=== PATIENT | male | born 1945 | race Caucasian/White ===

== ENCOUNTER 2019-10-15 00:32 | Emergency (ER) | payer MEDICARE, OTHER, SELFPAY ==
--- NOTE | ~2019-10-15 | CT_ITS ---
EXAMINATION: CT abdomen pelvis wo con DATE: 10/15/2019 00:57 INDICATION: Right flank and back pain. TECHNIQUE: Computed tomography (CT) of the abdomen and pelvis was performed without intravenous contr ast. Automated exposure control and iterative reconstruction technique were employed. Exam dose: 114 6.89 mGy-cm total exam DLP. COMPARISON: 10/01/2016 MRI abdomen FINDINGS: There are 2 up to approximately 7 mm gallstones. No gallbladder wall thickening or perichol ecystic fluid or stranding. No bile duct or pancreatic duct dilatation. No hepatic, splenic, pancreat ic or adrenal space-occupying mass lesion. There are bilateral renal cysts, measuring up to 5.3 cm. No urinary tract calculus or hydroureteronep hrosis. There is prominent prostate enlargement. There is diffuse thickening of the urinary bladder wall, whi ch may be due to bladder outlet obstruction secondary to prostate enlargement, underdistention and/or cystitis. The bladder is relatively evacuated. There is extensive aortic, iliac, femoral, celiac, superior mesenteric and bilateral renal calcified atherosclerosis. There is up to 7.5 cm AP dimension infrarenal abdominal aortic aneurysm with interna l curvilinear calcification, possibly due to partial thrombosis; aortic dissection is not excluded. N o apparent periaortic hemorrhage. Surgical consultation is recommended. No bowel obstruction or intraperitoneal free air. Ventral abdominal wall mesh repair. Mild bilateral fat containing inguinal hernias. Diffuse idiopathic skeletal hyperostosis of the lower thoracic spine. There is degenerative disc dise ase of the lumbar and lumbosacral spine, particularly at L4-5 and L5-S1. There is degenerative change at the facet joints the lumbar spine with associated grade 1 anterolisthesis at L4-5. IMPRESSION: Up to 7.5 cm AP dimension infrarenal abdominal aortic aneurysm with internal curvilinear calcification which may be due to thrombosis; aortic dissection cannot be excluded on this noncontra st examination. The abdominal aorta was previously reported at 5.5 cm dimension on 10/01/2016 MRI abdom en examination. Urgent surgical consultation is recommended. Cholelithiasis Bilateral renal cysts The initial interpreting radiologist gave a preliminary report to emergency room physician Dr. Rosas tyson at 0115 hours. Reviewed, dictated and finalized at [facility]. Reviewed, dictated and finalized at location [facility]. ENT BURNER IMPRESSION: Up to 7.5 cm AP dimension infrarenal abdominal aortic aneurysm wit h internal curvilinear calcification which may be due to thrombosis; aortic dis section cannot be excluded on this noncontrast examination. The abdominal aorta was previously reported at 5.5 cm dimension on 10/01/2016 MRI abdomen examinatio n. Urgent surgical consultation is recommended. Cholelithiasis Bilateral renal cysts The initial interpreting radiologist gave a preliminary report to emergency chelly m physician Dr. Maddox at 0115 hours.
[2019-10-15 00:37] VITALS: BP 194/90; PULSE 94; RESP 18; TEMP 36.6; O2SAT 100
--- NOTE | 2019-10-15 00:40 | ED.ABDPAIN ---
HPI - Abdominal Pain General Chief Complaint: Abdominal Pain Stated Complaint: R FLANK PAIN Time Seen by Provider: 10/15/19 00:37 Source: patient and RN notes reviewed Mode of arrival: ambulatory Limitations: no limitations History of Present Illness HPI narrative: Pt is a 73 y/o male who presents to the ED with c/o rt flank pain starting this morning and worsening this evening. He reports nausea and vomiting accompanying his pain, but denies any fever, chills, hematuria, or dysuria. Pt currently rates his pain at 10/10. He denies any recent falls or injuries. Pt states that he has no Hx of kidney stones. MD elicited complaint: flank pain Onset (ago): day(s) (1) Pain Consistency: other (worsening) Location: R flank Pain scale (0-10): 10 Associated symptoms: nausea and vomiting Related Data Home Medications Medication Instructions Recorded Confirmed Men's Multivitamin 1 tablet PO DAILY 10/15/19 10/26/19 aspirin 81 mg PO DAILY 10/15/19 10/26/19 atorvastatin 80 mg PO DAILY 10/15/19 10/26/19 clopidogrel [Plavix] 75 mg PO DAILY 10/15/19 10/26/19 coenzyme Q10 [Co Q-10] 10 mg PO DAILY 10/15/19 10/26/19 hydralazine 50 mg PO TID 10/15/19 10/26/19 isosorbide mononitrate 60 mg PO DAILY 10/15/19 10/26/19 metoprolol tartrate 75 mg PO BID 10/15/19 10/26/19 cholecalciferol (vitamin D3) 125 5,000 unit PO EVERY OTHER DAY cap 11/25/19 mcg (5,000 unit) capsule tamsulosin 0.4 mg capsule 0.4 mg PO DAILY 11/25/19 Allergies Allergy/AdvReac Type Severity Reaction Status Date / Time No Known Allergies Allergy Unknown Unverified 10/15/19 00:46 Review of Systems Review of Systems: All systems reviewed & are unremarkable except as noted in HPI and below Constitutional: Constitutional: Denies chills and Denies fever(s) Gastrointestinal: Gastrointestinal: Reports nausea and Reports vomiting Genitourinary: Genitourinary: Denies hematuria, Denies dysuria and Reports flank pain (rt flank pain) [facility] Past Medical History Medical History (Updated 11/25/19 @ 14:25 by Yevgeniy Castañeda MD) A-fib AAA (abdominal aortic aneurysm) CAD (coronary artery disease) CAP (community acquired pneumonia) CKD (chronic kidney disease) stage 3, GFR 30-59 ml/min CVA (cerebral vascular accident) Gout HTN (hypertension) Surgical History Surgical History Hx of appendectomy Hx of CABG x4 Hx of cardiac catheterization with stent placement Social History Social History Smoking status: Never smoker Alcohol intake: never Substance use: never Gender identity (if verbalized by the patient): Male Spiritual care concerns: No Agree to blood products: Yes Exam Const: General: cooperative, healthy appearing, comfortable, no acute distress, well developed, alert and awake; No confusion Orientation/consciousness: oriented to person, oriented to place, oriented to time, patient oriented x3 and No confusion Limitations: no limitations Chest: Chest palpation & inspection: normal inspection of the chest Resp: Effort & Inspection: normal respiratory effort, able to speak in complete sentences, no respiratory distress and not tachypneic Auscultation: clear to auscultation bilaterally, no crackles, no rales, no rhonchi and no wheezes Cardio: Rate: regular rate Rhythm: regular rhythm GI: Inspection: normal to inspection GI Palp: No abdominal tenderness, Yes Soft to palpation, No Tenderness to palpation present (GI), No Guarding due to palpation present (GI), No Rigid due to palpation and No Rebound tenderness present Auscultation: normal bowel sounds : General: Yes no CVA tenderness Back/Spine/Pelvis: Back: no CVA tenderness Skin: General skin exam: normal color, no rashes or lesions noted, elasticity normal and turgor normal Neuro: General: oriented to person, oriented to place, oriented to time, patient oriented x3, tone normal
[2019-10-15 00:50] LABS: Basophils Percent Auto 0.5 % (0.2-1.2); Eosinophils Absolute Auto 0.2 K/mm3 (0-0.3); Eosinophils Percent Auto 2.1 % (0-4.4); Hematocrit 39.1 % (42.0-52.0); Hemoglobin 12.5 g/dL (14.0-18.0); Immature Granulocyte Absolute 0.02 K/mm3 (0.00-0.031); Immature Granulocyte Percent A 0.2 % (0-0.5); Lymphocytes Absolute Auto 2.48 K/mm3 (0.9-3.2); Mean Corpuscular Hemoglobin 29.5 pg (26-34); Mean Corpuscular Volume 92.2 fl (80-100); Mean Platelet Volume 9.6 fl (7.4-10.4); Monocytes Absolute Auto 0.9 K/mm3 (0.1-0.6); Monocytes Percent Auto 10.9 % (2.6-8.5); Neutrophils Absolute Auto 4.4 K/mm3 (1.3-6.7); Neutrophils Percent Auto 55.3 % (45.5-73.1); Platelet Count Result 215 k/mm3 (150-375); Red Blood Count 4.24 M/mm3 (4.6-6.20); Red Cell Distribution Width 13.6 % (11.5-14.5)
[2019-10-15] MEDS: PROMETHAZINE HCL 25 MG/ML AMPUL 12.5 MG IV PUSH (00:57)
[2019-10-15] MEDS: SODIUM CHLORIDE 0.9% IV 1,000 ML 999 ML IV CONT (00:57)
--- NOTE | 2019-10-15 01:35 | ECG_ITS ---
Measurements Intervals [place] Rate: 76 P: ME: 0 QRS: -61 QRSD: 156 T: 89 QT: 429 QTc: 483 Interpretive Statements SINUS RHYTHM WITH FIRST DEGREE AV BLOCK RIGHT BUNDLE BRANCH BLOCK LEFT ANTERIOR FASCICULAR BLOCK LEFT VENTRICULAR HYPERTROPHY AND ST-T CHANGE BASELINE ARTIFACT- I, II, AVR, AVL, AVF, V1-V6 ABNORMAL ECG Electronically Signed On 10-18-2019 19:05:18 WOOD FLOUR MILLER by Santos Hawkins D.O.
--- NOTE | 2019-10-15 02:20 | PC.NURSE ---
see downtime charting
[2019-10-15 02:26] LABS: Add Urine Microscopic? YES; Appearance Urine Clear (Clear); Bacteria Urine Trace /hpf; Bilirubin Urine Negative (Negative); Blood Urine Negative (Negative); Color Urine Yellow (Yellow); Glucose Urine UA Negative (Negative); Ketones Urine Negative (Negative); Leukocyte Esterase Ur Negative LEU/UL (Negative); Nitrate Urine Negative (Negative); Protein Urine 3+ mg/dL (Negative); RBC Urine 0-2 /hpf (0-2); Specific Grav Ur 1.016 (1.001-1.035); Urobilinogen Urine Negative mg/dL (<2.0); WBC Urine 0-3 /hpf
[2019-10-15 02:35] LABS: Alanine Aminotransferase 26 U/L (4-50); Albumin Level 4.2 g/dL (3.5-5.1); Alkaline Phosphatase 88 U/L (38-126); Aspartate Amino Transferase 25 U/L (17-59); Bilirubin,Total 0.7 mg/dL (0.2-1.3); Blood Urea Nitrogen 31 mg/dL (9-20); Calcium 9.5 mg/dL (8.4-10.2); Carbon Dioxide 20 mmol/L (22-30); Chloride 105 mmol/L (98-107); Estimated CRCL calculation 46 ml/min; Estimated Glomerular Filt Rate 42; Glucose 122 mg/dL (75-110); Lipase 113 U/L (23-300); Potassium 4.1 mmol/L (3.4-5.0); Sodium 141 mmol/L (137-145)
== END 2019-10-15 02:20 | disposition short-term general hospital (02) ==
PROVIDERS: Emergency Provider Emergency Medicine; PCP Family Medicine Adolescent Medicine
DX: R10.9 Unspecified abdominal pain (principal); I48.91 Unspecified atrial fibrillation; I25.10 Atherosclerotic heart disease of native coronary artery without angina pectoris; Z86.73 Personal history of transient ischemic attack (TIA), and cerebral infarction without residual deficits; I10 Essential (primary) hypertension; M10.9 Gout, unspecified; Z95.1 Presence of aortocoronary bypass graft; Z95.5 Presence of coronary angioplasty implant and graft; I44.0 Atrioventricular block, first degree; I45.2 Bifascicular block; R94.31 Abnormal electrocardiogram [ECG] [EKG]; Z79.82 Long term (current) use of aspirin; Z79.02 Long term (current) use of antithrombotics/antiplatelets
CPT/HCPCS: 36415; 74176; 80053; 81001; 83690; 85025; 93005; 96361; 96374; 99285; J1170; J2550; J7030

== ENCOUNTER 2019-10-25 19:42 | Inpatient (IN) | payer MEDICARE, OTHER, SELFPAY ==
[2019-10-25] VITALS (9 sets, daily range): BP systolic 156–180; BP diastolic 72–94; PULSE 98–111; RESP 25–35; TEMP 37.9–39.5; O2SAT 91–96; BMI 31.4
--- NOTE | ~2019-10-25 | XR_ITS ---
XR chest 2V 10/27/2019 10:51 Indication: Shortness of breath with productive cough Procedure: 2 view chest Comparison: 10/25/2019 Findings: Worsening airspace disease left mid and lower lung, compatible with pneumonia. Cardiomegaly . Status post median sternotomy. No pleural effusion or pneumothorax. Impression: 1: Worsening left basilar airspace consolidation, consistent with pneumonia. Reviewed, dictated and finalized at location B. NOGRAPHER GEOLOGICAL Impression: 1: Worsening left basilar airspace consolidation, consistent with pneumonia.
--- NOTE | ~2019-10-25 | US_ITS ---
EXAMINATION: US renal BI DATE: 10/28/2019 09:03 INDICATION: Renal failure TECHNIQUE: Multiple ultrasound grayscale images of the kidneys were obtained. COMPARISON: Renal ultrasound dated 06/24/2016 and abdominal MRI dated 10/11/2016 FINDINGS: The right kidney measures 11.4 x 5.3 x 4.7 cm. The left kidney measures 12.7 x 4.9 x 6.0 cm. The kidn eys demonstrate normal echogenicity. Again seen are multiple bilateral anechoic renal cysts, the larg est measuring up to 4.3 cm and 3.6 cm in maximal diameter at the right kidney and 6.[address] at the left kidney. There is no hydronephrosis in either kidney. No stones identified. The bladde r is normal. IMPRESSION: 1. Bilateral renal cysts. No hydronephrosis. Reviewed, dictated and finalized at location A. TERIA COUNTER ATTENDANT
--- NOTE | ~2019-10-25 | XR_ITS ---
EXAMINATION: XR chest 2V EXAM DATE: 10/25/2019 20:38 INDICATION: Shortness of breath, fever, cough. TECHNIQUE: Frontal and lateral projections of the chest obtained and reviewed. Comparison is made to prior examination from 03/09/2018. FINDINGS: There is ill-defined left multisegmental basilar pneumonia and/or edema. Cardiac silhouett e is enlarged but stable in size compared to prior exam. Sternotomy wires are present without finding s to suggest sternal dehiscence. There is no pneumothorax suspected. Right lung is clear. IMPRESSION: Multi segmental left basilar pneumonia and/or edema. Reviewed, dictated and finalized at location A. TECHNICIAN REGISTERED
--- NOTE | ~2019-10-25 | US_ITS ---
US thyroid INDICATION: Hyperthyroidism TECHNIQUE: Real-time sonographic images of the thyroid gland were obtained. COMPARISON: FINDINGS: The right thyroid lobe measures 4.4 x 1.8 x 1.6 cm. The left thyroid lobe measures 4.3 x 1 .9 x 1.9 cm. There is relatively homogeneous echotexture. There are small hypoechoic nodules of both lobes, largest in the right measuring 5 mm maximum dimension in largest on the left measures 5 mm. IMPRESSION: 1. Multiple small bilateral hypoechoic/cystic nodules measuring 5 mm or less, likely benign. Reviewed, dictated and finalized at location B. CE DEPARTMENT SECRETARY
[2019-10-25 20:21] LABS: Basophils Percent Auto 0.2 % (0.2-1.2); Eosinophils Absolute Auto 0.1 K/mm3 (0-0.3); Eosinophils Percent Auto 1.6 % (0-4.4); Hematocrit 34.2 % (42.0-52.0); Hemoglobin 11.2 g/dL (14.0-18.0); Immature Granulocyte Absolute 0.03 K/mm3 (0.00-0.031); Immature Granulocyte Percent A 0.3 % (0-0.5); Lymphocytes Absolute Auto 0.57 K/mm3 (0.9-3.2); Lymphocytes Percent Auto 6.6 % (18.3-44.2); Mean Corpuscular HGB Conc 32.7 g/dl (32-36); Mean Corpuscular Hemoglobin 29.3 pg (26-34); Mean Corpuscular Volume 89.5 fl (80-100); Mean Platelet Volume 8.6 fl (7.4-10.4); Monocytes Absolute Auto 0.6 K/mm3 (0.1-0.6); Monocytes Percent Auto 7.1 % (2.6-8.5); Neutrophils Absolute Auto 7.3 K/mm3 (1.3-6.7); Neutrophils Percent Auto 84.2 % (45.5-73.1); Platelet Count Result 270 k/mm3 (150-375); Red Blood Count 3.82 M/mm3 (4.6-6.20); Red Cell Distribution Width 13.9 % (11.5-14.5); White Blood Count 8.6 K/mm3 (4.5-10.0)
[2019-10-25 20:33] LABS: Blood Urea Nitrogen 27 mg/dL (9-20); Calcium 8.8 mg/dL (8.4-10.2); Carbon Dioxide 19 mmol/L (22-30); Chloride 102 mmol/L (98-107); Estimated CRCL calculation 52 ml/min; Estimated Glomerular Filt Rate 50; Glucose 129 mg/dL (75-110); Potassium 4.1 mmol/L (3.4-5.0); Sodium 138 mmol/L (137-145)
--- NOTE | 2019-10-25 20:50 | ED.SOB ---
HPI - SOB/Dyspnea General Chief Complaint: Shortness of Breath/Dyspnea Stated Complaint: coughing, fever, sob Time Seen by Provider: 10/25/19 20:30 Source: patient, family ( at bedside) and RN notes reviewed Mode of arrival: ambulatory Limitations: no limitations History of Present Illness HPI Narrative: Pt is a 73 y/o male presenting to the ED c/o SOB. Pt reports he started experiencing SOB last Friday. Pt also reports productive cough with phlegm and subjective fever, but denies N/V, diarrhea, or dysuria. Pt notes he has Hx's of CABG x4 and cardiac stents, but denies Lung problems or a Hx of DM. Pt's at bedside reports the pt was discharged from [facility] after being diagnosed with a AAA last week. Per , the pt has used an inhaler and Mucinex. Pertinent past history: other (CABG x4; Cardiac stents) Onset (ago): day(s) (6) Associated symptoms: fever (Subjective) and cough (Productive with phlegm) Related Data Home Medications Medication Instructions Recorded Confirmed amlodipine 10/15/19 aspirin 81 mg PO DAILY 10/15/19 10/15/19 atorvastatin 10/15/19 cholecalciferol (vitamin D3) 10/15/19 [Dialyvite Vitamin D] clopidogrel [Plavix] 75 mg PO DAILY 10/15/19 10/15/19 coenzyme Q10 [Co Q-10] 10 mg PO ONCE 10/15/19 10/15/19 hydralazine 10/15/19 isosorbide mononitrate mg PO 10/15/19 lisinopril 10/15/19 metoprolol tartrate 75 mg PO Q12H 10/15/19 10/15/19 [id number]-vit K-lycop tablet PO 10/15/19 [Men's Multivitamin] Allergies Allergy/AdvReac Type Severity Reaction Status Date / Time No Known Allergies Allergy Unknown Unverified 10/15/19 00:46 Review of Systems Review of Systems: All systems reviewed & are unremarkable except as noted in HPI and below Constitutional: Constitutional: Reports fever(s) (Subjective) Respiratory: Respiratory: Reports cough (Productive with phlegm) and Reports dyspnea Gastrointestinal: Gastrointestinal: Denies diarrhea, Denies nausea and Denies vomiting Genitourinary: Genitourinary: Denies dysuria PMFSH Past Medical History Medical History (Updated 10/25/19 @ 21:47 by Chris Preston MD) A-fib AAA (abdominal aortic aneurysm) CAD (coronary artery disease) CVA (cerebral vascular accident) Gout HTN (hypertension) Surgical History Surgical History Hx of appendectomy Hx of CABG x4 Hx of cardiac catheterization with stent placement Social History Social History Smoking status: Never smoker Gender identity (if verbalized by the patient): Male Exam Const: General: healthy appearing, no acute distress and well developed Nutritional Appearance: well nourished Orientation/consciousness: patient oriented x3 (alert) and Other orientation findings (Alert) Limitations: no limitations HENMT: Head: normocephalic and atraumatic Ears: external ears normal General nose exam: No nasal discharge present and no epistaxis Face and sinus: face symmetric Mouth: Yes lip normal Eyes: Conjunctivae: conjunctivae normal Sclera: sclerae normal EOM: EOMs intact bilaterally Neck: Neck: full ROM and supple Thyroid: thyroid normal Resp: Effort & Inspection: normal respiratory effort Auscultation: rales bilateral, rhonchi throughout and other (breath sounds equal) Cardio: Rate: tachycardic Rhythm: regular rhythm Heart sounds: no gallops and no murmurs GI: Inspection: non-distended GI Palp: No abdominal tenderness and Yes Soft to palpation Auscultation: other (bowel sounds present) : General: Yes no CVA tenderness Back/Spine/Pelvis: Back: no CVA tenderness Thoracic/Lumbar Spine: thoracic and lumbar spine normal to inspection Skin: General skin exam: normal color and no rashes or lesions noted Neuro: General: patient oriented x3 (alert), moves all extremities and no focal motor deficits Cranial nerves: Yes facial symmetry Speech: normal speech Motor exam (n
[2019-10-25] MEDS: IPRATROPIUM BR 0.02% INH SOLN 0.5 MG/2.5 ML VIAL INHALATION (21:01)
[2019-10-25] MEDS: ALBUTEROL SULFATE NEB 2.5 MG/0.5 ML INH 5 MG INHALATION (21:01)
--- NOTE | 2019-10-25 21:06 | ECG_ITS ---
Measurements Intervals [place] Rate: 98 P: 3 CO: 194 QRS: -56 QRSD: 151 T: 75 QT: 371 QTc: 475 Interpretive Statements SINUS RHYTHM RIGHT BUNDLE BRANCH BLOCK LEFT ANTERIOR FASCICULAR BLOCK BASELINE ARTIFACT- I, III, AVL ABNORMAL ECG Electronically Signed On 10-26-2019 6:41:11 FINANCIAL INVESTMENT ADVISER by Santos Hawkins D.O.
[2019-10-25] MEDS: ACETAMINOPHEN 500 MG TABLET 1000 MG PO (21:21)
[2019-10-25 21:27] LABS: Lactic Acid Reflex 1.3 mmol/L (0.7-2.1)
[2019-10-25 21:36] LABS: NT Pro B Type Natriuretic Pept 5590 PG/ML (5-100)
--- NOTE | 2019-10-25 21:41 | PM.IMHP ---
H&P: HPI History of Present Illness Chief complaint: pneumonia Narrative: This is a pleasant 73 year old male with known CAD+ s/p CABG x 4, #3 stents who just recently underwent repair of an abdominal aortic aneursym this past week at [facility] who began to cough approximately 5 days ago. Today the patient began to experience high fever with a Tmax of 102F, diffuse body aches, increased shortness of breath and work of breathing. The patient was evaluated in the ER tonight and tested negatiave for influenza. CXR demonstarted multi segmental left basilar pneumonia and/or edema. He denies any chest pain, palpitations, abdominal pain, dysuria, hematuria, nausea, vomiting, diarrhea or rectal bleeding. He also denies any worsening groin pain from where he had his surgical incision from his recent procedure. No other complaints tonight. The patient does have increased work of breathing and is now on 5L of oxygen via [place]. ABG has not yet been obtained in the ER. Review of Systems Review of Systems: All systems reviewed & are unremarkable except as noted in HPI and below PMFSH Past Medical History Medical History A-fib AAA (abdominal aortic aneurysm) CAD (coronary artery disease) CVA (cerebral vascular accident) Gout HTN (hypertension) Surgical History Surgical History Hx of appendectomy Hx of CABG x4 Hx of cardiac catheterization with stent placement Family History Family History Mother Diabetes mellitus Sibling Diabetes mellitus Father Acute myocardial infarction Social History Social History Smoking status: Never smoker Alcohol intake: never Substance use: never Gender identity (if verbalized by the patient): Male Spiritual care concerns: No Agree to blood products: Yes Meds Home Medications and Allergies Home Medications Medication Instructions Recorded Confirmed Type aspirin 81 mg PO DAILY 10/15/19 10/26/19 History atorvastatin 80 mg PO DAILY 10/15/19 10/26/19 History cholecalciferol (vitamin D3) 125 mcg PO EVERY OTHER DAY 10/15/19 10/26/19 History [Dialyvite Vitamin D] clopidogrel [Plavix] 75 mg PO DAILY 10/15/19 10/26/19 History coenzyme Q10 [Co Q-10] 10 mg PO DAILY 10/15/19 10/26/19 History hydralazine 50 mg PO TID 10/15/19 10/26/19 History isosorbide mononitrate 60 mg PO DAILY 10/15/19 10/26/19 History lisinopril 30 mg PO BID 10/15/19 10/26/19 History metoprolol tartrate 75 mg PO BID 10/15/19 10/26/19 History [id number]-aqm-[id number]-vit K-lycop 1 tablet PO DAILY 10/15/19 10/26/19 History [Men's Multivitamin] Allergies Allergy/AdvReac Type Severity Reaction Status Date / Time No Known Allergies Allergy Unknown Unverified 10/15/19 00:46 Vital Signs Vital Signs - 24 hr 10/25/19 20:05 10/25/19 20:55 10/25/19 21:01 Temperature 39.1 C H 38.7 C H Pulse Rate 101 H 99 98 Respiratory Rate 25 H 30 H 33 H Blood Pressure 180/94 H 174/88 H Pulse Oximetry 93 91 10/25/19 21:10 10/25/19 21:23 Temperature 38.7 C H Pulse Rate 100 100 Respiratory Rate 28 H 29 H Blood Pressure 156/82 H Pulse Oximetry 93 Exam Const: General: cooperative, alert, awake, anxious and ill appearing Nutritional Appearance: obese Orientation/consciousness: patient oriented x3 HENMT: Head: normal to inspection General nose exam: Normal external nose present Face and sinus: normal facial exam Mouth: Yes Normal oral and palatal mucosa present and Yes oropharynx normal Eyes: Pupils: Equal, round and reactive pupils present EOM: EOMs intact bilaterally Neck: Neck: supple and no JVD Thyroid: thyroid normal Lymphatic: lymphadenopathy not noted Resp: Effort & Inspection: tachypneic Auscultation: rhonchi, wheezes throughout and diminished lung sounds Cardio: Rate: tachyc
[2019-10-25] MEDS: LACTATED RINGERS 1,000 ML 999 ML IV CONT (22:25)
[2019-10-25] MEDS: AZITHROMYCIN 250 MG TABLET 500 MG PO (22:25)
[2019-10-25 23:47] LABS: Alveolar/Arterial O2 Gradient 196.3 mmHg; Base Excess ABG -4.9 mEq/l (+/-2.0); Fractional Inspired Oxygen 40 %; HCO3 ABG 17.6 mEq/l (22.0-26.0); Oxygen Content ABG 15.4 %vol (16.0-22.0); Oxygen Saturation ABG 92.3 % (95.0-100.0); Oxyhemoglobin 89.9 % THb (90.0-100.0); PCO2 ABG 25.9 mmHg (35.0-45.0); PO2 ABG 59.1 mmHg (80.0-100.0); PO2 FiO2 Ratio Arterial Blood 1.48 %; Total Hemoglobin 12.2 g/dL (12.0-18.0)
[2019-10-25 23:48] LABS: Device NASAL CANNULA; Modified Allen's Test Pass; Site Drawn RIGHT RADIAL
[2019-10-26] VITALS (28 sets, daily range): BP systolic 98–134; BP diastolic 47–76; PULSE 62–100; RESP 18–28; TEMP 36.7–39.2; O2SAT 93–99
--- NOTE | 2019-10-26 00:31 | ADMGEN ---
This patient, Jose Carballo, was admitted to [facility] Surg Room 328-01. Patient/family oriented to hospital policies and general routines including ID bracelet, bed and alarms, visiting hours, pain management, procedures, bathroom and other care routines, personal items, smoking policy, room service/diet, and visiting hours. Valuables list has been completed. Information on how to activate the Rapid Response Team has been discussed. Patient/Family are encouraged to report perceived risks to care and to ask questions if they do not understand what they are told or what they should do.
[2019-10-26] MEDS: ACETAMINOPHEN 325 MG TABLET 650 MG PO (00:55)
[2019-10-26] MEDS: ALBUTEROL SULFATE NEB 2.5 MG/0.5 ML INH 5 MG INHALATION (04:24)
[2019-10-26] MEDS: IPRATROPIUM BR 0.02% INH SOLN 0.5 MG/2.5 ML VIAL INHALATION ×4 (04:24→21:42)
--- NOTE | 2019-10-26 05:10 | ECG_ITS ---
Measurements Intervals [place] Rate: 90 P: 7 ME: 197 QRS: -52 QRSD: 159 T: 103 QT: 410 QTc: 504 Interpretive Statements SINUS RHYTHM RIGHT BUNDLE BRANCH BLOCK LEFT ANTERIOR FASCICULAR BLOCK LEFT VENTRICULAR HYPERTROPHY AND ST-T CHANGE BASELINE ARTIFACT- V3 ABNORMAL ECG Electronically Signed On 10-26-2019 9:01:46 DISPLAY COORDINATOR by Santos Hawkins D.O.
--- NOTE | 2019-10-26 05:10 | PC.NURSE ---
notified that pt's HR is elevated(140's-180's). States he will come and assess pt. Orders received and entered.
--- NOTE | 2019-10-26 05:30 | PC.NURSE ---
Transferred to room 206. Report given to Izzy FLOOD.
--- NOTE | 2019-10-26 05:40 | ECHO_ITS ---
Patient Info Name: Jose Carballo Age: 73 years : 1945 Gender: Male Ht: 71 in Wt: 225 lbs BSA: 2.29 m2 HR: 82 bpm BP: 134 / 76 mmHg Heart Rhythm: Indeterminant Technical Quality: Good Exam Date: 10/26/2019 9:36 AM Exam Location: [facility] Pulmonary Patient Status: Inpatient Admit Date: 10/25/2019 Staff Ordering Physician: Tor Bose MD Reed Repairer: Stephan Nagel RDCS Attending Provider: Irene Kang PA-C Referring Physician: Lidya HUSSEIN; Exam Type: CA echo dop color flow w con Study Info Indications I48.0 - Paroxysmal atrial fibrillation Complete two-dimensional, color flow and Doppler transthoracic echocardiogram is performed with contrast to opacify the left ventrical and to improve the deliniation of the left ventrical endocarial boarders. Contrast/Agitated Saline Contrast/Ag. Saline: Definity Amount: 2.00 ml Administered By: Lou Correa RN Existing IV Access: Yes History/Risk Factors Afib w/ RVR; CAD s/p 4vCABG, HTN, CHF w/ BNP 15.6k. Summary 1. Left ventricular chamber dimension is mildly enlarged with mild concentric left ventricular hypertrophy. There is moderate global hypokinesis with akinesis of the basal inferior septum, and severe hypokinesis of the apex, apical septal and apical lateral segments. Diastolic dysfunction grade 2 is present. The calculated ejection fraction is 34% an estimated ejection fraction visually is 35 %. 2. Right ventricular chamber dimension is mildly enlarged with mild hypokinesis. Not well visualized. 3. Left atrial chamber dimension is moderately enlarged. 4. There is mild mitral valve regurgitation. 5. There is moderate tricuspid valve regurgitation. 6. Mild pulmonary hypertension, estimated pulmonary arterial systolic pressure is 37 mmHg. 7. Compared to the echo of April 2016, there is now LV enlargement and apical hypokinesis. Left Ventricle Left ventricular chamber dimension is mildly enlarged with mild concentric left ventricular hypertrophy. There is moderate global hypokinesis with akinesis of the basal inferior septum, and severe hypokinesis of the apex, apical septal and apical lateral segments. Diastolic dysfunction grade 2 is present. The calculated ejection fraction is 34% an estimated ejection fraction visually is 35 %. Left ventricular systolic function is normal, estimated at 35-40%. There is mildly increased left ventricular wall thickness. Left ventricular septal wall motion is normal. The left ventricular diastolic function is grade II diastolic dysfunction. Right Ventricle Right ventricular chamber dimension is mildly enlarged with mild hypokinesis. Not well visualized. Right ventricular systolic function is reduced. Left Atria Left atrial chamber dimension is moderately enlarged. Right Atria Right atrial chamber dimension is normal. Aortic Valve The aortic valve is trileaflet. There is no aortic valve sclerosis. There is no aortic valve stenosis. There is no aortic valve regurgitation. There is mild aortic valve calcification. Pulmonic Valve The pulmonic valve is normal. There is no pulmonic valve stenosis. There is no pulmonic regurgitation. Mitral Valve The mitral valve has normal leaflets. There is no mitral valve stenosis. There is mild mitral valve regurgitation. Tricuspid Valve The tricuspid valve leaflets are normal. There is no significant tricuspid valve stenosis. There is moderate tricuspid
--- NOTE | 2019-10-26 05:41 | PM.EVENT ---
Event Note Event Note Event Note: Called to assess this 73 year old male who is being treated for acute respiratory failure and pneumonia by nursing staff secondary to tachycardia. EKG obtained which demonstrated atrial fibrillation w/ RVR w/ HR 133 bpm. The patient continues to have a hacking cough and shortness of breath but denies any chest pain or new symptoms. The patient was transferred to IMU for further care. A/P 1. Acute on Chronic Atrial fibrillation w/ RVR - CHADSVASc score 5 - Last Echo was 4 years ago and demonstrated an EF of 40%. - We will rate control the patient w/ IV Cardizem bolus and drip - Check TSH w/ refelx T4 and Echocardiogram. - Anticoagulation w/ IV heparin - Continue Telemetry - Change Albuterol to Xopenex nebs - Cardiology consultation in am. The patient sees Dr. Burch - I will reassess as needed.
[2019-10-26 06:08] LABS: Basophils Percent Auto 0.2 % (0.2-1.2); Hematocrit 32.5 % (42.0-52.0); Hemoglobin 10.7 g/dL (14.0-18.0); Immature Granulocyte Absolute 0.03 K/mm3 (0.00-0.031); Immature Granulocyte Percent A 0.3 % (0-0.5); Lymphocytes Percent Auto 9.5 % (18.3-44.2); Mean Corpuscular HGB Conc 32.9 g/dl (32-36); Mean Corpuscular Hemoglobin 29.5 pg (26-34); Mean Corpuscular Volume 89.5 fl (80-100); Mean Platelet Volume 8.5 fl (7.4-10.4); Monocytes Percent Auto 8.3 % (2.6-8.5); Neutrophils Absolute Auto 9.4 K/mm3 (1.3-6.7); Neutrophils Percent Auto 81.7 % (45.5-73.1); Platelet Count Result 220 k/mm3 (150-375); Red Blood Count 3.63 M/mm3 (4.6-6.20); Red Cell Distribution Width 14.1 % (11.5-14.5); White Blood Count 11.6 K/mm3 (4.5-10.0)
[2019-10-26] MEDS: GUAIFENESIN/DEXTROMETHORPHAN 10 ML UDC PO ×2 (06:14→20:06)
[2019-10-26 06:18] LABS: INR 1.1; Prothrombin Time 14.1 Seconds (11.1-14.7)
[2019-10-26 06:19] LABS: Partial Thromboplastin Time 33.8 SECONDS (22.3-36.8)
[2019-10-26 06:31] LABS: Alveolar/Arterial O2 Gradient 260.7 mmHg; Base Excess ABG -4.3 mEq/l (+/-2.0); Fractional Inspired Oxygen 52 %; HCO3 ABG 18.1 mEq/l (22.0-26.0); Oxygen Content ABG 16.2 %vol (16.0-22.0); Oxygen Saturation ABG 96.7 % (95.0-100.0); PO2 ABG 80.9 mmHg (80.0-100.0); PO2 FiO2 Ratio Arterial Blood 1.56 %; Total Hemoglobin 12.1 g/dL (12.0-18.0)
[2019-10-26 06:32] LABS: Device HIGH FLOW NASAL CANN; Modified Allen's Test Pass; Site Drawn RIGHT RADIAL
[2019-10-26 06:34] LABS: Blood Urea Nitrogen 30 mg/dL (9-20); Calcium 8.4 mg/dL (8.4-10.2); Carbon Dioxide 19 mmol/L (22-30); Chloride 99 mmol/L (98-107); Estimated CRCL calculation 40 ml/min; Estimated Glomerular Filt Rate 37; Glucose 91 mg/dL (75-110); Sodium 136 mmol/L (137-145)
[2019-10-26 07:09] LABS: NT Pro B Type Natriuretic Pept 15600 PG/ML (5-100)
[2019-10-26] MEDS: MAGNESIUM SULFATE 3GM/D5W100ML 3 GM/100 ML BAG IVPB (08:12)
[2019-10-26] MEDS: HEPARIN SODIUM 5,000 UNITS/ML VIAL 7000 UNITS IV PUSH (08:26)
[2019-10-26] MEDS: HEPARIN SOD/D5W 100 UNITS/ML 25,000 UNITS/250 ML BAG 15 UNITS IV CONT (08:26)
--- NOTE | 2019-10-26 08:26 | PM.CNCAR ---
Assessment and Plan Assessment and plan (1) Pneumonia: Qualifiers: Laterality: unspecified laterality Lung location: unspecified part of lung Pneumonia type: due to unspecified organism Qualified Code(s): J18.9 - Pneumonia, unspecified organism Code(s): J18.9 - Pneumonia, unspecified organism Status: Acute Assessment and Plan: 73-year-old male with CAD, history of remote CABG x2 with CLEMONS to LAD and SVG to diagonal branch in ?1995; history of PCI/stenting ? Left main, clemons/lad anastomosis; PAF, CKD, recent diagnosis of infrarenal AAA status post EVAR on 10/15/2019 at [facility], postprocedure atrial fibrillation. Patient admitted about 1 week history of cough, expectoration, respiratory distress, fever/chills. Influenza testing Sineff and negative in the ER. -continue appropriate antibiotics as per primary team. -respiratory support, supplemental oxygen as needed (2) Acute respiratory failure with hypoxemia: Code(s): J96.01 - Acute respiratory failure with hypoxia Status: Acute Assessment and Plan: See above (3) CHF exacerbation: Code(s): I50.9 - Heart failure, unspecified Status: Acute Assessment and Plan: Patient has known ischemic cardiomyopathy with last documented EF of 40% with segmental wall motion abnormality. He presents with acute on chronic CHF in the setting of respiratory tract infection. Diuresis with furosemide, monitor electrolytes and renal function. Patient is at an unusual dose of lisinopril at 30 mg p.o. b.i.d.. Due to patient's renal insufficiency, will decrease the dose of lisinopril to 10 mg p.o. daily, dose to be modified later. (4) Troponin level elevated: Code(s): R79.89 - Other specified abnormal findings of blood chemistry Status: Acute Assessment and Plan: Patient has elevated 1st set of troponins. Troponin elevation is in the setting of pneumonia and CHF. Trend troponins Check echocardiogram with Doppler to reassess LV function, wall motion and any progression of aortic stenosis. (5) Atrial fibrillation with RVR: Code(s): I48.91 - Unspecified atrial fibrillation Status: Acute Assessment and Plan: Patient had atrial fibrillation with RVR this morning, heart rate controlled with IV diltiazem. At the time of dictation of this note, patient went back to sinus rhythm. Will wean off IV diltiazem. Continue oral beta-joan. Patient has been on dual antiplatelet therapy with aspirin and clopidogrel; and not on anticoagulation for atrial fibrillation. He has been initiated on IV heparin for now. Would recommend apixaban plus single antiplatelet treatment at discharge, unless anticoagulation in the past was deemed to be contraindicated. Patient does not recall any major adverse events to anticoagulation in the past at this time. (6) S/P AAA repair: Code(s): Z98.890 - Other specified postprocedural states; Z86.79 - Personal history of other diseases of the circulatory system Status: Acute History of Present Illness History of Present Illness Consult date/time: 10/26/19 08:26 DATE OF CONSULT: 10/26/2019 REASON FOR CONSULT: Shortness of breath, troponin elevation, CAD COSTING PHYSICIAN:Dr Bose CHIEF COMPLAINT: Cough, shortness of breath for approximately 1 week HPI: 73-year-old male with CAD, history of remote CABG x2 with CLEMONS to LAD and SVG to diagonal branch in ?1995; history of PCI/stenting ? Left main, clemons/lad anastomosis; PAF, CKD, recent diagnosis of infrarenal AAA status post EVAR on 10/15/2019 at [facility], postprocedure atrial fibrillation. Patient was recently hospitalized at [facility] with infrarenal AAA with a diameter of 7.2 cm with impending rupture. He underwent successful EVAR on 10/15/2019. Based on my review of the notes from [facility], patient had brief postop atrial fibrillation with heart rate in 140s which was reverted
[2019-10-26] MEDS: ASPIRIN 81 MG CHEWABLE TABLET PO (08:51)
[2019-10-26] MEDS: CHOLECALCIFEROL 1,000 UNIT TABLET 5000 UNITS PO (08:52)
[2019-10-26] MEDS: lisinopriL 10 MG TABLET 30 MG PO (08:53)
[2019-10-26] MEDS: CLOPIDOGREL BISULFATE 75 MG TABLET PO (08:53)
[2019-10-26] MEDS: THERAPEUTIC MULTIVITAMINS/MINERALS TAB (*BKC) 1 TABLET PO (08:53)
[2019-10-26] MEDS: hydrALAZINE HCL 50 MG TABLET PO ×2 (08:53→11:04)
[2019-10-26] MEDS: METOPROLOL TARTRATE 25 MG TABLET 75 MG PO ×2 (08:53→20:06)
[2019-10-26] MEDS: ATORVASTATIN 40 MG TABLET 80 MG PO (08:53)
[2019-10-26] MEDS: ISOSORBIDE MONONITRATE 60 MG TAB.ER.24H PO (08:53)
[2019-10-26 09:10] LABS: Thyroid Stimulating Hormone Reflex < 0.015 uIU/mL (0.465-4.68)
[2019-10-26] MEDS: PERFLUTREN LIPID MICROSPHERES 1.5 ML VIAL DILUTED TO 10 ML TOTAL VOLUME IV PUSH (09:55)
[2019-10-26] MEDS: FUROSEMIDE 40 MG TABLET PO ×2 (11:04→17:38)
[2019-10-26 11:19] LABS: Free T4 Free Thyroxine Reflex 4.52 ng/dL (0.78-2.19)
[2019-10-26] MEDS: methiMAzole 5 MG TAB PO (14:19)
[2019-10-26] MEDS: PERFLUTREN LIPID MICROSPHERES 1.5 ML VIAL DILUTED TO 10 ML TOTAL VOLUME (14:22)
[2019-10-26 15:23] LABS: Magnesium 1.8 mg/dL (1.6-2.3)
[2019-10-26 15:24] LABS: Partial Thromboplastin Time 140.2 SECONDS (22.3-36.8)
[2019-10-26] MEDS: AZITHROMYCIN 250 MG TABLET 500 MG PO (17:30)
[2019-10-26] MEDS: MAGNESIUM SULF 2 GM/WATER 50ML 2 GM/50 ML BAG IVPB (17:30)
--- NOTE | 2019-10-26 17:39 | PM.IMPN ---
Progress Note: A&P Assessment and Plan (1) Acute respiratory failure with hypoxemia: Code(s): J96.01 - Acute respiratory failure with hypoxia Status: Acute Assessment and Plan: The patient was admitted into the hospital on 5L of oxygen via NC. Throughout the night the patient became more short of breath and was placed on high flow nasal cannula at 50%FIO2. His ABG improved his oxygenation with the high-flow nasal cannula. He was started on IV antibiotics and oral Lasix and throughout the day the patient's breathing improved. At this time the patient is resting comfortably on room air. We will continue treatment of pneumonia with IV antibiotics and possible fluid overload with oral Lasix as ordered by cardiology. Pulmonology was consulted and her input is greatly appreciated. Will recheck a CXR in the morning to look for any improvement. Continue monitoring patient's respiratory status. Use oxygen as needed. (2) Pneumonia: Qualifiers: Laterality: unspecified laterality Lung location: unspecified part of lung Pneumonia type: due to unspecified organism Qualified Code(s): J18.9 - Pneumonia, unspecified organism Code(s): J18.9 - Pneumonia, unspecified organism Status: Acute Assessment and Plan: Likely viral pneumonia verses hospital-acquired due to recent surgery and hospitalization at [place]. The patient was initially started on IV Ceftriaxone and PO Azithromycin to monitor his fluid status. I also started IV Vancomycin for broader spectrum of coverage for Hospital acquired PNA. Sputum culture was sent. Checking Legionella and pneumococcal antigen, pending. Continue monitoring respiratory status. Treat with IV antibiotics. Continue bronchodilators. RT assess and treat. (3) Febrile illness: Code(s): R50.9 - Fever, unspecified Status: Acute Assessment and Plan: Could be secondary to underlying pneumonia. Continue antipyretics and supportive therapy. (4) Sepsis: Qualifiers: Sepsis acute organ dysfunction status: without acute organ dysfunction Sepsis type: sepsis due to unspecified organism Qualified Code(s): A41.9 - Sepsis, unspecified organism Code(s): A41.9 - Sepsis, unspecified organism Status: Acute Assessment and Plan: Source of sepsis appears to be respiratory with increased respiratory rate, fever, leukocytosis in the clinical setting of pneumonia Lactic acid was 1.3 which is normal. Vital signs are much improved since this afternoon. He has been afebrile since 1:00 a.m., non tachycardic in normal sinus rhythm, normal respiratory rate, oxygenation 95% on room air, normal BP and leukocytosis slightly elevated this morning which could have been secondary to acute respiratory failure. Continue monitoring patient's vitals and symptoms. Continue IV antibiotics. Blood and sputum cultures pending. (5) A-fib: Qualifiers: Atrial fibrillation type: unspecified Qualified Code(s): I48.91 - Unspecified atrial fibrillation Code(s): I48.91 - Unspecified atrial fibrillation Status: Chronic Assessment and Plan: The patient went into AFib RVR this morning. The patient was started on an IV diltiazem drip. Cardiology evaluated the patient today and continue beta joan and ASA therapy. The patient converted back into NSR early this morning. (6) HTN (hypertension): Qualifiers: Hypertension type: unspecified Qualified Code(s): I10 - Essential (primary) hypertension Code(s): I10 - Essential (primary) hypertension Status: Chronic Assessment and Plan: Stable. Monitor blood pressure. Continue metoprolol and cardiology discontinued amlodipine
[2019-10-26 17:50] LABS: Erythrocyte Sedimentation Rate 79 mm/hr (0-20)
[2019-10-26 18:00] LABS: CRP 24.3 mg/dL (<1.0)
[2019-10-26 22:29] LABS: Partial Thromboplastin Time 73.3 SECONDS (22.3-36.8)
[2019-10-27] VITALS (22 sets, daily range): BP systolic 116–136; BP diastolic 45–74; PULSE 64–94; RESP 18–20; TEMP 36.6–36.8; O2SAT 93–97
[2019-10-27] MEDS: IPRATROPIUM BR 0.02% INH SOLN 0.5 MG/2.5 ML VIAL INHALATION ×4 (03:46→21:42)
[2019-10-27 04:42] LABS: Basophils Percent Auto 0.3 % (0.2-1.2); Eosinophils Absolute Auto 0.1 K/mm3 (0-0.3); Eosinophils Percent Auto 0.7 % (0-4.4); Hematocrit 28.3 % (42.0-52.0); Hemoglobin 9.2 g/dL (14.0-18.0); Immature Granulocyte Absolute 0.15 K/mm3 (0.00-0.031); Immature Granulocyte Percent A 1.1 % (0-0.5); Lymphocytes Absolute Auto 1.58 K/mm3 (0.9-3.2); Lymphocytes Percent Auto 11.1 % (18.3-44.2); Mean Corpuscular HGB Conc 32.5 g/dl (32-36); Mean Corpuscular Hemoglobin 29.1 pg (26-34); Mean Corpuscular Volume 89.6 fl (80-100); Monocytes Percent Auto 6.8 % (2.6-8.5); Neutrophils Absolute Auto 11.4 K/mm3 (1.3-6.7); Platelet Count Result 206 k/mm3 (150-375); Red Blood Count 3.16 M/mm3 (4.6-6.20); Red Cell Distribution Width 14.3 % (11.5-14.5); White Blood Count 14.2 K/mm3 (4.5-10.0)
[2019-10-27 04:58] LABS: Partial Thromboplastin Time 68.5 SECONDS (22.3-36.8)
[2019-10-27 05:06] LABS: Alanine Aminotransferase 31 U/L (4-50); Albumin Level 3.4 g/dL (3.5-5.1); Alkaline Phosphatase 59 U/L (38-126); Aspartate Amino Transferase 27 U/L (17-59); Bilirubin,Total 0.7 mg/dL (0.2-1.3); Blood Urea Nitrogen 38 mg/dL (9-20); Calcium 8.1 mg/dL (8.4-10.2); Carbon Dioxide 18 mmol/L (22-30); Chloride 99 mmol/L (98-107); Estimated CRCL calculation 30 ml/min; Estimated Glomerular Filt Rate 27; Glucose 108 mg/dL (75-110); Magnesium 2.4 mg/dL (1.6-2.3); Potassium 3.9 mmol/L (3.4-5.0); Sodium 130 mmol/L (137-145)
[2019-10-27] MEDS: HEPARIN SOD/D5W 100 UNITS/ML 25,000 UNITS/250 ML BAG 14 UNITS IV CONT (05:17)
[2019-10-27] MEDS: HEPARIN SODIUM 5,000 UNITS/ML VIAL 3500 UNITS IV PUSH ×2 (05:19→18:00)
--- NOTE | 2019-10-27 07:47 | P.CDI_ITS ---
CDI Query Clarification Request -CHF exacerbation has been documented -Echo with calculated EF 34% and visual EF 35%, diastolic dysfunction grade 2 Please further specify type of CHF: * Systolic * Diastolic * Combined systolic and diastolic * Unable to determine
--- NOTE | 2019-10-27 07:47 | WPDCDIQUERY2 ---
CDI Query Clarification Request -CHF exacerbation has been documented -Echo with calculated EF 34% and visual EF 35%, diastolic dysfunction grade 2 Please further specify type of CHF: Systolic Diastolic Combined systolic and diastolic Unable to determine
[2019-10-27] MEDS: ISOSORBIDE MONONITRATE 60 MG TAB.ER.24H PO (08:35)
[2019-10-27] MEDS: ATORVASTATIN 40 MG TABLET 80 MG PO (08:35)
[2019-10-27] MEDS: METOPROLOL TARTRATE 25 MG TABLET 75 MG PO ×2 (08:35→20:34)
[2019-10-27] MEDS: hydrALAZINE HCL 50 MG TABLET PO ×3 (08:35→17:31)
[2019-10-27] MEDS: CLOPIDOGREL BISULFATE 75 MG TABLET PO (08:35)
[2019-10-27] MEDS: methiMAzole 5 MG TAB PO (08:35)
[2019-10-27] MEDS: THERAPEUTIC MULTIVITAMINS/MINERALS TAB (*BKC) 1 TABLET PO (08:36)
[2019-10-27] MEDS: lisinopriL 10 MG TABLET PO (08:36)
[2019-10-27] MEDS: TAMSULOSIN HCL 0.4 MG CAPSULE PO (08:41)
[2019-10-27] MEDS: ASPIRIN 81 MG CHEWABLE TABLET PO (08:41)
--- NOTE | 2019-10-27 11:21 | PM.IMPN ---
Progress Note: A&P Assessment and Plan (1) Acute respiratory failure with hypoxemia: Code(s): J96.01 - Acute respiratory failure with hypoxia Status: Acute Assessment and Plan: The patient was admitted into the hospital on 5L of oxygen via NC. Throughout the night the patient became more short of breath and was placed on high flow nasal cannula at 50%FIO2. His ABG improved his oxygenation with the high-flow nasal cannula. He was started on IV antibiotics and oral Lasix and throughout the day the patient's breathing improved. At this time, the patient is resting comfortably on room air without any SOB or CHAMBERS. We will continue treatment of pneumonia with IV antibiotics. We discontinued PO Lasix due to rise in creatinine with history of CKD. Pulmonology was consulted and their input is greatly appreciated. Continue monitoring patient's respiratory status. Use oxygen as needed. (2) Pneumonia: Qualifiers: Laterality: unspecified laterality Lung location: unspecified part of lung Pneumonia type: due to unspecified organism Qualified Code(s): J18.9 - Pneumonia, unspecified organism Code(s): J18.9 - Pneumonia, unspecified organism Status: Acute Assessment and Plan: Likely viral pneumonia verses hospital-acquired due to recent surgery and hospitalization at [place]. The patient was initially started on IV Ceftriaxone and PO Azithromycin to monitor his fluid status. I also started IV Vancomycin 10/26/2019 for broader spectrum of coverage for Hospital acquired PNA. Sputum culture was sent and currently shows growth of normal respiratory max. Checking Legionella and pneumococcal antigen, pending. Patients leukocytosis increased today from 11.6K to 14.2K. No recorded fevers, respiratory status overall improved from arrival. CXR showed left basilar airspace consolidation, consistent with pneumonia. This could be secondary to a delay in CXR and patients clinical status. At this time, he is on broad spectrum antibiotics. Pulmonologyw as consulted and their input is greatly appreciated for any further adjustments. Started on Cornet and Incentive spirometer. Continue monitoring respiratory status. Treat with IV antibiotics. Continue bronchodilators. RT assess and treat. (3) ARTEMIO (acute kidney injury): Code(s): N17.9 - Acute kidney failure, unspecified Status: Acute Assessment and Plan: History of CKD stage 3 Cardiology started the patient on oral Lasix 40 mg p.o. b.i.d. and adjusted his lisinopril to 10 mg daily instead of 30 mg b.i.d. yesterday. Today, the patient had an increase to his Cr/BUN today and family is concerned since Dr. Sanchez Neph[facility] has been following him and would like him consulted to see what medications should be adjusted with his ARTEMIO. Will discontinue lasix, monitor renal function. Consult Nephrology. (4) Febrile illness: Code(s): R50.9 - Fever, unspecified Status: Acute Assessment and Plan: Could be secondary to underlying pneumonia. Continue antipyretics and supportive therapy. (5) Sepsis: Qualifiers: Sepsis acute organ dysfunction status: without acute organ dysfunction Sepsis type: sepsis due to unspecified organism Qualified Code(s): A41.9 - Sepsis, unspecified organism Code(s): A41.9 - Sepsis, unspecified organism Status: Acute Assessment and Plan: Source of sepsis appears to be respiratory with increased respiratory rate, fever, leukocytosis in the clinical setting of pneumonia Lactic acid was 1.3 which is normal. Vital signs are much improved since this afternoon. He has been afebrile for over 24 hours, non tachycardic in normal sinus rhythm, normal respiratory rate, oxygenation 97% on room air, normal B
[2019-10-27 11:50] LABS: Partial Thromboplastin Time 78.6 SECONDS (22.3-36.8)
--- NOTE | 2019-10-27 12:05 | PM.PNCARD ---
Progress Note: A&P Additional Plan 73-year-old gentleman with: Ischemic heart disease complex history of surgical and percutaneous revascularization and ischemic cardiomyopathy with ejection fraction 30-35% Paroxysmal atrial fib previously was postoperative and anticoagulation/anti arrhythmic agent was stopped. Currently in sinus rhythm on metoprolol. I would not alter any of his medications today. If he has recurrences of atrial fib during this hospitalization and I would elect to resume amiodarone treatment which was effective in the past we had stopped it about a year ago in hopes of him not needing ongoing antiarrhythmic treatment. If he does have recurrences of atrial fib that we have to treat then I would also start oral anticoagulation and stop aspirin. Time Spent With Patient Time with patient: 15 - 25 minutes Subjective Date/time seen: Date of service: 10/27/19 12:05 Interval history: Follow-up visit with the patient with complex history of coronary artery disease, previous CABG, previous complex PCI and paroxysmal AFib. Patient has ischemic cardiomyopathy with current echo showing ejection fraction 30-35%. Recent emergent endovascular aortic repair of impending rupture of AAA Patient is comfortable at the bedside chair eating his lunch in visiting with family. Exam Const: General: comfortable and no acute distress HENMT: Mouth: Yes moist mucous membranes Eyes: Sclera: sclerae normal Pupils: Equal, round and reactive pupils present Neck: Neck: supple Thyroid: thyroid normal Resp: Effort & Inspection: normal respiratory effort Other: Coarse rhonchorous breath sounds in both lung garay Cardio: Rate: regular rate Rhythm: regular rhythm GI: Auscultation: normal bowel sounds Skin: General skin exam: normal color Neuro: Cognition (Neuro): normal cognition Extrem: General: normal to inspection Objective Data Vital Signs Vital Signs: Vital Signs - 24 hr 10/26/19 13:30 10/26/19 14:00 10/26/19 14:33 Temperature 36.8 C Pulse Rate 74 71 78 Respiratory Rate 20 20 Blood Pressure 98/47 L Pulse Oximetry 97 10/26/19 14:44 10/26/19 16:00 10/26/19 17:39 Temperature 36.8 C Pulse Rate 76 88 Respiratory Rate 20 28 H Blood Pressure 103/71 127/61 Pulse Oximetry 95 10/26/19 18:00 10/26/19 19:56 10/26/19 20:00 Temperature 36.7 C Pulse Rate 81 75 71 Respiratory Rate 20 Blood Pressure 116/51 L Pulse Oximetry 97 10/26/19 20:06 10/26/19 21:42 10/26/19 21:48 Temperature Pulse Rate 62 75 75 Respiratory Rate 18 18 Blood Pressure Pulse Oximetry 97 10/26/19 21:54 10/26/19 22:00 10/26/19 23:15 Temperature 37.2 C Pulse Rate 76 73 73 Respiratory Rate 18 18 Blood Pressure 118/56 L Pulse Oximetry 96 10/27/19 00:00 10/27/19 02:00 10/27/19 03:47 Temperature Pulse Rate 66 75 75 Respiratory Rate 18 Blood Pressure Pulse Oximetry 10/27/19 03:50 10/27/19 04:00 10/27/19 06:00 Temperature 36.7 C Pulse Rate 76 76 81 Respiratory Rate 18 18 Blood Pressure 116/45 L Pulse Oximetry 97 10/27/19 08:00 10/27/19 08:35 10/27/19 09:07 Temperature 36.6 C Pulse Rate 82 77 83 Respiratory Rate 20 18 Blood Pressure 136/74 Pulse Oximetry 97 95 10/27/19 09:18 10/27/19 10:00 Temperature Pulse Rate 84 78 Respiratory Rate 18 Blood Pressure Pulse Oximetry Intake/Output Intake/Output: Intake & Output 10/24/19 10/25/19 10/26/19 10/27/19 23:59 23:59 23:59 23:59 Intake Total 150 3618.1 590 Output Total 251 600 Balance 150 3367.1 -10 Meds/Results Medications: Active Medications Generic Name Dose Route Start Last Admin Trade Name Freq PRN Reason Stop Dose Admin Acetaminophen 650 mg 10/25/19 21:58 Tylenol Tablet PO Q4H PRN Mild Pain (1-3) or Fever Aspirin 81 mg 10/26/19 08:00 10/27/19 08:41 Aspirin Chewable PO 81 mg DAILY@0800 DELROY Administration Atorvastatin Calcium 80 mg
[2019-10-27] MEDS: GUAIFENESIN/DEXTROMETHORPHAN 10 ML UDC PO ×2 (12:47→23:59)
--- NOTE | 2019-10-27 16:48 | PM.CNNEP ---
Assessment and Plan Assessment and plan (1) CKD (chronic kidney disease) stage 3, GFR 30-59 ml/min: Code(s): N18.3 - Chronic kidney disease, stage 3 (moderate) Status: Acute Assessment and Plan: Jose has chronic kidney disease stage 3. He has been followed in the office for this. This is likely due to hypertension and vascular disease. His baseline creatinine seems to run between 1.4 and 1.6 which is where he was on admission. (2) ARTEMIO (acute kidney injury): Code(s): N17.9 - Acute kidney failure, unspecified Status: Acute Assessment and Plan: The patient has acute kidney injury. He has multiple issues which might lead to this: He has pneumonia. This is only viral but still he did have signs of sepsis syndrome and so could have systemic manifestations which might include a rise in creatinine. He is on antibiotics. It is a bit early in the course of things for him to have such showed dramatic rise in his creatinine if it was due to antibiotics. He is on vancomycin. If he received vancomycin at [place] when he had his stent placed, then his kidneys might have been sensitized to that and have an earlier rise in the creatinine than expected. He has atrial fibrillation with rapid ventricular rate. His rate is controlled today but he was having trouble earlier. This can lead to pre renal factors which might make his creatinine higher. He had recent dye with the aneurysm stent placement. However usually this would have happen sooner. Cholesterol emboli could always happen however he does not have any stigmata of this in his feet. Rhabdomyolysis is always a possibility. We will check a CK (3) A-fib: Qualifiers: Atrial fibrillation type: unspecified Qualified Code(s): I48.91 - Unspecified atrial fibrillation Code(s): I48.91 - Unspecified atrial fibrillation Status: Chronic Assessment and Plan: The patient has good rate control with this now. (4) HTN (hypertension): Qualifiers: Hypertension type: unspecified Qualified Code(s): I10 - Essential (primary) hypertension Code(s): I10 - Essential (primary) hypertension Status: Chronic Assessment and Plan: His blood pressure is under good control. History of Present Illness Reason for Consult Consult date: 10/27/19 Chief Complaint Chief complaint: pneumonia History of Present Illness Narrative: Jose is a very pleasant 73-year-old gentleman who has multiple medical problems including coronary disease status post stents and also had a bypass in the past, peripheral vascular disease status post very recent aortic aneurysm stent placement, history of stroke in the past, history of appendectomy hyperlipidemia, hypertension. The patient was recently at [facility] toward the end of September. He when with back pain and was found to have an aneurysm which was about to rupture according to what they told him. They placed a stent emergently and the patient did well. After discharge the patient went home and developed cough and shortness of breath. He went to [place] emergency room. He was diagnosed with acute respiratory failure. They gave him oxygen and supportive care with antibiotics. He had clinical scenario consistent with sepsis as well. Fibrillation. He has been treated with aspirin therapy. He is currently on a heparin drip. He sees me in the office for chronic kidney disease. His creatinine ranges from 1.4 to 1.6. On the , which was before he went to [place], his creatinine was 1.6. On admission this time his creatinine is 1.4 but today it froy to 2.4 so renal consultation was requested. The patient denies any rash. He has not been taking any [id number] medications. He does not take nonsteroidal anti-inflammatory agents. He denies any bloody urine, foamy urine, kidney stones, bladder infections. He has no pain with urination. Review of Systems Constitutional:
[2019-10-27] MEDS: AZITHROMYCIN 250 MG TABLET 500 MG PO (17:31)
[2019-10-27 17:50] LABS: Creatine Kinase 93 U/L (55-170)
[2019-10-27 17:53] LABS: Partial Thromboplastin Time 66.9 SECONDS (22.3-36.8)
[2019-10-27 17:58] LABS: Complement C3 122 mg/dL (88-165)
[2019-10-27 18:05] LABS: Erythrocyte Sedimentation Rate > 140 mm/hr (0-20)
[2019-10-27 18:18] LABS: Add Urine Microscopic? YES; Appearance Urine Clear (Clear); Bilirubin Urine Negative (Negative); Blood Urine 2+ (Negative); Color Urine Yellow (Yellow); Glucose Urine UA Negative (Negative); Ketones Urine Negative (Negative); Leukocyte Esterase Ur Negative LEU/UL (NEGATIVE); Nitrate Urine Negative (Negative); Protein Urine 1+ mg/dL (Negative); RBC Urine 0-2 /hpf (0-2); Specific Grav Ur 1.008 (1.001-1.035); Urobilinogen Urine Negative mg/dL (<2.0); WBC Urine 0-3 /hpf (0-3)
[2019-10-27 18:20] LABS: Creatinine Urine 48.3 mg/dL; Total Protein Urine Random 45 mg/dL
[2019-10-27 18:22] LABS: Sodium Urine Random 18 meq/L
[2019-10-27 18:33] LABS: Vancomycin Random 8.3 ug/mL (10-20)
[2019-10-27] MEDS: HEPARIN SOD/D5W 100 UNITS/ML 25,000 UNITS/250 ML BAG 16 UNITS IV CONT (20:35)
--- NOTE | 2019-10-27 20:53 | PM.CNPUL ---
History of Present Illness History of Present Illness Consult date: 10/27/19 Requesting physician: Irene Kang PA-C Reason for consult: pneumonia Chief complaint: pneumonia Narrative: NEW : I was consulted to see this 73 yo male admitted with cough, fever and body aches after having a AAA repair at [place] last week. He has increased shortness of breath. CXR showed Left basilar pneumonia, worse today, 2 days after admission. He feels better, still has a cough with thick sputum, white color. He improved with diuresis in addition to high flow O2, antibiotics, and bronchodilators. He feels improved compared to his arrival. Review of Systems Review of Systems: All systems reviewed & are unremarkable except as noted in HPI and below PMFSH Past Medical History Medical History (Updated 10/29/19 @ 11:28 by Lucas Miller PA-C) A-fib AAA (abdominal aortic aneurysm) CAD (coronary artery disease) CKD (chronic kidney disease) stage 3, GFR 30-59 ml/min CVA (cerebral vascular accident) Gout HTN (hypertension) Surgical History Surgical History Hx of appendectomy Hx of CABG x4 Hx of cardiac catheterization with stent placement Family History Family History Mother Diabetes mellitus Sibling Diabetes mellitus Father Acute myocardial infarction Social History Social History Smoking status: Never smoker Alcohol intake: never Substance use: never Gender identity (if verbalized by the patient): Male Spiritual care concerns: No Agree to blood products: Yes Meds Home Medications and Allergies Home Medications Medication Instructions Recorded Confirmed Type Men's Multivitamin 1 tablet PO DAILY 10/15/19 10/26/19 History aspirin 81 mg PO DAILY 10/15/19 10/26/19 History atorvastatin 80 mg PO DAILY 10/15/19 10/26/19 History cholecalciferol (vitamin D3) 125 mcg PO EVERY OTHER DAY 10/15/19 10/26/19 History [Dialyvite Vitamin D] clopidogrel [Plavix] 75 mg PO DAILY 10/15/19 10/26/19 History coenzyme Q10 [Co Q-10] 10 mg PO DAILY 10/15/19 10/26/19 History hydralazine 50 mg PO TID 10/15/19 10/26/19 History isosorbide mononitrate 60 mg PO DAILY 10/15/19 10/26/19 History metoprolol tartrate 75 mg PO BID 10/15/19 10/26/19 History azithromycin [Zithromax] 500 mg PO QPM #2 tablet 10/29/19 Rx cefdinir 300 mg PO Q12H #6 cap 10/29/19 Rx lisinopril 10 mg PO DAILY #30 tablet 10/29/19 Rx methimazole [Tapazole] 5 mg PO QAM #30 tablet 10/29/19 Rx Allergies Allergy/AdvReac Type Severity Reaction Status Date / Time No Known Allergies Allergy Unknown Unverified 10/15/19 00:46 Vital Signs Vital Signs - 24 hr 10/26/19 21:42 10/26/19 21:48 10/26/19 21:54 Temperature Pulse Rate 75 75 76 Respiratory Rate 18 18 18 Blood Pressure Pulse Oximetry 97 10/26/19 22:00 10/26/19 23:15 10/27/19 00:00 Temperature 37.2 C Pulse Rate 73 73 66 Respiratory Rate 18 Blood Pressure 118/56 L Pulse Oximetry 96 10/27/19 02:00 10/27/19 03:47 10/27/19 03:50 Temperature Pulse Rate 75 75 76 Respiratory Rate 18 18 Blood Pressure Pulse Oximetry 10/27/19 04:00 10/27/19 06:00 10/27/19 08:00 Temperature 36.7 C 36.6 C Pulse Rate 76 81 82 Respiratory Rate 18 20 Blood Pressure 116/45 L 136/74 Pulse Oximetry 97 97 10/27/19 08:35 10/27/19 09:07 10/27/19 09:18 Temperature Pulse Rate 77 83 84 Respiratory Rate 18 18 Blood Pressure Pulse Oximetry 95 10/27/19 10:00 10/27/19 12:00 10/27/19 14:00 Temperature 36.6 C Pulse Rate 78 78 71 Respiratory Rate 18 Blood Pressure 127/71 Pulse Oximetry 96 10/27/19 14:26 10/27/19 14:36 10/27/19 16:00 Temperature 36.6 C Pulse Rate 77 73 94 Respiratory Rate 18 18 18 Blood Pressure 126/56 L Pulse Oximetry 96 10/27/19 18:00 10/27/19 19:35 10/27/19 2
[2019-10-28] VITALS (20 sets, daily range): BP systolic 103–137; BP diastolic 55–67; PULSE 69–97; RESP 16–22; TEMP 36.3–36.9; O2SAT 95–100
[2019-10-28 00:52] LABS: Partial Thromboplastin Time 136.8 SECONDS (22.3-36.8)
[2019-10-28] MEDS: IPRATROPIUM BR 0.02% INH SOLN 0.5 MG/2.5 ML VIAL INHALATION ×4 (03:00→20:00)
[2019-10-28 05:20] LABS: Basophils Percent Auto 0.2 % (0.2-1.2); Eosinophils Absolute Auto 0.2 K/mm3 (0-0.3); Eosinophils Percent Auto 1.9 % (0-4.4); Hematocrit 26.8 % (42.0-52.0); Hemoglobin 8.8 g/dL (14.0-18.0); Immature Granulocyte Absolute 0.07 K/mm3 (0.00-0.031); Immature Granulocyte Percent A 0.7 % (0-0.5); Lymphocytes Absolute Auto 1.13 K/mm3 (0.9-3.2); Lymphocytes Percent Auto 11.1 % (18.3-44.2); Mean Corpuscular HGB Conc 32.8 g/dl (32-36); Mean Corpuscular Hemoglobin 29.3 pg (26-34); Mean Corpuscular Volume 89.3 fl (80-100); Mean Platelet Volume 9.6 fl (7.4-10.4); Monocytes Absolute Auto 0.6 K/mm3 (0.1-0.6); Monocytes Percent Auto 6.2 % (2.6-8.5); Neutrophils Absolute Auto 8.2 K/mm3 (1.3-6.7); Neutrophils Percent Auto 79.9 % (45.5-73.1); Platelet Count Result 208 k/mm3 (150-375); Red Cell Distribution Width 14.1 % (11.5-14.5); White Blood Count 10.2 K/mm3 (4.5-10.0)
[2019-10-28 05:56] LABS: Albumin Level 3.4 g/dL (3.5-5.1); Blood Urea Nitrogen 41 mg/dL (9-20); Calcium 8.4 mg/dL (8.4-10.2); Carbon Dioxide 22 mmol/L (22-30); Chloride 98 mmol/L (98-107); Estimated CRCL calculation 34 ml/min; Estimated Glomerular Filt Rate 31; Glucose 110 mg/dL (75-110); Magnesium 2.2 mg/dL (1.6-2.3); Phosphorus 4.9 mg/dL (2.5-4.5); Potassium 4.1 mmol/L (3.4-5.0); Sodium 130 mmol/L (137-145)
[2019-10-28] MEDS: CHOLECALCIFEROL 1,000 UNIT TABLET 5000 UNITS PO (09:04)
[2019-10-28] MEDS: hydrALAZINE HCL 50 MG TABLET PO ×3 (09:05→17:28)
[2019-10-28] MEDS: methiMAzole 5 MG TAB PO (09:05)
[2019-10-28] MEDS: TAMSULOSIN HCL 0.4 MG CAPSULE PO (09:05)
[2019-10-28] MEDS: ATORVASTATIN 40 MG TABLET 80 MG PO (09:05)
[2019-10-28] MEDS: METOPROLOL TARTRATE 25 MG TABLET 75 MG PO ×2 (09:05→21:16)
[2019-10-28] MEDS: CLOPIDOGREL BISULFATE 75 MG TABLET PO (09:05)
[2019-10-28] MEDS: ASPIRIN 81 MG CHEWABLE TABLET PO (09:05)
[2019-10-28] MEDS: ISOSORBIDE MONONITRATE 60 MG TAB.ER.24H PO (09:06)
[2019-10-28] MEDS: THERAPEUTIC MULTIVITAMINS/MINERALS TAB (*BKC) 1 TABLET PO (09:06)
[2019-10-28] MEDS: GUAIFENESIN/DEXTROMETHORPHAN 10 ML UDC PO ×2 (09:06→17:29)
--- NOTE | 2019-10-28 09:54 | PM.PNCARD ---
Progress Note: A&P Assessment and Plan (1) Pneumonia: Qualifiers: Laterality: unspecified laterality Lung location: unspecified part of lung Pneumonia type: due to unspecified organism Qualified Code(s): J18.9 - Pneumonia, unspecified organism Code(s): J18.9 - Pneumonia, unspecified organism Status: Acute Assessment and Plan: Admitted with about 1 week history of cough, expectoration, respiratory distress, fever/chills. Influenza testing negative in the ER. Management per primary team (2) Acute respiratory failure with hypoxemia: Code(s): J96.01 - Acute respiratory failure with hypoxia Status: Acute Assessment and Plan: See above (3) CHF exacerbation: Code(s): I50.9 - Heart failure, unspecified Status: Acute Assessment and Plan: Known ischemic cardiomyopathy with last documented EF of 40% with segmental wall motion abnormality. He presented with acute on chronic CHF in the setting of respiratory tract infection. Improved with furosemide Due to his renal insufficiency, continue lisinopril to 10 mg p.o. daily, dose to be modified later. (4) Troponin level elevated: Code(s): R79.89 - Other specified abnormal findings of blood chemistry Status: Acute Assessment and Plan: Troponin elevation is in the setting of pneumonia and CHF. Troponin 2.060, 1.740, 1 0.890. Echo: 1. Left ventricular chamber dimension is mildly enlarged with mild concentric left ventricular hypertrophy. There is moderate global hypokinesis with akinesis of the basal inferior septum, and severe hypokinesis of the apex, apical septal and apical lateral segments. Diastolic dysfunction grade 2 is present. The calculated ejection fraction is 34% an estimated ejection fraction visually is 35 %. 2. Right ventricular chamber dimension is mildly enlarged with mild hypokinesis. Not well visualized. 3. Left atrial chamber dimension is moderately enlarged. 4. There is mild mitral valve regurgitation. 5. There is moderate tricuspid valve regurgitation. 6. Mild pulmonary hypertension, estimated pulmonary arterial systolic pressure is 37 mmHg. 7. Compared to the echo of April 2016, there is now LV enlargement and apical hypokinesis. (5) Atrial fibrillation with RVR: Code(s): I48.91 - Unspecified atrial fibrillation Status: Acute Assessment and Plan: Converted to normal sinus rhythm on Cardizem drip. Drip discontinued and beta-joan was then continued. If he has a recurrence of atrial fibrillation during this hospitalization would initiate amiodarone therapy. Was on it a number of years ago and was discontinued in the hope that he did not need an antiarrhythmic. Heparin has been discontinued due to hemoglobin dropping to 8.8. Work up per primary service He is on dual antiplatelet therapy. (6) S/P AAA repair: Code(s): Z98.890 - Other specified postprocedural states; Z86.79 - Personal history of other diseases of the circulatory system Status: Acute Assessment and Plan: Status post endovascular repair. Blood pressure at goal. Additional Plan Plan discussed Dr. Vela 1025 10/28/2019 Subjective Date/time seen: 10/28/19 09:54 Interval history: Follow-up for: complex history of coronary artery disease, previous CABG, previous complex PCI, paroxysmal AFib, ischemic cardiomyopathy with current echo showing ejection fraction 30-35% and recent emergent endovascular aortic repair of impending rupture of AAA Date of service: 10/28/2019 Subjective: Feeling fairly well. Still has nasal congestion and some facial discomfort. Denied chest discomfort, shortness of breath, lightheadedness or palpitations. Review of Systems Constitutional:
--- NOTE | 2019-10-28 11:44 | PM.PNNEP ---
Progress Note: A&P Assessment and Plan (1) ARTEMIO (acute kidney injury): Code(s): N17.9 - Acute kidney failure, unspecified Status: Acute Assessment and Plan: several possible causes: - acute infection (pneumonia) - antibiotics (and hence acute interstitial nephritis) - afib with RVR (can sometimes lead to pre-renal factors) - embolic or contrast exposure (from stenting of AAA at [facility]) but this seems less likely creatinine slowly improving reasonable urine output continue supportive therapy (2) CKD (chronic kidney disease) stage 3, GFR 30-59 ml/min: Code(s): N18.3 - Chronic kidney disease, stage 3 (moderate) Status: Acute Assessment and Plan: baseline creatinine ~ 1.4 - 1.6mg/dl due to hypertension and vascular disease (3) A-fib: Qualifiers: Atrial fibrillation type: unspecified Qualified Code(s): I48.91 - Unspecified atrial fibrillation Code(s): I48.91 - Unspecified atrial fibrillation Status: Chronic Assessment and Plan: rate control strategy stable at this time (4) HTN (hypertension): Qualifiers: Hypertension type: unspecified Qualified Code(s): I10 - Essential (primary) hypertension Code(s): I10 - Essential (primary) hypertension Status: Chronic Assessment and Plan: well controlled at this time continue current medications Will continue to follow. Subjective Date/time seen: 10/28/19 11:44 Appears to be doing quite well at the time of my visit; no apparent distress voiced; no distress noted; no events overnight or this AM to report. Exam Narrative: Exam Narrative: General: WD/WN male in NAD Heart: normal S1 and S2; no rub Lungs: clear to auscultation Abdomen: soft, nontender, nondistended, positive bowel sounds Extremities: no cyanosis or clubbing; no edema Skin: warm and dry Objective Data Vital Signs Vital Signs: Vital Signs Temp Pulse Resp BP Pulse Ox 10/28/19 09:38 77 18 10/28/19 09:22 77 18 10/28/19 09:16 36.7 C 81 20 137/67 96 10/28/19 09:05 85 10/28/19 08:00 79 10/28/19 04:48 36.8 C 73 18 136/67 95 10/28/19 04:00 85 10/28/19 03:00 77 18 03/05/20 01:23 36.8 C 78 22 H 122/66 95 10/28/19 00:00 83 10/27/19 21:55 79 18 10/27/19 21:45 82 18 94 10/27/19 20:34 84 10/27/19 20:00 85 10/27/19 19:35 36.8 C 92 18 126/61 93 10/27/19 18:00 86 10/27/19 16:00 36.6 C 94 18 126/56 L 96 10/27/19 14:36 73 18 10/27/19 14:26 77 18 10/27/19 14:00 71 10/27/19 12:00 36.6 C 78 18 127/71 96 Intake/Output Intake/Output: Intake & Output 10/25/19 10/26/19 10/27/19 10/28/19 23:59 23:59 23:59 23:59 Intake Total 150 3618.1 1970.0 945.1 Output Total 251 1000 900 Balance 150 3367.1 970.0 45.1 Meds/Results Medications: Active Medications Generic Name Dose Route Start Last Admin Trade Name Freq PRN Reason Stop Dose Admin Acetaminophen 650 mg 10/25/19 21:58 Tylenol Tablet PO Q4H PRN Mild Pain (1-3) or Fever Aspirin 81 mg 10/26/19 08:00 10/28/19 09:05 Aspirin Chewable PO 81 mg DAILY@0800 DELROY Administration Atorvastatin Calcium 80 mg 10/26/19 09:00 10/28/19 09:05 Lipitor PO 80 mg DAILY DELROY Administration Azithromycin 500 mg 10/26/19 18:00 10/27/19 17:31 Zithromax Tablet PO 500 mg QPM DELROY Administration Clopidogrel Bisulfate 75 mg 10/26/19 09:00 10/28/19 09:05 Plavix PO 75 mg DAILY DELROY Administration Guaifenesin/Dextromethorphan 10 ml 10/27/19 11:17 10/28/19 09:06 Robitussin-Dm Syrup PO 10 ml Q4H PRN Administration Cough Hydralazine HCl 50 mg 10/26/19 08:00 10/28/19 09:05 Apresoline Tablet PO 50 mg TIDWM DELROY Administration Ceftriaxone Sodium/Dextrose 1 gm in 50 mls @ 100 mls/hr 10/26/19 18:00 10/27/19 19:28 Rocephin 1 Gm/D5w 50 Ml IVPB In
--- NOTE | 2019-10-28 13:30 | PM.IMPN ---
Progress Note: A&P Assessment and Plan (1) Acute respiratory failure with hypoxemia: Code(s): J96.01 - Acute respiratory failure with hypoxia Status: Acute Assessment and Plan: The patient was admitted into the hospital on 5L of oxygen via NC. Throughout the night the patient became more short of breath and was placed on high flow nasal cannula at 50%FIO2. His ABG improved his oxygenation with the high-flow nasal cannula. He was started on IV antibiotics and oral Lasix and throughout the day the patient's breathing improved. At this time, the patient is resting comfortably on room air without any SOB or CHAMBERS. We will continue treatment of pneumonia with IV antibiotics. We discontinued PO Lasix due to rise in creatinine with history of CKD. Pulmonology was consulted and their input is greatly appreciated. Continue monitoring patient's respiratory status. Use oxygen as needed. (2) Pneumonia: Qualifiers: Laterality: unspecified laterality Lung location: unspecified part of lung Pneumonia type: due to unspecified organism Qualified Code(s): J18.9 - Pneumonia, unspecified organism Code(s): J18.9 - Pneumonia, unspecified organism Status: Acute Assessment and Plan: Likely viral pneumonia verses hospital-acquired due to recent surgery and hospitalization at [place]. The patient was initially started on IV Ceftriaxone and PO Azithromycin to monitor his fluid status. I also started IV Vancomycin 10/26/2019 for broader spectrum of coverage for Hospital acquired PNA. Sputum culture was sent and currently shows growth of normal respiratory max. Checking Legionella and pneumococcal antigen, pending. Patients leukocytosis improved from 14.2K to 10.2K today. No recorded fevers, respiratory status overall improved from arrival. CXR showed left basilar airspace consolidation, consistent with pneumonia. This could be secondary to a delay in CXR and patients clinical status. I talked to the microfilming document preparer last night who recommended discontinuing vancomycin due to increased renal function. The patient was continued on azithromycin and ceftriaxone for pneumonia treatment. Pulmonologyw as consulted and their input is greatly appreciated for any further adjustments. Started on Cornet and Incentive spirometer. Continue monitoring respiratory status. Treat with IV antibiotics. Continue bronchodilators. RT assess and treat. (3) ARTEMIO (acute kidney injury): Code(s): N17.9 - Acute kidney failure, unspecified Status: Acute Assessment and Plan: History of CKD stage 3 Cardiology started the patient on oral Lasix 40 mg p.o. b.i.d. and adjusted his lisinopril to 10 mg daily instead of 30 mg b.i.d. yesterday. Yesterday the patient's cr/BUN increased and nephrology was consulted. They recommend discontinuing IV vancomycin, Lasix therapy and continue monitoring his renal function. Today's creatinine improved from 2.4 to 2.1. His baseline creatinine is 1.4-1.6. Continue monitoring renal function. Consult Nephrology. (4) Febrile illness: Code(s): R50.9 - Fever, unspecified Status: Acute Assessment and Plan: Could be secondary to underlying pneumonia. Continue antipyretics and supportive therapy. (5) Sepsis: Qualifiers: Sepsis acute organ dysfunction status: without acute organ dysfunction Sepsis type: sepsis due to unspecified organism Qualified Code(s): A41.9 - Sepsis, unspecified organism Code(s): A41.9 - Sepsis, unspecified organism Status: Acute Assessment and Plan: Source of sepsis appears to be respiratory with increased respiratory rate, fever, leukocytosis in the clinical setting of pneumonia Lactic acid was 1.3 which is normal. Vital signs are much
[2019-10-28 15:51] LABS: Hemoglobin 8.8 g/dL (14.0-18.0)
[2019-10-28 16:11] LABS: Transferrin 149 mg/dL (206-381)
[2019-10-28 16:16] LABS: Iron 46 ug/dL (49-181)
[2019-10-28 16:25] LABS: Percent Iron Saturation 21 % (20-50)
[2019-10-28] MEDS: AZITHROMYCIN 250 MG TABLET 500 MG PO (17:28)
[2019-10-28 19:07] LABS: Pneumococcal Antigen Urine Not Detected (Not Detected)
[2019-10-28 19:49] LABS: Legionella pneumophila Ag Ur Not Detected (Not Detected)
[2019-10-29] VITALS (8 sets, daily range): BP systolic 123–137; BP diastolic 59–68; PULSE 61–85; RESP 16–24; TEMP 36.4–36.9; O2SAT 97–98
[2019-10-29] MEDS: IPRATROPIUM BR 0.02% INH SOLN 0.5 MG/2.5 ML VIAL INHALATION ×2 (02:30→08:51)
[2019-10-29 08:07] LABS: Basophils Percent Auto 0.3 % (0.2-1.2); Eosinophils Absolute Auto 0.3 K/mm3 (0-0.3); Eosinophils Percent Auto 3.8 % (0-4.4); Hematocrit 27.4 % (42.0-52.0); Hemoglobin 9.2 g/dL (14.0-18.0); Immature Granulocyte Absolute 0.04 K/mm3 (0.00-0.031); Immature Granulocyte Percent A 0.5 % (0-0.5); Lymphocytes Absolute Auto 0.99 K/mm3 (0.9-3.2); Lymphocytes Percent Auto 13.4 % (18.3-44.2); Mean Corpuscular HGB Conc 33.6 g/dl (32-36); Mean Corpuscular Hemoglobin 29.8 pg (26-34); Mean Corpuscular Volume 88.7 fl (80-100); Mean Platelet Volume 9.1 fl (7.4-10.4); Monocytes Absolute Auto 0.6 K/mm3 (0.1-0.6); Monocytes Percent Auto 7.7 % (2.6-8.5); Neutrophils Absolute Auto 5.5 K/mm3 (1.3-6.7); Neutrophils Percent Auto 74.3 % (45.5-73.1); Platelet Count Result 259 k/mm3 (150-375); Red Blood Count 3.09 M/mm3 (4.6-6.20); Red Cell Distribution Width 13.8 % (11.5-14.5); White Blood Count 7.4 K/mm3 (4.5-10.0)
[2019-10-29 08:25] LABS: Albumin Level 3.5 g/dL (3.5-5.1); Blood Urea Nitrogen 41 mg/dL (9-20); Calcium 8.8 mg/dL (8.4-10.2); Carbon Dioxide 22 mmol/L (22-30); Chloride 101 mmol/L (98-107); Estimated CRCL calculation 38 ml/min; Estimated Glomerular Filt Rate 35; Glucose 111 mg/dL (75-110); Sodium 134 mmol/L (137-145)
[2019-10-29] MEDS: TAMSULOSIN HCL 0.4 MG CAPSULE PO (09:05)
[2019-10-29] MEDS: ATORVASTATIN 40 MG TABLET 80 MG PO (09:06)
[2019-10-29] MEDS: ASPIRIN 81 MG CHEWABLE TABLET PO (09:06)
[2019-10-29] MEDS: ISOSORBIDE MONONITRATE 60 MG TAB.ER.24H PO (09:06)
[2019-10-29] MEDS: hydrALAZINE HCL 50 MG TABLET PO (09:06)
[2019-10-29] MEDS: THERAPEUTIC MULTIVITAMINS/MINERALS TAB (*BKC) 1 TABLET PO (09:06)
[2019-10-29] MEDS: methiMAzole 5 MG TAB PO (09:06)
[2019-10-29] MEDS: METOPROLOL TARTRATE 25 MG TABLET 75 MG PO (09:07)
[2019-10-29] MEDS: CLOPIDOGREL BISULFATE 75 MG TABLET PO (09:07)
--- NOTE | 2019-10-29 09:41 | PM.PNCARD ---
Progress Note: A&P Assessment and Plan (1) Pneumonia: Qualifiers: Laterality: unspecified laterality Lung location: unspecified part of lung Pneumonia type: due to unspecified organism Qualified Code(s): J18.9 - Pneumonia, unspecified organism Code(s): J18.9 - Pneumonia, unspecified organism Status: Acute Assessment and Plan: Admitted with about 1 week history of cough, expectoration, respiratory distress, fever/chills. Influenza testing negative in the ER. Management per primary team (2) Acute respiratory failure with hypoxemia: Code(s): J96.01 - Acute respiratory failure with hypoxia Status: Acute Assessment and Plan: See above (3) CHF exacerbation: Code(s): I50.9 - Heart failure, unspecified Status: Acute Assessment and Plan: Known ischemic cardiomyopathy. See echo below. He presented with acute on chronic CHF in the setting of respiratory tract infection. Improved with furosemide Due to his renal insufficiency lisinopril was decreased to 10 mg daily. Blood pressure is at goal. Continue lisinopril at 10 mg daily. (4) Troponin level elevated: Code(s): R79.89 - Other specified abnormal findings of blood chemistry Status: Acute Assessment and Plan: Troponin elevation is in the setting of pneumonia and CHF. Troponin 2.060, 1.740, 1 0.890. Echo: 1. Left ventricular chamber dimension is mildly enlarged with mild concentric left ventricular hypertrophy. There is moderate global hypokinesis with akinesis of the basal inferior septum, and severe hypokinesis of the apex, apical septal and apical lateral segments. Diastolic dysfunction grade 2 is present. The calculated ejection fraction is 34% an estimated ejection fraction visually is 35 %. 2. Right ventricular chamber dimension is mildly enlarged with mild hypokinesis. Not well visualized. 3. Left atrial chamber dimension is moderately enlarged. 4. There is mild mitral valve regurgitation. 5. There is moderate tricuspid valve regurgitation. 6. Mild pulmonary hypertension, estimated pulmonary arterial systolic pressure is 37 mmHg. 7. Compared to the echo of April 2016, there is now LV enlargement and apical hypokinesis. (5) Atrial fibrillation with RVR: Code(s): I48.91 - Unspecified atrial fibrillation Status: Acute Assessment and Plan: Converted to normal sinus rhythm on Cardizem drip. Drip discontinued and beta-joan was then continued. No further atrial fibrillation noted. Heparin was discontinued yesterday due to drop in his hemoglobin. Hemoglobin is stable. Hemoglobin at the time of his discharge from [facility] on 10/18/2019 was 9.4. He hematocrit 28.2. Monitor H&H as an outpatient. Continue beta-joan at this time. (6) S/P AAA repair: Code(s): Z98.890 - Other specified postprocedural states; Z86.79 - Personal history of other diseases of the circulatory system Status: Acute Assessment and Plan: Status post endovascular repair. Blood pressure at goal. He is to call for follow-up appointment with the vascular physicians that placed the endovascular repair Additional Plan OK to discharge from cardiac standpoint Plan discussed with Dr. Burch 0950 10/29/2019 Subjective Date/time seen: 10/29/19 09:41 Interval history: Follow-up for: complex history of coronary artery disease, previous CABG, previous complex PCI, paroxysmal AFib, ischemic cardiomyopathy with current echo showing ejection fraction 30-35% and recent emergent endovascular aortic repair of impending rupture of AAA Date of service: 10/29/2019 Subjective: Denied chest discomfort. No shortness of breath or lightheadedness. Cough is better. Did not sleep very well as awakened several times for
--- NOTE | 2019-10-29 11:18 | PM.DS ---
DS: Diagnosis Admitting Diagnosis Admitting Diagnosis: Acute respiratory failure with hypoxia Discharge Diagnosis (1) Acute respiratory failure with hypoxemia: Code(s): J96.01 - Acute respiratory failure with hypoxia Status: Acute Assessment and Plan: The patient was originally admitted into the hospital on 5L of oxygen via NC; he was placed on high flow nasal cannula at 50%FIO2 earlier in stay; he has since been weaned to RA. At this time, the patient is resting comfortably on room air without any SOB or CHAMBERS. He does still have productive cough; yellow, non-bloody sputum He has had 4 days of PO azithro and IV Rocephin thus far. Will continue 1 day of azithromycin and 3 days of cefdinir to complete treatment course Pulmonology was consulted and their input is greatly appreciated. OTC Mucinex and IS/cornet encouraged (2) Pneumonia: Qualifiers: Laterality: unspecified laterality Lung location: unspecified part of lung Pneumonia type: due to unspecified organism Qualified Code(s): J18.9 - Pneumonia, unspecified organism Code(s): J18.9 - Pneumonia, unspecified organism Status: Acute Assessment and Plan: Likely viral pneumonia verses hospital-acquired due to recent surgery and hospitalization at [place]. The patient was initially started on IV Ceftriaxone and PO Azithromycin to monitor his fluid status. Vanc added, but then was d/c after worsening renal function. Clinically, patient has been showing signs of improvement. Sputum culture was sent and currently shows growth of normal respiratory max. Legionella and pneumococcal antigen negative. BC negative x2 after 5 days. Patients leukocytosis improved to 7.4K today. No recorded fevers, respiratory status overall improved from arrival. CXR showed left basilar airspace consolidation, consistent with pneumonia; this could be secondary to a delay in CXR and patients clinical status. Pulmonology was consulted and their input is greatly appreciated for any further adjustments. Continue cornet and IS at discharge Continue with azithro for today; continue with PO cefdinir for 3 more days for 7 days total of abx treatment (3) ARTEMIO (acute kidney injury): Code(s): N17.9 - Acute kidney failure, unspecified Status: Acute Assessment and Plan: History of CKD stage 3; baseline 1.40-1.60; Cr 1.90 today; improving. Follow up BMP on 11/07 Lisinopril and Lasix management per Cardiology. Follow up with Designated Broker (4) Febrile illness: Code(s): R50.9 - Fever, unspecified Status: Acute Assessment and Plan: Likely secondary to underlying pneumonia. Continue antipyretics and supportive therapy. (5) Sepsis: Qualifiers: Sepsis acute organ dysfunction status: without acute organ dysfunction Sepsis type: sepsis due to unspecified organism Qualified Code(s): A41.9 - Sepsis, unspecified organism Code(s): A41.9 - Sepsis, unspecified organism Status: Resolved Assessment and Plan: Source of sepsis appears to be respiratory with increased respiratory rate, fever, leukocytosis in the clinical setting of pneumonia. Lactic acid was 1.3 which is normal. VSS, afebrile today. BC negative to date. Continue above antibiotics upon discharge Follow up with PCP (6) A-fib: Qualifiers: Atrial fibrillation type: unspecified Qualified Code(s): I48.91 - Unspecified atrial fibrillation Code(s): I48.91 - Unspecified atrial fibrillation Status: Chronic Assessment and Plan: The patient went into AFib RVR during admission and was started on an IV diltiazem drip. Cardiology consulted and appreciate recommendations. The patient has remained
[2019-10-30 12:11] LABS: Complement Total CH50 >60 U/mL (31-60)
[2019-11-01 14:53] LABS: Thyroid Stimulating Immunoglob <89 % baseline (<140)
== END 2019-10-29 12:43 | disposition home or self-care (01) | DRG 871 ==
LOC: ANHED 21:47 → ANH3MEDSUR 22:10 → ANHIMU 10-26 05:50
PROVIDERS: Internal Medicine Cardiovascular Disease; Internal Medicine Nephrology; Physician Assistant; Admitting Provider Family Medicine; Emergency Provider Emergency Medicine; PCP Family Medicine Adolescent Medicine; Visit Provider Physician Assistant
DX: A41.9 Sepsis, unspecified organism (principal); J96.01 Acute respiratory failure with hypoxia; J12.9 Viral pneumonia, unspecified; I50.23 Acute on chronic systolic (congestive) heart failure; I13.0 Hypertensive heart and chronic kidney disease with heart failure and stage 1 through stage 4 chronic kidney disease, or unspecified chronic kidney disease; N17.9 Acute kidney failure, unspecified; I48.91 Unspecified atrial fibrillation; Z95.1 Presence of aortocoronary bypass graft; Z95.5 Presence of coronary angioplasty implant and graft; E05.90 Thyrotoxicosis, unspecified without thyrotoxic crisis or storm; I25.5 Ischemic cardiomyopathy; N18.3 Chronic kidney disease, stage 3 (moderate); N18.9 Chronic kidney disease, unspecified; I73.9 Peripheral vascular disease, unspecified
CPT/HCPCS: 36415; 36600; 71046; 76536; 76775; 80048; 80053; 80069; 80202; 81001; 82550; 82570; 82607; 82728; 82746; 82805; 83540; 83550; 83605; 83735; 83880; 84156; 84300; 84439; 84443; 84445; 84466; 84484; 85014; 85018; 85025; 85610; 85652; 85730; 85999; 86140; 86160; 86162; 87040; 87070; 87205; 87449; 87804; 87899; 93005; 94640; 94667; 94668; 96365; 97161; 97165; 99285; A9270; C8929; J0696; J1644; J3370; J3475; J7120; Q9957

== ENCOUNTER 2022-08-02 10:56 | Emergency (ER) | payer MEDICARE, OTHER, SELFPAY ==
[2022-08-02 11:23] VITALS: BP 142/70; PULSE 77; RESP 18; TEMP 36.3; O2SAT 99
--- NOTE | 2022-08-02 11:44 | ED.DENTAL ---
HPI - Dental/Oral General Chief complaint: Dental/Oral Stated complaint: lesions on tongue Time Seen by Provider: 08/02/22 11:44 Source: patient, RN notes reviewed and old records reviewed Mode of arrival: ambulatory Limitations: no limitations History of Present Illness HPI Narrative: 76-year-old male presents to the [facility] with 2 lesions posterior sides of tongue for 3 days. Notice 1 that started to develop on the front of his tongue a day or 2 ago. No treatment prior to arrival. Patient is not a smoker nor have every use chewing tobacco. They are very painful to touch. Related Data Home Medications Medication Instructions Recorded Confirmed aspirin 81 mg chewable tablet 81 mg PO DAILY 10/15/19 08/02/22 coenzyme Q10 10 mg capsule (Co 10 mg PO DAILY 10/15/19 08/02/22 Q-10) isosorbide mononitrate 60 mg 60 mg PO DAILY 10/15/19 08/02/22 tablet,extended release 24 hr cuxihkci-aildkdke-ojudy acid 400 1 tablet PO DAILY 10/15/19 08/02/22 mcg-vit K 20 mcg-lycop 300 mcg tablet (Men's Multivitamin) cholecalciferol (vitamin D3) 125 5,000 unit PO EVERY OTHER DAY 11/25/19 08/02/22 mcg (5,000 unit) capsule (Dialyvite Vitamin D) tamsulosin 0.4 mg capsule (Flomax) 0.4 mg PO DAILY 11/25/19 08/02/22 empagliflozin 10 mg tablet 10 mg PO DAILY 04/25/22 08/02/22 (Jardiance) furosemide 80 mg tablet (Lasix) 20 mg PO USEASDIRECTD 04/25/22 08/02/22 hydralazine 50 mg tablet 75 mg PO TID 04/25/22 08/02/22 rivaroxaban 15 mg tablet (Xarelto) 15 mg PO DAILY 04/25/22 08/02/22 hydroxyzine HCl 10 mg tablet 75 mg PO TID PRN itching 08/02/22 08/02/22 metoprolol succinate 50 mg 50 mg PO DAILY 08/02/22 08/02/22 tablet,extended release 24 hr sodium bicarbonate 650 mg tablet 650 mg TID 08/02/22 08/02/22 Allergies Allergy/AdvReac Type Severity Reaction Status Date / Time No Known Allergies Allergy Unknown Verified 08/02/22 11:26 Review of Systems Review of Systems: All systems reviewed & are unremarkable except as noted in HPI and below Constitutional: Constitutional: Reports no additional constitutional complaints Eyes: Eyes: Reports no additional eye complaints ENT: Reports as per HPI Cardiovascular: Cardiovascular: Reports no additional cardiovascular complaints, Denies chest pain and Denies dyspnea Respiratory: Respiratory: Reports no additional respiratory complaints, Denies chest congestion, Denies cough and Denies dyspnea Gastrointestinal: Gastrointestinal: Reports no additional gastrointestinal complaints, Denies abdominal pain, Denies nausea and Denies vomiting Musculoskeletal: Musculoskeletal: Reports no additional musculoskeletal complaints Integumentary/Breasts: Skin/Breast: Reports system reviewed and no additional complaints, except as docu Neurologic: Reports system reviewed and no additional complaints, except as documented Psychiatric: Psychiatric: Reports no additional psychiatric complaints Allergic/Immunologic: Allergic/Immunologic: Reports no additional allergic/immunologic complaints PMFSH Past Medical History Medical History AAA (abdominal aortic aneurysm) CAD (coronary artery disease) CAP (community acquired pneumonia) CKD (chronic kidney disease) stage 3, GFR 30-59 ml/min CVA (cerebral vascular accident) Gout HTN (hypertension) Surgical History Surgical History Hx of appendectomy Hx of CABG x4 Hx of cardiac catheterization with stent placement Family History Family History Mother Diabetes mellitus Sibling Diabetes mellitus Father Acute myocardial infarction Social History Social History Smoking status: Never smoker Alcohol intake: never Substance use: never Gender identity (if verbalized by the patient): Male Spiritual care concerns: No Agree t
== END 2022-08-02 11:56 | disposition home or self-care (01) ==
PROVIDERS: Emergency Provider Nurse Practitioner; PCP Family Medicine Adolescent Medicine
DX: K14.9 Disease of tongue, unspecified (principal); I25.10 Atherosclerotic heart disease of native coronary artery without angina pectoris; I12.9 Hypertensive chronic kidney disease with stage 1 through stage 4 chronic kidney disease, or unspecified chronic kidney disease; N18.30 Chronic kidney disease, stage 3 unspecified; Z79.82 Long term (current) use of aspirin
CPT/HCPCS: 99213; G0463

== ENCOUNTER 2022-09-14 17:19 | Emergency (ER) | payer MEDICARE, OTHER, SELFPAY ==
--- NOTE | 2022-09-14 17:35 | ED.EPISTAXIS ---
HPI - Epistaxis General Chief complaint: Epistaxis Stated complaint: epistaxis History of Present Illness HPI Narrative: Patient is a 76-year-old male on Eliquis presenting with epistaxis. Patient states that he was recently admitted to another hospital due to hemoptysis and shortness of breath. 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 He was ultimately discharged several days ago and was transitioned from Xarelto to Eliquis. States he was doing well until this afternoon when he developed epistaxis. States that he applied pressure and it initially resolved for about an hour. States that it returned and he has been unable to control it since. He called his [id number] who came to check on him and called EMS. For EMS patient was hypertensive 200s over 100 systolic. He denies lightheadedness, chest pain, shortness of breath, abdominal pain. No nausea or vomiting. States that he has had 2 nosebleeds in the past that did require cauterization by ENT. Related Data Home Medications Medication Instructions Recorded Confirmed aspirin 81 mg chewable tablet 81 mg PO DAILY 10/15/19 08/29/22 coenzyme Q10 10 mg capsule (Co 10 mg PO DAILY 10/15/19 08/29/22 Q-10) isosorbide mononitrate 60 mg 60 mg PO DAILY 10/15/19 08/29/22 tablet,extended release 24 hr vwexbrzq-xpeeosqn-obiov acid 400 1 tablet PO DAILY 10/15/19 08/29/22 mcg-vit K 20 mcg-lycop 300 mcg tablet (Men's Multivitamin) cholecalciferol (vitamin D3) 125 5,000 unit PO EVERY OTHER DAY 11/25/19 08/29/22 mcg (5,000 unit) capsule (Dialyvite Vitamin D) tamsulosin 0.4 mg capsule (Flomax) 0.4 mg PO DAILY 11/25/19 08/29/22 empagliflozin 10 mg tablet 10 mg PO DAILY 04/25/22 08/29/22 (Jardiance) furosemide 80 mg tablet (Lasix) 20 mg PO USEASDIRECTD 04/25/22 08/29/22 hydralazine 50 mg tablet 75 mg PO TID 04/25/22 08/29/22 rivaroxaban 15 mg tablet (Xarelto) 15 mg PO DAILY 04/25/22 08/29/22 metoprolol succinate 50 mg 50 mg PO DAILY 12/09/22 01/05/23 tablet,extended release 24 hr sodium bicarbonate 650 mg tablet 650 mg TID 08/02/22 08/29/22 Allergies Allergy/AdvReac Type Severity Reaction Status Date / Time carvedilol [From Coreg] Allergy Rash Verified 09/14/22 17:44 hydralazine AdvReac Vasculitis Verified 09/14/22 17:44 Review of Systems Review of Systems: All systems reviewed & are unremarkable except as noted in HPI and below PMFSH Past Medical History Medical History AAA (abdominal aortic aneurysm) CAD (coronary artery disease) CAP (community acquired pneumonia) CKD (chronic kidney disease) stage 3, GFR 30-59 ml/min CVA (cerebral vascular accident) Gout HTN (hypertension) Surgical History Surgical History Hx of appendectomy Hx of CABG x4 Hx of cardiac catheterization with stent placement Family History Family History Mother Diabetes mellitus Sibling Diabetes mellitus Father Acute myocardial infarction Social History Social History Smoking status: Never smoker Alcohol intake: never Substance use: never Gender identity (if verbalized by the patient): Male Spiritual care concerns: No Agree to blood products: Yes Exam Narrative: GENERAL: Well-appearing, well-nourished, and in no acute distress. HEAD: Normocephalic, atraumatic. EYES: PERRLA and EOMI. ENT: +epistaxis, pt applying pressure on my evaluation, he does have numerous blood soaked towels with him, clots are seen in the towels NECK: Supple. CHEST: Clear to auscultation. No respiratory distress. HEART: Regular rate and rhythm. No murmur heard. Normal peripheral pulses. ABDOMEN: Soft, nontender, nondistended, normal active bowel sounds. EXTREMITIES: Normal range of motion. No edema. SKIN: Warm, dry, no rash. NEURO: No focal defi
[2022-09-14 17:36] VITALS: BP 155/76; PULSE 77; RESP 14; TEMP 36.8; O2SAT 99
[2022-09-14 18:24] LABS: Basophils Percent Auto 0.1 % (0.2-1.2); Hematocrit 25.8 % (42.0-52.0); Hemoglobin 8.3 g/dL (14.0-18.0); Immature Granulocyte Absolute 0.22 K/mm3 (0.00-0.031); Lymphocytes Absolute Auto 0.23 K/mm3 (0.9-3.2); Lymphocytes Percent Auto 2.1 % (18.3-44.2); Mean Corpuscular HGB Conc 32.2 g/dl (32-36); Mean Corpuscular Hemoglobin 30.7 pg (26-34); Mean Corpuscular Volume 95.6 fl (80-100); Mean Platelet Volume 9.8 fl (7.4-10.4); Monocytes Absolute Auto 0.2 K/mm3 (0.1-0.6); Neutrophils Absolute Auto 10.5 K/mm3 (1.3-6.7); Neutrophils Percent Auto 93.8 % (45.5-73.1); Platelet Count Result 163 k/mm3 (150-375); Red Cell Distribution Width 15.9 % (11.5-14.5); White Blood Count 11.2 K/mm3 (4.5-10.0)
[2022-09-14 18:34] LABS: Anion Gap 10 mmol/L (8-16); Blood Urea Nitrogen 92 mg/dL (9-20); Calcium 7.2 mg/dL (8.4-10.2); Carbon Dioxide 18 mmol/L (22-30); Chloride 110 mmol/L (98-107); Estimated CRCL calculation 18 ml/min; Estimated Glomerular Filt Rate 18; Glucose 183 mg/dL (65-110); INR 1.2; Potassium 4.3 mmol/L (3.4-5.0); Prothrombin Time 15.1 Seconds (11.1-14.7); Sodium 138 mmol/L (137-145)
[2022-09-14 18:35] LABS: Partial Thromboplastin Time 36.1 SECONDS (22.3-36.8)
[2022-09-14 18:55] VITALS: BP 122/100; PULSE 77; RESP 20; O2SAT 94
[2022-09-14 19:29] VITALS: BP 143/77; PULSE 81; RESP 14; O2SAT 97
--- NOTE | 2022-09-14 19:29 | PC.NURSE ---
assumed care of pt. at this time. Report from REMIGIO Lainez
[2022-09-14] MEDS: OXYMETAZOLINE HCL 0.05% NAS 15 ML BTL (*BKC) 2 SPRAY NASAL (21:29)
[2022-09-14 21:31] VITALS: BP 133/88; PULSE 75; RESP 14; O2SAT 100
[2022-09-14 21:55] VITALS: BP 146/76; PULSE 89; RESP 19; O2SAT 97
== END 2022-09-14 21:55 | disposition home or self-care (01) ==
PROVIDERS: Emergency Provider Emergency Medicine; PCP Family Medicine Adolescent Medicine
DX: R04.0 Epistaxis (principal); Z79.01 Long term (current) use of anticoagulants; Z79.82 Long term (current) use of aspirin; I25.10 Atherosclerotic heart disease of native coronary artery without angina pectoris; N18.30 Chronic kidney disease, stage 3 unspecified; I12.9 Hypertensive chronic kidney disease with stage 1 through stage 4 chronic kidney disease, or unspecified chronic kidney disease
CPT/HCPCS: 30905; 36415; 80048; 85025; 85610; 85730; 99283; A9270

== ENCOUNTER 2023-07-01 12:21 | Inpatient (IN) | payer MEDICARE, OTHER, SELFPAY ==
[2023-07-01] VITALS (42 sets, daily range): BP systolic 136–174; BP diastolic 78–101; PULSE 74–100; RESP 17–24; TEMP 36.3–36.8; O2SAT 93–100; BMI 37.2
--- NOTE | ~2023-07-01 | XR_ITS ---
EXAMINATION: XR chest 2V DATE: 07/01/2023 13:07 INDICATION: Productive cough TECHNIQUE: PA and lateral views of the chest are obtained. COMPARISON: 10/27/2019 FINDINGS: There are airspace opacities of the mid and lower lung zones, left greater than right. No p leural effusion or pneumothorax. The cardiomediastinal silhouette is normal. There is moderate thorac ic spondylosis. Median sternotomy wires are consistent with prior cardiac surgery. IMPRESSION: 1. Airspace opacities of the mid and lower lung zones, left greater than right, consistent with pneum onia and/or pulmonary edema and/or atelectasis. Reviewed, dictated and finalized at location L. [employer] IMPRESSION: 1. Airspace opacities of the mid and lower lung zones, left greater than right, consistent with pneumonia and/or pulmonary edema and/or atelectasis.
[2023-07-01 13:21] LABS: Influenza A QL RT-PCR Negative (Negative); Influenza B QL RT-PCR Negative (Negative); SARS-CoV-2 RNA PCR Positive (Negative)
--- NOTE | 2023-07-01 13:58 | ECG_ITS ---
Measurements Intervals [place] Rate: 76 P: 38 AR: 212 QRS: -57 QRSD: 131 T: 71 QT: 425 QTc: 479 Interpretive Statements SINUS RHYTHM WITH FIRST DEGREE AV BLOCK RIGHT BUNDLE BRANCH BLOCK LEFT ANTERIOR FASCICULAR BLOCK VOLTAGE CRITERIA FOR LVH BASELINE WANDER- V3 ABNORMAL ECG COMPARED TO ECG 10/26/2019 08:57:03 FIRST DEGREE AV BLOCK NOW PRESENT Electronically Signed On 07-01-2023 14:28:34 [employer] by Santos Hawkins D.O.
--- NOTE | 2023-07-01 13:59 | ED.URI ---
HPI - URI/Sore Throat General Chief Complaint: Upper Respiratory Infection Stated Complaint: cough Time Seen by Provider: 07/01/23 13:50 History of Present Illness HPI Narrative: Pt presents with nasal congestion and a wet cough for 3 days. Pt denies fever or CP. Pt says he is always SOB and it is no different. Pt wears oxygen at night. Pt denies covid exposures. Pt has renal disease and is due for dialysis shunt placement. Related Data Home Medications Medication Instructions Recorded Confirmed coenzyme Q10 10 mg capsule (Co 10 mg PO DAILY 10/15/19 06/18/23 Q-10) isosorbide mononitrate 60 mg 60 mg PO DAILY 10/15/19 06/18/23 tablet,extended release 24 hr wbjlmcss-qeqxycar-shoby acid 400 1 tablet PO DAILY 10/15/19 06/18/23 mcg-vit K 20 mcg-lycop 300 mcg tablet (Men's Multivitamin) cholecalciferol (vitamin D3) 125 5,000 unit PO EVERY OTHER DAY 11/25/19 06/18/23 mcg (5,000 unit) capsule (Dialyvite Vitamin D) tamsulosin 0.4 mg capsule (Flomax) 0.4 mg PO DAILY 11/25/19 06/18/23 metoprolol succinate 50 mg 50 mg PO DAILY 08/02/22 06/18/23 tablet,extended release 24 hr calcium carbonate 1,000 mg tablet 1,250 mg PO DAILY 09/25/22 06/18/23 clopidogrel 75 mg tablet 75 mg PO DAILY 09/25/22 06/18/23 prednisone 1 mg tablet 5 mg PO DAILY 06/17/23 06/18/23 sodium bicarbonate 650 mg tablet 650 mg PO BID 06/17/23 06/18/23 Allergies Allergy/AdvReac Type Severity Reaction Status Date / Time carvedilol [From Coreg] Allergy Rash Verified 07/01/23 12:48 hydralazine AdvReac Vasculitis Verified 07/01/23 12:48 Review of Systems Review of Systems: All systems reviewed & are unremarkable except as noted in HPI and below PMFSH Past Medical History Medical History AAA (abdominal aortic aneurysm) CAD (coronary artery disease) CAP (community acquired pneumonia) CVA (cerebral vascular accident) Gout HTN (hypertension) Surgical History Surgical History Hx of appendectomy Hx of CABG x4 Hx of cardiac catheterization with stent placement Family History Family History Mother Diabetes mellitus Sibling Diabetes mellitus Father Acute myocardial infarction Social History Social History Smoking status: Never smoker Alcohol intake: never Substance use: never Lack of Transportation: No Lack of Food: Never True Current Housing: I Have Housing Concerned About Future Housing: No Difficulty Paying Gas/Electric Bills: No Difficulty Paying for Meds: No Currently Unemployed: No Education: High School Diploma/GED Difficulty w/ Childcare or Family Care: No Living arrangements: with family Occupation/Education: retired Gender identity (if verbalized by the patient): Male Spiritual care concerns: No Agree to blood products: Yes Exam Const: General: healthy appearing and no acute distress Nutritional Appearance: well nourished Orientation/consciousness: patient oriented x3 Limitations: no limitations HENMT: Face/Nose/Sinus: Nasal discharge present Resp: Effort & Inspection: normal respiratory effort Auscultation: crackles and wheezes Cardio: Rate: regular rate Rhythm: regular rhythm GI: GI Palp: Yes Soft to palpation Skin: General skin exam: normal color Rashes: no rashes Wounds: no wounds Neuro: General: patient oriented x3, moves all extremities, no meningeal signs, no focal motor deficits and CN's II-XI intact bilaterally Speech: normal speech Extrem: General: normal to inspection and no clubbing, cyanosis or edema Psych: Mental Status: mental status grossly normal Affect: normal affect Attitude: cooperative Course Vital Signs Vital signs: Vital Signs Temperature 98.2 F 07/01/23 12:31 Pulse Rate 92 07/01/23 12:31 Respiratory Rate
[2023-07-01] MEDS: ALBUTEROL SULFATE NEB 2.5 MG/3 ML INH INHALATION (14:36)
[2023-07-01] MEDS: IPRATROPIUM BR 0.02% INH SOLN 0.5 MG/2.5 ML VIAL INHALATION (14:36)
[2023-07-01 16:29] LABS: Basophils Percent Auto 0.4 % (0.2-1.2); Eosinophils Absolute Auto 0.4 K/mm3 (0-0.3); Eosinophils Percent Auto 3.8 % (0-4.4); Hematocrit 33.1 % (42.0-52.0); Hemoglobin 10.6 g/dL (14.0-18.0); Immature Granulocyte Absolute 0.03 K/mm3 (0.00-0.031); Immature Granulocyte Percent A 0.3 % (0-0.5); Lymphocytes Absolute Auto 0.98 K/mm3 (0.9-3.2); Lymphocytes Percent Auto 10.5 % (18.3-44.2); Mean Corpuscular Hemoglobin 31.2 pg (26-34); Mean Corpuscular Volume 97.4 fl (80-100); Mean Platelet Volume 9.7 fl (7.4-10.4); Monocytes Absolute Auto 0.7 K/mm3 (0.1-0.6); Monocytes Percent Auto 7.5 % (2.6-8.5); Neutrophils Absolute Auto 7.2 K/mm3 (1.3-6.7); Neutrophils Percent Auto 77.5 % (45.5-73.1); Platelet Count Result 225 k/mm3 (150-375); Red Cell Distribution Width 14.9 % (11.5-14.5); White Blood Count 9.3 K/mm3 (4.5-10.0)
[2023-07-01 16:49] LABS: NT Pro B Type Natriuretic Pept 9800 pg/mL (19.9-100)
[2023-07-01 17:06] LABS: Alanine Aminotransferase 20 U/L (6-50); Albumin Level 4.5 g/dL (3.5-5.1); Alkaline Phosphatase 57 U/L (38-126); Anion Gap 16 mmol/L (8-16); Aspartate Amino Transferase 27 U/L (17-59); Bilirubin,Total 0.7 mg/dL (0.2-1.3); Blood Urea Nitrogen 90 mg/dL (9-20); Calcium 8.6 mg/dL (8.4-10.2); Carbon Dioxide 23 mmol/L (22-30); Chloride 99 mmol/L (98-107); Estimated CRCL calculation 15 ml/min; Estimated Glomerular Filt Rate 13; Glucose 98 mg/dL (65-110); Sodium 138 mmol/L (137-145)
[2023-07-01] MEDS: FUROSEMIDE INJ 40 MG/4 ML VIAL IV PUSH (17:43)
[2023-07-01 19:11] LABS: Prothrombin Time 13.8 Seconds (11.1-14.7)
[2023-07-01] MEDS: REMDESIVIR 200 MG/NS 250 ML 200 MG/250 ML BAG 250 MG IVPB (19:57)
--- NOTE | 2023-07-01 20:04 | PM.IMHP ---
H&P: HPI History of Present Illness Date/Time: 07/01/23 20:04 Chief Complaint: SOB Narrative: This is a 77-year-old male with past medical history significant for coronary artery disease status post coronary artery bypass graft, end-stage renal disease patient is in preparation for hemodialysis has upcoming appointment for fistula placement. Presents to the emergency room today due to cough for the last few days or so body aches and pains, fevers chills patient's concern is for his upcoming appointment and wants to be well. Denies any chest pain, no nausea, no vomiting, no diarrhea no abdominal pain no chest pain. No swelling. Preliminary workup was significant for patient is positive for COVID-19 a chest x-ray showed opacities. Patient has been admitted for further evaluation management and treatment. EXAMINATION: XR chest 2V DATE: 07/01/2023 13:07 INDICATION: Productive cough TECHNIQUE: PA and lateral views of the chest are obtained. COMPARISON: 10/27/2019 FINDINGS: There are airspace opacities of the mid and lower lung zones, left greater than right. No pleural effusion or pneumothorax. The cardiomediastinal silhouette is normal. There is moderate thoracic spondylosis. Median sternotomy wires are consistent with prior cardiac surgery. IMPRESSION: 1. Airspace opacities of the mid and lower lung zones, left greater than right, consistent with pneumonia and/or pulmonary edema and/or atelectasis. Review of Systems Review of Systems: Cough, productive of clear sputum, body aches and pains chills Constitutional: Constitutional: Reports chills Eyes: Eyes: Denies change in vision ENT: Denies dysphagia, Denies vertigo, Denies dizziness, Denies nasal congestion and Denies nasal discharge Cardiovascular: Cardiovascular: Denies chest pain at rest, Denies radiating jaw, neck or arm pain and Denies palpitations Respiratory: Respiratory: Denies change in phlegm color, Reports chest congestion, Reports cough and Reports dyspnea on exertion Gastrointestinal: Gastrointestinal: Denies dyspepsia, Denies heartburn, Denies diarrhea, Denies nausea and Denies vomiting Genitourinary: Genitourinary: Denies dysuria Musculoskeletal: Musculoskeletal: Reports myalgias Integumentary/Breasts: Skin/Breast: Denies rash Neurologic: Denies focal weakness and Denies Sensory deficit (Neuro) Psychiatric: Psychiatric: Reports no additional psychiatric complaints and Reports as per HPI Endocrine: Endocrine: Denies cold intolerance, Denies heat intolerance, Denies polyphagia, Denies polydipsia, Denies polyuria and Denies palpitations Hematologic/Lymphatic: Hematologic/Lymphatic: Reports no additional hematologic/lymphatic complaints and Reports as per HPI Allergic/Immunologic: Allergic/Immunologic: Reports no additional allergic/immunologic complaints and Reports as per HPI [facility] Past Medical History Medical History AAA (abdominal aortic aneurysm) CAD (coronary artery disease) CAP (community acquired pneumonia) CVA (cerebral vascular accident) Gout HTN (hypertension) Surgical History Surgical History Hx of appendectomy Hx of CABG x4 Hx of cardiac catheterization with stent placement Family History Family History Mother Diabetes mellitus Sibling Diabetes mellitus Father Acute myocardial infarction Social History Social History Smoking status: Never smoker Alcohol intake: never Substance use: never Lack of Transportation: No Lack of Food: Never True Current Housing: I Have Housing Concerned About Future Housing: No Difficulty Paying Gas/Electric Bills: No Difficulty Paying for Meds: No Currently Unemployed: No Education: High School Diploma/GED Difficulty w/ Childcare or Family C
--- NOTE | 2023-07-01 21:48 | ADMGEN ---
This patient, Jose Carballo, was admitted to Medical Room 254-01. Patient/family oriented to hospital policies and general routines including ID bracelet, bed and alarms, visiting hours, pain management, procedures, bathroom and other care routines, personal items, smoking policy, room service/diet, and visiting hours. Information on how to activate the Rapid Response Team has been discussed. Patient/Family are encouraged to report perceived risks to care and to ask questions if they do not understand what they are told or what they should do.
--- NOTE | 2023-07-01 23:15 | PC.NURSE ---
PLACED TWO CALLS OUT TO PT DAUGHTER TO COMPLETE ADMISSION WITH NO CALL BACK. PT STATED HE DID NOT WANT TO ANSWER ADMISSION QUESTIONS BECAUSE HIS DAUGHTER IS HIS NURSE AND KNOWS EVERYTHING AND HE DIDN'T WANT TO GET ANYTHING WRONG.
[2023-07-02] VITALS (15 sets, daily range): BP systolic 120–155; BP diastolic 70–94; PULSE 71–97; RESP 16–22; TEMP 36.3–37.2; O2SAT 96–98
--- NOTE | 2023-07-02 | ECHO_ITS ---
Patient Info Name: Jose Carballo Age: 77 years : 1945 Gender: Male Ht: 64 in Wt: 241 lbs BSA: 2.28 m2 HR: 97 bpm BP: 155 / 94 mmHg Heart Rhythm: Sinus Rhythm, Right Bundle Branch Block Technical Quality: Good Exam Date: 07/02/2023 3:27 PM Exam Location: Echo Lab Patient Status: Inpatient Admit Date: 07/02/2023 Staff Ordering Physician: Arielle Rose MD Apartment Leasing Specialist: Fausto Solitario RDCS Attending Provider: Ebony Forte DO Referring Physician: Milton SALGUERO; Exam Type: CA echo doppler color flow Study Info Indications - SOB Complete two-dimensional, color flow and Doppler transthoracic echocardiogram is performed. Summary 1. Complete two-dimensional, color flow and Doppler transthoracic echocardiogram is performed. 2. Left ventricular chamber dimension is normal. 3. Left ventricular systolic function is moderately reduced, estimated at 30-35%. 4. There is mildly increased left ventricular wall thickness. 5. The left ventricular diastolic function is grade I diastolic dysfunction. 6. Right ventricular systolic function is reduced. 7. Left atrial chamber dimension is mildly enlarged. 8. There is mild aortic valve regurgitation. 9. There is moderate mitral valve regurgitation. 10. There is moderate tricuspid valve regurgitation. 11. There is mild pulmonic regurgitation. Left Ventricle Left ventricular chamber dimension is normal. Left ventricular systolic function is moderately reduced, estimated at 30-35%. There is mildly increased left ventricular wall thickness. The left ventricular diastolic function is grade I diastolic dysfunction. Right Ventricle Right ventricular chamber dimension is normal. Right ventricular systolic function is reduced. Left Atria Left atrial chamber dimension is mildly enlarged. Right Atria Right atrial chamber dimension is normal. Atrial Septum Intact interatrial septum visualized by color flow imaging. Aortic Valve The aortic valve is not well visualized. There is no aortic valve stenosis. There is mild aortic valve regurgitation. There is moderate aortic valve calcification. Pulmonic Valve There is mild pulmonic regurgitation. Mitral Valve There is moderate mitral valve regurgitation. Tricuspid Valve There is moderate tricuspid valve regurgitation. Pericardium/Pleural The pericardium appears epicardial fat pad. There is no pericardial effusion. Inferior Vena Cava Dilated inferior vena cava with >50% collapse upon inspiration consistent with elevated right atrial pressure, 8 mmHg. Aorta The aortic root size at the sinus of Valsalva is normal. Left Ventricular Outflow Tract Name Value Normal LVOT 2D LVOT Diameter 2.0 cm LVOT Doppler LVOT Peak Gradient 3 mmHg LVOT Mean Gradient 2 mmHg LVOT VTI 16 cm LVOT VTI/AV VTI Ratio 0.7 LVOT Stroke Volume 53 ml LVOT CO 5.0 l/min LVOT CI 2.2 l/min/m2 Pulmonic Valve Name
[2023-07-02] MEDS: AZITHROMYCIN 500 MG/NS 250 ML 500 MG/250 ML BAG 250 MG IVPB (02:47)
[2023-07-02] MEDS: cefTRIAXone 2 GM/NS 100 ML 2 GM/100 ML BAG IVPB (02:47)
[2023-07-02] MEDS: IPRATROPIUM BR 0.02% INH SOLN 0.5 MG/2.5 ML VIAL INHALATION (03:00)
[2023-07-02] MEDS: ALBUTEROL SULFATE NEB 2.5 MG/3 ML INH INHALATION (03:00)
--- NOTE | 2023-07-02 03:08 | PCRCNOTE ---
RN called Respiratory to request PRN treatment due to patient being short of breath. When Respiratory was speaking with the patient, he stated he wears 2L nasal cannula @ noc. Nasal cannula applied @ 0310.
[2023-07-02 10:19] LABS: Hemoglobin 10.3 g/dL (14.0-18.0); Mean Corpuscular HGB Conc 31.2 g/dl (32-36); Mean Corpuscular Hemoglobin 30.8 pg (26-34); Mean Corpuscular Volume 98.8 fl (80-100); Mean Platelet Volume 9.5 fl (7.4-10.4); Platelet Count Result 197 k/mm3 (150-375); Red Blood Count 3.34 M/mm3 (4.6-6.20); White Blood Count 8.5 K/mm3 (4.5-10.0)
[2023-07-02 10:28] LABS: Anion Gap 15 mmol/L (8-16); Blood Urea Nitrogen 92 mg/dL (9-20); Calcium 8.2 mg/dL (8.4-10.2); Carbon Dioxide 23 mmol/L (22-30); Chloride 100 mmol/L (98-107); Estimated CRCL calculation 13 ml/min; Estimated Glomerular Filt Rate 13; Glucose 124 mg/dL (65-110); Potassium 4.4 mmol/L (3.4-5.0); Sodium 138 mmol/L (137-145)
[2023-07-02 10:37] LABS: NT Pro B Type Natriuretic Pept 9720 pg/mL (19.9-100)
--- NOTE | 2023-07-02 10:46 | PM.IMPN ---
Progress Note: A&P Assessment and Plan (1) Pneumonia due to COVID-19 virus: Code(s): U07.1 - COVID-19; J12.82 - Pneumonia due to coronavirus disease 2019 Status: Acute Assessment and Plan: Con't Rocephin and Zithromax Will hold off on remdesivir due to renal failure Patient is not requiring supplemental oxygen (2) ESRD needing dialysis: Code(s): N18.6 - End stage renal disease; Z99.2 - Dependence on renal dialysis Status: Acute Assessment and Plan: Patient has upcoming appointment for fistula placement Continue to monitor Supportive care (3) Febrile illness: Code(s): R50.9 - Fever, unspecified Status: Acute Assessment and Plan: resolved today. Supportive care as needed (4) Paroxysmal atrial fibrillation: Code(s): I48.0 - Paroxysmal atrial fibrillation Status: Acute Assessment and Plan: Rate controlled Not anticoagulated (5) Chronic systolic CHF (congestive heart failure): Code(s): I50.22 - Chronic systolic (congestive) heart failure Status: Acute Assessment and Plan: Patient appears euvolemic on physical exam Continue to monitor ECHO pending Subjective Date/time seen: 07/02/23 10:46 Interval history: Patient is a 77 YO male with PMH of coronary artery disease status post coronary artery bypass graft, end-stage renal disease patient is in preparation for hemodialysis has upcoming appointment for fistula placement. Admitted from ER due to cough for the last few days or so body aches and pains, fevers chills and tested positive for Covid 19. Denies any chest pain, N/V or worsening of his symptoms this morning. He is sitting up in the chair and eating. He feels better this morning, but still reporting a productive cough. He is is no distress, able to speak in full sentences. Review of Systems Review of Systems: Cough, productive of clear sputum Exam Narrative: General: Awake, alert and oriented. No acute distress. Well developed, hydrated and nourished. Appears stated age. Skin: Skin in warm, dry and intact without rashes or lesions. Eyes: Conjunctivae are clear without exudates or hemorrhage.EOM are intact, PERRLA. Nose: Nasal mucosa is pink and moist. The nasal septum is midline. Nares are patent bilaterally. Throat: Oral mucosa is pink and moist. Neck: The neck is supple without adenopathy. Trachea is midline. Thyroid gland is normal without masses. Cardiac: RRR. No murmurs, gallops, or rubs are auscultated. Respiratory: Chest wall is non-tender. No signs of respiratory distress. Lung sounds are present in all lobes bilaterally with crackles and rales heard at the bases. Abdominal: Abdomen is soft, symmetric, and non-tender without distention. Bowel sounds are present and normoactive in all four quadrants. No masses, hepatomegaly, or splenomegaly are noted. Extremities: No swelling or erythema.Pulses palpable. Neurological: A&O x3 with normal speech. Cranial nerves are intact. Memory is normal and thought process is intact. Psychiatric: Appropriate mood and affect. Good judgement and insight. No visual or auditory hallucinations. No suicidal or homicidal ideation. Objective Data Vital Signs Vital Signs: Vital Signs - 24 hr 07/01/23 12:31 07/01/23 12:47 07/01/23 14:38 Temperature 98.2 F Pulse Rate 92 78 Respiratory Rate 20 24 H Blood Pressure 136/101 H Pulse Oximetry 95 Oxygen Delivery Room Air Room Air Oxygen Flow Rate Fraction of Inspired Oxygen 07/01/23 14:50 07/01/23 12:50 07/01/23 12:52 Temperature Pulse Rate 76 Respiratory Rate 22 H Blood Pressure 154/91 H Pulse Oximetry 93 98 Oxygen Delivery Oxygen Flow Rate Fraction of Inspired Oxygen 07/01/23 13:08 07/01/23 13:15 07/01/23 14:41 Temperature Pulse Rate Respiratory Rate Blood Pressure Pulse Oximetry 97 97 98 Oxygen Delivery Oxygen Flow Rate Fraction of I
[2023-07-02] MEDS: CHOLECALCIFEROL 1,000 UNITS TABLET 5000 UNITS PO (15:43)
[2023-07-02] MEDS: CALCIUM CARBONATE (OSCAL) 500 MG TABLET 1000 MG PO (15:43)
[2023-07-02] MEDS: ISOSORBIDE MONONITRATE 60 MG TAB.ER.24H PO (15:43)
[2023-07-02] MEDS: predniSONE 5 MG TABLET PO (15:44)
[2023-07-02] MEDS: CLOPIDOGREL BISULFATE 75 MG TABLET PO (15:44)
[2023-07-02] MEDS: THERAPEUTIC MULTIVITAMINS/MINERALS TAB (*BKC) 1 TABLET PO (15:44)
[2023-07-02] MEDS: METOPROLOL SUCCINATE EXT REL 50 MG TABCR PO (16:53)
[2023-07-02] MEDS: SODIUM BICARBONATE TAB 325 MG TABLET PO (16:53)
[2023-07-02] MEDS: guaiFENesin/DEXTROMETHORPHAN 10 ML UDC PO ×2 (16:53→21:00)
[2023-07-02] MEDS: ACETAMINOPHEN 500 MG TABLET 1000 MG PO (21:00)
[2023-07-02] MEDS: TAMSULOSIN HCL 0.4 MG CAPSULE PO (21:00)
[2023-07-02] MEDS: ATORVASTATIN 40 MG TABLET 80 MG PO (21:00)
[2023-07-03] VITALS (7 sets, daily range): BP systolic 118; BP diastolic 75; PULSE 69–82; RESP 16; TEMP 36.8; O2SAT 98
[2023-07-03] MEDS: cefTRIAXone 2 GM/NS 100 ML 2 GM/100 ML BAG IVPB (02:55)
[2023-07-03] MEDS: AZITHROMYCIN 500 MG/NS 250 ML 500 MG/250 ML BAG 250 MG IVPB (02:55)
[2023-07-03 05:14] LABS: Alanine Aminotransferase 15 U/L (6-50); Albumin Level 3.7 g/dL (3.5-5.1); Alkaline Phosphatase 49 U/L (38-126); Aspartate Amino Transferase 22 U/L (17-59); Bilirubin,Total 0.5 mg/dL (0.2-1.3)
[2023-07-03 05:20] LABS: INR 1.1; Prothrombin Time 14.7 Seconds (11.1-14.7)
[2023-07-03 07:30] LABS: Anion Gap 10 mmol/L (8-16); Blood Urea Nitrogen 95 mg/dL (9-20); Calcium 8.2 mg/dL (8.4-10.2); Carbon Dioxide 24 mmol/L (22-30); Chloride 99 mmol/L (98-107); Estimated CRCL calculation 13 ml/min; Estimated Glomerular Filt Rate 12; Glucose 99 mg/dL (65-110); Potassium 4.6 mmol/L (3.4-5.0); Sodium 133 mmol/L (137-145)
[2023-07-03 07:35] LABS: Hematocrit 30.2 % (42.0-52.0); Hemoglobin 9.3 g/dL (14.0-18.0); Mean Corpuscular HGB Conc 30.8 g/dl (32-36); Mean Corpuscular Hemoglobin 30.8 pg (26-34); Mean Platelet Volume 9.7 fl (7.4-10.4); Platelet Count Result 208 k/mm3 (150-375); Red Blood Count 3.02 M/mm3 (4.6-6.20); Red Cell Distribution Width 15.1 % (11.5-14.5); White Blood Count 7.6 K/mm3 (4.5-10.0)
[2023-07-03 07:39] LABS: NT Pro B Type Natriuretic Pept 10600 pg/mL (19.9-100)
[2023-07-03] MEDS: CLOPIDOGREL BISULFATE 75 MG TABLET PO (09:11)
[2023-07-03] MEDS: CHOLECALCIFEROL 1,000 UNITS TABLET 5000 UNITS PO (09:11)
[2023-07-03] MEDS: predniSONE 5 MG TABLET PO (09:11)
[2023-07-03] MEDS: METOPROLOL SUCCINATE EXT REL 50 MG TABCR PO (09:11)
[2023-07-03] MEDS: SODIUM BICARBONATE TAB 325 MG TABLET PO (09:11)
[2023-07-03] MEDS: THERAPEUTIC MULTIVITAMINS/MINERALS TAB (*BKC) 1 TABLET PO (09:11)
[2023-07-03] MEDS: CALCIUM CARBONATE (OSCAL) 500 MG TABLET 1000 MG PO (09:11)
[2023-07-03] MEDS: ISOSORBIDE MONONITRATE 60 MG TAB.ER.24H PO (09:11)
[2023-07-03] MEDS: ENOXAPARIN 30 MG/0.3 ML SYRINGE SUB-Q (09:12)
--- NOTE | 2023-07-03 14:57 | PM.IMPN ---
Progress Note: A&P Assessment and Plan (1) Pneumonia due to COVID-19 virus: Code(s): U07.1 - COVID-19; J12.82 - Pneumonia due to coronavirus disease 2019 Status: Acute Assessment and Plan: Con't Rocephin and Zithromax Will hold off on remdesivir due to renal failure Patient is not requiring supplemental oxygen (2) ESRD needing dialysis: Code(s): N18.6 - End stage renal disease; Z99.2 - Dependence on renal dialysis Status: Acute Assessment and Plan: Patient has upcoming appointment for fistula placement Continue to monitor Supportive care (3) Febrile illness: Code(s): R50.9 - Fever, unspecified Status: Acute Assessment and Plan: resolved today. Supportive care as needed (4) Paroxysmal atrial fibrillation: Code(s): I48.0 - Paroxysmal atrial fibrillation Status: Acute Assessment and Plan: Rate controlled Not anticoagulated (5) Chronic systolic CHF (congestive heart failure): Code(s): I50.22 - Chronic systolic (congestive) heart failure Status: Acute Assessment and Plan: Patient appears euvolemic on physical exam Continue to monitor ECHO pending Subjective Date/time seen: 07/03/23 14:57 Interval history: Review of Systems Review of Systems: Cough, productive of clear sputum Exam Narrative: General: Awake, alert and oriented. No acute distress. Well developed, hydrated and nourished. Appears stated age. Skin: Skin in warm, dry and intact without rashes or lesions. Eyes: Conjunctivae are clear without exudates or hemorrhage.EOM are intact, PERRLA. Nose: Nasal mucosa is pink and moist. The nasal septum is midline. Nares are patent bilaterally. Throat: Oral mucosa is pink and moist. Neck: The neck is supple without adenopathy. Trachea is midline. Thyroid gland is normal without masses. Cardiac: RRR. No murmurs, gallops, or rubs are auscultated. Respiratory: Chest wall is non-tender. No signs of respiratory distress. Lung sounds are present in all lobes bilaterally with crackles and rales heard at the bases. Abdominal: Abdomen is soft, symmetric, and non-tender without distention. Bowel sounds are present and normoactive in all four quadrants. No masses, hepatomegaly, or splenomegaly are noted. Extremities: No swelling or erythema.Pulses palpable. Neurological: A&O x3 with normal speech. Cranial nerves are intact. Memory is normal and thought process is intact. Psychiatric: Appropriate mood and affect. Good judgement and insight. No visual or auditory hallucinations. No suicidal or homicidal ideation. Objective Data Vital Signs Vital Signs: Vital Signs - 24 hr 07/02/23 16:53 07/02/23 16:03 07/02/23 20:00 Temperature Pulse Rate 90 86 88 Respiratory Rate 16 Blood Pressure Pulse Oximetry 97 Oxygen Delivery Nasal Cannula Oxygen Flow Rate 2 Fraction of Inspired Oxygen 21 07/02/23 20:00 07/02/23 23:30 07/03/23 00:00 Temperature 98.9 F Pulse Rate 82 71 82 Respiratory Rate 16 Blood Pressure 120/70 Pulse Oximetry 97 Oxygen Delivery Oxygen Flow Rate Fraction of Inspired Oxygen 07/03/23 04:00 07/02/23 23:02 07/03/23 06:00 Temperature 98.2 F Pulse Rate 69 76 Respiratory Rate 16 Blood Pressure 118/75 Pulse Oximetry 97 98 Oxygen Delivery Oxygen Flow Rate Fraction of Inspired Oxygen 07/03/23 09:11 07/03/23 08:00 07/03/23 10:45 Temperature Pulse Rate 80 Respiratory Rate Blood Pressure Pulse Oximetry 98 98 Oxygen Delivery Nasal Cannula Nasal Cannula Oxygen Flow Rate 2 1 Fraction of Inspired Oxygen 07/03/23 10:46 07/03/23 08:00 07/03/23 12:00 Temperature Pulse Rate 73 74 Respiratory Rate Blood Pressure Pulse Oximetry Oxygen Delivery Room Air Oxygen Flow Rate Fraction of Inspired Oxygen Intake/Output Intake/Output: Intake & Output 06/30/23 07/01/23 07/02/2307/03
--- NOTE | 2023-07-03 15:02 | PM.DS ---
DS: Admitting Diagnosis Discharge Date 07/03/23 Admitting Diagnosis covid 19 DS: Discharge Diagnosis Discharge Diagnosis (1) Pneumonia due to COVID-19 virus: Code(s): U07.1 - COVID-19; J12.82 - Pneumonia due to coronavirus disease 2018 Status: Acute Assessment and Plan: Transition to PO azithromycin 250 mg 5 days and augmentin renal dose to 500 mg BID 7 day course total Stable on room air, satting >92%. Will resume supplemental O2 at home as needed. (2) ESRD needing dialysis: Code(s): N18.6 - End stage renal disease; Z99.2 - Dependence on renal dialysis Status: Acute Assessment and Plan: Patient has upcoming appointment for fistula placement for dialysis (3) Paroxysmal atrial fibrillation: Code(s): I48.0 - Paroxysmal atrial fibrillation Status: Acute Assessment and Plan: Rate controlled (4) Chronic systolic CHF (congestive heart failure): Code(s): I50.22 - Chronic systolic (congestive) heart failure Status: Acute Assessment and Plan: Patient appears euvolemic on physical exam ECHO pending - will follow up with results DS: Summary Hospital Course Hospital Course: Patient is a 77 YO male with PMH of coronary artery disease status post coronary artery bypass graft, end-stage renal disease patient is in preparation for hemodialysis has upcoming appointment for fistula placement. Admitted from ER due to cough for the last few days or so body aches and pains, fevers chills and tested positive for Covid 19. Denies any chest pain, N/V or worsening of his symptoms this morning. He is sitting up in the chair and eating. He feels ready to go home, titrated off oxygen today and satting at 93% on room air. He will continue to use O2 as needed at home. He is is no distress, cough is somewhat productive but nothing has come up. He is stable for d/c to home today on oral antibiotics. Will call with results of ECHO if results are of concern as the report is still not available. Status at Discharge Functional status at discharge: independent ambulation Overall status at discharge: patient is progressing back to baseline Time Spent with Patient Time attestation: Total time spent providing and/or coordinating discharge services: Exam Narrative: General: Awake, alert and oriented. No acute distress. Well developed, hydrated and nourished. Appears stated age. Skin: Skin in warm, dry and intact without rashes or lesions. Eyes: Conjunctivae are clear without exudates or hemorrhage.EOM are intact, PERRLA. Nose: Nasal mucosa is pink and moist. The nasal septum is midline. Nares are patent bilaterally. Throat: Oral mucosa is pink and moist. Neck: The neck is supple without adenopathy. Trachea is midline. Thyroid gland is normal without masses. Cardiac: RRR. No murmurs, gallops, or rubs are auscultated. Respiratory: Chest wall is non-tender. No signs of respiratory distress. Lung sounds are present in all lobes bilaterally with crackles and rales heard at the bases. Abdominal: Abdomen is soft, symmetric, and non-tender without distention. Bowel sounds are present and normoactive in all four quadrants. No masses, hepatomegaly, or splenomegaly are noted. Extremities: No swelling or erythema.Pulses palpable. Neurological: A&O x3 with normal speech. Cranial nerves are intact. Memory is normal and thought process is intact. Psychiatric: Appropriate mood and affect. Good judgement and insight. No visual or auditory hallucinations. No suicidal or homicidal ideation. DS: Data Data Completed and Pending Labs on day of discharge: Labs from last 24 hours 07/03/23 07/03/23 04:50 04:48 WBC 7.6 RBC 3.02 L Hgb 9.3 L Hct 30.2 L MCV 100.0 MCH 30.8 MCHC 30.8 L RDW 15.1 H Plt Count 208 MPV 9.7 PT 14.7 INR 1.1 Sodium 133 L Potassium 4.6 Chloride 99 Carbon Dioxide 24 Anion Gap 10 BUN 95 H Creatinine 4.60 H Es
== END 2023-07-03 14:00 | disposition home or self-care (01) | DRG 177 ==
LOC: ANHED 17:32 → ANH2MED 19:54
PROVIDERS: Student in an Organized Health Care Education/Training Program; Admitting Provider Student in an Organized Health Care Education/Training Program; Emergency Provider Emergency Medicine; PCP Family Medicine Adolescent Medicine; Visit Provider Nurse Practitioner
DX: U07.1 COVID-19 (principal); J12.82 Pneumonia due to coronavirus disease 2019; N18.6 End stage renal disease; I13.2 Hypertensive heart and chronic kidney disease with heart failure and with stage 5 chronic kidney disease, or end stage renal disease; I50.22 Chronic systolic (congestive) heart failure; I48.0 Paroxysmal atrial fibrillation; I71.40 Abdominal aortic aneurysm, without rupture, unspecified; I25.10 Atherosclerotic heart disease of native coronary artery without angina pectoris; Z23 Encounter for immunization; Z99.2 Dependence on renal dialysis; Z95.1 Presence of aortocoronary bypass graft; Z86.73 Personal history of transient ischemic attack (TIA), and cerebral infarction without residual deficits; Z90.49 Acquired absence of other specified parts of digestive tract; Z95.5 Presence of coronary angioplasty implant and graft
CPT/HCPCS: 36415; 71046; 80048; 80053; 80076; 83880; 85025; 85027; 85610; 87636; 90471; 90694; 93005; 93306; 94640; 96365; 96375; 99285; A9270; G0008; G0378; J0248; J0456; J0696; J1650; J1940; J7512

== ENCOUNTER 2023-12-02 15:14 | Inpatient (IN) | payer MEDICARE, OTHER, SELFPAY ==
[2023-12-02] VITALS (12 sets, daily range): BP systolic 141–184; BP diastolic 80–99; PULSE 90–115; RESP 18–20; TEMP 36.4–36.9; O2SAT 94–100; BMI 32.5
--- NOTE | ~2023-12-02 | XR_ITS ---
XR chest 1V portable 12/02/2023 15:55 Indication: Dyspnea. Chest palpitations Procedure: AP portable chest Comparison: No prior studies for comparison. Findings: Status post median sternotomy for CABG. Cardiomegaly. Mild interstitial edema. No pleural e ffusion or pneumothorax. No acute osseous abnormality. Superior sternal wire is fractured. Impression: 1: Cardiomegaly with mild interstitial edema. Reviewed, dictated and finalized at location A. Impression: 1: Cardiomegaly with mild interstitial edema.
--- NOTE | 2023-12-02 15:36 | ECG_ITS ---
Measurements Intervals [place] Rate: 99 P: -7 MO: 212 QRS: 116 QRSD: 153 T: -25 QT: 383 Avg RR: 604 QTc: 439 QTcB: 492 QTcF: 453 Interpretive Statements SINUS RHYTHM WITH FIRST DEGREE AV BLOCK RIGHT BUNDLE BRANCH BLOCK [120+ ms QRS DURATION, UPRIGHT V1, 40+ ms S IN I/aVL/V4/V5/V6] LEFT POSTERIOR FASCICULAR BLOCK [QRS AXIS > 109, INFERIOR Q] ABNORMAL ECG SEE SCANNED COPY FOR SIGNATURE MTDD
[2023-12-02 15:46] LABS: Basophils Percent Auto 0.5 % (0.2-1.2); Eosinophils Absolute Auto 0.4 K/mm3 (0-0.3); Eosinophils Percent Auto 6.4 % (0-4.4); Hematocrit 32.1 % (42.0-52.0); Hemoglobin 10.4 g/dL (14.0-18.0); Immature Granulocyte Absolute 0.03 K/mm3 (0.00-0.031); Immature Granulocyte Percent A 0.5 % (0-0.5); Lymphocytes Absolute Auto 0.91 K/mm3 (0.9-3.2); Lymphocytes Percent Auto 15.3 % (18.3-44.2); Mean Corpuscular HGB Conc 32.4 g/dl (32-36); Mean Corpuscular Hemoglobin 32.7 pg (26-34); Mean Corpuscular Volume 100.9 fl (80-100); Mean Platelet Volume 9.8 fl (7.4-10.4); Monocytes Absolute Auto 0.5 K/mm3 (0.1-0.6); Monocytes Percent Auto 8.9 % (2.6-8.5); Neutrophils Absolute Auto 4.1 K/mm3 (1.3-6.7); Neutrophils Percent Auto 68.4 % (45.5-73.1); Platelet Count Result 129 k/mm3 (150-375); Red Blood Count 3.18 M/mm3 (4.6-6.20); Red Cell Distribution Width 14.2 % (11.5-14.5)
[2023-12-02 15:56] LABS: Alanine Aminotransferase 19 U/L (6-50); Albumin Level 4.5 g/dL (3.5-5.1); Alkaline Phosphatase 52 U/L (38-126); Anion Gap 13 mmol/L (4-12); Aspartate Amino Transferase 21 U/L (17-59); Bilirubin,Total 0.7 mg/dL (0.2-1.3); Blood Urea Nitrogen 81 mg/dL (9-20); Calcium 9.1 mg/dL (8.4-10.2); Carbon Dioxide 22 mmol/L (22-30); Chloride 104 mmol/L (98-107); Estimated CRCL calculation 18 ml/min; Estimated Glomerular Filt Rate 15; Glucose 133 mg/dL (65-110); Potassium 4.6 mmol/L (3.4-5.0); Sodium 139 mmol/L (137-145)
[2023-12-02] MEDS: FUROSEMIDE INJ 40 MG/4 ML VIAL IV PUSH (16:12)
[2023-12-02 16:17] LABS: NT Pro B Type Natriuretic Pept 8910 pg/mL (19.9-100); Troponin I 0.113 ng/mL (0.000-0.034)
--- NOTE | 2023-12-02 16:45 | ED.SOB ---
HPI - SOB/Dyspnea General Chief Complaint: Shortness of Breath/Dyspnea Stated Complaint: DIFF BREATHING,ELEVATED HEART RATE,SWELLING Time Seen by Provider: 12/02/23 15:22 History of Present Illness HPI Narrative: Patient states that he has been having increasing difficulty breathing since this morning, he does have history of CHF, he has noted his legs did seem more swollen the last few days. Related Data Home Medications Medication Instructions Recorded Confirmed coenzyme Q10 10 mg capsule (Co 450 mg PO DAILY 10/15/19 09/17/23 Q-10) isosorbide mononitrate 60 mg 60 mg PO DAILY 10/15/19 09/17/23 tablet,extended release 24 hr sictflkk-miwryvdd-jlppt acid 400 1 tablet PO DAILY 10/15/19 09/17/23 mcg-vit K 20 mcg-lycop 300 mcg tablet (Men's Multivitamin) tamsulosin 0.4 mg capsule (Flomax) 0.4 mg PO HS 11/25/19 09/17/23 metoprolol succinate 50 mg 50 mg PO BID 08/02/22 09/17/23 tablet,extended release 24 hr calcium carbonate 1,000 mg tablet 1,250 mg PO DAILY 09/25/22 09/17/23 clopidogrel 75 mg tablet 75 mg PO DAILY 09/25/22 09/17/23 sodium bicarbonate 650 mg tablet 325 mg PO BID 06/17/23 09/17/23 prednisone 5 mg tablet 5 mg PO DAILY 07/02/23 09/17/23 cholecalciferol (vitamin D3) 125 5,000 unit PO .every other day 09/16/23 09/17/23 mcg (5,000 unit) capsule (Dialyvite Vitamin D) Allergies Allergy/AdvReac Type Severity Reaction Status Date / Time carvedilol [From Coreg] Allergy Rash Verified 12/02/23 15:21 hydralazine AdvReac Vasculitis Verified 12/02/23 15:21 Review of Systems Review of Systems: CONST: No fever. HEENT: No sore throat C/V: No chest pain RESP: shortness of breath GI: slight abdominal distension : No dysuria. M/S: lower extremity edema SKIN: No rash. NEURO: [No headache or focal numbness or weakness] PSYCH: [No depression] [facility] Past Medical History Medical History AAA (abdominal aortic aneurysm) CAD (coronary artery disease) CAP (community acquired pneumonia) CVA (cerebral vascular accident) Gout HTN (hypertension) Surgical History Surgical History Hx of appendectomy Hx of CABG x4 Hx of cardiac catheterization with stent placement Family History Family History Mother Diabetes mellitus Sibling Diabetes mellitus Father Acute myocardial infarction Social History Social History (Updated 09/16/23 @ 09:53 by Radha Beck MA) Smoking status: Never smoker Alcohol intake: never Substance use: never Do You Feel Safe in your Home?: Yes Lack of Transportation: No Lack of Food: Never True Current Housing: I Have Housing Concerned About Future Housing: No Difficulty Paying Gas/Electric Bills: No Difficulty Paying for Meds: No Currently Unemployed: No Education: Grade School Difficulty w/ Childcare or Family Care: No Living arrangements: with family Occupation/Education: retired Gender identity (if verbalized by the patient): Male Spiritual care concerns: No Agree to blood products: Yes Exam Narrative: EXAMINATION OF ORGAN SYSTEMS/BODY AREAS: Constitutional: Vital signs per nursing GENERAL:[No acute distress, non-toxic appearing.] HEAD: Normal with no signs of head trauma. EYES: EOMI, conjunctiva normal ENT: Hearing grossly intact LUNGS: Nonlabored breathing. End expiratory wheeze HEART: slightly tachycardic ABD: [Soft], [nontender to palpation] EXT: Normal range of motion SKIN: [No rashes or lesions.] NEURO: [Alert and oriented x 3. No gross focal sensory or strength deficits.] PSYCH: Normal affect Course Vital Signs Vital signs: Vital Signs Temperature 98.4 F 12/02/23 15:18 Pulse Rate 113 H 12/02/23 15:18 Respiratory Rate 18 12/02/23 15:18 Blood Pressure 178/99 H 12/02/23 15:18 Pulse Oximetry 98 12/02/23 15:18
--- NOTE | 2023-12-02 18:16 | ECG_ITS ---
SEE SCANNED COPY FOR CONFIRMED REPORT MTDD
--- NOTE | 2023-12-02 19:05 | ADMGEN ---
This patient, Jose Carballo, was admitted to IMU Room 200-01. Patient/family oriented to hospital policies and general routines including ID bracelet, bed and alarms, visiting hours, pain management, procedures, bathroom and other care routines, personal items, smoking policy, room service/diet, and visiting hours. Information on how to activate the Rapid Response Team has been discussed. Patient/Family are encouraged to report perceived risks to care and to ask questions if they do not understand what they are told or what they should do.
[2023-12-02 19:57] LABS: Troponin I 0.175 ng/mL (0.000-0.034)
--- NOTE | 2023-12-02 20:30 | PM.IMHP ---
H&P: HPI History of Present Illness Date/Time: 12/02/23 20:30 Chief Complaint: LEG SWELLING Narrative: THIS IS A 78-YEAR-OLD MALE WITH PAST MEDICAL HISTORY SIGNIFICANT FOR CONGESTIVE HEART FAILURE, HYPERTENSION, BENIGN PROSTATIC HYPERPLASIA, ABDOMINAL AORTIC ANEURYSM, GOUT, CORONARY ARTERY DISEASE, OBSTRUCTIVE SLEEP APNEA. PATIENT PRESENTS TO THE EMERGENCY ROOM DUE TO WORSENING BILATERAL LOWER EXTREMITY EDEMA WORSENING SHORTNESS OF BREATH, ORTHOPNEA, PND. XR chest 1V portable 12/02/2023 15:55 Indication: Dyspnea. Chest palpitations Procedure: AP portable chest Comparison: No prior studies for comparison. Findings: Status post median sternotomy for CABG. Cardiomegaly. Mild interstitial edema. No pleural effusion or pneumothorax. No acute osseous abnormality. Superior sternal wire is fractured. Impression: 1: Cardiomegaly with mild interstitial edema. Review of Systems Review of Systems: SHORTNESS OF BREATH, WORSENING BILATERAL LOWER EXTREMITY EDEMA PMFSH Past Medical History Medical History AAA (abdominal aortic aneurysm) CAD (coronary artery disease) CAP (community acquired pneumonia) CVA (cerebral vascular accident) Gout HTN (hypertension) Surgical History Surgical History Hx of appendectomy Hx of CABG x4 Hx of cardiac catheterization with stent placement Family History Family History Mother Diabetes mellitus Sibling Diabetes mellitus Father Acute myocardial infarction Social History Social History Smoking status: Never smoker Second hand tobacco smoke exposure: No Alcohol intake: never Substance use: never Do You Feel Safe in your Home?: Yes Lack of Transportation: No Lack of Food: Never True Current Housing: I Have Housing Concerned About Future Housing: No Difficulty Paying Gas/Electric Bills: No Difficulty Paying for Meds: No Currently Unemployed: No Education: High School Diploma/GED Difficulty w/ Childcare or Family Care: No Living arrangements: with family Occupation/Education: retired Gender identity (if verbalized by the patient): Male Spiritual care concerns: No (Congregational) Agree to blood products: Yes Meds Home Medications and Allergies Home Medications Medication Instructions Recorded Confirmed Type coenzyme Q10 10 mg capsule (Co 450 mg PO DAILY 10/15/19 12/02/23 History Q-10) isosorbide mononitrate 60 mg 60 mg PO DAILY 10/15/19 12/02/23 History tablet,extended release 24 hr rwihohdw-gcgevcgi-jozzv acid 400 1 tablet PO DAILY 10/15/19 12/02/23 History mcg-vit K 20 mcg-lycop 300 mcg tablet (Men's Multivitamin) tamsulosin 0.4 mg capsule (Flomax) 0.4 mg PO HS 11/25/19 12/02/23 History metoprolol succinate 50 mg 50 mg PO BID 08/02/22 12/02/23 History tablet,extended release 24 hr calcium carbonate 1,000 mg tablet 1,250 mg PO DAILY 09/25/22 12/02/23 History clopidogrel 75 mg tablet 75 mg PO DAILY 09/25/22 12/02/23 History prednisone 5 mg tablet 2 mg PO DAILY 07/02/23 12/02/23 History calcitriol 0.25 mcg capsule 0.25 mcg PO 3XW #60 caps 09/16/23 12/02/23 Rx cholecalciferol (vitamin D3) 125 5,000 unit PO .every other day 09/16/23 12/02/23 History mcg (5,000 unit) capsule (Dialyvite Vitamin D) atorvastatin 80 mg tablet 80 mg PO HS 12/02/23 12/02/23 History sodium bicarbonate 325 mg PO BID 12/02/23 12/02/23 History furosemide 40 mg tablet 40 mg PO BIDWM 30 days #60 tabs 12/05/23 12/02/23 Rx metolazone 5 mg tablet 5 mg PO 2XW 30 days #8 tabs 12/05/23 12/02/23 Rx Allergies Allergy/AdvReac Type Severity Reaction Status Date / Time carvedilol [From Coreg] Allergy Rash Verified 12/02/23 20:08 hydralazine AdvReac Vasculitis Verified 12/02/23 20:08 Vital Signs Vital Signs - 24 hr
[2023-12-03] VITALS (21 sets, daily range): BP systolic 130–164; BP diastolic 71–92; PULSE 66–108; RESP 20; TEMP 35.7–36.6; O2SAT 97–100
--- NOTE | 2023-12-03 | ECHO_ITS ---
Patient Info Name: Jose Carballo Age: 78 years : 1945 Gender: Male Ht: 71 in Wt: 233 lbs BSA: 2.33 m2 HR: 77 bpm BP: 141 / 92 mmHg Heart Rhythm: Sinus Rhythm Technical Quality: Fair Exam Date: 12/03/2023 8:41 AM Exam Location: Echo Lab Patient Status: Inpatient Admit Date: 12/02/2023 Staff Ordering Physician: Arielle Rose MD Program Director [employer]: Eliana Lockett RDCS Attending Provider: Salvador La DO Referring Physician: Milton SALGUERO; Exam Type: CA echo dop color flow w con Study Info Indications - Leg swelling Complete two-dimensional, color flow and Doppler transthoracic echocardiogram is performed with contrast to opacify the left ventricle and to improve the deliniation of the left ventricle endocardial borders. Contrast/Agitated Saline Contrast/Ag. Saline: Definity Amount: 2.00 ml Administered By: Eliana Lockett RDCS Existing IV Access: Yes IV Access Condition: patent with no signs of infiltration Summary 1. Left ventricular chamber dimension is normal. 2. Left ventricular systolic function is moderately reduced, estimated at 30-35%. 3. There is mildly increased left ventricular wall thickness. 4. Right ventricular chamber dimension is mildly enlarged. 5. Right ventricular systolic function is reduced. 6. Left atrial chamber dimension is mildly enlarged. 7. Right atrial chamber dimension is mildly enlarged. 8. There is mild mitral valve regurgitation. 9. There is moderate tricuspid valve regurgitation. Left Ventricle Left ventricular chamber dimension is normal. Left ventricular systolic function is moderately reduced, estimated at 30-35%. There is mildly increased left ventricular wall thickness. Right Ventricle Right ventricular chamber dimension is mildly enlarged. Right ventricular systolic function is reduced. Left Atria Left atrial chamber dimension is mildly enlarged. Right Atria Right atrial chamber dimension is mildly enlarged. Atrial Septum Intact interatrial septum visualized by color flow imaging. Aortic Valve The aortic valve is probable trileaflet. There is mild aortic valve stenosis. There is trace aortic valve regurgitation. There is moderate aortic valve calcification. Pulmonic Valve The pulmonic valve is not well visualized. Mitral Valve There is mild mitral valve regurgitation. Tricuspid Valve There is moderate tricuspid valve regurgitation. Pericardium/Pleural There is no pericardial effusion. Inferior Vena Cava Inferior vena cava is not well visualized. Aorta The aortic root size at the sinus of Valsalva is normal. Left Ventricular Outflow Tract Name Value Normal LVOT 2D LVOT Diameter 2.05 cm LVOT Doppler LVOT Peak Gradient 4 mmHg LVOT Mean Gradient 2 mmHg LVOT VTI 16.74 cm LVOT VTI/AV VTI Ratio 0.45 LVOT Stroke Volume 55.03 ml LVOT CO 4.24 l/min LVOT CI 1.82 L/min/m2 Pulmonic Valve
--- NOTE | 2023-12-03 00:30 | PC.NURSE ---
Call placed to Mary Grace Carballo(daughter in law) regarding patient's prednisone taper dose. Mary Grace stated 2mg prednisone order was started on 11/26/23 and should be continued until 12/24/23 r/t vasculitis episode.
[2023-12-03] MEDS: METOPROLOL SUCCINATE EXT REL 50 MG TABCR PO ×3 (01:48→20:45)
[2023-12-03] MEDS: ATORVASTATIN 40 MG TABLET 80 MG PO ×2 (01:48→20:45)
[2023-12-03] MEDS: TAMSULOSIN HCL 0.4 MG CAPSULE PO ×2 (01:48→20:45)
[2023-12-03] MEDS: CHOLECALCIFEROL 1,000 UNITS TABLET 5000 UNITS PO (08:28)
[2023-12-03] MEDS: metOLazone 5 MG TABLET PO (08:28)
[2023-12-03] MEDS: ISOSORBIDE MONONITRATE 60 MG TAB.ER.24H PO (08:28)
[2023-12-03] MEDS: CALCIUM CARBONATE (OSCAL) 500 MG TABLET 1000 MG PO (08:29)
[2023-12-03] MEDS: CALCIUM CARBONATE (OSCAL) 250 MG TABLET PO (08:29)
[2023-12-03] MEDS: calcitrioL 0.25 MCG CAPSULE PO (08:30)
[2023-12-03] MEDS: predniSONE 1 MG TABLET 2 MG PO (08:30)
[2023-12-03] MEDS: CLOPIDOGREL BISULFATE 75 MG TABLET PO (08:30)
[2023-12-03] MEDS: SODIUM BICARBONATE TAB 325 MG TABLET PO ×2 (08:30→17:17)
[2023-12-03] MEDS: FUROSEMIDE INJ 40 MG/4 ML VIAL IV PUSH ×2 (08:30→17:17)
[2023-12-03] MEDS: PERFLUTREN LIPID MICROSPHERES 1.5 ML VIAL DILUTED TO 10 ML TOTAL VOLUME IV PUSH (09:00)
--- NOTE | 2023-12-03 10:01 | IVDEFINITY ---
Prior to administration of IV Definity the patient was educated on the risks and benefits of the imaging enhancing agent including potential adverse side effects. The patient verbalized understanding. Allergies were verified. No exclusion criteria were identified and at least one of the following inclusion criteria were met: 1) physician request, 2) patient technically difficult to image (per the [place] [employer]ocardi[employer] guidelines of two or more segments not discernable within the apical view), or 3) questionable left ventricular function. ?
--- NOTE | 2023-12-03 12:50 | PM.IMPN ---
Progress Note: A&P Assessment and Plan (1) Acute on chronic diastolic CHF (congestive heart failure): Code(s): I50.33 - Acute on chronic diastolic (congestive) heart failure Status: Acute (2) Pneumonia due to COVID-19 virus: Code(s): U07.1 - COVID-19; J12.82 - Pneumonia due to coronavirus disease 2019 Status: Acute (3) HTN (hypertension): Qualifiers: Hypertension type: unspecified Qualified Code(s): I10 - Essential (primary) hypertension Code(s): I10 - Essential (primary) hypertension Status: Chronic (4) Acute respiratory failure with hypoxemia: Code(s): J96.01 - Acute respiratory failure with hypoxia Status: Acute (5) Troponin level elevated: Code(s): R79.89 - Other specified abnormal findings of blood chemistry Status: Acute (6) ARTEMIO (acute kidney injury): Code(s): N17.9 - Acute kidney failure, unspecified Status: Acute Plan # heart failure exacerbation , reduced ejection fraction -Patient fluid overloaded , 3+ pitting edema lower extremity ( perhaps home furosemide 40 mg daily and metolazone 5mg weekly are not sufficient) - patient response to diuresis continue Lasix 40 mg IV b.i.d. -strict I&O - echocardiogram ordered - last echocardiogram was 07/02/2023 showing EF of 30-35% with grade 1 diastolic dysfunction #Elevated troponin -likely from heart failure exacerbation, supply demand mismatch -no chest pain, ACS ruled out -trop 0.113, 0.175 #Chronic conditions - ESRD: not yet on dialysis, follows Dr. Sanchez. On calcitriol, calcium carbonate, vit D, sodium bicarb. Cr 3.9 baseline around 4-4.5 - CAD: continue atorvastatin, coq10, imdur, BB -CVA history: on plavix -Gout: no current treatment -essential hypertension: metoprolol - AAA -BPH: flomax Diet: heart healthy DVT prophylaxis: SQ heparin Code status: full code Disposition: Continue diuresis likely home in greater than 2 days Subjective Date/time seen: 12/03/23 12:50 Interval history: patient seen and examined. He has made overnight with fluid overload. We are starting diuresis Lasix 40 mg IV b.i.d.. He has ESRD but not started dialysis yet. He has no active chest pain. Patient has fever chills, nausea vomiting, diarrhea. Endorses lower extremity edema and dyspnea. Review of Systems Review of Systems: 10 point ROS complete, negative other than what is specified in HPI. Exam Narrative: - GENERAL: Pleasant in no acute distress. Well-nourished. - EYES: EOMI. Anicteric. - HENT: Moist mucous membranes. - LUNGS: Clear to auscultation bilaterally, no wheezing, rhonchi, or rales. - CARDIOVASCULAR: Regular rate and rhythm. No murmur. - ABDOMEN: Soft, non-tender and non-distended. No palpable masses. - EXTREMITIES: 3+ edema. Peripheral pulses 2+. Non-tender. - NEUROLOGIC: No focal neurological deficits. CN II-XII grossly intact. - PSYCHIATRIC: Awake, Alert and oriented x 3. Appropriate mood and affect. - SKIN: No rashes or lesions. Warm. - LYMPH: No cervical lymphadenopathy. Objective Data Vital Signs Vital Signs: Vital Signs - 24 hr 12/02/23 15:18 12/02/23 15:41 12/02/23 16:01 Temperature 36.9 C 36.7 C Pulse Rate 113 H 96 92 Respiratory Rate 18 20 20 Blood Pressure 178/99 H 148/85 H 145/80 H Pulse Oximetry 98 94 96 Oxygen Delivery Room Air 12/02/23 17:02 12/02/23 18:12 12/02/23 17:31 Temperature 36.7 C 36.6 C Pulse Rate 90 91 Respiratory Rate 20 19 Blood Pressure 152/89 H 141/92 H Pulse Oximetry 96 97 Oxygen Delivery Room Air 12/02/23 18:02 12/02/23 19:08 12/02/23 20:24 Temperature 36.4 C 36.4 C Pulse Rate 97 102 H 95 Respiratory Rate 18 18 20 Blood Pressure 148/98 H 184/96 H 177/96 H Pulse Oximetry 100 98 95 Oxygen Delivery 12/02/23 23:46 12/02/23 20:00 12/02/23 20:00 Temperature 36.5 C Pulse Rate 91 99 Respiratory Rate 20 Blood Pressure 169/92 H Pulse Oximetry 97 Oxygen Delivery Room
[2023-12-03] MEDS: HEPARIN SODIUM 5,000 UNITS/ML VIAL 5000 UNITS SUB-Q ×2 (13:09→22:02)
[2023-12-03] MEDS: THERAPEUTIC MULTIVITAMINS/MINERALS TAB (*BKC) 1 TABLET PO (13:09)
[2023-12-04] VITALS (12 sets, daily range): BP systolic 127–147; BP diastolic 71–86; PULSE 65–80; RESP 14–20; TEMP 35.8–36.8; O2SAT 97–100
[2023-12-04 05:21] LABS: Anion Gap 10 mmol/L (4-12); Blood Urea Nitrogen 86 mg/dL (9-20); Carbon Dioxide 24 mmol/L (22-30); Chloride 100 mmol/L (98-107); Estimated CRCL calculation 17 ml/min; Estimated Glomerular Filt Rate 14; Glucose 90 mg/dL (65-110); Sodium 134 mmol/L (137-145)
[2023-12-04] MEDS: HEPARIN SODIUM 5,000 UNITS/ML VIAL 5000 UNITS SUB-Q ×3 (06:24→21:25)
[2023-12-04] MEDS: CALCIUM CARBONATE (OSCAL) 500 MG TABLET 1000 MG PO (09:49)
[2023-12-04] MEDS: FUROSEMIDE INJ 40 MG/4 ML VIAL IV PUSH ×2 (09:49→16:28)
[2023-12-04] MEDS: CALCIUM CARBONATE (OSCAL) 250 MG TABLET PO (09:50)
[2023-12-04] MEDS: METOPROLOL SUCCINATE EXT REL 50 MG TABCR PO ×2 (09:50→21:25)
[2023-12-04] MEDS: SODIUM BICARBONATE TAB 325 MG TABLET PO ×2 (09:50→16:28)
[2023-12-04] MEDS: ISOSORBIDE MONONITRATE 60 MG TAB.ER.24H PO (09:50)
[2023-12-04] MEDS: CLOPIDOGREL BISULFATE 75 MG TABLET PO (09:50)
[2023-12-04] MEDS: predniSONE 1 MG TABLET 2 MG PO (09:50)
[2023-12-04] MEDS: THERAPEUTIC MULTIVITAMINS/MINERALS TAB (*BKC) 1 TABLET PO (11:14)
--- NOTE | 2023-12-04 12:41 | PM.IMPN ---
Progress Note: A&P Assessment and Plan (1) Acute on chronic diastolic CHF (congestive heart failure): Code(s): I50.33 - Acute on chronic diastolic (congestive) heart failure Status: Acute (2) Pneumonia due to COVID-19 virus: Code(s): U07.1 - COVID-19; J12.82 - Pneumonia due to coronavirus disease 2019 Status: Acute (3) HTN (hypertension): Qualifiers: Hypertension type: unspecified Qualified Code(s): I10 - Essential (primary) hypertension Code(s): I10 - Essential (primary) hypertension Status: Chronic (4) Acute respiratory failure with hypoxemia: Code(s): J96.01 - Acute respiratory failure with hypoxia Status: Acute (5) Troponin level elevated: Code(s): R79.89 - Other specified abnormal findings of blood chemistry Status: Acute (6) ARTEMIO (acute kidney injury): Code(s): N17.9 - Acute kidney failure, unspecified Status: Acute Plan # heart failure exacerbation, reduced ejection fraction - Patient fluid overloaded , 2+ pitting edema lower extremity - patient response to diuresis continue Lasix 40 mg IV b.i.d. - strict I&O: -1.4L - echocardiogram Shows EF 30-35%, similar to previous echo. no significant changes - last echocardiogram was 07/02/2023 showing EF of 30-35% with grade 1 diastolic dysfunction - will likely need to adjust to home Lasix and metolazone doses #Elevated troponin -likely from heart failure exacerbation, supply demand mismatch -no chest pain, ACS ruled out -trop 0.113, 0.175 #Chronic conditions - ESRD: not yet on dialysis, follows Dr. Sanchez. On calcitriol, calcium carbonate, vit D, sodium bicarb. Cr 3.9 baseline around 4-4.5. [address] neph[address] Sanchez - CAD: continue atorvastatin, coq10, imdur, BB -CVA history: on plavix -Gout: no current treatment -essential hypertension: metoprolol - AAA -BPH: flomax Diet: heart healthy DVT prophylaxis: SQ heparin Code status: full code Disposition: likely home in 1-2 days, downgrade to med/surg Subjective Date/time seen: 12/04/23 12:41 Interval history: Patient seen examined. He is diuresing well -1.4L. Family requested to inform Dr. Sanchez, will consult Nephrology. patient has been comfortable room air. Echocardiogram is similar to previous with EF 30-35%. Will continue IV diuresis and anticipate discharge in the next day or 2. Review of Systems Review of Systems: 10 point ROS complete, negative other than what is specified in HPI. Exam Narrative: - GENERAL: Pleasant in no acute distress. Well-nourished. - EYES: EOMI. Anicteric. - HENT: Moist mucous membranes. - LUNGS: Clear to auscultation bilaterally, no wheezing, rhonchi, or rales. - CARDIOVASCULAR: Regular rate and rhythm. No murmur. - ABDOMEN: Soft, non-tender and non-distended. No palpable masses. - EXTREMITIES: 2+ edema. Peripheral pulses 2+. Non-tender. - NEUROLOGIC: No focal neurological deficits. CN II-XII grossly intact. - PSYCHIATRIC: Awake, Alert and oriented x 3. Appropriate mood and affect. - SKIN: No rashes or lesions. Warm. - LYMPH: No cervical lymphadenopathy. Objective Data Vital Signs Vital Signs: Vital Signs - 24 hr 12/03/23 14:00 12/03/23 15:37 12/03/23 16:00 Temperature 36.2 C L Pulse Rate 66 80 76 Respiratory Rate 20 Blood Pressure 130/71 Pulse Oximetry 100 Oxygen Delivery 12/03/23 16:00 12/03/23 18:00 12/03/23 20:08 Temperature 36.6 C Pulse Rate 71 81 Respiratory Rate 20 Blood Pressure 153/85 H Pulse Oximetry 100 Oxygen Delivery Room Air 12/03/23 20:45 12/03/23 20:00 12/03/23 23:14 Temperature 36.4 C L Pulse Rate 73 97 Respiratory Rate 20 Blood Pressure 164/87 H Pulse Oximetry 97 Oxygen Delivery Room Air 12/03/23 20:00 12/03/23 22:00 12/04/23 00:00 Temperature Pulse Rate 74 76 Respiratory Rate Blood Pressure Pulse Oximetry Oxygen Delivery Room Air 12/04/23 00:00
--- NOTE | 2023-12-04 13:05 | PM.CNNEP ---
Assessment and Plan Assessment and plan (1) Chronic kidney disease, stage 4 (severe): Code(s): N18.4 - Chronic kidney disease, stage 4 (severe) Status: Chronic Assessment and Plan: baseline creatinine runs ~ 3.8 - 4.2mg/dl over the last year however, his creatinine has been higher in association with CHF exacerbations and necessity of IV diuretics due to hypertension, vascular disease, and an element of cardiorenal syndrome with the need of ongoing diuretic therapy follows with Dr. Sanchez for CKD management AVF in place for the eventual need for renal replacement therapy/dialysis in the future appears responsive to diuretic therapy at this time with no critical electrolytes, metabolic acidosis, or signs of uremia so need for urgent dialysis follow trend of repeat labs and UOP (2) Acute on chronic diastolic CHF (congestive heart failure): Code(s): I50.33 - Acute on chronic diastolic (congestive) heart failure Status: Acute Assessment and Plan: as noted by history/exam/clinical symptoms clinically improvement with current therapy follow I/Os, daily weights, and respiratory status (3) HTN (hypertension): Qualifiers: Hypertension type: unspecified Qualified Code(s): I10 - Essential (primary) hypertension Code(s): I10 - Essential (primary) hypertension Status: Chronic Assessment and Plan: reasonable control at this time follow trend of hemodynamics (4) Anemia: Code(s): D64.9 - Anemia, unspecified Status: Chronic Assessment and Plan: related to CKD and acute illness follow H/H no need for CATRACHO at this time I will continue follow patient with you while he remains hospitalized make further recommendations as deemed necessary Thank you for allowing me to participate in care of this patient. History of Present Illness Reason for Consult Consult date: 12/04/23 Reason for consult: chronic renal failure Chief Complaint Chief complaint: CHF exac History of Present Illness Narrative: The patient is a 78-year-old male with extensive past medical history as outlined below who presented to [facility] Emergency Room with complaints of worsening shortness of breath. The patient reports that over the last few days he has noticed increasing shortness of breath with any type of activity in association with worsening bilateral lower extremity swelling, orthopnea, and paroxysmal nocturnal dyspnea. He is known to have chronic systolic heart failure as well as advanced chronic kidney disease and the last time he had symptoms similar to this, he was found to be in volume overload and required admission to the hospital for more aggressive diuresis. Given these same symptoms as mentioned, he presented to the ER for further assessment Workup and evaluation emergency room demonstrated the patient be hemodynamically stable and in no acute distress. Routine blood test demonstrated labs consistent with his known history of chronic kidney disease with his troponins being mildly elevated but no more so than at baseline. His EKG did not show any significant ischemic changes but his chest x-ray showed evidence of congestive heart failure. Given his symptoms in conjunction with his laboratory and imaging findings, he was initiated on IV diuretic therapy and subsequently admitted to the hospital for further evaluation and therapy. Since his admission, he has responded to IV diuretics with clinical improvement in both his swelling and overall respiratory status. Furthermore, his renal function has remained relatively stable in the context of IV diuretic therapy to optimize his fluid status. Renal consultation was requested due to his known history of chronic kidney disease. The patient normally follows with Dr. Jeremy Sanchez in the office for management of his chronic kidney disease. His baseline creatinine has fluctuated over the years b
--- NOTE | 2023-12-04 14:44 | PC.NURSE ---
On 12/04/23, the student, [Margarita Moyer ], provided care and completed [facility] documentation on this patient. I have reviewed the student's documentation and agree with the findings.
--- NOTE | 2023-12-04 18:43 | PC.NURSE ---
This patient, Jose Carballo, was received from IMU on 12/04/23 at 1843. Patient/family oriented to unit policies and routines
[2023-12-04] MEDS: BUMETANIDE INJ 1 MG/4 ML VIAL IV PUSH (21:23)
[2023-12-04] MEDS: TAMSULOSIN HCL 0.4 MG CAPSULE PO (21:24)
[2023-12-04] MEDS: ATORVASTATIN 40 MG TABLET 80 MG PO (21:24)
[2023-12-05 05:19] LABS: Albumin Level 4.2 g/dL (3.5-5.1); Anion Gap 9 mmol/L (4-12); Blood Urea Nitrogen 95 mg/dL (9-20); Carbon Dioxide 27 mmol/L (22-30); Chloride 97 mmol/L (98-107); Estimated CRCL calculation 15 ml/min; Estimated Glomerular Filt Rate 13; Glucose 92 mg/dL (65-110); Magnesium 1.2 mg/dL (1.6-2.3); Phosphorus 4.8 mg/dL (2.5-4.5); Potassium 4.9 mmol/L (3.4-5.0); Sodium 133 mmol/L (137-145)
[2023-12-05] MEDS: HEPARIN SODIUM 5,000 UNITS/ML VIAL 5000 UNITS SUB-Q (06:02)
[2023-12-05 06:11] VITALS: BP 135/65; PULSE 72; RESP 16; TEMP 36.7; O2SAT 96
[2023-12-05] MEDS: CALCIUM CARBONATE (OSCAL) 250 MG TABLET PO (08:19)
[2023-12-05] MEDS: CALCIUM CARBONATE (OSCAL) 500 MG TABLET 1000 MG PO (08:19)
[2023-12-05] MEDS: calcitrioL 0.25 MCG CAPSULE PO (08:19)
[2023-12-05] MEDS: CHOLECALCIFEROL 1,000 UNITS TABLET 5000 UNITS PO (08:20)
[2023-12-05] MEDS: CLOPIDOGREL BISULFATE 75 MG TABLET PO (08:20)
[2023-12-05 08:21] VITALS: PULSE 77
[2023-12-05] MEDS: ISOSORBIDE MONONITRATE 60 MG TAB.ER.24H PO (08:21)
[2023-12-05] MEDS: predniSONE 1 MG TABLET 2 MG PO (08:21)
[2023-12-05] MEDS: SODIUM BICARBONATE TAB 325 MG TABLET PO (08:21)
[2023-12-05] MEDS: METOPROLOL SUCCINATE EXT REL 50 MG TABCR PO (08:21)
[2023-12-05] MEDS: FUROSEMIDE INJ 40 MG/4 ML VIAL IV PUSH (08:22)
[2023-12-05 09:03] VITALS: O2SAT 95
--- NOTE | 2023-12-05 10:17 | PM.PNNEP ---
Progress Note: A&P Assessment and Plan (1) Chronic kidney disease, stage 4 (severe): Code(s): N18.4 - Chronic kidney disease, stage 4 (severe) Status: Chronic Assessment and Plan: baseline creatinine runs ~ 3.8 - 4.2mg/dl over the last year however, his creatinine has been higher in association with CHF exacerbations and necessity of IV diuretics due to hypertension, vascular disease, and an element of cardiorenal syndrome with the need of ongoing diuretic therapy follows with Dr. Sanchez for CKD management AVF in place for the eventual need for renal replacement therapy/dialysis in the future appears responsive to diuretic therapy at this time with no critical electrolytes, metabolic acidosis, or signs of uremia so need for urgent dialysis follow trend of repeat labs and UOP (2) Acute on chronic diastolic CHF (congestive heart failure): Code(s): I50.33 - Acute on chronic diastolic (congestive) heart failure Status: Acute Assessment and Plan: as noted by history/exam/clinical symptoms clinically improvement with current therapy follow I/Os, daily weights, and respiratory status on discharge, recommend changing oral lasix to bid and changing metolazone to twice a week (3) HTN (hypertension): Qualifiers: Hypertension type: unspecified Qualified Code(s): I10 - Essential (primary) hypertension Code(s): I10 - Essential (primary) hypertension Status: Chronic Assessment and Plan: reasonable control at this time follow trend of hemodynamics (4) Anemia: Code(s): D64.9 - Anemia, unspecified Status: Chronic Assessment and Plan: related to CKD and acute illness follow H/H no need for CATRACHO at this time Not opposed to discharge from renal perspective if he is otherwise medically stable Will continue to follow. Subjective Date/time seen: 12/05/23 10:17 Interval history: Follow-up for chronic kidney disease. Breathing and respiratory status appear to be doing quite well at the time of my visit; no apparent distress voiced; no other acute issues/events overnight or earlier this morning; creatinine up a bit but no more than usual with IV diuretics in the past and previous hospitalizations. Exam Narrative: General: elderly but WD/WN male in NAD Heart: normal S1 and S2; no rub Lungs: clear to auscultation Abdomen: soft, nontender, nondistended, positive bowel sounds Extremities: no cyanosis or clubbing; no edema Skin: warm and dry Objective Data Vital Signs Vital Signs: Vital Signs Temp Pulse Resp BP Pulse Ox O2 Del Method 12/05/23 08:16 Room Air 12/05/23 09:03 95 Room Air 12/05/23 08:21 77 12/05/23 06:11 98.0 F 72 16 135/65 96 12/04/23 21:25 72 12/04/23 20:30 98.1 F 72 14 127/76 99 12/04/23 18:47 98.2 F 80 18 147/86 H 99 12/04/23 16:00 97.5 F L 67 20 132/71 100 Intake/Output Intake/Output: Intake & Output 12/02/23 12/03/23 12/04/23 12/05/23 23:59 23:59 23:59 23:59 Intake Total 2480 600 1260 Output Total 1300 2050 800 Balance 1180 -1450 460 Meds/Results Medications: Active Medications Generic Name Dose Route Start Last Admin Trade Name Luis Carlosq PRN Reason Stop Dose Admin Atorvastatin Calcium 80 mg 12/03/23 01:34 12/04/23 21:24 Atorvastatin 40 Mg Tablet PO 80 mg HS DELROY Administration Calcitriol 0.25 mcg 12/03/23 09:00 12/05/23 08:19 Calcitriol 0.25 Mcg Capsule PO 0.25 mcg MoWeFr DELROY Administration Calcium Carbonate 1,000 mg 12/03/23 09:00 12/05/23 08:19 Calcium Carbonate (Oscal) 500 Mg Tablet PO 01/02/24 08:59 1,000 mg DAILY DELROY Administration Calcium Carbonate 250 mg 12/03/23 09:00 12/05/23 08:19 Calcium Carbonate (Oscal) 250 Mg Tablet PO 01/02/24 08:59 250 mg DAILY DELROY Administration Clopidogrel Bisulfate 75 mg 12/03/23 09:00 12/05/23 08:20 Clopidogrel Bisulfate 75
[2023-12-05] MEDS: THERAPEUTIC MULTIVITAMINS/MINERALS TAB (*BKC) 1 TABLET PO (11:36)
--- NOTE | 2023-12-05 13:06 | PM.DS ---
DS: Admitting Diagnosis Discharge Date 12/05/23 Admitting Diagnosis Heart failure exacerbation DS: Discharge Diagnosis Discharge Diagnosis (1) Acute on chronic diastolic CHF (congestive heart failure): Code(s): I50.33 - Acute on chronic diastolic (congestive) heart failure Status: Acute (2) Pneumonia due to COVID-19 virus: Code(s): U07.1 - COVID-19; J12.82 - Pneumonia due to coronavirus disease 2018 Status: Acute (3) CKD stage 5 secondary to hypertension: Code(s): I12.0 - Hypertensive chronic kidney disease with stage 5 chronic kidney disease or end stage renal disease; N18.5 - Chronic kidney disease, stage 5 Status: Acute Plan # heart failure exacerbation, reduced ejection fraction - Patient fluid overloaded , 2+ pitting edema lower extremity - patient response to diuresis continue Lasix 40 mg IV b.i.d., will transition to Lasix p.o. 40 mg b.i.d. and metolazone twice weekly as per Nephrology recommendation - echocardiogram? Shows EF 30-35%, similar to previous echo.? no significant changes - last echocardiogram was 07/02/2023 showing EF of 30-35% with grade 1 diastolic dysfunction - will likely need to adjust to home Lasix and metolazone doses #Elevated troponin -likely from heart failure exacerbation, supply demand mismatch -no chest pain, ACS ruled out -trop 0.113, 0.175 # osteoarthritis -patient has some right knee pain, no erythema, no swelling, full range of motion intact -likely secondary to his arthritis pain, may continue as needed Tylenol #Chronic conditions - ESRD:? not yet on dialysis, follows Dr. Sanchez.? On calcitriol, calcium carbonate, vit D, sodium bicarb. Cr 4.5 baseline around 4-4.5.? Discussed case with maid cleaning cooking Dr. Tucker - CAD: continue atorvastatin, coq10, imdur, BB -CVA history: on plavix -Gout: no current treatment -essential hypertension: metoprolol - AAA -BPH: flomax Diet:?heart healthy DVT prophylaxis:?SQ heparin Code status:?full code Disposition:??home DS: Summary Hospital Course Reason for hospitalization: fluid overload Hospital Course: Patient is a 78-year-old male with past medical history of ESRD not yet on dialysis, CAD, CVA history, gout, hypertension, AAA, BPH, OA who presents to ED with complaints of dyspnea. Patient found to be in CHF exacerbation. He was diuresed with IV Lasix 40 mg b.i.d. with adequate output. Nephrology was consulted who recommended changing his home regimen Lasix from 40 mg daily to 40 mg b.i.d. and metolazone from 5 mg weekly to 5 mg twice weekly. Echocardiogram does not show any significant change from previous, EF is persistently 30-35%. With diuresis patient's respirations improved back to his baseline functional status. Creatinine at time of discharge was 4.5 which is normal for him as he fluctuates from 4-4.5. Patient to follow-up with his PCP and maid cleaning cooking Dr. Sanchez in 1 week. He has been advised to monitor daily weight. Patient also complains of arthritis knees, advised to continue using Tylenol as needed. At time of discharge patient's labs stable, vitals stable, patient is stable for discharge home. Patient understands and agrees with plan. Status at Discharge Cognitive/behavioral status at discharge: stable Time Spent with Patient Time attestation: Total time spent providing and/or coordinating discharge services: 40 minutes Exam Narrative: - GENERAL: Pleasant in no acute distress. - EYES: EOMI. Anicteric. - HENT: Moist mucous membranes. - LUNGS: Clear to auscultation bilaterally, no wheezing, rhonchi, or rales. - CARDIOVASCULAR: Regular rate and rhythm. No murmur. - ABDOMEN: Soft, non-tender and non-distended. No palpable masses. - EXTREMITIES: 2+ edema. Peripheral pulses 2+. Non-tender. Some erythema bilateral lower extremities - NEUROLOGIC: No focal neurological deficits. CN II-XII grossly intact. - PSYCHIATRIC: Awake, Alert and oriented x 3. Appropriate mood and affect. - SKIN: No rashe
--- NOTE | 2023-12-05 13:47 | PC.NURSE ---
On 12/05/23, the student, [Macy Burdick], provided care and completed [facility] documentation on this patient. I have reviewed the student's documentation and agree with the findings.
== END 2023-12-05 14:35 | disposition home or self-care (01) | DRG 291 ==
LOC: ANHED 17:16 → ANHIMU 18:10 → ANH2MED 12-04 18:34
PROVIDERS: Internal Medicine Nephrology; Admitting Provider Student in an Organized Health Care Education/Training Program; Emergency Provider Emergency Medicine; PCP Family Medicine Adolescent Medicine; Visit Provider Student in an Organized Health Care Education/Training Program
DX: I13.2 Hypertensive heart and chronic kidney disease with heart failure and with stage 5 chronic kidney disease, or end stage renal disease (principal); I50.33 Acute on chronic diastolic (congestive) heart failure; N18.5 Chronic kidney disease, stage 5; I48.0 Paroxysmal atrial fibrillation; I71.40 Abdominal aortic aneurysm, without rupture, unspecified; I25.10 Atherosclerotic heart disease of native coronary artery without angina pectoris; D63.1 Anemia in chronic kidney disease; N40.0 Benign prostatic hyperplasia without lower urinary tract symptoms; M10.9 Gout, unspecified; G47.33 Obstructive sleep apnea (adult) (pediatric); Z86.73 Personal history of transient ischemic attack (TIA), and cerebral infarction without residual deficits; Z79.02 Long term (current) use of antithrombotics/antiplatelets; Z95.1 Presence of aortocoronary bypass graft; Z95.5 Presence of coronary angioplasty implant and graft
CPT/HCPCS: 36415; 71045; 80048; 80053; 80069; 83735; 83880; 84484; 85025; 93005; 96374; 99285; A9270; C8929; J1644; J1939; J1940; Q9957

== ENCOUNTER 2025-06-06 10:20 | Outpatient (CLI) | payer MEDICARE, OTHER, SELFPAY ==
--- OUTSIDE RECORDS SUMMARY | 2025-06-06 11:20 | XMS_ITS | Clinical Summary ---
Author Organization [facility] Address [address] [place] [address] Phone Care Team Providers Care Clay Dry Press Helper Name Role Phone Herman Parks MD Primary Care Provider Allergies No known active allergies Medications aspirin (ASPIR-LOW) 81 MG EC tablet 0 09/28/2016 Active isosorbide mononitrate (IMDUR) 60 MG 24 hr tablet 1 daily 0 09/28/2016 Active cholecalciferol (VITAMIN D-3) 2000 units capsule 2 daily 0 06/09/2017 Active Coenzyme Q10 (COQ10) 30 MG capsule 10mg daily 0 09/28/2016 Active atorvastatin (LIPITOR) 80 MG tablet 1 tablet (80 mg) orally daily 0 02/03/2017 Active Multiple Vitamin (MULTIVITAMIN) capsule 1 daily 0 09/28/2016 Active calcium carbonate-vitami n D (OSCAL-500) 500-200 MG-UNIT per tablet Take 1 tablet by mouth 2 (two) times a day with meals Active sodium bicarbonate 650 MG tablet TAKE 1 TABLET BY MOUTH THREE TIMES A DAY 270 tablet 3 05/06/2022 Active metoprolol succinate XL (TOPROL-XL) 50 MG 24 hr tablet Take 50 mg by mouth 1 (one) time each day 04/25/2022 Active Jardiance 10 MG tablet 04/19/2022 Active Xarelto 15 MG tablet 04/19/2022 Active furosemide (LASIX) 20 MG tablet Take 20 mg by mouth 3 (three) times a week Active hydrALAZINE (APRESOLINE) 50 MG tablet Take 1 tablet (50 mg total) by mouth 3 (three) times a day 270 tablet 3 06/03/2022 Active tamsulosin (FLOMAX) 0.4 MG 24 hr capsule TAKE 1 CAPSULE BY MOUTH EVERY DAY 90 capsule 3 07/24/2022 Active Active Problems Problem Noted Date Diagnosed Date Myocardial infarction 04/04/2021 Stage 3b chronic kidney disease 10/06/2020 Abdominal aortic aneurysm without rupture 2019 Overview (06/17/2021): Last Assessment & Plan: - s/p EVAR in 09/2019 for symptomatic 7 cm infrarenal AAA. His follow-up imaging with non-contrast CT shows that the aneurysm has grown to 8 cm from 7.4 cm last year. Ultrasound duplex shows evidence of persistent type 2 endoleak with growth of the aneurysm. Admitted for hydration prior to a CT scan - IV hydration initiated but developed chest pain prompting Cardiology evaluation - CT will be completed at later date Presence of aortocoronary bypass graft 9 Secondary hyperparathyroidism 10/15/2017 Left ventricular failure 10/15/2017 Acquired cyst of kidney 09/28/2016 Gout 09/28/2016 Hyperkalemia 05/21/2016 Hyperlipidemia 05/14/2016 Hypertension 05/14/2016 Paroxysmal atrial fibrillation 05/14/2016 Overview (04/08/2019): Annotation: Converted to SR with Cardizem IVP Coronary arteriosclerosis 05/14/2016 Overview (11/19/2019): Annotation: s/p CABG 1995, 05/10/2016 [facility] severe 3-V disease Last Assessment & Plan: - History of revascularization of LAD in 1990 c/b restenosis and then underwent surgical revascularization with a CLEMONS to his LAD and a vein graft to his diag in 1995 - Left main PCI [address] Fernández - Continue aspirin and Plavix indefinitely per PCP/Milk Pasteurizer Immunizations Immunization Administration Dates Next Due Influenza TIV (IM) 06/25/2021,05/25/2020, 019 Pneumococcal Conjugate 04/25/2017 Pneumococcal Conjugate 13-Valent 04/25/2018 Family History Medical History Relation Comments Kidney disease Neg Hx Social History Tobacco Use Types Packs/Day Years Used Date Smoking Tobacco: Never Smokeless Tobacco: Never Alcohol Use Standard Drinks/Week Comments Not Currently 0 (1 standard drink = 0.6 oz pur e alcohol) Sex and Gender Information Value Date Recorded Sex Assigned at Male 06/21/2021 9:31 AM MDT Legal Sex Male 8:34 AM MST Gender Identity Male 06/21/2021 9:31 AM MDT Sexual Orientation Not on file Last Filed Vital Signs Vital Sign Reading Time Taken Comments Blood Pressure 126/70 05/06/2022 12:00 PM CDT Pulse 72 05/06/2022 12:00 PM CDT Temperature 36.1 C (97 F) 05/06/2022 12:00 PM CDT Respiratory Rate - - Oxygen Saturation - - Inhaled Oxygen Concentration - - Weight 103 kg (228 lb) 05/06/2022 12:00 PM CDT Height 180.3 cm (5' 11) 05/06/2022 12:00 PM CDT Body Mass Index 31.8 05/06/2022 12:00 PM CDT Plan of Treatment Health Maintenance Due Date Last Done Comments Pneumococcal PPSV23/PCV13 65 + Years / Low and Medium Risk (2 of 3 - PCV20 or PCV21) 04/25/2019 04/25/2018 Influenza Vaccine (#1) 2025 , 05/25/2020, 05/03/2019 Insurance MEDICARE [facility] [place], [place] [id number] Care Teams Clay Dry Press Helper Relationship Specialty Start Date End Date Herman Parks MD [address] [address] PCP - General Family Medicine 04/12/19
--- OUTSIDE RECORDS SUMMARY | 2025-06-06 11:20 | XMS_ITS | Encounter Summary ---
Author Organization [facility] Address [address] [address] Care Team Providers Care Automobile Tester Name Role Phone Herman Ortiz MD Primary Care Prov ider Herman Ortiz MD Primary Care Prov ider Rafal Arellano MD Unavailable [phone] Herman Ortiz MD Primary Care Prov ider Yon Burch MD Unavailable [phone] Sharlene Lobo [facility] Unavailable [phone] Mary Kay Hoffman RN Unavailable Unavaila [facility] Herman Ortiz MD Primary Care Prov ider Brenden Valladares Unavailable Unavailable Encounter Details Date Type Department Care Team (Late st Contact Info) Description 09/19/2016 Orders Only [facility] Provider, MD Grace [address] [place] [id number] Social History Tobacco Use Types Packs/Day Years Used Date Smoking Tobacco: Never Alcohol Use Standard Drinks/Week Comments No 0 (1 standard drink = 0.6 oz pur e alcohol) Sex and Gender Information Value Date Recorded Sex Assigned at Not on file Legal Sex Male 8:42 AM WOODEN FRAME BUILDER Gender Identity Male 05/07/2021 11:48 AM CDT Sexual Orientation Not on file documented as of this encounter Plan of Treatment Not on file documented as of this encounter Procedures Procedure Name Priority Date/Time Associated Diagnosis Comments CARDIOLOGY REPORT 09/19/2016 documented in this encounter Results * CARDIOLOGY REPORT (09/19/2016) Anatomical Region Laterality Modality Other Narrative 09/19/2016 Ordered by an unspecified provider. us Historical Provider [facility] [address] Final Result documented in this encounter Visit Diagnoses Not on filedocumented in this encounter Additional Health Concerns Infection Onset Date Last Indicated Resolved Time COVID: Suspected 04/11/2022 04/11/2022 04/11/2022 11:25 PM CDT COVID: Suspected 08/31/2022 08/31/2022 08/31/2022 8:31 PM WOODEN FRAME BUILDER COVID: Suspected 09/16/2022 09/16/2022 09/16/2022 6:52 AM WOODEN FRAME BUILDER COVID: Suspected 09/16/2022 09/16/2022 09/16/2022 11:22 AM WOODEN FRAME BUILDER documented as of this encounter Care Teams Automobile Tester Relationship Specialty Start Date End Date Herman Ortiz MD PCP - General 11/22/16 04/03/21 Herman Ortiz MD PCP - General 05/28/16 11/21/16 Herman Ortiz MD PCP - General 04/04/21 04/03/25 Herman Ortiz MD PCP - General Family Medicine 04/04/25 Rafal Arellano MD Consulting Physician Vascular Surgery 10/18/19 Yon Burch MD [address] [facility] [address] [place] [address] Consulting Physician Cardiology 02/19/22 Sharlene Lobo, [place] [address] [facility] ([facility] – [place] Mailstop [phone] [place] [address] [employer] Outpatient Strategic Planning Manager 09/13/22 09/13/22 Mary Kay Hoffman, office manager receptionist Failure Coordinator 10/09/22 Brenden Valladares Primary Barbed Wire Machine Operator 05/12/25 documented as of this encounter
--- OUTSIDE RECORDS SUMMARY | 2025-06-06 11:20 | XMS_ITS | Clinical Summary ---
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 Other Rash Medium 07/18/2023 Was on 2 ABX one being Amoxicillin other name unknown, not sure which caused the rash Medications atorvastatin (LIPITOR) 80 mg tablet take 1 tablet by oral route every day 0 0 5 Active coenzyme Q10 150 mg capsule Take 1 capsule (150 mg total) by mouth daily Active cholecalciferol , vitamin D3, (VITAMIN D3 ORAL) Take 5,000 Units by mouth every other day Active multivitamin capsule Take 1 capsule by mouth daily Active tamsulosin (FLOMAX) 0.4 mg extended release capsule Take 1 capsule (0.4 mg total) by mouth nightly Active calcium carbonate (OS-JANICE) 1,250 mg (500 mg elemental) tablet Take 1 tablet (1,250 mg total) by mouth daily Active nitroglycerin (NITROSTAT) 0.[address] 1 tablet (0.4 mg total) under the tongue every 5 (five) minutes as needed for chest pain May repeat dose q 5 min, up to 3 doses total 90 tablet 3 3 Active furosemide (LASIX) 40 mg tablet Take 1 tablet (40 mg total) by mouth 2 (two) times a day 3 Active sodium bicarbonate 650 mg tablet Take 1 tablet (650 mg total) by mouth 2 (two) times a day 3 Active metOLazone (ZAROXOLYN) 5 mg tablet Take 1 tablet (5 mg total) by mouth once a week Take on Friday in AM. 3 Active acetaminophen (TYLENOL) 325 mg tabletIndicatio ns:Pain Take 2 tablets (650 mg total) by mouth every 6 (six) hours as needed for pain (1st line) 3 Active calcitRIOL (ROCALTROL) 0.25 mcg capsule Take 1 capsule (0.25 mcg total) by mouth 3 (three) times a week M-W-F (pt is not currently on dialysis) 4 Active metoprolol XL (TOPROL-XL) 50 mg extended release tabletIndicatio ns:Chronic systolic congestive heart failure (HCC) TAKE 1 TABLET BY MOUTH TWICE A DAY 180 tablet 3 4 Active isosorbide mononitrate ER (IMDUR) 60 mg 24 hr tablet TAKE 1 TABLET BY MOUTH EVERY DAY IN THE MORNING 90 tablet 3 4 Active clopidogreL (PLAVIX) 75 mg tablet TAKE 1 TABLET BY MOUTH EVERY DAY 90 tablet 3 5 Active sacubitriL-vals reggie (ENTRESTO) 24-26 mg tabletIndicatio ns:chronic heart failure Take 1 tablet by mouth 2 (two) times a day 60 tablet 2 04/19/20 22 Discontinu ed(Stop Taking at Discharge) dapagliflozin (FARXIGA) 10 mg tablet Take 1 tablet (10 mg total) by mouth daily 30 tablet 2 04/19/20 22 Discontinu ed(Stop Taking at Discharge) Active Problems Problem Noted Date Diagnosed Date 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 He is not requiring oxygen. 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 Nephrology following; currently receiving MP 500 mg every day. S/p renal biopsy; path pending. Recommendations: - steroid dosing / immunosuppression per renal - follow-up renal biopsy path - OK to resume Xarelto from pulmonary standpoint; defer to initiation per renal/primary team following biopsy - supplemental O2 for SPO2 > 90% - will need walking O2 assessment prior to d/c Congestive heart failure 04/11/2022 CAD (coronary artery disease) 03/14/2022 Assessment & Plan (03/18/2022 8:11 AM CDT): s/p CABG CLEMONS->LAD and SVG to RCA 1990, BRISA to CLEMONS graft and LM/ramus 2015 w/ residual disease. S/p PCI 04/09 via femoral approach: - Continue ASA, Plavix and Statin -Telemetry monitoring AAA (abdominal aortic aneurysm) without rupture 03/14/2022 Chronic HFrEF (heart failure with reduced ejection fraction) 04/04/2021 Assessment & Plan (09/03/2023 12:05 PM RN RECRUITMENT): ICM-HFrEF, sp CABG in 1990 and multiple PCIs in the past. Denies Angina. 08/2022 with an EF of 29% and Grade I diastolic dysfunction. Chronic Systolic Heart failure his weight is up 7lbs since July, has stable NYHA class III findings. He continues to make good urine with lasix 40 mg daily and metolazone once a week. He is preparing for HD, AVF created in July 2023, GFR is 16. CKD IV is limiting his GDMT, no ARNI/SGLT2/MRA, no hydralazine given drug induced vasculitis/lupus, Imdur 60 mg daily. Lasix 40 mg daily and metolazone 5 mg once a week, Plavix and statin. If he continues to gain weight I recommend he take an additional metolazone this week. Getting labs for nephrology next week. Dr. Araya in 6 months-will repeat ECHO same day for consideration of ICD. No changes today. Assessment & Plan (04/06/2021 9:34 AM CDT): - HFrEF EF 35%, LVEF 41% this admission - Monitor volume status - Strict intake and output, daily weights NSTEMI (non-ST elevated myocardial infarction) 0 04/04/2021 Acute left-sided low back pain 10/15/2019 Overview (10/15/2019): Added automatically from request for surgery [id number] Abdominal aortic aneurysm (AAA) without rupture ([facility]) 10/15/2019 Assessment & Plan (03/19/2022 6:07 AM CDT): s/p EVAR in 09/2019 for symptomatic 7 cm infrarenal AAA. His follow-up imaging with non-contrast CT shows that the aneurysm has grown to 8 cm from 7.4 cm last year. Ultrasound duplex shows evidence of persistent type 2 endoleak with growth of the aneurysm. He's being directly admitted for pre-hydration prior to a triple-phase CT to evaluate his AAA and endoleak -Nephrology consult to assist with hydration recommendations - Q4 hrs neurovascular checks - Patient went to IR on 03/18 for R NEONATAL SOCIAL WORKER access w/ 6F sheath, Successful diagnostic angiography demonstrating type II Endoleak from R L4 lumbar artery, Unable to perform embolotherapy given marked vessel tortuosity and small size precluding appropriate catheter positioning. Successful Angioseal closure. - Patient to return to IR 03/20 - NPO at midnight - Patient will not need IVF prior to IR procedure Assessment & Plan (04/06/2021 9:41 AM CDT): - s/p EVAR in 09/2019 for symptomatic [...] CT will be completed at later date Assessment & Plan (10/15/2019 3:10 PM RN RECRUITMENT): - s/p urgent EVAR - aspirin daily - 6 hours flat bedrest, OK for elevation to 45 degrees after but should remain in bed - OOB POD #1 - Continue aspirin and plavix Alteration of sensation as l ate effect of cerebrovascular accident (CVA) 09/20/2016 Cerebrovascular accident (CVA) 09/13/2016 Gout, unspecified 05/29/2016 Hyperkalemia 05/21/2016 Arthritis 05/14/2016 Hyperlipidemia 05/14/2016 Assessment & Plan (04/04/2021 9:53 AM CDT): -Continue home statin Assessment & Plan (10/15/2019 3:08 PM RN RECRUITMENT): - Continue atorvastatin - Managed by PCP Chronic coronary artery disease 05/14/2016 Overview (12/05/2017): Annotation: s/p CABG 1995, 05/10/2016 [facility] severe 3-V disease Assessment & Plan (04/06/2021 9:26 AM CDT): - CAD s/p CABG CLEMONS->LAD and SVG to RCA 1990, BRISA to CLEMONS graft and LM/ramus 2015 w/ residual dz - Chest pain the AM of 04/04 with abnormal EKG and elevated troponin. Nitro x 1 and morphine x 1 given with resolution of symptoms. - Cardiology consulted, heparin gtt started - [facility] 04/05 showed progressive disease in SVG to RPDA - Planning PCI next week via femoral approach - Continue ASA, Plavix and statin - Continue home hydral, imdur and metoprolol as tolerated hemodynamically Assessment & Plan (10/15/2019 3:08 PM RN RECRUITMENT): - History of revascularization of LAD in 1990 c/b restenosis and then underwent surgical revascularization with a CLEMONS to his LAD and a vein graft to his diag in 1995 - Left main PCI [address] Fernández - Continue aspirin and Plavix indefinitely per PCP/Cardiology Physician Assistant Hypertension 05/14/2016 Assessment & Plan (03/16/2022 9:19 PM CDT): Home regimen: Amlodipine, Hydralazine, Isosorbide, lisinopril and Metoprolol -Continue home regimen -VS q4 hrs and PRN -Monitoring BP for impulse control Assessment & Plan (04/06/2021 9:35 AM CDT): - Home regimen: Lisinopril, Amlodipine, Hydralazine, Isosorbide and Metoprolol - Continue hydralazine, isosorbide, amlodipine and metoprolol. Holding lisinopril 2/2 ARTEMIO - Telemetry Assessment & Plan (10/15/2019 3:09 PM RN RECRUITMENT): - metoprolol, hydralazine, isosorbide and BID lisinopril for BP Chronic kidney disease 05/14/2016 Assessment & Plan (03/19/2022 6:04 AM CDT): Baseline Cr: 1.8-2.2, Cr 2.25 on admission - Nephrology consult; NS 3ml/kg 1 hour before scan, 1ml/kg x6 hours post scan - Avoid nephrotoxins - Strict intake and output - BMP 03/15PM after scan Cr 2.06 - 03/16: Nephrology holding lisinopril - Due to CKD, requires intensive monitoring of kidney function while inpatient to avoid contrast kidney toxicity, for which he is at high risk for. - 300 ml/hr NS for 1 hr prior to CTA, followed by 100 ml/hr for 6 hours after scan. - Patient will not require pre hydration prior to IR procedure 03/20 Assessment & Plan (04/06/2021 9:41 AM CDT): - Baseline Cr: 1.8-2.2 - Cr on admission 2.4, slightly improving to 2.0 - Renal service consulted to assist with management - Renal ultrasound without any evidence of hydronephrosis, normal blood flow to the kidney in no structural abnormalities. Bilateral small cyst in kidneys. - Suspect component of prerenal ARTEMIO in the setting of recent diarrhea plus use of home ACEI/ARB +/- hemodynamic mediated with fluctuations in the blood pressure and MAP. - Received sodium bicarbonate (150meq Bicarbonate) per Renal recommendations - Hold lisinopril and spironolactone - Continue to avoid Nephrotoxic medications, including NSAIDS, contrast dyes (for now until Cr stabilizes) Assessment & Plan (10/15/2019 3:11 PM RN RECRUITMENT): - Monitor BMP - Followed outpatient - Continue IVF Atrial fibrillation 05/14/2016 Overview (12/05/2017): Annotation: Converted to SR with Cardizem IVP Assessment & Plan (09/03/2023 9:59 AM RN RECRUITMENT): Denies reoccurrence. Not on a NOAC secondary to bleeding in the past, metoprolol. Assessment & Plan (10/15/2019 3:10 PM RN RECRUITMENT): - Continue metoprolol for rate control Coronary atherosclerosis of unspecified type of vessel, shoshone-bannock or graft Paroxysmal atrial fibrillation ([facility]) Assessment & Plan (03/14/2022 9:11 AM CDT): Continue home Metoprolol -Telemetry monitoring Assessment & Plan (04/04/2021 9:45 AM CDT): -Not on anticoagulation. Continue home metoprolol -Continue telemetry monitoring -Appreciate cardiology rec Stented coronary artery Presence of aortocoronary bypass graft Encounters Date Type Department Care Team Description 04/13/2025 9:45 AM CDT Office Visit [facility] Medicine Cardiology [address] [place] [address] [place] [address] Jsas Araya MD PhD Chronic HFrEF (heart failure with reduced ejection fraction) (HCC) (Primary Dx); Chronic coronary artery disease; Paroxysmal atrial fibrillation (HCC) from Last 3 Months Immunizations Immunization Administration Dates Next Due Pfizer Sars-Cov-2 Bivalent Vaccination (12+ YRS) 09/11/2022 Surgical History Surgery Date Site/Laterality Comments ARTERIAL ANEURYSM REPAIR EMBOLIZATION ARTERIAL OTHER THAN HEMORRHAGE 03/20/2022 N/A US GUIDED BIOPSY RENAL 09/06/2022 N/A APPENDECTOMY CORONARY ARTERY BYPASS GRAFT AV FISTULA PLACEMENT Left Medical History Medical History Date Comments Coronary atherosclerosis of unspecified type of vessel, shoshone-bannock or graft Paroxysmal atrial fibrillation (HCC) Stented coronary artery Presence of aortocoronary bypass graft Aneurysm Kidney disease Hypertension CHF (congestive heart failure) (HCC) TIA (transient ischemic attack) Gout On home oxygen therapy 2Liters O 2 at night and during wake hours as needed Scar tissue Lung Family History Medical History Relation Name Comments Diabetes Brother Hypertension Daughter Stroke Daughter Coronary artery disease Father Heart attack Father Hypertension Father Sudden Cardiac Father Diabetes Mother Hypertension Son Lung disease Son Relation Name Status Comments Brother Daughter Alive Father Mother Son Alive Social History Tobacco Use Types Packs/Day Years Used Date Smoking Tobacco: Never Smokeless Tobacco: Never Tobacco Cessation:Counseling Given: Not Answered Alcohol Use Standard Drinks/Week Comments No 0 (1 standard drink = 0.6 oz pur e alcohol) Social Connection and Isolation Panel Answer Date Recorded In a typical week, how many times do you talk on the phone with family, friends, or neighbors? More than three times a week 09/18/2022 How often do you get togethe r with friends or relatives? More than three times a week 09/18/2022 How often do you attend chur or congregational services? Never 09/18/2022 Do you belong to any clubs o r organizations such as rastafari groups, unions, fraternal or athletic groups, or school groups? No 09/18/2022 How often do you attend meet ings of the clubs or organizations you belong to? Never 09/18/2022 Are you , , di vorced, , never , or living with a partner? 09/18/2022 AUDIT-C Answer Date Recorded Frequency of Alcohol Consumption Not on file 08/29/2023 Q2: How many drinks containi ng alcohol do you have on a typical day when you are drinking? Patient does not drink 01/05/202 4 Frequency of Binge Drinking Not on file 12/2023 Overall Financial Resource Strain (CARDIA) Answe r Date Recorded How hard is it for you to pa y for the very basics like food, housing, medical care, and heating? Not hard at all 09/18/2022 PHQ-2 Answer Date Recorded PHQ-2 Total Score 0 09/18/2022 Hunger Vital Sign Answer Date Recorded Within the past 12 months, y ou worried that your food would run out before you got the money to buy more. Never true 03/25/20 23 Within the past 12 months, t he food you bought just didn't last and you didn't have money to get more. Never true 03/25/2023 PRAPARE - Transportation Answer Date Re corded In the past 12 months, has l ack of transportation kept you from medical appointments or from getting medications? No 08/26 In the past 12 months, has l ack of transportation kept you from meetings, work, or from getting things needed for daily living? No 09/18/2022 Housing Stability Vital Sign Answer Chaitanya e Recorded In the last 12 months, was t here a time when you were not able to pay the mortgage or rent on time? No 09/18/2022 In the last 12 months, how many places have you lived? 1 09/18/2022 In the last 12 months, was t here a time when you did not have a steady place to sleep or slept in a half-way (including now)? No 09/18/2022 Personal Safety Answer Date Recorded Have you ever been in or are you currently in a harmful physical or emotional relationship or is someone making you feel afraid or unsafe? Denies 10/17/2023 Sex and Gender Information Value Date Recorded Sex Assigned at Not on file Legal Sex Male 8:42 AM RN RECRUITMENT Gender Identity Male 05/07/2021 11:48 AM CDT Sexual Orientation Not on file Obstetrics History Last Filed Vital Signs Vital Sign Reading Time Taken Comments Blood Pressure 145/65 04/13/2025 10:09 AM CDT Pulse 55 04/13/2025 10:09 AM CDT Temperature 36.4 C (97.6 F) 01/24/2025 9:20 AM CDT Respiratory Rate 18 01/24/2025 9:20 AM CDT Oxygen Saturation 99% 04/13/2025 10:09 AM CDT Inhaled Oxygen Concentration - - Weight 94.8 kg (209 lb) 04/13/2025 10:09 AM CDT Height 180.3 cm (5' 11) 04/13/2025 10:09 AM CDT Body Mass Index 29.15 04/13/2025 10:09 AM CDT Plan of Treatment Health Maintenance Due Date Last Done Comments Zoster Vaccine (1 of 2) 1994 DTaP/Tdap/Td Vaccine (1 - Tdap) 04/25/2004 4 Well Visit 65+ 2009 Depression Screening 09/16/2023 09/16/2022, 08/31/19 Fall Risk Assessment 10/17/2024 10/17/2023 Covid-19 Vaccine (2024-2 6 season) 2025 09/11/2022, 07/23/2021, 11/28/2020, Additional history exists Influenza Vaccine (#1) 2025 , 06/25/2021, 05/25/2020, Additional history exists Pneumococcal vaccine 65+ Completed 018, 04/25/2018, 07/07/2017, Additional history exists Hepatitis B Screening Completed 04/30/2022, 022 Medical Devices Implanted Type Area Turning Sander Operator Device Identifier Shelf Expiration Date Model / Serial / Lot Daig Todd[employer] [id number] Angio-Seal Evolution 6fr .035in Guidewire Bypass Tube Suture - [id number] - [id number] Implanted:Qty: 1 on 04/09/2021 by Rene Fernández MD PhD at [facility] Collagen [employer] Todd 11/22/2021 [id number] / [id number] / [id number] [employer] Todd Angio-Seal Vip 6fr Closere Device [id number] - [id number] - [id number] Implanted:Qty: 1 on 09/17/2022 by Joey Jimenez MD at [facility] Collagen Left: Common Femoral Artery [employer] Todd 06/24/2023 [id number] / [id number] / [id number] [employer] [employer] [id number] [place] Excluder C3 35mm 14.5mm 30-32mm 12-13.5mm 18cm Delivery - [id number] - [id number] Implanted:Qty: 1 on 10/15/2019 by Rafal Arellano MD at [facility] Graft N/A: Aorta [employer] [employer] [id number] 11/28/2021 [id number] / [id number] / Wl [employer] [employer] [id number] Excluder 18mm 14.5-16.5mm 11.5cm Stent Abrasion Resistant - [id number] - [id number] Implanted:Qty: 1 on 10/15/2019 by Rafal Arellano MD at [facility] Graft [employer] [employer] [id number] 02/09/2022 [id number] / [id number] / [place] [employer] Otdd [id number] Stent Drug Eluting S Megatron Mr 4.88b17km - [id number] - [id number] Implanted:Qty: 1 on 04/09/2021 by Rene Fernández MD PhD at [facility] Stent [employer] Todd 07/26/2021 [id number] / [id number] / [id number] Stents Heart [employer] Todd Angio-Seal Vip 6fr Closere Device [id number] - [id number] Implanted:Qty: 1 on 03/18/2022 at [facility] Terumo NXE Todd 12/22/2022 [id number] / / [id number] [employer] Trufill Glue 1gm Nbca [id number] - [id number] Implanted:Qty: 1 on 03/20/2022 at [facility] [employer] 08/24/2023 [id number] / / [id number] [employer] Trufill Glue 1gm Nbca [id number] - [id number] Implanted:Qty: 1 on 03/20/2022 at [facility] [employer] 04/24/2023 [id number] / / [id number] [employer] Jaci Microcoil 6mm 7cm Coil Embolization [place] .035in [id number] - [id number] Implanted:Qty: 1 on 10/17/2023 by Rafal Arellano MD at [facility] 06/12/2028 [id number] / / [id number] [employer] Jaci Microcoil 6mm 7cm Coil Embolization [place] .035in [id number] - [id number] Implanted:Qty: 1 on 10/17/2023 by Rafal Arellano MD at [facility] 06/18/2028 [id number] / / [id number] [facility] Coil [place] Embolization [place] .035 5mm 3mm [id number] - [id number] Implanted:Qty: 1 on 10/17/2023 by Rafal Arellano MD at [facility] [id number] 06/04/2028 [id number] / / [id number] [employer] [facility] Jaci Microcoil 6mm 7cm Coil Embolization [place] .035in [id number] - [id number] Implanted:Qty: 1 on 10/17/2023 by Rafal Arellano MD at [facility] 06/18/2028 [id number] / / [id number] Insurance [facility] MEDIC[facility] MEDICARE [employer] [place]IC[place] [employer] [place] [address] [facility] Advance Directives For more information, please contact: [phone] Documents on File Type Date Recorded Patient Director Of Diagnostic Imaging Expl anation ADVANCE DIRECTIVE 03/18/2022 8:02 AM POWER OF GARBAGE COLLECTION SUPERVISOR-MEDICAL ADVANCE DIRECTIVE 04/11/2021 9:02 AM POWER OF GARBAGE COLLECTION SUPERVISOR-MEDICAL ADVANCE DIRECTIVE 10/15/2019 3:18 PM POWER OF GARBAGE COLLECTION SUPERVISOR-MEDICAL * Full Code (Latest Code Status on File) Date Activated Date Inactivated Comments 09/16/2022 1:54 PM 09/24/2022 2:44 PM * Full Code Date Activated Date Inactivated Comments 09/01/2022 3:04 AM 09/12/2022 12:48 PM * Full Code Date Activated Date Inactivated Comments 04/12/2022 3:31 AM 04/19/2022 9:07 PM * Full Code Date Activated Date Inactivated Comments 03/14/2022 12:37 PM 03/20/2022 11:24 PM * Full Code Date Activated Date Inactivated Comments 04/03/2021 11:02 PM 04/10/2021 5:44 PM Care Teams Hotel Assistant General Manager Relationship Specialty Start Date End Date Herman Ortiz MD PCP - General Family Medicine 04/04/25 Rafal Arellano MD Consulting Physician Vascular Surgery 10/18/19 Yon Burch MD [address] [place] [address] Consulting Physician Cardiology 02/19/22 Mary Kay Hoffman, traffic checker Failure Coordinator 10/09/22 Brenden Valladares Primary Edge Gluer 05/12/25
--- OUTSIDE RECORDS SUMMARY | 2025-06-06 11:20 | XMS_ITS | Clinical Summary ---
Author Organization [facility] Address [facility] [place] [address] Care Team Providers Care Advertising Project Manager Name Role Phone Unavailable Primary Care Provider Unavailabl e Social History Tobacco Use Types Packs/Day Years Used Date Smoking Tobacco: Never Assessed Sex and Gender Information Value Date Recorded Sex Assigned at Not on file Legal Sex Male 6:16 PM CDT Gender Identity Not on file Sexual Orientation Not on file Plan of Treatment Health Maintenance Due Date Last Done Comments DTaP, Tdap and Td Vaccines ( 1 - Tdap) 11/10/1964 Pneumococcal Vaccine: 50+ Ye ars (1 of 1 - PCV) 1994 Zoster Vaccines (1 of 2) 1994 RSV Immunization or 60+ Years (1 - 1-dose 75+ series) 11/10/2019 COVID-19 Vaccine ( - 2023-2 5 season) 2025 Influenza Adult (#1) 2025 Meningococcal B Vaccine Aged Out No l onger eligible based on patient's age to complete this topic Meningococcal Vaccine Aged Out No lizabeth maría eligible based on patient's age to complete this topic RSV Immunizations Under 20 Months Aged Out No longer eligible based on patient's age to complete this topic
--- OUTSIDE RECORDS SUMMARY | 2025-06-06 11:20 | XMS_ITS | Encounter Summary ---
Author Organization [facility] Address [address] [place] [address] Phone Care Team Providers Care Ceo And Founder Name Role Phone Rafal Arellano MD Unavailable [phone] Herman Ortiz MD Primary Care Prov ider Yon Burch MD Unavailable [phone] Sharlene Lobo [facility] Unavailable [phone] Mary Kay Hoffman RN Unavailable Unavaila Herman Burnham MD Primary Care Prov ider Brenden Valladares Unavailable Unavailable Encounter Details Date Type Department Care Team (Late st Contact Info) Description 08/13/2021 Telephone [facility] Medicine Vascular Lab IP [address] [facility] [address] [place] [address] Sangita Fregoso, [facility] Social History Tobacco Use Types Packs/Day Years Used Date Smoking Tobacco: Never Smokeless Tobacco: Never Alcohol Use Standard Drinks/Week Comments No 0 (1 standard drink = 0.6 oz pur e alcohol) AUDIT-C Answer Date Recorded Q1: How often do you have a drink containing alc ohol? Never 08/13/2021 Average Number of Drinks Not on file 021 Q3: How often do you have si x or more drinks on one occasion? Never 08/13/2021 Sex and Gender Information Value Date Recorded Sex Assigned at Not on file Legal Sex Male 8:42 AM ICT TEACHER Gender Identity Male 05/07/2021 11:48 AM CDT Sexual Orientation Not on file documented as of this encounter Functional Status documented as of this encounter Plan of Treatment Not on file documented as of this encounter Visit Diagnoses Not on filedocumented in this encounter Additional Health Concerns Infection Onset Date Last Indicated Resolved Time COVID: Suspected 04/11/2022 04/11/2022 04/11/2022 11:25 PM CDT COVID: Suspected 08/31/2022 08/31/2022 08/31/2022 8:31 PM ICT TEACHER COVID: Suspected 09/16/2022 09/16/2022 09/16/2022 6:52 AM ICT TEACHER COVID: Suspected 09/16/2022 09/16/2022 09/16/2022 11:22 AM ICT TEACHER documented as of this encounter Care Teams Ceo And Founder Relationship Specialty Start Date End Date Herman Ortiz MD PCP - General 04/04/21 04/03/25 Herman Ortiz MD PCP - General Family Medicine 04/04/25 Rafal Arellano MD Consulting Physician Vascular Surgery 10/18/19 Yon Burch MD [address] [address] Consulting Physician Cardiology 02/19/22 Sharlene Lobo LCSW [address] [facility] ([facility] Mailstop [phone] [place] [address] [facility] Outpatient Macadam Raker 09/13/22 09/13/22 Mary Kay Hoffman, division traffic superintendent Failure Coordinator 10/09/22 Brenden Valladares Primary Bull Bucker 05/12/25 documented as of this encounter
--- OUTSIDE RECORDS SUMMARY | 2025-06-06 11:20 | XMS_ITS | Encounter Summary ---
Author Organization [facility] Address [address] [place] [address] Phone Care Team Providers Care Coining Press Operator Name Role Phone Herman Parks MD Primary Care Provider [phone] Reason for Visit * Reason Comments Med Refill Encounter Details Date Type Department Care Team (Late st Contact Info) Description 04/12/2019 Refill [facility] Nephrology and Hypertension [facility], [address] [facility] [place] [address] Jeremy Sanchez MD [address] [facility], [address] [place] [id number] Social History Tobacco Use Types Packs/Day Years Used Date Smoking Tobacco: Never Smokeless Tobacco: Never Alcohol Use Standard Drinks/Week Comments Not Currently 0 (1 standard drink = 0.6 oz pur e alcohol) Sex and Gender Information Value Date Recorded Sex Assigned at Male 06/21/2021 9:31 AM MDT Legal Sex Male 8:34 AM [facility] Gender Identity Male 06/21/2021 9:31 AM MDParas Sexual Orientation Not on file documented as of this encounter Plan of Treatment Not on file documented as of this encounter Visit Diagnoses Not on filedocumented in this encounter Care Teams Coining Press Operator Relationship Specialty Start Date End Date Herman Parks MD [address] [address] PCP - General Family Medicine 04/12/19 documented as of this encounter
[2025-06-06 11:38] LABS: Iron 58 ug/dL (49-181)
[2025-06-06 11:47] LABS: Percent Iron Saturation 21 % (20-50)
[2025-06-06 12:08] LABS: Hepatitis B Surface Antigen Negative (Negative)
[2025-06-06 12:19] LABS: Ferritin 147.00 ng/mL (11.1-264)
[2025-06-06 12:26] LABS: Hepatitis B Surface Anti Res Negative
[2025-06-07 07:09] LABS: Hep B Core Ab, Total Negative (Negative)
== END 2025-06-06 10:21 | disposition home or self-care (01) ==
LOC: ANHLAB 10:21
PROVIDERS: PCP Family Medicine Adolescent Medicine; Visit Provider Internal Medicine Nephrology
DX: D64.9 Anemia, unspecified (principal); I12.0 Hypertensive chronic kidney disease with stage 5 chronic kidney disease or end stage renal disease; N18.5 Chronic kidney disease, stage 5; R53.83 Other fatigue; R80.9 Proteinuria, unspecified; R11.0 Nausea
CPT/HCPCS: 36415; 82728; 83540; 83550; 86480; 86704; 86706; 86803; 87340

== ENCOUNTER 2025-07-28 15:22 | Outpatient (CLI) | payer MEDICARE, OTHER, SELFPAY ==
--- NOTE | ~2025-07-28 | XR_ITS ---
EXAMINATION: XR wrist RT min 3V, 07/28/2025 15:35 IMAGE ASSEMBLER HISTORY: M25.531 - Pain in right wrist NKI COMPARISON: No comparisons available. Findings: No acute fracture or malalignment. There are severe degenerative changes of the carpal joints with narrowing of the joint spaces, osteophytosis and subchondral cystic change. Soft tissue swelling. Impression: No acute fracture or malalignment. Reviewed, dictated and finalized at location P. E ASSEMBLER Impression: No acute fracture or malalignment.
== END 2025-07-28 15:23 | disposition home or self-care (01) ==
PROVIDERS: PCP Family Medicine Adolescent Medicine; Visit Provider Internal Medicine Nephrology
DX: M19.041 Primary osteoarthritis, right hand (principal); M25.831 Other specified joint disorders, right wrist; M25.531 Pain in right wrist
CPT/HCPCS: 73110

== ENCOUNTER 2025-07-28 17:26 | Inpatient (IN) | payer MEDICARE, OTHER, SELFPAY ==
[2025-07-28] VITALS (8 sets, daily range): BP systolic 106–115; BP diastolic 57–71; PULSE 66–71; RESP 20–24; TEMP 36.6; O2SAT 94–99
--- NOTE | ~2025-07-28 | XR_ITS ---
XR chest 2V HOSTORY: weakness COMPARISON:[ None] FINDINGS: Frontal and lateral views of the chest were obtained. Heart is enlarged. Central venous catheter terminates at the atrial caval junction. There are scattered opacities within the lower lobes bilaterally, left greater than right.. Small right pleural effusion.No pneumothorax. Osseous structures are intact. IMPRESSION: Cardiomegaly with mild pulmonary edema suggestive of congestive heart failure. Reviewed, dictated and finalized at location S. LE ASSEMBLER
--- NOTE | 2025-07-28 17:29 | ECG_ITS ---
Test Date: 2025-07-28 17:38:50 Measurements Intervals [place] Rate: 68 P: 0 KS: 0 QRS: -89 QRSD: 181 T: 53 QT: 510 QTc: 543 Interpretive Statements SINUS RHYTHM WITH FIRST DEGREE AV BLOCK WITH FREQUENT VENTRICULAR PREMATURE COMPLEXES IVCD, WITH FEATURES OF BOTH RBBB, LBBB BASELINE ARTIFACT- I, II, III, AVR, AVL, AVF, V1-V6 ABNORMAL ECG No previous ECG available for comparison Electronically Signed On 07-28-2025 19:39:52 TECHNICAL SUPPORT PROFESSIONAL by Santos Hawkins D.O.
[2025-07-28 18:02] LABS: Hematocrit 27.9 % (42.0-52.0); Hemoglobin 9.0 g/dL (14.0-18.0); Immature Granulocyte Percent A 0.8 % (0-0.5); Immature Platelet Fraction Pct 6.8 % (0.9-11.2); Lymphocytes Absolute Auto 0.44 K/mm3 (0.9-3.2); Mean Corpuscular HGB Conc 32.3 g/dl (32-36); Mean Corpuscular Hemoglobin 33.0 pg (26-34); Mean Corpuscular Volume 102.2 fl (80-100); Nucleated Red Blood Cells Absolute Auto 0.000 K/mm3 (0.0-0.012); Nucleated Red Blood Cells Perc 0.0 % (0.0-0.2); Platelet Count Result 106 k/mm3 (150-375); Red Blood Count 2.73 M/mm3 (4.6-6.20); White Blood Count 4.9 K/mm3 (4.5-10.0)
[2025-07-28 18:07] LABS: Alanine Aminotransferase 58 U/L (6-50); Albumin Level 3.8 g/dL (3.5-5.1); Alkaline Phosphatase 105 U/L (38-126); Anion Gap 9 mmol/L (4-12); Aspartate Amino Transferase 130 U/L (17-59); Bilirubin,Total 1.2 mg/dL (0.2-1.3); Blood Urea Nitrogen 22 mg/dL (9-20); Calcium 9.1 mg/dL (8.4-10.2); Carbon Dioxide 29 mmol/L (22-30); Chloride 98 mmol/L (98-107); Estimated CRCL calculation 18 ml/min; Estimated Glomerular Filt Rate 19; Glucose 122 mg/dL (65-110); Potassium 3.4 mmol/L (3.4-5.0); Sodium 136 mmol/L (137-145); Total Protein 6.9 g/dL (6.3-8.2)
[2025-07-28 18:17] LABS: Magnesium 1.6 mg/dL (1.6-2.3)
[2025-07-28 18:30] LABS: NT Pro B Type Natriuretic Pept > 30000 pg/mL (19.9-100); Troponin I 0.148 ng/mL (0.000-0.034)
--- NOTE | 2025-07-28 19:26 | ECG_ITS ---
Test Date: 2025-07-28 19:51:07 Measurements Intervals [place] Rate: 68 P: 51 MS: 258 QRS: -89 QRSD: 193 T: 62 QT: 506 QTc: 541 Interpretive Statements SINUS RHYTHM WITH FIRST DEGREE AV BLOCK WITH OCCASIONAL VENTRICULAR PREMATURE COMPLEXES IVCD, WITH FEATURES OF BOTH RBBB, LBBB ABNORMAL ECG Compared to ECG 07/28/2025 17:38:50 NO SIGNIFICANT CHANGE Electronically Signed On 07-29-2025 07:02:22 CUSTOMER EXPERIENCE STRATEGIST by Santos Hawkins D.O.
[2025-07-28 19:27] LABS: Influenza A QL RT-PCR Negative (Negative); Influenza B QL RT-PCR Negative (Negative); RSV RNA, RT-PCR Negative (Negative); SARS-CoV-2 RNA PCR Negative (Negative)
--- NOTE | 2025-07-28 20:43 | ED.WEAKNESS ---
HPI - Weakness General Chief complaint: Weakness Stated complaint: weakness Time Seen by Provider: 07/28/25 17:39 History of Present Illness HPI Narrative: Patient is an 79-year-old male who presents ER with weakness. Worsening over last few days. He has been getting regular dialysis without improvement. No fevers or chills or sweats. He ambulates with a walker but now his leg feel like rubber and he is having more trouble walking. He lives at home with his who is having increasing difficulty caring for him. He was at his PCPs office yesterday and they are trying to get home health out to house. Daughter reports he can no longer get inside the home. No recent injury or fall. Related Data Home Medications ?Medication ?Instructions ?Recorded ?Confirmed ?Last Taken ?Type coenzyme Q10 10 mg capsule (Co 450 mg PO DAILY 10/15/19 07/28/25 07/28/25 History Q-10) isosorbide mononitrate 60 mg 60 mg PO DAILY 10/15/19 07/28/25 07/28/25 History tablet,extended release 24 hr obwdyuhu-xuxwrlwp-zjopx acid 400 1 tablet PO DAILY 10/15/19 07/28/25 07/28/25 History mcg-vit K 20 mcg-lycop 300 mcg tablet (Men's Multivitamin) clopidogrel 75 mg tablet 75 mg PO DAILY 09/25/22 07/28/25 07/28/25 History cholecalciferol (vitamin D3) 125 5,000 unit PO .every other day 09/16/23 07/28/25 07/26/25 History mcg (5,000 unit) capsule (Dialyvite Vitamin D) calcium carbonate 1,000 mg tablet 1,250 mg PO TIDWMEAL 01/18/25 07/28/25 07/28/25 History sodium bicarbonate 650 mg tablet 650 mg PO BID 07/28/25 07/28/25 07/28/25 History Allergies Allergy/AdvReac Type Severity Reaction Status Date / Time carvedilol (From Coreg) Allergy Rash Verified 07/29/25 00:34 hydralazine AdvReac Vasculitis Verified 07/29/25 00:34 Review of Systems Review of Systems: All systems reviewed & are unremarkable except as noted in HPI and below Constitutional: Constitutional: Reports no additional constitutional complaints [facility] Past Medical History Medical History (Updated 07/29/25 @ 14:45 by Leobardo Flores MD) CAP (community acquired pneumonia) AAA (abdominal aortic aneurysm) Gout CAD (coronary artery disease) HTN (hypertension) CVA (cerebral vascular accident) Surgical History Surgical History (Updated 07/29/25 @ 13:23 by Dwight Ibanez MD) Hx of appendectomy Hx of cardiac catheterization with stent placement Hx of CABG x4 Family History Family History Mother Diabetes mellitus Sibling Diabetes mellitus Father Acute myocardial infarction Social History Social History Smoking status: Never smoker Second hand tobacco smoke exposure: No Alcohol intake: never Substance use: never Lack of Transportation: No Lack of Food: Never True Current Housing: I Have Housing Concerned About Future Housing: No Difficulty Paying Gas/Electric Bills: No Difficulty Paying for Meds: No Currently Unemployed: No Education: High School Diploma/GED Difficulty w/ Childcare or Family Care: No Living arrangements: with family Occupation/Education: retired Gender identity (if verbalized by the patient): Male Spiritual care concerns: No Agree to blood products: Yes Exam Narrative: GENERAL: Well-appearing, well-nourished, and in no acute distress. HEAD: Normocephalic, atraumatic. EYES: PERRL and EOMI. ENT: Mucous membranes moist. CHEST: Clear to auscultation. No respiratory distress. HEART: Regular rate and rhythm. Normal peripheral pulses. ABDOMEN: Soft, nontender, nondistended. EXTREMITIES: Normal range of motion, 4/5 strength in the upper and lower extremities due to weakness. No edema. SKIN: Warm, dry, no rash. NEURO: Alert and oriented x2-3. Course Course Emergency Course: Patient with general weakness and confusion. Family at bedside. Decreased functionality home. May benefit from rehab for better evaluation before Home Health comes out. Admit to hospitalist service. Will trend troponins but they are typically high. No electrolyte disturbance. EKG was sinus rhythm with right bundle branch block Vital Signs Vital signs: Vital Signs Temperature 97.8 F 07/28/25 17:30 Pulse Rate 70 07/28/25 17:30 Respiratory Rate 20 07/28/25 17:30 Blood Pressure 106/70 07/28/25 17:30 Pulse Oximetry 98 07/28/25 17:30 Oxygen Delivery Room Air 07/28/25 17:30 Temperature 98.1 F 07/29/25 11:53 Pulse Rate 69 07/29/25 12:00 Respiratory Rate 16 07/29/25 11:53 Blood Pressure 126/69 07/29/25 11:53 Pulse Oximetry 97 07/29/25 11:53 Oxygen Delivery Room Air 07/29/25 09:53 MDM Differential Diagnosis Differential Diagnosis: Electrolyte disturbance, dehydration, metabolic encephalopathy, non ST-elevation [place], heart failure, sepsis, pneumonia Lab Data MDM Lab Attestation statement: I personally reviewed the patient's lab results. 07/28/25 17:44 07/29/25 10:43 Labs: Lab Results 07/28/25 07/28/25 07/28/25 Range/Units 17:44 18:45 20:46 WBC 4.9 (4.5-10.0) K/mm3 RBC 2.73 L (4.6-6.20) M/mm3 Hgb 9.0 L (14.0-18.0) g/dL Hct 27.9 L (42.0-52.0) % MCV 102.2 H (80-100) fl MCH 33.0 (26-34) pg MCHC 32.3 (32-36) g/dl RDW 17.2 H (11.5-14.5) % Plt Count 106 L (150-375) k/mm3 MPV 11.7 H (7.4-10.4) fl Immature Gran % (Auto) 0.8 H (0-0.5) % Neut % (Auto) 75.1 H (45.5-73.1) % Lymph % (Auto) 8.9 L (18.3-44.2) % [place] % (Auto) 11.8 H (2.6-8.5) % Eos % (Auto) 2.8 (0-4.4) % Baso % (Auto) 0.6 (0.2-1.2) % Lymph # (Auto) 0.44 L (0.9-3.2) K/mm3 [place] # (Auto) 0.6 (0.1-0.6) K/mm3 Eos # (Auto) 0.1 (0-0.3) K/mm3 Baso # (Auto) 0.0 (0.0-0.1) K/mm3 Abs Immat Gran (auto) 0.04 H (0.00-0.031) K/mm3 Absolute Neuts (auto) 3.7 (1.3-6.7) K/mm3 Absolute Nucleated RBC 0.000 (0.0-0.012) K/mm3 Nucleated RBC % 0.0 (0.0-0.2) % % Immature Plt Fraction 6.8 (0.9-11.2) % Sodium 136 L (137-145) mmol/L Potassium 3.4 (3.4-5.0) mmol/L Chloride 98 (98-107) mmol/L Carbon Dioxide 29 (22-30) mmol/L Anion Gap 9 (4-12) mmol/L BUN 22 H D (9-20) mg/dL Creatinine 3.17 H (0.7-1.3) mg/dL Estim Creat Clear Calc 18 ml/min Estimated GFR 19 L (59 - ) Glucose 122 H (65-110) mg/dL Calcium 9.1 (8.4-10.2) mg/dL Magnesium 1.6 (1.6-2.3) mg/dL Total Bilirubin 1.2 (0.2-1.3) mg/dL AST 130 H (17-59) U/L ALT 58 H (6-50) U/L Alkaline Phosphatase 105 (38-126) U/L Troponin I 0.148 H* 0.147 H* (0.000-0.034) ng/mL NT-Pro-B Natriuret Pep > 20969 H (19.9-100) pg/mL Total Protein 6.9 (6.3-8.2) g/dL Albumin 3.8 (3.5-5.1) g/dL Nasal MRSA (PCR) (NOT DETECTE) Influenza A (RT-PCR) Negative (Negative) Influenza B (RT-PCR) Negative (Negative) RSV (RT-PCR) Negative (Negative) SARS-CoV-2 RNA (RT-PCR) Negative (Negative) 07/29/25 Range/Units 00:45 WBC (4.5-10.0) K/mm3 RBC (4.6-6.20) M/mm3 Hgb (14.0-18.0) g/dL Hct (42.0-52.0) % MCV (80-100) fl MCH (26-34) pg MCHC (32-36) g/dl RDW (11.5-14.5) % Plt Count (150-375) k/mm3 MPV (7.4-10.4) fl Immature Gran % (Auto) (0-0.5) % Neut % (Auto) (45.5-73.1) % Lymph % (Auto) (18.3-44.2) % [place] % (Auto) (2.6-8.5) % Eos % (Auto) (0-4.4) % Baso % (Auto) (0.2-1.2) % Lymph # (Auto) (0.9-3.2) K/mm3 [place] # (Auto) (0.1-0.6) K/mm3 Eos # (Auto) (0-0.3) K/mm3 Baso # (Auto) (0.0-0.1) K/mm3 Abs Immat Gran (auto) (0.00-0.031) K/mm3 Absolute Neuts (auto) (1.3-6.7) K/mm3 Absolute Nucleated RBC (0.0-0.012) K/mm3 Nucleated RBC % (0.0-0.2) % % Immature Plt Fraction (0.9-11.2) % Sodium (137-145) mmol/L Potassium (3.4-5.0) mmol/L Chloride (98-107) mmol/L Carbon Dioxide (22-30) mmol/L Anion Gap (4-12) mmol/L BUN (9-20) mg/dL Creatinine (0.7-1.3) mg/dL Estim Creat Clear Calc ml/min Estimated GFR (59 - ) Glucose (65-110) mg/dL Calcium (8.4-10.2) mg/dL Magnesium (1.6-2.3) mg/dL Total Bilirubin (0.2-1.3) mg/dL AST (17-59) U/L ALT (6-50) U/L Alkaline Phosphatase (38-126) U/L Troponin I (0.000-0.034) ng/mL NT-Pro-B Natriuret Pep (19.9-100) pg/mL Total Protein (6.3-8.2) g/dL Albumin (3.5-5.1) g/dL Nasal MRSA (PCR) Not detected (NOT DETECTE) Influenza A (RT-PCR) (Negative) Influenza B (RT-PCR) (Negative) RSV (RT-PCR) (Negative) SARS-CoV-2 RNA (RT-PCR) (Negative) Imaging Data Radiologist's impression: ITS Impressions Chest X-Ray 07/28/25 18:08 IMPRESSION: Cardiomegaly with mild pulmonary edema suggestive of congestive heart failure. Discharge Plan Discharge Clinical Impression: Generalized weakness, Troponin level elevated Patient Disposition: Still a Patient Condition: Stable
[2025-07-28 21:39] LABS: Troponin I 0.147 ng/mL (0.000-0.034)
--- NOTE | 2025-07-28 23:06 | P.HP_ITS ---
H&P: HPI History of Present Illness Date/Time: 07/28/25 23:06 Chief Complaint: Weakness Narrative: 79-year-old male presents to [facility] ER on 07/28/2025 accompanied by his rphvmjoh-xt-dnr, the patient is more weak than usual, unable to transfer or walk on his own. History of AAA status post repair, hypertension, CVA, CAD status post CABG, heart failure with reduced ejection fraction, osteoarthritis, gout, BPH ESRD with recent initiation of dialysis with Dr. Sanchez in the past 3 weeks. Failed left upper extremity fistula, placement of right chest tunneled catheter. Has felt weak since then. Patient now anuric, recently taken off Lasix. He has mild shortness of breath, a dry cough since starting dialysis. Denies fever, sick contacts, lives with his . Denies abdominal pain, syncope, diarrhea. ER evaluation reveals temperature 97.8?, respiratory rate 20, blood pressure 114/70, heart rate 69, saturating 98% on room air. WBC 4.9, hemoglobin 9.0, near his baseline. Platelets 106, chronic thrombocytopenia, BUN 22, serum creatinine 3.17, calcium 9.1, magnesium 1.6, AST 130, ALT 58, normal alkaline phosphatase, troponin 0.148, repeat 0.147. Patient denies chest pain. BNP 26488. Quad viral screen negative. Chest x-ray demonstrating mild pulmonary edema. Patient complains of right wrist soreness, x-ray demonstrates soft tissue swelling, no acute fracture or malalignment. Review of Systems Review of Systems: All systems reviewed & are unremarkable except as noted in HPI and below (Subjective) [facility] Past Medical History Medical History CAP (community acquired pneumonia) AAA (abdominal aortic aneurysm) Gout CAD (coronary artery disease) HTN (hypertension) CVA (cerebral vascular accident) Surgical History Surgical History Hx of appendectomy Hx of cardiac catheterization with stent placement Hx of CABG x4 Family History Family History Mother Diabetes mellitus Sibling Diabetes mellitus Father Acute myocardial infarction Social History Social History Smoking status: Never smoker Second hand tobacco smoke exposure: No Alcohol intake: never Substance use: never Lack of Transportation: No Lack of Food: Never True Current Housing: I Have Housing Concerned About Future Housing: No Difficulty Paying Gas/Electric Bills: No Difficulty Paying for Meds: No Currently Unemployed: No Education: High School Diploma/GED Difficulty w/ Childcare or Family Care: No Living arrangements: with family Occupation/Education: retired Gender identity (if verbalized by the patient): Male Spiritual care concerns: No (Evangelical) Agree to blood products: Yes Meds Home Medications and Allergies Home Medications ?Medication ?Instructions ?Recorded ?Confirmed ?Type coenzyme Q10 10 mg capsule (Co 450 mg PO DAILY 0 07/27/25 History Q-10) isosorbide mononitrate 60 mg 60 mg PO DAILY 10/15/19 1 09/27/24 History tablet,extended release 24 hr yugyyewy-fgvjczmi-ycifb acid 400 1 tablet PO DAILY 07/27/25 History mcg-vit K 20 mcg-lycop 300 mcg tablet (Men's Multivitamin) clopidogrel 75 mg tablet 75 mg PO DAILY 09/25/2211/16 History cholecalciferol (vitamin D3) 125 5,000 unit PO .every other day 09/16/23 07/27/25 History mcg (5,000 unit) capsule (Dialyvite Vitamin D) sodium bicarbonate 650 mg tablet 650 mg PO TID #270 ta bs 05/14/24 07/27/25 Rx tamsulosin 0.4 mg capsule See Rx Instructions .Route 1 10/03/23 07/27/25 Rx .COMPLEX #90 caps metoprolol succinate 50 mg See Rx Instructions .Route 12/15/24 07/27/25 Rx tablet,extended release 24 hr .COMPLEX #180 tabs calcium carbonate 1,000 mg tablet 1,250 mg PO TIDWMEAL 01/18/25 07/27/25 History calcitriol 0.25 mcg capsule 0.25 mcg PO DAILY #90 caps 02/11/25 07/27/25 Rx pantoprazole 40 mg tablet,delayed 40 mg PO QAM #60 tab s 07/08/25 07/27/25 Rx release atorvastatin 80 mg tablet 80 mg PO DAILY #90 tabs 06/2607/27/25 Rx colchicine 0.6 mg capsule 0.6 mg PO .COMPLEX #6 caps 1 09/27/24 Rx Allergies Allergy/AdvReac Type Severity Reaction Status Date / Time carvedilol (From Coreg) Allergy Rash Verified 07/28/25 17:35 hydralazine AdvReac Vasculitis Verified 07/28/25 17:35 Vital Signs Vital Signs - 24 hr 07/28/25 17:30 07/28/25 17:33 07/28/25 19:05 Temperature 97.8 F Pulse Rate 70 69 69 Respiratory Rate 20 21 H Blood Pressure 106/70 115/71 Pulse Oximetry 98 Oxygen Delivery Room Air Exam Const: General: comfortable and no acute distress HENMT: Mouth: Yes moist mucous membranes Eyes: Pupils: Equal, round and reactive pupils present Neck: Neck: supple Resp: Effort & Inspection: normal respiratory effort Auscultation: clear to auscultation bilaterally Cardio: Rate: regular rate Rhythm: regular rhythm GI: Inspection: non-distended GI Palp: Yes Soft to palpation Neuro: Other: Strength 5/5 in all 4 extremities, however he is shaky Extrem: Other: 2+ pitting edema bilateral lower extremi ties Results Labs Labs: Short CBC 07/28/25 Range/Units 17:44 WBC 4.9 (4.5-10.0) K/mm3 Hgb 9.0 L (14.0-18.0) g/dL Hct 27.9 L (42.0-52.0) % Plt Count 106 L (150-375) k/mm3 BMP 07/28/25 17:44 Sodium 136 L Potassium 3.4 Chloride 98 Carbon Dioxide 29 BUN 22 H D Creatinine 3.17 H Glucose 122 H Calcium 9.1 Cardiac Enzymes 07/28/25 07/28/25 Range/Units 17:44 20:46 Troponin I 0.148 H* 0.147 H* (0.000-0.034) ng/mL Liver Function 07/28/25 Range/Units 17:44 Total Bilirubin 1.2 (0.2-1.3) mg/dL AST 130 H (17-59) U/L ALT 58 H (6-50) U/L Alkaline Phosphatase 105 (38-126) U/L Albumin 3.8 (3.5-5.1) g/dL Assessment and Plan Assessment and plan (1) Anemia: Code(s): D64.9 - Anemia, unspecified Status: Chronic (2) Generalized weakness: Code(s): R53.1 - Weakness Status: Acute Plan Weakness and deconditioning. Feels like his legs are rubbery. Had seen his PCP 1 day prior, home health was in preparation to start tomorrow. No evidence of underlying infectious etiology. Afebrile. WBC normal. Patient does not make urine. Has lower extremity edema and distal edema evident on chest x-ray, however his respiratory status is good, saturating well on room air. Continue dialysis, consult Nephrology. PT/OT, ambulate with assistance, fall precaution, care coordination consultation for possible placement. Patient wishes to be full code. SCDs. Medication reconciliation pending, anticipate to restart Plavix. Patient does take antihypertensives and at this time his blood pressure is low normal range, with his weakness and recent initiation of dialysis may have to decrease his antihypertensive regimen. Prior Studies I have reviewed the following patient records and this information was taken into consideration when formulating the assessment and plan.: previous labs, previous ER visits, previous hospitalizations and previous clinic visits Time Spent with Patient Time with patient: less than 45 minutes Hospitalist MIPS Advance Care Plan I have confirmed that the patient's Advanced Care Plan is present, code status is documented, or surrogate decision maker is listed in patient medical record.: Yes Medication Reconciliation I have utilized all available resources to obtain, update and review the patients current medications (includes all prescriptions, OTC, herbals, cannabis, and nutritional supplements).: Yes
[2025-07-29] VITALS (22 sets, daily range): BP systolic 110–143; BP diastolic 52–72; PULSE 61–83; RESP 16–24; TEMP 36.4–36.9; O2SAT 94–98; BMI 28.3
--- NOTE | 2025-07-29 00:02 | WPCEDHO ---
ED Hand Off Checklist All vitals saved: Y IV Site documented: Y All med administrations documented: Y Triage Note Triage Note Pt to ED via EMS from home for 07/28/25 17:30 generalized weakness. Pt states he is a dialysis pt and received full tx today. Pt states both legs weak like they cant hold me . 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 Pt is A&Ox4. Pt states he was in earlier today for an XRAY of his RIGHT wrist which has been hurting him. Pt does not know the results of the imaging. Pt denies CP. Pt states he is feeling SOB. Denies cough or cold sx's. Allergies carvedilol (From Coreg) Allergy (Verified 07/28/25 17:35) Rash hydralazine Adverse Reaction (Verified 07/28/25 17:35) Vasculitis Current Diagnoses Anemia, unspecified (07/28/25) Weakness (07/28/25) Family History (Last Reviewed 07/27/25 @ 12:13 by Madeline Serrano, SUSIE) Mother Diabetes mellitus Sibling Diabetes mellitus Father Acute myocardial infarction Interventions/Assessments Cardiac Monitoring Start: 07/28/25 17:29 Freq: Status: Active Protocol: Document 07/28/25 17:33 [facility] (Rec: 07/28/25 17:34 [facility] [id number]) Sfdc Developer Assessment Sfdc Developer Yes Applied Pulse Rate (60-100) 69 IV / Saline Lock, Insert Start: 07/28/25 17:29 Freq: Status: Active Protocol: Document 07/28/25 17:43 [facility] (Rec: 07/28/25 17:43 [facility] [id number]) IV Assessment Peripheral Access Right Antecubital IV Catheter Access Initiated IV Insertion Date 07/28/25 IV Insertion Time 17:43 Catheter Gauge 20 IV Site Assessment WNL IV Care and WNL Maintenance PA: Cardiovascular Assessment Start: 07/28/25 17:29 Freq: Status: Active Protocol: Document 07/28/25 17:34 [facility] (Rec: 07/28/25 17:34 [facility] [id number]) Cardiovascular Assessment Cardiovascular Dyspnea Symptoms Skin Description Pallor Additional reports bilat leg weakness Cardiovascular Assessment Comments PA: Neurological Assessment Start: 07/28/25 17:29 Freq: Status: Active Protocol: Document 07/28/25 17:43 [facility] (Rec: 07/28/25 17:43 [facility] [id number]) Neurological Assessment Level of Alert,Awake,Drowsy Consciousness Arousable to Verbal Orientation Oriented to Person,Oriented to Place,Oriented to Time Neurological Weakness, General Symptoms Behavior Appropriate,Cooperative Patient Able to Comprehend Comprehension Memory Description Intact Last Vital Signs Temperature 97.8 F 07/28/25 17:30 Pulse Rate 69 07/28/25 19:05 Respiratory Rate 21 H 07/28/25 19:05 Pulse Oximetry 98 07/28/25 17:30 Blood Pressure 115/71 07/28/25 19:05 Blood Pressure Mean 85 07/28/25 19:05 Blood Pressure Position Sitting 07/28/25 19:05 Oxygen Delivery Room Air 07/28/25 17:30 Weight 95 kg 07/28/25 17:30 Last Result - Abnormals Only RBC 2.73 M/mm3 (4.6-6.20) L 07/28/25 17:44 Hgb 9.0 g/dL (14.0-18.0) L 07/28/25 17:44 Hct 27.9 % (42.0-52.0) L 07/28/25 17:44 MCV 102.2 fl (80-100) H 07/28/25 17:44 RDW 17.2 % (11.5-14.5) H 07/28/25 17:44 Plt Count 106 k/mm3 (150-375) L 07/28/25 17:44 MPV 11.7 fl (7.4-10.4) H 07/28/25 17:44 Immature Gran % (Auto) 0.8 % (0-0.5) H 07/28/25 17:44 Neut % (Auto) 75.1 % (45.5-73.1) H 07/28/25 17:44 Lymph % (Auto) 8.9 % (18.3-44.2) L 07/28/25 17:44 Mckean % (Auto) 11.8 % (2.6-8.5) H 07/28/25 17:44 Lymph # (Auto) 0.44 K/mm3 (0.9-3.2) L 07/28/25 17:44 Abs Immat Gran (auto) 0.04 K/mm3 (0.00-0.031) H 07/28/25 17:44 Sodium 136 mmol/L (137-145) L 07/28/25 17:44 BUN 22 mg/dL (9-20) H D 07/28/25 17:44 Creatinine 3.17 mg/dL (0.7-1.3) H 07/28/25 17:44 Estimated GFR 19 (59-) L 07/28/25 17:44 Glucose 122 mg/dL (65-110) H 07/28/25 17:44 AST 130 U/L (17-59) H 07/28/25 17:44 ALT 58 U/L (6-50) H 07/28/25 17:44 Troponin I 0.147 ng/mL (0.000-0.034) H* 07/28/25 20:46 NT-Pro-B Natriuret Pep > 31416 pg/mL (19.9-100) H 07/28/25 17:44 Most Recent Suicide Severity Rating Suicide Severity Rating NO RISK INDICATED 07/28/25 17:30
--- NOTE | 2025-07-29 00:19 | ADMGEN ---
This patient, Jose Carballo, was admitted to Virtual Bed IMU-1. Patient/family oriented to hospital policies and general routines including ID bracelet, bed and alarms, visiting hours, pain management, procedures, bathroom and other care routines, personal items, smoking policy, room service/diet, and visiting hours. Information on how to activate the Rapid Response Team has been discussed. Patient/Family are encouraged to report perceived risks to care and to ask questions if they do not understand what they are told or what they should do.
--- NOTE | 2025-07-29 00:27 | ADMGEN ---
This patient, Jose Carballo, was admitted to IMU Room 201-01 at 0025. Patient/family oriented to hospital policies and general routines including ID bracelet, bed and alarms, visiting hours, pain management, procedures, bathroom and other care routines, personal items, smoking policy, room service/diet, and visiting hours. Information on how to activate the Rapid Response Team has been discussed. Patient/Family are encouraged to report perceived risks to care and to ask questions if they do not understand what they are told or what they should do.
--- NOTE | 2025-07-29 01:43 | ECG_ITS ---
Test Date: 2025-07-29 02:01:30 Measurements Intervals Paron Rate: 77 P: 0 OK: 0 QRS: 264 QRSD: 178 T: 64 QT: 461 QTc: 523 Interpretive Statements SINUS RHYTHM WITH FIRST DEGREE AV BLOCK WITH ATRIAL PREMATURE COMPLEX RIGHT AXIS DEVIATION IVCD, WITH FEATURES OF BOTH RBBB, LBBB ABNORMAL ECG Compared to ECG 07/28/2025 19:51:07 NO SIGNIFICANT CHANGE Electronically Signed On 07-29-2025 07:04:38 FACER OPERATOR by Santos Hawkins D.O.
[2025-07-29 02:04] LABS: MRSA (PCR) NOT DETECTED (NOT DETECTE)
[2025-07-29] MEDS: ACETAMINOPHEN 325 MG TABLET 650 MG PO ×3 (02:27→16:32)
[2025-07-29] MEDS: MAGNESIUM SULF 2 GM/WATER 50ML 2 GM/50 ML BAG IVPB (05:28)
[2025-07-29] MEDS: POTASSIUM CHLORIDE 10 MEQ ER TABLET PO (05:28)
--- NOTE | 2025-07-29 11:20 | P.CONNP_ITS ---
Assessment and Plan Assessment and plan (1) End stage renal disease: Code(s): N18.6 - End stage renal disease Status: Chronic Assessment and Plan: * HD tomorrow * continue outpatient schedule of //Friday * due to hypertension, vascular disease, and an element of cardiorenal syndrome * follow electrolytes, volume status, and electrolytes (2) Generalized weakness: Code(s): R53.1 - Weakness Status: Acute Assessment and Plan: * in association with deconditioning * reports that his legs are rubbery * PT/OT * fall precautions (3) Chronic systolic heart failure: Code(s): I50.22 - Chronic systolic (congestive) heart failure Status: Chronic Assessment and Plan: * follows with [facility] Cardiology * fluid removal with dialysis to maintain euvolemia * folow volume status (4) HTN (hypertension): Qualifiers: Hypertension type: unspecified Qualified Code(s): I10 - Essential (primary) hypertension Code(s): I10 - Essential (primary) hypertension Status: Chronic Assessment and Plan: * reasonable control at this time * follow trend of hemodynamics (5) Anemia: Code(s): D64.9 - Anemia, unspecified Status: Chronic Assessment and Plan: * related to ESRD * Epogen with HD * follow trend of H/H I will continue follow patient with you while he remains hospitalized make further recommendations as deemed necessary Thank you for allowing me to participate in care of this patient. L History of Present Illness Reason for Consult Consult date: 07/29/25 Reason for consult: end stage renal disease Chief Complaint Chief complaint: weakness, elevated troponin History of Present Illness Narrative: The patient is an 79-year-old male with a past medical history as outlined below who presented to [facility] Emergency Room with complaints of generalized weakness and difficulty ambulating. The patient recently initiated on renal replacement therapy / dialysis about a month ago due to progression of his underlying chronic kidney disease. Both prior to as well as following the start of dialysis, he has noted increasing weakness and fatigue complicated by difficulty ambulating. He states that his lower extremities/legs have become rubbery and this makes it difficult to support himself when walking. as he has become aneuric, his oral diuretic therapy has been discontinued. He does report some mild shortness of breath but this is somewhat of a chronic issue at baseline but it also has persistent despite fluid removal with dialysis. He gives no other complaints with regard to fevers, chills, nausea, vomiting, chest pain, palpitations, lightheadedness, dizziness, syncope, abdominal pain, or diarrhea. Given these ongoing symptoms as mentioned, he presented to the emergency room for further assessment. Workup and evaluation emergency room demonstrated the patient to be hemodynamically stable and afebrile. Routine blood work was significant for a white blood cell count of 4.9, hemoglobin 9.0, platelet count 106, and a chemistry panel consistent with his known history of end-stage renal disease with a AST of 130, ALT of 58, and normal alkaline phosphatase. Troponins were mildly elevated but flat and his BNP was greater than 30,000. Viral testing for influenza, RSV, and COVID were negative and his chest x-ray showed mild pulmonary edema. He had an x-ray of his right wrist due to soreness which only demonstrated soft tissue swelling without any evidence of fracture. Given his ongoing symptoms of weakness and fatigue with concern that he may require inpatient rehabilitation therapy, he was admitted to the hospital for further evaluation and therapy. Since his admission, No new issues or problems have arisen and is without acute complaints. Renal consultation was requested due to his end-stage renal disease. The patient normally dialyzes at [facility] on a Friday, , Friday schedule under the care of Dr. Jeremy Sanchez. As already mentioned above, he was recently initiated on renal replacement therapy about a month ago due to ongoing progression of his underlying chronic kidney disease in association with declining urine output/relative and urea. His underlying kidney disease is secondary to his hypertension, significant vascular disease and age-related change in association with his severe cardiomyopathy and likely associated cardiorenal syndrome. He did have an AV access placed in his arm for his need for hemodialysis but apparently this was not able to be successfully used on initiation of renal replacement therapy / dialysis and hence he had a tunneled dialysis catheter placed for ongoing dialysis needs at this time. He received his last dialysis treatment yesterday () at his outpatient dialysis clinic and as far as I am aware, this was uneventful. At the time of my visit, the patient seems to be doing reasonably well but reports ongoing weakness. Review of Systems 2 Review of Systems: As per HPI. [facility] Past Medical History Medical History (Updated 07/29/25 @ 17:58 by Harrison Tucker MD) CAP (community acquired pneumonia) AAA (abdominal aortic aneurysm) Gout CAD (coronary artery disease) HTN (hypertension) CVA (cerebral vascular accident) Surgical History Surgical History (Updated 07/29/25 @ 13:23 by Dwight Ibanez MD) Hx of appendectomy Hx of cardiac catheterization with stent placement Hx of CABG x4 Family History Family History Mother Diabetes mellitus Sibling Diabetes mellitus Father Acute myocardial infarction Social History Social History Smoking status: Never smoker Second hand tobacco smoke exposure: No Alcohol intake: never Substance use: never Lack of Transportation: No Lack of Food: Never True Current Housing: I Have Housing Concerned About Future Housing: No Difficulty Paying Gas/Electric Bills: No Difficulty Paying for Meds: No Currently Unemployed: No Education: High School Diploma/GED Difficulty w/ Childcare or Family Care: No Living arrangements: with family Occupation/Education: retired Gender identity (if verbalized by the patient): Male Spiritual care concerns: No Agree to blood products: Yes Meds Home Medications and Allergies Home Medications ?Medication ?Instructions ?Recorded ?Confirmed ?Type coenzyme Q10 10 mg capsule (Co 450 mg PO DAILY 0 07/28/25 History Q-10) isosorbide mononitrate 60 mg 60 mg PO DAILY 10/15/19 1 09/28/24 History tablet,extended release 24 hr vmbpxevw-qjgqmxex-ibods acid 400 1 tablet PO DAILY 07/28/25 History mcg-vit K 20 mcg-lycop 300 mcg tablet (Men's Multivitamin) clopidogrel 75 mg tablet 75 mg PO DAILY 09/25/2212/17 History cholecalciferol (vitamin D3) 125 5,000 unit PO .every other day 09/16/23 07/28/25 History mcg (5,000 unit) capsule (Dialyvite Vitamin D) tamsulosin 0.4 mg capsule See Rx Instructions .Route 1 10/03/23 07/28/25 Rx .COMPLEX #90 caps metoprolol succinate 50 mg See Rx Instructions .Route 12/15/24 07/28/25 Rx tablet,extended release 24 hr .COMPLEX #180 tabs calcium carbonate 1,000 mg tablet 1,250 mg PO TIDWMEAL 01/18/25 07/28/25 History calcitriol 0.25 mcg capsule 0.25 mcg PO DAILY #90 caps 02/11/25 07/28/25 Rx pantoprazole 40 mg tablet,delayed 40 mg PO QAM #60 tab s 07/08/25 07/28/25 Rx release atorvastatin 80 mg tablet 80 mg PO DAILY #90 tabs 06/2607/28/25 Rx sodium bicarbonate 650 mg tablet 650 mg PO BID 5 07/28/25 History colchicine 0.6 mg capsule 0.6 mg PO DAILY #6 caps 01/16 Rx Allergies Allergy/AdvReac Type Severity Reaction Status Date / Time carvedilol (From Coreg) Allergy Rash Verified 07/29/25 00:34 hydralazine AdvReac Vasculitis Verified 07/29/25 00:34 Vital Signs Vital Signs Temp Pulse Resp BP Pulse Ox O2 Del Method 07/29/25 11:13 98.1 F 66 16 126/69 97 07/29/25 10:30 74 143/72 H 07/29/25 10:00 70 07/29/25 09:53 Room Air 07/29/25 08:00 66 07/29/25 08:00 98.0 F 70 18 126/69 96 07/29/25 05:45 74 07/29/25 04:00 98.5 F 74 20 116/57 L 97 07/29/25 04:00 75 07/29/25 02:53 Room Air 07/29/25 02:00 73 07/29/25 00:45 Room Air 07/29/25 00:18 98.5 F 83 18 118/65 97 07/29/25 00:06 80 24 H 110/61 98 07/28/25 23:00 71 24 H 111/65 95 07/28/25 22:00 68 22 H 109/57 L 94 07/28/25 21:00 70 22 H 115/62 94 07/28/25 20:00 66 22 H 106/63 94 07/28/25 19:05 69 21 H 115/71 07/28/25 19:00 69 24 H 115/71 99 Exam 2 Narrative: GENERAL APPEARANCE: elderly but well developed well nourished male in no acute distress HEENT: normocephalic, atraumatic, normal conjunctiva and sclera, nares patient NECK: no lymphadenopathy, thyromegaly, or JVD MOUTH: normal lips, teeth, and gums CARDIOVASCULAR: RRR, normal S1 and S2, no rub RESPIRATORY: clear anteriorly, decreased at bases ABDOMEN: soft, nontender, nondistended, positive bowel sounds present EXTREMITIES: no evidence of cyanosis, clubbing, 1+ edema NEUROLOGICAL: alert and oriented x 3; CN II - XII intact bilaterally; generalized weakness. Results Lab Results 07/30/25 04:21 07/30/25 04:21 Lab results: Most recent lab results Calcium 9.1 mg/dL (8.4-10.2) 07/29/25 10:43 Magnesium 1.9 mg/dL (1.6-2.3) 07/29/25 10:43
[2025-07-29 11:25] LABS: Anion Gap 7 mmol/L (4-12); Blood Urea Nitrogen 29 mg/dL (9-20); Calcium 9.1 mg/dL (8.4-10.2); Carbon Dioxide 29 mmol/L (22-30); Chloride 100 mmol/L (98-107); Estimated CRCL calculation 14 ml/min; Estimated Glomerular Filt Rate 14; Glucose 107 mg/dL (65-110); Magnesium 1.9 mg/dL (1.6-2.3); Potassium 3.4 mmol/L (3.4-5.0); Sodium 136 mmol/L (137-145)
[2025-07-29] MEDS: METOPROLOL SUCCINATE EXT REL 50 MG TABCR BY MOUTH ×2 (11:44→20:55)
--- NOTE | 2025-07-29 13:16 | PM.CNCAR ---
Assessment and Plan Assessment and plan (1) Chronic systolic CHF (congestive heart failure): Code(s): I50.22 - Chronic systolic (congestive) heart failure Status: Acute (2) Nonsustained ventricular tachycardia: Code(s): I47.29 - Other ventricular tachycardia Status: Acute Plan 79-year-old man with CAD status post CABG, chronic systolic heart failure (30-35%), ESRD with recent HD initiation, and hyperlipidemia was brought in due to weakness after initiating HD recently Nonsustained ventricular tachycardia -continue metoprolol succinate 50 mg p.o. b.i.d. -ensure K > 4 and Mg > 2 -would advise to follow up with his heart failure team at [facility] -we discussed possibility of 7-14 day event monitor to help guide further management in outpatient setting Chronic systolic heart failure -recommend to follow-up with his outpatient Heart failure team at [facility] -depending on results of 7-14 day outpatient event monitor, may warrant ICD CAD status post CABG -continue Plavix 75 mg p.o. daily and atorvastatin 80 mg evening Continue with physical therapy and rehab. History of Present Illness History of Present Illness Consult date/time: 07/29/25 13:16 Requesting physician: Lucy Solitario MD Consult reason: Other Reason For Visit: weakness, elevated troponin Narrative: 79-year-old man with CAD status post CABG, chronic systolic heart failure (30-35%), ESRD with recent HD initiation, and hyperlipidemia was brought in due to weakness after initiating HD recently. He denies any chest discomfort. He has been having more exertional shortness of breath with lesser amounts of physical activity recently. Denies any syncopal events or palpitations. He lives at home with his family who takes care of most of his needs. He and his family would like to pursue rehabilitation to strengthen him. However there will be times when he is doing physical activity, that he would have runs of SVT that are self-limiting. He would also have runs of nonsustained ventricular tachycardia. Review of Systems Cardiovascular: Cardiovascular: Reports as per HPI Respiratory: Respiratory: Reports as per HPI [facility] Past Medical History Medical History (Updated 07/29/25 @ 13:23 by Dwight Ibanez MD) CAP (community acquired pneumonia) AAA (abdominal aortic aneurysm) Gout CAD (coronary artery disease) HTN (hypertension) CVA (cerebral vascular accident) Surgical History Surgical History (Updated 07/29/25 @ 13:23 by Dwight Ibanez MD) Hx of appendectomy Hx of cardiac catheterization with stent placement Hx of CABG x4 Family History Family History Mother Diabetes mellitus Sibling Diabetes mellitus Father Acute myocardial infarction Social History Social History Smoking status: Never smoker Second hand tobacco smoke exposure: No Alcohol intake: never Substance use: never Lack of Transportation: No Lack of Food: Never True Current Housing: I Have Housing Concerned About Future Housing: No Difficulty Paying Gas/Electric Bills: No Difficulty Paying for Meds: No Currently Unemployed: No Education: High School Diploma/GED Difficulty w/ Childcare or Family Care: No Living arrangements: with family Occupation/Education: retired Gender identity (if verbalized by the patient): Male Spiritual care concerns: No Agree to blood products: Yes Meds Home Medications and Allergies Home Medications ?Medication ?Instructions ?Recorded ?Confirmed ?Type coenzyme Q10 10 mg capsule (Co 450 mg PO DAILY 10/15/19 07/28/25 History Q-10) isosorbide mononitrate 60 mg 60 mg PO DAILY 10/15/19 07/28/25 History tablet,extended release 24 hr iajgeica-bokzwcwf-ixcwn acid 400 1 tablet PO DAILY 10/15/19 07/28/25 History mcg-vit K 20 mcg-lycop 300 mcg tablet (Men's Multivitamin) clopidogrel 75 mg tablet 75 mg PO DAILY 09/25/22 07/28/25 History cholecalciferol (vitamin D3) 125 5,000 unit PO .every other day 09/16/23 07/28/25 History mcg (5,000 unit) capsule (Dialyvite Vitamin D) tamsulosin 0.4 mg capsule See Rx Instructions .Route 08/02/24 07/28/25 Rx .COMPLEX #90 caps metoprolol succinate 50 mg See Rx Instructions .Route 12/15/24 07/28/25 Rx tablet,extended release 24 hr .COMPLEX #180 tabs calcium carbonate 1,000 mg tablet 1,250 mg PO TIDWMEAL 01/18/25 07/28/25 History calcitriol 0.25 mcg capsule 0.25 mcg PO DAILY #90 caps 02/11/25 07/28/25 Rx pantoprazole 40 mg tablet,delayed 40 mg PO QAM #60 tabs 07/08/25 07/28/25 Rx release atorvastatin 80 mg tablet 80 mg PO DAILY #90 tabs 07/22/25 07/28/25 Rx sodium bicarbonate 650 mg tablet 650 mg PO BID 07/28/25 07/28/25 History colchicine 0.6 mg capsule 0.6 mg PO DAILY #6 caps 07/29/25 Rx Allergies Allergy/AdvReac Type Severity Reaction Status Date / Time carvedilol (From Coreg) Allergy Rash Verified 07/29/25 00:34 hydralazine AdvReac Vasculitis Verified 07/29/25 00:34 Vital Signs Vital Signs - 24 hr 07/28/25 17:30 07/28/25 17:33 07/28/25 19:00 Temperature 36.6 C Pulse Rate 70 69 69 Respiratory Rate 20 24 H Blood Pressure 106/70 115/71 Pulse Oximetry 98 99 Oxygen Delivery Room Air 07/28/25 19:05 07/28/25 20:00 07/28/25 21:00 Temperature Pulse Rate 69 66 70 Respiratory Rate 21 H 22 H 22 H Blood Pressure 115/71 106/63 115/62 Pulse Oximetry 94 94 Oxygen Delivery 07/28/25 22:00 07/28/25 23:00 07/29/25 00:06 Temperature Pulse Rate 68 71 80 Respiratory Rate 22 H 24 H 24 H Blood Pressure 109/57 L 111/65 110/61 Pulse Oximetry 94 95 98 Oxygen Delivery 07/29/25 00:18 07/29/25 00:45 07/29/25 02:00 Temperature 36.9 C Pulse Rate 83 73 Respiratory Rate 18 Blood Pressure 118/65 Pulse Oximetry 97 Oxygen Delivery Room Air 07/29/25 02:53 07/29/25 04:00 07/29/25 04:00 Temperature 36.9 C Pulse Rate 75 74 Respiratory Rate 20 Blood Pressure 116/57 L Pulse Oximetry 97 Oxygen Delivery Room Air 07/29/25 05:45 07/29/25 08:00 07/29/25 08:00 Temperature 36.7 C Pulse Rate 74 70 66 Respiratory Rate 18 Blood Pressure 126/69 Pulse Oximetry 96 Oxygen Delivery 07/29/25 09:53 07/29/25 10:00 07/29/25 10:30 Temperature Pulse Rate 70 74 Respiratory Rate Blood Pressure 143/72 H Pulse Oximetry Oxygen Delivery Room Air 07/29/25 11:44 07/29/25 11:53 07/29/25 12:00 Temperature 36.7 C Pulse Rate 67 66 69 Respiratory Rate 16 Blood Pressure 126/69 Pulse Oximetry 97 Oxygen Delivery Exam Const: General: comfortable HENMT: Mouth: Yes moist mucous membranes Eyes: EOM: EOMs intact bilaterally Neck: Neck: no JVD Resp: Effort & Inspection: normal respiratory effort Auscultation: clear to auscultation bilaterally Cardio: Rate: regular rate Rhythm: regular rhythm Extrem: General: no pedal edema Results Labs and Meds 07/28/25 17:44 07/29/25 10:43 Lab results: Cardiac Enzymes 07/28/25 07/28/25 Range/Units 17:44 20:46 AST 130 H (17-59) U/L Troponin I 0.148 H* 0.147 H* (0.000-0.034) ng/mL CBC 07/28/25 Range/Units 17:44 WBC 4.9 (4.5-10.0) K/mm3 RBC 2.73 L (4.6-6.20) M/mm3 Hgb 9.0 L (14.0-18.0) g/dL Hct 27.9 L (42.0-52.0) % Plt Count 106 L (150-375) k/mm3 Lymph # (Auto) 0.44 L (0.9-3.2) K/mm3 [place] # (Auto) 0.6 (0.1-0.6) K/mm3 Eos # (Auto) 0.1 (0-0.3) K/mm3 Baso # (Auto) 0.0 (0.0-0.1) K/mm3 Comprehensive Metabolic Panel 07/28/25 07/29/25 Range/Units 17:44 10:43 Sodium 136 L 136 L (137-145) mmol/L Potassium 3.4 3.4 (3.4-5.0) mmol/L Chloride 98 100 (98-107) mmol/L Carbon Dioxide 29 29 (22-30) mmol/L BUN 22 H D 29 H (9-20) mg/dL Creatinine 3.17 H 4.16 H (0.7-1.3) mg/dL Glucose 122 H 107 (65-110) mg/dL Calcium 9.1 9.1 (8.4-10.2) mg/dL AST 130 H (17-59) U/L ALT 58 H (6-50) U/L Alkaline Phosphatase 105 (38-126) U/L Total Protein 6.9 (6.3-8.2) g/dL Albumin 3.8 (3.5-5.1) g/dL Intake and Output 07/28/25 07/29/25 07/29/25 23:59 07:59 15:59 Intake Total 300 480 Balance 300 480 Intake: IV 50 Magnesium Sulf 2 gm/Water 50Ml 50 2 gm In 50 ml @ 25 mls/hr IVPB ONCE ONE Rx#:[id number] Oral 250 480 Patient Weight 07/29/25 23:59 Weight 92.2 kg
[2025-07-29] MEDS: CALCIUM CARBONATE (OSCAL) 500 MG TABLET 1000 MG PO ×2 (13:22→16:33)
[2025-07-29] MEDS: SODIUM BICARBONATE TAB 650 MG TABLET PO (16:33)
--- NOTE | 2025-07-29 17:54 | P.PNIM_ITS ---
Assessment and Plan Assessment and Plan (1) Anemia: Code(s): D64.9 - Anemia, unspecified Status: Chronic (2) Generalized weakness: Code(s): R53.1 - Weakness Status: Acute Plan Pt was recently started on new onset ESRD-HD and presented to the ER with generalized weakness, suspect most likely to dialysis as patient physically not acclimated to the dialysis, patient is seen his computer engineering technologist and further recommendation to follow. will have PT/OT evaluate the patient and further recommendation to follow, patient family is presented and gave updates Weakness and deconditioning. Feels like his legs are rubbery. Had seen his PCP 1 day prior, home health was in preparation to start tomorrow. No evidence of underlying infectious etiology. Afebrile. WBC normal. Patient does not make urine. Has lower extremity edema and distal edema evident on chest x-ray, however his respiratory status is good, saturating well on room air. Continue dialysis, consult Nephrology. PT/OT, ambulate with assistance, fall precaution, care coordination consultation for possible placement. Patient wishes to be full code. SCDs. Medication reconciliation pending, anticipate to restart Plavix. Patient does take antihypertensives and at this time his blood pressure is low normal range, with his weakness and recent initiation of dialysis may have to decrease his antihypertensive regimen. Subjective Date/time seen: 07/29/25 17:54 Interval history: Weakness H&P-Narrative: 79-year-old male presents to [facility] ER on 07/28/2025 accompanied by his [id number], the patient is more weak than usual, unable to transfer or walk on his own. History of AAA status post repair, hypertension, CVA, CAD status post CABG, heart failure with reduced ejection fraction, osteoarthritis, gout, BPH ESRD with recent initiation of dialysis with Dr. Sanchez in the past 3 weeks. Failed left upper extremity fistula, placement of right chest tunneled catheter. Has felt weak since then. Patient now anuric, recently taken off Lasix. He has mild shortness of breath, a dry cough since starting dialysis. Denies fever, sick contacts, lives with his . Denies abdominal pain, syncope, diarrhea. ER evaluation reveals temperature 97.8?, respiratory rate 20, blood pressure 114/70, heart rate 69, saturating 98% on room air. WBC 4.9, hemoglobin 9.0, near his baseline. Platelets 106, chronic thrombocytopenia, BUN 22, serum creatinine 3.17, calcium 9.1, magnesium 1.6, AST 130, ALT 58, normal alkaline phosphatase, troponin 0.148, repeat 0.147. Patient denies chest pain. BNP 05348. Quad viral screen negative. Chest x-ray demonstrating mild pulmonary edema. Patient complains of right wrist soreness, x-ray demonstrates soft tissue swelling, no acute fracture or malalignment. Pt was recently started on new onset ESRD-HD and presented to the ER with generalized weakness, suspect most likely to dialysis as patient physically not acclimated to the dialysis, patient is seen his computer engineering technologist and further recommendation to follow. will have PT/OT evaluate the patient and further recommendation to follow, patient family is presented and gave updates Review of Systems Review of Systems: As per HPI. All systems reviewed & are unremarkable except as noted in HPI and below (Subjective) Exam Narrative: Patient is comfortable, NAD HEENT: eyes are clear and none icteric LUNGS:CTA HEART: RR S1S2 ABD: BS+, Soft and nontender Lower extremities: no edema SKIN: nonjaundiced Neuro: grossly intact. Objective Data Vital Signs Vital Signs: Vital Signs - 24 hr 07/28/25 19:00 07/28/25 19:05 07/28/25 20:00 Temperature Pulse Rate 69 69 66 Respiratory Rate 24 H 21 H 22 H Blood Pressure 115/71 115/71 106/63 Pulse Oximetry 99 94 Oxygen Delivery 07/28/25 21:00 07/28/25 22:00 07/28/25 23:00 Temperature Pulse Rate 70 68 71 Respiratory Rate 22 H 22 H 24 H Blood Pressure 115/62 109/57 L 111/65 Pulse Oximetry 94 94 95 Oxygen Delivery 07/29/25 00:06 07/29/25 00:18 07/29/25 00:45 Temperature 36.9 C Pulse Rate 80 83 Respiratory Rate 24 H 18 Blood Pressure 110/61 118/65 Pulse Oximetry 98 97 Oxygen Delivery Room Air 07/29/25 02:00 07/29/25 02:53 07/29/25 04:00 Temperature Pulse Rate 73 75 Respiratory Rate Blood Pressure Pulse Oximetry Oxygen Delivery Room Air 07/29/25 04:00 07/29/25 05:45 07/29/25 08:00 Temperature 36.9 C 36.7 C Pulse Rate 74 74 70 Respiratory Rate 20 18 Blood Pressure 116/57 L 126/69 Pulse Oximetry 97 96 Oxygen Delivery 07/29/25 08:00 07/29/25 09:53 07/29/25 10:00 Temperature Pulse Rate 66 70 Respiratory Rate Blood Pressure Pulse Oximetry Oxygen Delivery Room Air 07/29/25 10:30 07/29/25 11:44 07/29/25 11:53 Temperature 36.7 C Pulse Rate 74 67 66 Respiratory Rate 16 Blood Pressure 143/72 H 126/69 Pulse Oximetry 97 Oxygen Delivery 07/29/25 12:00 07/29/25 14:00 07/29/25 14:18 Temperature Pulse Rate 69 68 Respiratory Rate Blood Pressure Pulse Oximetry Oxygen Delivery Room Air 07/29/25 16:00 07/29/25 16:00 Temperature 36.4 C Pulse Rate 72 64 Respiratory Rate 20 Blood Pressure 116/61 Pulse Oximetry 97 Oxygen Delivery Intake/Output Intake/Output: Intake & Output 07/26/25 07/27/25 07/28/25 07/29/25 23:59 23:59 23:59 23:59 Intake Total 1020 Balance 1020 Meds/Results Medications: Active Medications Generic Name Dose Route Start Last Admin Trade Name Freq PRN Reason Stop Dose Admin Acetaminophen 650 mg 07/28/25 21:29 07/29/25 16:32 Acetaminophen 325 Mg Tablet PO 650 mg Q4H PRN Administration Mild Pain (1-3) or Fever Atorvastatin Calcium 80 mg 07/30/25 09:00 Atorvastatin 40 Mg Tablet PO DAILY [facility] Calcitriol 0.25 mcg 07/30/25 09:00 Calcitriol 0.25 Mcg Capsule PO DAILY [facility] Calcium Carbonate 1,000 mg 07/29/25 12:00 07/29/25 16:33 Calcium Carbonate (Oscal) 500 Mg Tablet PO 1,000 mg TIDWM [facility] Administration Clopidogrel Bisulfate 75 mg 07/30/25 09:00 Clopidogrel Bisulfate 75 Mg Tablet PO DAILY [facility] Isosorbide Mononitrate 60 mg 07/30/25 09:00 Isosorbide Mononitrate 60 Mg Tab.Er.24h PO DAILY [facility] Metoprolol Succinate 50 mg 07/29/25 10:35 07/29/25 11:44 Metoprolol Succinate Ext Rel 50 Mg Tabcr BY MOUTH 50 mg Q12HR [facility] Administration Multivitamins/Calcium 1 tablet 07/30/25 09:00 Therapeutic Multivitamins/Minerals Tab (*Bkc) PO DAILY [facility] Non-Formulary Medication 1 each 07/29/25 10:41 Nonformulary Nutritional Supplement XX 07/30/25 10:40 PRN PRN PROTOCOL Pantoprazole Sodium 40 mg 07/30/25 09:00 Pantoprazole 40 Mg Tablet PO QAM [facility] Sodium Bicarbonate 650 mg 07/29/25 17:00 07/29/25 16:33 Sodium Bicarbonate Tab 650 Mg Tablet PO 650 mg BID [facility] Administration Tamsulosin HCl 0.4 mg 07/29/25 21:00 Tamsulosin Hcl 0.4 Mg Capsule BY MOUTH [facility] Vitamin D 125 mcg 07/30/25 09:00 Cholecalciferol (Vitamin D3) 125 Mcg (5,000 Units) Tablet PO Q48H [facility] Radiology Results: ITS Impressions Chest X-Ray 07/28/25 18:08 IMPRESSION: Cardiomegaly with mild pulmonary edema suggestive of congestive heart failure. Labs Labs: Laboratory Results - last 24 hr 07/28/25 07/28/25 07/28/25 17:44 18:45 20:46 WBC 4.9 RBC 2.73 L Hgb 9.0 L Hct 27.9 L MCV 102.2 H MCH 33.0 MCHC 32.3 RDW 17.2 H Plt Count 106 L MPV 11.7 H Immature Gran % (Auto) 0.8 H Neut % (Auto) 75.1 H Lymph % (Auto) 8.9 L [place] % (Auto) 11.8 H Eos % (Auto) 2.8 Baso % (Auto) 0.6 Lymph # (Auto) 0.44 L [place] # (Auto) 0.6 Eos # (Auto) 0.1 Baso # (Auto) 0.0 Abs Immat Gran (auto) 0.04 H Absolute Neuts (auto) 3.7 Absolute Nucleated RBC 0.000 Nucleated RBC % 0.0 % Immature Plt Fraction 6.8 Sodium 136 L Potassium 3.4 Chloride 98 Carbon Dioxide 29 Anion Gap 9 BUN 22 H D Creatinine 3.17 H Estim Creat Clear Calc 18 Estimated GFR 19 L Glucose 122 H Calcium 9.1 Magnesium 1.6 Total Bilirubin 1.2 AST 130 H ALT 58 H Alkaline Phosphatase 105 Troponin I 0.148 H* 0.147 H* NT-Pro-B Natriuret Pep > 74700 H Total Protein 6.9 Albumin 3.8 Nasal MRSA (PCR) Influenza A (RT-PCR) Negative Influenza B (RT-PCR) Negative RSV (RT-PCR) Negative SARS-CoV-2 RNA (RT-PCR) Negative 07/29/25 07/29/25 00:45 10:43 WBC RBC Hgb Hct MCV MCH MCHC RDW Plt Count MPV Immature Gran % (Auto) Neut % (Auto) Lymph % (Auto) [place] % (Auto) Eos % (Auto) Baso % (Auto) Lymph # (Auto) [place] # (Auto) Eos # (Auto) Baso # (Auto) Abs Immat Gran (auto) Absolute Neuts (auto) Absolute Nucleated RBC Nucleated RBC % % Immature Plt Fraction Sodium 136 L Potassium 3.4 Chloride 100 Carbon Dioxide 29 Anion Gap 7 BUN 29 H Creatinine 4.16 H Estim Creat Clear Calc 14 Estimated GFR 14 L Glucose 107 Calcium 9.1 Magnesium 1.9 Total Bilirubin AST ALT Alkaline Phosphatase Troponin I NT-Pro-B Natriuret Pep Total Protein Albumin Nasal MRSA (PCR) Not detected Influenza A (RT-PCR) Influenza B (RT-PCR) RSV (RT-PCR) SARS-CoV-2 RNA (RT-PCR)
--- NOTE | 2025-07-29 18:55 | PC.NURSE ---
On 07/29/25, the MEDICAL OFFICE PROFESSIONAL INSTRUCTOR, Rajendra Henderson, provided care and completed [facility] documentation on this patient. I have reviewed the MEDICAL OFFICE PROFESSIONAL INSTRUCTOR's documentation and agree with the findings.
[2025-07-29] MEDS: TAMSULOSIN HCL 0.4 MG CAPSULE BY MOUTH (20:55)
[2025-07-30] VITALS (39 sets, daily range): BP systolic 94–138; BP diastolic 49–70; PULSE 54–81; RESP 16–222; TEMP 36–37; O2SAT 94–100
[2025-07-30 04:40] LABS: Hematocrit 27.0 % (42.0-52.0); Hemoglobin 8.6 g/dL (14.0-18.0); Immature Platelet Fraction Pct 7.7 % (0.9-11.2); Mean Corpuscular HGB Conc 31.9 g/dl (32-36); Mean Corpuscular Hemoglobin 33.1 pg (26-34); Mean Corpuscular Volume 103.8 fl (80-100); Red Blood Count 2.60 M/mm3 (4.6-6.20); White Blood Count 5.0 K/mm3 (4.5-10.0)
[2025-07-30 04:41] LABS: Platelet Count Result 86 k/mm3 (150-375)
[2025-07-30 05:22] LABS: Hepatitis B Surface Antigen Negative (Negative); Magnesium 1.9 mg/dL (1.6-2.3)
[2025-07-30 05:39] LABS: Hepatitis B Surface Anti Res Negative
[2025-07-30 08:56] LABS: Anion Gap 11 mmol/L (4-12); Blood Urea Nitrogen 36 mg/dL (9-20); Calcium 9.3 mg/dL (8.4-10.2); Carbon Dioxide 25 mmol/L (22-30); Chloride 98 mmol/L (98-107); Estimated CRCL calculation 11 ml/min; Estimated Glomerular Filt Rate 11; Glucose 91 mg/dL (65-110); Potassium 3.7 mmol/L (3.4-5.0); Sodium 134 mmol/L (137-145)
--- NOTE | 2025-07-30 09:07 | PC.NURSE ---
0750- to dialysis room via bed for treatment
--- NOTE | 2025-07-30 09:25 | P.PNNP_ITS ---
Progress Note: A&P Assessment and Plan (1) End stage renal disease: Code(s): N18.6 - End stage renal disease Status: Chronic Assessment and Plan: * HD today * continue outpatient schedule of //Friday * due to hypertension, vascular disease, and an element of cardiorenal syndrome * follow electrolytes, volume status, and electrolytes (2) Generalized weakness: Code(s): R53.1 - Weakness Status: Acute Assessment and Plan: * in association with deconditioning * reports that his legs are rubbery on admission * related to ESRD versus chronic heart failure(?) * PT/OT * fall precautions (3) Chronic systolic heart failure: Code(s): I50.22 - Chronic systolic (congestive) heart failure Status: Chronic Assessment and Plan: * follows with [facility] Cardiology * fluid removal with dialysis as tolerated to maintain euvolemia * folow volume status (4) HTN (hypertension): Qualifiers: Hypertension type: unspecified Qualified Code(s): I10 - Essential (primary) hypertension Code(s): I10 - Essential (primary) hypertension Status: Chronic Assessment and Plan: * reasonable control at this time * follow trend of hemodynamics (5) Anemia: Code(s): D64.9 - Anemia, unspecified Status: Chronic Assessment and Plan: * related to ESRD * Epogen with HD * follow trend of H/H Will continue to follow. L Subjective Date/time seen: 07/30/25 09:25 Interval history: Follow-up for end stage renal disease on hemodialysis. Tolerating dialysis treatment at the time of my visit (seem on HD at 9:15am); mild shortness of breath noted so attempting more aggressive ultrafiltration with HD but his relative hypotension limits this intervention; no other acute complaints voiced when seen; no events overnight or earlier his morning. Exam 2 Narrative: General: elderly but WD/WN male in NAD Heart: normal S1 and S2; no rub Lungs: decreased at bases Abdomen: soft, nontender, nondistended, positive bowel sounds Extremities: no cyanosis or clubbing; 1+ edema Skin: warm and dry Objective Data Vital Signs Vital Signs: Vital Signs Temp Pulse Resp BP Pulse Ox O2 Del Method O2 Flow Rate 07/30/25 09:15 56 L 103/55 L 07/30/25 09:00 57 L 96/52 L 07/30/25 08:45 56 L 94/49 L 07/30/25 08:30 57 L 107/54 L 07/30/25 08:16 60 119/65 07/30/25 07:59 96.8 F L 63 18 125/69 98 07/30/25 07:46 97.5 F L 63 20 127/62 96 07/30/25 07:45 60 07/30/25 06:00 58 L 07/30/25 05:07 97.8 F 61 16 119/61 100 07/30/25 04:18 81 222 H 100 Nasal Cannula 2.5 07/30/25 04:00 58 L 07/30/25 02:12 61 07/30/25 00:00 61 07/29/25 23:25 97 Nasal Cannula 2.5 07/29/25 23:25 61 22 H 97 Nasal Cannula 2.5 07/29/25 23:20 98.5 F 72 22 H 111/52 L 96 07/29/25 23:17 72 22 H 94 Room Air 07/29/25 22:00 64 07/29/25 20:55 65 07/29/25 20:26 68 16 95 Room Air 07/29/25 20:09 98.2 F 68 16 117/62 95 07/29/25 20:00 67 07/29/25 18:00 66 Intake/Output Intake/Output: Intake & Output 07/27/25 07/28/25 07/29/25 07/30/25 23:59 23:59 23:59 23:59 Intake Total 1020 650 Output Total 1700 Balance 1020 -1050 Meds/Results Medications: Active Medications Generic Name Dose Route Start Last Admin Trade Name Freq PRN Reason Stop Dose Admin Acetaminophen 650 mg 07/28/25 21:29 07/30/25 15:30 Acetaminophen 325 Mg Tablet PO 650 mg Q4H PRN Administration Mild Pain (1-3) or Fever Atorvastatin Calcium 80 mg 07/30/25 09:00 07/30/25 12:11 Atorvastatin 40 Mg Tablet PO 80 mg DAILY [facility] Administration Calcitriol 0.25 mcg 07/30/25 09:00 07/30/25 12:11 Calcitriol 0.25 Mcg Capsule PO 0.25 mcg DAILY [facility] Administration Calcium Carbonate 1,000 mg 07/29/25 12:00 07/30/25 12:10 Calcium Carbonate (Oscal) 500 Mg Tablet PO 1,000 mg TIDWM [facility] Administration Clopidogrel Bisulfate 75 mg 07/30/25 09:00 07/30/25 12:11 Clopidogrel Bisulfate 75 Mg Tablet PO 75 mg DAILY [facility] Administration Epoetin Velasquez-epbx 10,000 units 07/30/25 18:00 07/30/25 11:20 Epoetin Velasquez-Epbx 10,000 Units/Ml Vial IV PUSH 07/30/25 18:01 10,000 units ONCE ONE Administration Albumin Human 50 mls @ 999 mls/hr 07/30/25 00:18 Albutein IVPB 08/29/25 00:17 Q10M PRN HYPOTENSION Isosorbide Mononitrate 60 mg 07/30/25 09:00 07/30/25 12:11 Isosorbide Mononitrate 60 Mg Tab.Er.24h PO 60 mg DAILY [facility] Administration Metoprolol Succinate 50 mg 07/29/25 10:35 07/30/25 12:11 Metoprolol Succinate Ext Rel 50 Mg Tabcr BY MOUTH 50 mg Q12HR [facility] Administration Multivitamins/Calcium 1 tablet 07/30/25 09:00 07/30/25 12:10 Therapeutic Multivitamins/Minerals Tab (*Bkc) PO 1 tablet DAILY [facility] Administration Pantoprazole Sodium 40 mg 07/30/25 09:00 07/30/25 12:10 Pantoprazole 40 Mg Tablet PO 40 mg QAM [facility] Administration Sodium Bicarbonate 650 mg 07/29/25 17:00 07/30/25 12:11 Sodium Bicarbonate Tab 650 Mg Tablet PO 650 mg BID [facility] Administration Tamsulosin HCl 0.4 mg 07/29/25 21:00 07/29/25 20:55 Tamsulosin Hcl 0.4 Mg Capsule BY MOUTH 0.4 mg HS [facility] Administration Vitamin D 125 mcg 07/30/25 09:00 07/30/25 12:12 Cholecalciferol (Vitamin D3) 125 Mcg (5,000 Units) Tablet PO 125 mcg Q48H [facility] Administration Radiology Results: ITS Impressions Chest X-Ray 07/28/25 18:08 IMPRESSION: Cardiomegaly with mild pulmonary edema suggestive of congestive heart failure. Labs Labs: Laboratory Tests 07/30/25 04:21 07/30/25 04:21 Calcium 9.3 Magnesium 1.9
--- NOTE | 2025-07-30 09:54 | PC.NURSE ---
On 07/30/25, the student, [Pia Crain ], provided care and completed [employer] documentation on this patient. I have reviewed the student's documentation and agree with the findings.
[2025-07-30] MEDS: EPOETIN ALFA-EPBX 10,000 UNITS/ML VIAL 10000 UNITS IV PUSH (11:20)
--- NOTE | 2025-07-30 12:04 | PC.NURSE ---
returned to room post dialysis treatment- no c/o at this time
[2025-07-30] MEDS: PANTOPRAZOLE 40 MG TABLET PO (12:10)
[2025-07-30] MEDS: CALCIUM CARBONATE (OSCAL) 500 MG TABLET 1000 MG PO ×2 (12:10→16:48)
[2025-07-30] MEDS: THERAPEUTIC MULTIVITAMINS/MINERALS TAB (*BKC) 1 TABLET PO (12:10)
[2025-07-30] MEDS: CLOPIDOGREL BISULFATE 75 MG TABLET PO (12:11)
[2025-07-30] MEDS: SODIUM BICARBONATE TAB 650 MG TABLET PO ×2 (12:11→16:49)
[2025-07-30] MEDS: ATORVASTATIN 40 MG TABLET 80 MG PO (12:11)
[2025-07-30] MEDS: ISOSORBIDE MONONITRATE 60 MG TAB.ER.24H PO (12:11)
[2025-07-30] MEDS: METOPROLOL SUCCINATE EXT REL 50 MG TABCR BY MOUTH ×2 (12:11→21:16)
[2025-07-30] MEDS: CHOLECALCIFEROL (VITAMIN D3) 125 MCG (5,000 UNITS) TABLET PO (12:12)
[2025-07-30] MEDS: ACETAMINOPHEN 325 MG TABLET 650 MG PO ×2 (15:30→21:17)
--- NOTE | 2025-07-30 16:35 | PM.IMPN2 ---
Assessment and Plan Assessment and Plan (1) Anemia: Code(s): D64.9 - Anemia, unspecified Status: Chronic (2) Generalized weakness: Code(s): R53.1 - Weakness Status: Acute Plan Pt was recently started on new onset ESRD-HD and presented to the ER with generalized weakness, suspect most likely to dialysis as patient physically not acclimated to the dialysis, patient is seen his sap data architect and further recommendation to follow. will have PT/OT evaluate the patient and further recommendation to follow, patient family is presented and gave updates. today patient is seen in the dialysis center and has no knew complaints. will monitor Weakness and deconditioning. Feels like his legs are rubbery. Had seen his PCP 1 day prior, home health was in preparation to start tomorrow. No evidence of underlying infectious etiology. Afebrile. WBC normal. Patient does not make urine. Has lower extremity edema and distal edema evident on chest x-ray, however his respiratory status is good, saturating well on room air. Continue dialysis, consult Nephrology. PT/OT, ambulate with assistance, fall precaution, care coordination consultation for possible placement. Patient wishes to be full code. SCDs. Medication reconciliation pending, anticipate to restart Plavix. Patient does take antihypertensives and at this time his blood pressure is low normal range, with his weakness and recent initiation of dialysis may have to decrease his antihypertensive regimen. Subjective Date/time seen: 07/30/25 16:35 Interval history: Weakness H&P-Narrative: 79-year-old male presents to [facility] ER on 07/28/2025 accompanied by his [id number], the patient is more weak than usual, unable to transfer or walk on his own. History of AAA status post repair, hypertension, CVA, CAD status post CABG, heart failure with reduced ejection fraction, osteoarthritis, gout, BPH ESRD with recent initiation of dialysis with Dr. Sanchez in the past 3 weeks. Failed left upper extremity fistula, placement of right chest tunneled catheter. Has felt weak since then. Patient now anuric, recently taken off Lasix. He has mild shortness of breath, a dry cough since starting dialysis. Denies fever, sick contacts, lives with his . Denies abdominal pain, syncope, diarrhea. ER evaluation reveals temperature 97.8?, respiratory rate 20, blood pressure 114/70, heart rate 69, saturating 98% on room air. WBC 4.9, hemoglobin 9.0, near his baseline. Platelets 106, chronic thrombocytopenia, BUN 22, serum creatinine 3.17, calcium 9.1, magnesium 1.6, AST 130, ALT 58, normal alkaline phosphatase, troponin 0.148, repeat 0.147. Patient denies chest pain. BNP 37802. Quad viral screen negative. Chest x-ray demonstrating mild pulmonary edema. Patient complains of right wrist soreness, x-ray demonstrates soft tissue swelling, no acute fracture or malalignment. Pt was recently started on new onset ESRD-HD and presented to the ER with generalized weakness, suspect most likely to dialysis as patient physically not acclimated to the dialysis, patient is seen his sap data architect and further recommendation to follow. will have PT/OT evaluate the patient and further recommendation to follow, patient family is presented and gave updates. today patient is seen in the dialysis center and has no knew complaints. will monitor Review of Systems Review of Systems: As per HPI. All systems reviewed & are unremarkable except as noted in HPI and below (Subjective) Exam Narrative: Patient is comfortable, NAD HEENT: eyes are clear and none icteric LUNGS:CTA HEART: RR S1S2 ABD: BS+, Soft and nontender Lower extremities: no edema SKIN: nonjaundiced Neuro: grossly intact. Objective Data Vital Signs Vital Signs: Vital Signs - 24 hr 07/29/25 18:00 07/29/25 20:00 07/29/25 20:09 Temperature 36.8 C Pulse Rate 66 67 68 Respiratory Rate 16 Blood Pressure 117/62 Pulse Oximetry 95 Oxygen Delivery Oxygen Flow Rate 07/29/25 20:26 07/29/25 20:55 07/29/25 22:00 Temperature Pulse Rate 68 65 64 Respiratory Rate 16 Blood Pressure Pulse Oximetry 95 Oxygen Delivery Room Air Oxygen Flow Rate 07/29/25 23:17 07/29/25 23:20 07/29/25 23:25 Temperature 36.9 C Pulse Rate 72 72 61 Respiratory Rate 22 H 22 H 22 H Blood Pressure 111/52 L Pulse Oximetry 94 96 97 Oxygen Delivery Room Air Nasal Cannula Oxygen Flow Rate 2.5 07/29/25 23:25 07/30/25 00:00 07/30/25 02:12 Temperature Pulse Rate 61 61 Respiratory Rate Blood Pressure Pulse Oximetry 97 Oxygen Delivery Nasal Cannula Oxygen Flow Rate 2.5 07/30/25 04:00 07/30/25 04:18 07/30/25 05:07 Temperature 36.6 C Pulse Rate 58 L 81 61 Respiratory Rate 222 H 16 Blood Pressure 119/61 Pulse Oximetry 100 100 Oxygen Delivery Nasal Cannula Oxygen Flow Rate 2.5 07/30/25 06:00 07/30/25 07:45 07/30/25 07:46 Temperature 36.4 C L Pulse Rate 58 L 60 63 Respiratory Rate 20 Blood Pressure 127/62 Pulse Oximetry 96 Oxygen Delivery Oxygen Flow Rate 07/30/25 07:59 07/30/25 08:16 07/30/25 08:30 Temperature 36 C L Pulse Rate 63 60 57 L Respiratory Rate 18 Blood Pressure 125/69 119/65 107/54 L Pulse Oximetry 98 Oxygen Delivery Oxygen Flow Rate 07/30/25 08:45 07/30/25 09:00 07/30/25 09:15 Temperature Pulse Rate 56 L 57 L 56 L Respiratory Rate Blood Pressure 94/49 L 96/52 L 103/55 L Pulse Oximetry Oxygen Delivery Oxygen Flow Rate 07/30/25 09:30 07/30/25 09:45 07/30/25 10:00 Temperature Pulse Rate 59 L 56 L 63 Respiratory Rate Blood Pressure 112/57 L 107/56 L 110/57 L Pulse Oximetry Oxygen Delivery Oxygen Flow Rate 07/30/25 10:00 07/30/25 10:15 07/30/25 10:30 Temperature Pulse Rate 58 L 57 L 56 L Respiratory Rate Blood Pressure 122/61 124/57 L Pulse Oximetry Oxygen Delivery Oxygen Flow Rate 07/30/25 10:45 07/30/25 11:00 07/30/25 11:15 Temperature Pulse Rate 54 L 56 L 59 L Respiratory Rate Blood Pressure 129/68 126/57 L 124/60 Pulse Oximetry Oxygen Delivery Oxygen Flow Rate 07/30/25 11:30 07/30/25 11:45 07/30/25 11:49 Temperature 36.7 C Pulse Rate 62 62 64 Respiratory Rate 18 Blood Pressure 134/70 113/67 138/68 Pulse Oximetry 98 Oxygen Delivery Oxygen Flow Rate 07/30/25 11:49 07/30/25 12:00 07/30/25 12:11 Temperature 36.4 C Pulse Rate 62 66 71 Respiratory Rate 24 H Blood Pressure 121/64 131/67 Pulse Oximetry 100 Oxygen Delivery Oxygen Flow Rate 07/30/25 12:20 07/30/25 14:00 Temperature Pulse Rate 71 65 Respiratory Rate Blood Pressure Pulse Oximetry Oxygen Delivery Oxygen Flow Rate Intake/Output Intake/Output: Intake & Output 07/27/25 07/28/25 07/29/25 07/30/25 23:59 23:59 23:59 23:59 Intake Total 1020 650 Output Total 1700 Balance 1020 -1050 Meds/Results Medications: Active Medications Generic Name Dose Route Start Last Admin Trade Name Freq PRN Reason Stop Dose Admin Acetaminophen 650 mg 07/28/25 21:29 07/30/25 15:30 Acetaminophen 325 Mg Tablet PO 650 mg Q4H PRN Administration Mild Pain (1-3) or Fever Atorvastatin Calcium 80 mg 07/30/25 09:00 07/30/25 12:11 Atorvastatin 40 Mg Tablet PO 80 mg DAILY DELROY Administration Calcitriol 0.25 mcg 07/30/25 09:00 07/30/25 12:11 Calcitriol 0.25 Mcg Capsule PO 0.25 mcg DAILY DELROY Administration Calcium Carbonate 1,000 mg 07/29/25 12:00 07/30/25 12:10 Calcium Carbonate (Oscal) 500 Mg Tablet PO 1,000 mg TIDWM DELROY Administration Clopidogrel Bisulfate 75 mg 07/30/25 09:00 07/30/25 12:11 Clopidogrel Bisulfate 75 Mg Tablet PO 75 mg DAILY DELROY Administration Epoetin Velasquez-epbx 10,000 units 07/30/25 18:00 07/30/25 11:20 Epoetin Velasquez-Epbx 10,000 Units/Ml Vial IV PUSH 07/30/25 18:01 10,000 units ONCE ONE Administration Albumin Human 50 mls @ 999 mls/hr 07/30/25 00:18 Albutein IVPB 08/29/25 00:17 Q10M PRN HYPOTENSION Isosorbide Mononitrate 60 mg 07/30/25 09:00 07/30/25 12:11 Isosorbide Mononitrate 60 Mg Tab.Er.24h PO 60 mg DAILY DELROY Administration Metoprolol Succinate 50 mg 07/29/25 10:35 07/30/25 12:11 Metoprolol Succinate Ext Rel 50 Mg Tabcr BY MOUTH 50 mg Q12HR DELROY Administration Multivitamins/Calcium 1 tablet 07/30/25 09:00 07/30/25 12:10 Therapeutic Multivitamins/Minerals Tab (*Bkc) PO 1 tablet DAILY DELROY Administration Pantoprazole Sodium 40 mg 07/30/25 09:00 07/30/25 12:10 Pantoprazole 40 Mg Tablet PO 40 mg QAM DELROY Administration Sodium Bicarbonate 650 mg 07/29/25 17:00 07/30/25 12:11 Sodium Bicarbonate Tab 650 Mg Tablet PO 650 mg BID DELROY Administration Tamsulosin HCl 0.4 mg 07/29/25 21:00 07/29/25 20:55 Tamsulosin Hcl 0.4 Mg Capsule BY MOUTH 0.4 mg HS DELROY Administration Vitamin D 125 mcg 07/30/25 09:00 07/30/25 12:12 Cholecalciferol (Vitamin D3) 125 Mcg (5,000 Units) Tablet PO 125 mcg Q48H DELROY Administration Radiology Results: ITS Impressions Chest X-Ray 07/28/25 18:08 IMPRESSION: Cardiomegaly with mild pulmonary edema suggestive of congestive heart failure. Labs Labs: Laboratory Results - last 24 hr 07/30/25 04:21 WBC 5.0 RBC 2.60 L Hgb 8.6 L Hct 27.0 L MCV 103.8 H MCH 33.1 MCHC 31.9 L RDW 17.4 H Plt Count 86 L MPV 11.9 H % Immature Plt Fraction 7.7 Sodium 134 L Potassium 3.7 Chloride 98 Carbon Dioxide 25 Anion Gap 11 BUN 36 H Creatinine 5.13 H Estim Creat Clear Calc 11 Estimated GFR 11 L Glucose 91 Calcium 9.3 Magnesium 1.9 Hep Bs Antigen Negative Hep Bs Antibody Negative
[2025-07-30] MEDS: TAMSULOSIN HCL 0.4 MG CAPSULE BY MOUTH (21:16)
[2025-07-31] VITALS (26 sets, daily range): BP systolic 92–113; BP diastolic 47–64; PULSE 55–110; RESP 16–24; TEMP 36.6–36.9; O2SAT 10–100
[2025-07-31 04:52] LABS: Hematocrit 25.9 % (42.0-52.0); Hemoglobin 8.3 g/dL (14.0-18.0); Immature Platelet Fraction Pct 9.0 % (0.9-11.2); Mean Corpuscular HGB Conc 32.0 g/dl (32-36); Mean Corpuscular Hemoglobin 33.3 pg (26-34); Mean Corpuscular Volume 104.0 fl (80-100); Platelet Count Result 84 k/mm3 (150-375); Red Blood Count 2.49 M/mm3 (4.6-6.20); White Blood Count 5.0 K/mm3 (4.5-10.0)
[2025-07-31 05:17] LABS: Magnesium 1.8 mg/dL (1.6-2.3)
[2025-07-31] MEDS: THERAPEUTIC MULTIVITAMINS/MINERALS TAB (*BKC) 1 TABLET PO (09:18)
[2025-07-31] MEDS: CLOPIDOGREL BISULFATE 75 MG TABLET PO (09:18)
[2025-07-31] MEDS: ISOSORBIDE MONONITRATE 60 MG TAB.ER.24H PO (09:18)
[2025-07-31] MEDS: CALCIUM CARBONATE (OSCAL) 500 MG TABLET 1000 MG PO ×3 (09:18→17:04)
[2025-07-31] MEDS: ATORVASTATIN 40 MG TABLET 80 MG PO (09:18)
[2025-07-31] MEDS: METOPROLOL SUCCINATE EXT REL 50 MG TABCR BY MOUTH ×2 (09:18→21:21)
[2025-07-31] MEDS: PANTOPRAZOLE 40 MG TABLET PO (09:18)
[2025-07-31] MEDS: SODIUM BICARBONATE TAB 650 MG TABLET PO ×2 (09:18→17:04)
[2025-07-31] MEDS: ACETAMINOPHEN 325 MG TABLET 650 MG PO ×2 (09:19→17:04)
[2025-07-31 10:14] LABS: Anion Gap 10 mmol/L (4-12); Blood Urea Nitrogen 23 mg/dL (9-20); Calcium 9.1 mg/dL (8.4-10.2); Carbon Dioxide 26 mmol/L (22-30); Chloride 99 mmol/L (98-107); Estimated CRCL calculation 15 ml/min; Estimated Glomerular Filt Rate 16; Glucose 91 mg/dL (65-110); Potassium 3.5 mmol/L (3.4-5.0); Sodium 135 mmol/L (137-145)
--- NOTE | 2025-07-31 11:49 | PM.PNCARD ---
Progress Note: A&P Assessment and Plan (1) Chronic systolic CHF (congestive heart failure): Code(s): I50.22 - Chronic systolic (congestive) heart failure Status: Acute Plan Chronic systolic CHF (congestive heart failure): compensated Non sustained VT lasting 25 seconds HR 150 bpm CAD and Hx of CABG ESRD with recent HD initiation Plan Increase metoprolol 100 mg BID Keep K > 4 and Mg> 2 Add amiodarone 400 mg BID for one week Cont Plavix Cont statin Refer to ICD Subjective Date/time seen: 07/31/25 11:49 Interval history: follow up NSVT tele: NST and SNVT upto 25 sec No acute events Review of Systems Review of Systems: All systems reviewed & are unremarkable except as noted in HPI and below Exam Const: General: comfortable HENMT: Mouth: Yes moist mucous membranes Eyes: EOM: EOMs intact bilaterally Neck: Neck: no JVD Resp: Effort & Inspection: normal respiratory effort Auscultation: clear to auscultation bilaterally Cardio: Rate: regular rate Rhythm: regular rhythm Extrem: General: no pedal edema Objective Data Vital Signs Vital Signs: Vital Signs - 24 hr 07/30/25 12:00 07/30/25 12:11 07/30/25 12:20 Temperature 36.4 C Pulse Rate 66 71 71 Respiratory Rate 24 H Blood Pressure 131/67 Pulse Oximetry 100 Oxygen Delivery Oxygen Flow Rate 07/30/25 14:00 07/30/25 16:00 07/30/25 16:40 Temperature 36.6 C Pulse Rate 65 68 68 Respiratory Rate 20 Blood Pressure 101/49 L Pulse Oximetry 99 Oxygen Delivery Oxygen Flow Rate 07/30/25 20:00 07/30/25 20:00 07/30/25 20:43 Temperature 36.8 C Pulse Rate 66 63 66 Respiratory Rate 20 20 Blood Pressure 106/63 Pulse Oximetry 98 98 Oxygen Delivery Room Air Oxygen Flow Rate 07/30/25 21:16 07/30/25 21:25 07/30/25 22:00 Temperature Pulse Rate 63 63 66 Respiratory Rate 20 Blood Pressure Pulse Oximetry 99 Oxygen Delivery Nasal Cannula Oxygen Flow Rate 2.5 07/30/25 23:40 07/30/25 23:48 07/31/25 00:00 Temperature 36.7 C Pulse Rate 64 64 68 Respiratory Rate 18 18 Blood Pressure 112/61 Pulse Oximetry 98 98 Oxygen Delivery Nasal Cannula Oxygen Flow Rate 2.5 07/31/25 02:00 07/31/25 04:00 07/31/25 04:00 Temperature 36.9 C Pulse Rate 59 L 58 L 61 Respiratory Rate 16 Blood Pressure 100/50 L Pulse Oximetry 99 Oxygen Delivery Oxygen Flow Rate 07/31/25 04:30 07/31/25 06:00 07/31/25 07:55 Temperature Pulse Rate 58 L 55 L Respiratory Rate 16 Blood Pressure Pulse Oximetry 99 95 Oxygen Delivery Nasal Cannula Nasal Cannula Oxygen Flow Rate 2.5 2.5 07/31/25 08:00 07/31/25 09:18 Temperature 36.7 C Pulse Rate 61 63 Respiratory Rate 20 Blood Pressure 109/50 L Pulse Oximetry 100 Oxygen Delivery Oxygen Flow Rate Intake/Output Intake/Output: Intake & Output 07/28/25 07/29/25 07/30/25 07/31/25 23:59 23:59 23:59 23:59 Intake Total 1020 1290 760 Output Total 1700 0 Balance 1020 -410 760 Meds/Results Medications: Active Medications Generic Name Dose Route Start Last Admin Trade Name Freq PRN Reason Stop Dose Admin Acetaminophen 650 mg 07/28/25 21:29 07/31/25 09:19 Acetaminophen 325 Mg Tablet PO 650 mg Q4H PRN Administration Mild Pain (1-3) or Fever Atorvastatin Calcium 80 mg 07/30/25 09:00 07/31/25 09:18 Atorvastatin 40 Mg Tablet PO 80 mg DAILY DELROY Administration Calcitriol 0.25 mcg 07/30/25 09:00 07/31/25 09:18 Calcitriol 0.25 Mcg Capsule PO 0.25 mcg DAILY DELROY Administration Calcium Carbonate 1,000 mg 07/29/25 12:00 07/31/25 09:18 Calcium Carbonate (Oscal) 500 Mg Tablet PO 1,000 mg TIDWM DELROY Administration Clopidogrel Bisulfate 75 mg 07/30/25 09:00 07/31/25 09:18 Clopidogrel Bisulfate 75 Mg Tablet PO 75 mg DAILY DELROY Administration Albumin Human 50 mls @ 999 mls/hr 07/30/25 00:18 Albutein IVPB 08/29/25 00:17 Q10M PRN HYPOTENSION Isosorbide Mononitrate 60 mg 07/30/25 09:00 07/31/25 09:18 Isosorbide Mononitrate 60 Mg Tab.Er.24h PO 60 mg DAILY DELROY Administration Metoprolol Succinate 50 mg 07/29/25 10:35 07/31/25 09:18 Metoprolol Succinate Ext Rel 50 Mg Tabcr BY MOUTH 50 mg Q12HR DELROY Administration Multivitamins/Calcium 1 tablet 07/30/25 09:00 07/31/25 09:18 Therapeutic Multivitamins/Minerals Tab (*Bkc) PO 1 tablet DAILY DELROY Administration Pantoprazole Sodium 40 mg 07/30/25 09:00 07/31/25 09:18 Pantoprazole 40 Mg Tablet PO 40 mg QAM DELROY Administration Sodium Bicarbonate 650 mg 07/29/25 17:00 07/31/25 09:18 Sodium Bicarbonate Tab 650 Mg Tablet PO 650 mg BID DELROY Administration Tamsulosin HCl 0.4 mg 07/29/25 21:00 07/30/25 21:16 Tamsulosin Hcl 0.4 Mg Capsule BY MOUTH 0.4 mg HS DELROY Administration Vitamin D 125 mcg 07/30/25 09:00 07/30/25 12:12 Cholecalciferol (Vitamin D3) 125 Mcg (5,000 Units) Tablet PO 125 mcg Q48H DELROY Administration Radiology Results: ITS Impressions Chest X-Ray 07/28/25 18:08 IMPRESSION: Cardiomegaly with mild pulmonary edema suggestive of congestive heart failure. Labs Labs: Laboratory Results - last 24 hr 07/31/25 07/31/25 03:58 07:35 WBC 5.0 RBC 2.49 L Hgb 8.3 L Hct 25.9 L MCV 104.0 H MCH 33.3 MCHC 32.0 RDW 18.0 H Plt Count 84 L MPV 12.4 H % Immature Plt Fraction 9.0 Sodium 135 L Potassium 3.5 Chloride 99 Carbon Dioxide 26 Anion Gap 10 BUN 23 H D Creatinine 3.75 H Estim Creat Clear Calc 15 Estimated GFR 16 L Glucose 91 POC Capillary Glucose 97 Calcium 9.1 Magnesium 1.8
--- NOTE | 2025-07-31 13:00 | P.PNNP_ITS ---
Progress Note: A&P Assessment and Plan (1) End stage renal disease: Code(s): N18.6 - End stage renal disease Status: Chronic Assessment and Plan: * HD yesterday * continue outpatient schedule of //Friday * due to hypertension, vascular disease, and an element of cardiorenal syndrome * follow electrolytes, volume status, and electrolytes (2) Generalized weakness: Code(s): R53.1 - Weakness Status: Acute Assessment and Plan: * in association with deconditioning * reports that his legs are rubbery on admission * related to ESRD versus chronic heart failure(?) * PT/OT * fall precautions (3) Chronic systolic heart failure: Code(s): I50.22 - Chronic systolic (congestive) heart failure Status: Chronic Assessment and Plan: * follows with [facility] * fluid removal with dialysis as tolerated to maintain euvolemia * folow volume status (4) HTN (hypertension): Qualifiers: Hypertension type: unspecified Qualified Code(s): I10 - Essential (primary) hypertension Code(s): I10 - Essential (primary) hypertension Status: Chronic Assessment and Plan: * reasonable control at this time * follow trend of hemodynamics (5) Anemia: Code(s): D64.9 - Anemia, unspecified Status: Chronic Assessment and Plan: * related to ESRD * Epogen with HD * follow trend of H/H Will continue to follow. Subjective Date/time seen: 07/31/25 13:00 Interval history: Follow-up for end stage renal disease on hemodialysis. Tolerated dialysis treatment yesterday without any issues or problems; still feels weak/fatigued at the time of my visit; per his , whenever he attempts to ambulate or exert himself, he is heart increases and then he has to rest or go back to bed. Exam Narrative: General: elderly but WD/WN male in NAD Heart: normal S1 and S2; no rub Lungs: decreased at bases Abdomen: soft, nontender, nondistended, positive bowel sounds Extremities: no cyanosis or clubbing; 1+ edema Skin: warm and intact Objective Data Vital Signs Vital Signs: Vital Signs Temp Pulse Resp BP Pulse Ox O2 Del Method O2 Flow Rate 07/31/25 12:00 100 Room Air 07/31/25 12:00 63 07/31/25 12:00 98.2 F 60 24 H 113/54 L 100 07/31/25 10:00 63 07/31/25 09:18 63 07/31/25 08:00 100 Room Air 07/31/25 08:00 110 H 07/31/25 08:00 98.0 F 61 20 109/50 L 100 07/31/25 07:55 95 Nasal Cannula 2.5 07/31/25 06:00 55 L 07/31/25 04:30 58 L 16 99 Nasal Cannula 2.5 07/31/25 04:00 61 07/31/25 04:00 98.4 F 58 L 16 100/50 L 99 07/31/25 02:00 59 L 07/31/25 00:00 68 07/30/25 23:48 98.1 F 64 18 112/61 98 07/30/25 23:40 64 18 98 Nasal Cannula 2.5 07/30/25 22:00 66 07/30/25 21:25 63 20 99 Nasal Cannula 2.5 07/30/25 21:16 63 07/30/25 20:43 66 20 98 Room Air 07/30/25 20:00 63 07/30/25 20:00 98.3 F 66 20 106/63 98 07/30/25 16:40 68 07/30/25 16:00 97.8 F 68 20 101/49 L 99 Intake/Output Intake/Output: Intake & Output 07/28/25 07/29/25 07/30/25 07/31/25 23:59 23:59 23:59 23:59 Intake Total 1020 1290 1000 Output Total 1700 0 Balance 1020 -410 1000 Meds/Results Medications: Active Medications Generic Name Dose Route Start Last Admin Trade Name Freq PRN Reason Stop Dose Admin Acetaminophen 650 mg 07/28/25 21:29 07/31/25 09:19 Acetaminophen 325 Mg Tablet PO 650 mg Q4H PRN Administration Mild Pain (1-3) or Fever Amiodarone HCl 400 mg 12/07/25 12:15 Amiodarone Hcl 200 Mg Tablet PO Q12HR DELROY Atorvastatin Calcium 80 mg 07/30/25 09:00 07/31/25 09:18 Atorvastatin 40 Mg Tablet PO 80 mg DAILY DELROY Administration Calcitriol 0.25 mcg 07/30/25 09:00 07/31/25 09:18 Calcitriol 0.25 Mcg Capsule PO 0.25 mcg DAILY DELROY Administration Calcium Carbonate 1,000 mg 07/29/25 12:00 07/31/25 12:01 Calcium Carbonate (Oscal) 500 Mg Tablet PO 1,000 mg TIDWM DELROY Administration Clopidogrel Bisulfate 75 mg 07/30/25 09:00 07/31/25 09:18 Clopidogrel Bisulfate 75 Mg Tablet PO 75 mg DAILY [facility] Administration Albumin Human 50 mls @ 999 mls/hr 07/30/25 00:18 Albutein IVPB 08/29/25 00:17 Q10M PRN HYPOTENSION Isosorbide Mononitrate 60 mg 07/30/25 09:00 07/31/25 09:18 Isosorbide Mononitrate 60 Mg Tab.Er.24h PO 60 mg DAILY DELROY Administration Metoprolol Succinate 50 mg 07/29/25 10:35 07/31/25 09:18 Metoprolol Succinate Ext Rel 50 Mg Tabcr BY MOUTH 50 mg Q12HR [facility] Administration Multivitamins/Calcium 1 tablet 07/30/25 09:00 07/31/25 09:18 Therapeutic Multivitamins/Minerals Tab (*Bkc) PO 1 tablet DAILY DELROY Administration Pantoprazole Sodium 40 mg 07/30/25 09:00 07/31/25 09:18 Pantoprazole 40 Mg Tablet PO 40 mg QAM DELROY Administration Sodium Bicarbonate 650 mg 07/29/25 17:00 07/31/25 09:18 Sodium Bicarbonate Tab 650 Mg Tablet PO 650 mg BID DELROY Administration Tamsulosin HCl 0.4 mg 07/29/25 21:00 07/30/25 21:16 Tamsulosin Hcl 0.4 Mg Capsule BY MOUTH 0.4 mg HS DELROY Administration Tramadol HCl 25 mg 07/31/25 12:26 Tramadol Hcl (*Crx) 25 Mg Tablet PO Q6H PRN Pain Rated 4-6 Vitamin D 125 mcg 07/30/25 09:00 07/30/25 12:12 Cholecalciferol (Vitamin D3) 125 Mcg (5,000 Units) Tablet PO 125 mcg Q48H DELROY Administration Radiology Results: ITS Impressions Chest X-Ray 07/28/25 18:08 IMPRESSION: Cardiomegaly with mild pulmonary edema suggestive of congestive heart failure. Labs Labs: Laboratory Results - last 24 hr 07/31/25 07/31/25 07/31/25 03:58 07:35 11:53 WBC 5.0 RBC 2.49 L Hgb 8.3 L Hct 25.9 L MCV 104.0 H MCH 33.3 MCHC 32.0 RDW 18.0 H Plt Count 84 L MPV 12.4 H % Immature Plt Fraction 9.0 Sodium 135 L Potassium 3.5 Chloride 99 Carbon Dioxide 26 Anion Gap 10 BUN 23 H D Creatinine 3.75 H Estim Creat Clear Calc 15 Estimated GFR 16 L Glucose 91 POC Capillary Glucose 97 102 Calcium 9.1 Magnesium 1.8
[2025-07-31] MEDS: AMIODARONE HCL 200 MG TABLET 400 MG PO ×2 (15:13→21:23)
[2025-07-31] MEDS: traMADol HCL (*CRX) 25 MG TABLET PO (15:19)
--- NOTE | 2025-07-31 16:10 | PM.IMPN2 ---
Assessment and Plan Assessment and Plan (1) Anemia: Code(s): D64.9 - Anemia, unspecified Status: Chronic (2) Generalized weakness: Code(s): R53.1 - Weakness Status: Acute Plan Pt was recently started on new onset ESRD-HD and presented to the ER with generalized weakness, suspect most likely to dialysis as patient physically not acclimated to the dialysis, patient is seen his citrix lead and further recommendation to follow. will have PT/OT evaluate the patient and further recommendation to follow, patient family is presented and gave updates. today patient is seen in the dialysis center and has no knew complaints. will monitor, today patient had VT lasting 25 seconds with exertion, seen by the [employer] machine operator increased metoprolol 100 mg BID from 50mg BID, will monitor K and Mg, will PT/OT evaluate the patient, will benefit going to rehab. Weakness and deconditioning. Feels like his legs are rubbery. Had seen his PCP 1 day prior, home health was in preparation to start tomorrow. No evidence of underlying infectious etiology. Afebrile. WBC normal. Patient does not make urine. Has lower extremity edema and distal edema evident on chest x-ray, however his respiratory status is good, saturating well on room air. Continue dialysis, consult Nephrology. PT/OT, ambulate with assistance, fall precaution, care coordination consultation for possible placement. Patient wishes to be full code. SCDs. Medication reconciliation pending, anticipate to restart Plavix. Patient does take antihypertensives and at this time his blood pressure is low normal range, with his weakness and recent initiation of dialysis may have to decrease his antihypertensive regimen. Subjective Date/time seen: 07/31/25 16:10 Interval history: Weakness H&P-Narrative: 79-year-old male presents to [facility] ER on 07/28/2025 accompanied by his [id number], the patient is more weak than usual, unable to transfer or walk on his own. History of AAA status post repair, hypertension, CVA, CAD status post CABG, heart failure with reduced ejection fraction, osteoarthritis, gout, BPH ESRD with recent initiation of dialysis with Dr. Sanchez in the past 3 weeks. Failed left upper extremity fistula, placement of right chest tunneled catheter. Has felt weak since then. Patient now anuric, recently taken off Lasix. He has mild shortness of breath, a dry cough since starting dialysis. Denies fever, sick contacts, lives with his . Denies abdominal pain, syncope, diarrhea. ER evaluation reveals temperature 97.8?, respiratory rate 20, blood pressure 114/70, heart rate 69, saturating 98% on room air. WBC 4.9, hemoglobin 9.0, near his baseline. Platelets 106, chronic thrombocytopenia, BUN 22, serum creatinine 3.17, calcium 9.1, magnesium 1.6, AST 130, ALT 58, normal alkaline phosphatase, troponin 0.148, repeat 0.147. Patient denies chest pain. BNP 73256. Quad viral screen negative. Chest x-ray demonstrating mild pulmonary edema. Patient complains of right wrist soreness, x-ray demonstrates soft tissue swelling, no acute fracture or malalignment. Pt was recently started on new onset ESRD-HD and presented to the ER with generalized weakness, suspect most likely to dialysis as patient physically not acclimated to the dialysis, patient is seen his citrix lead and further recommendation to follow. will have PT/OT evaluate the patient and further recommendation to follow, patient family is presented and gave updates. today patient is seen in the dialysis center and has no knew complaints. will monitor, today patient had VT lasting 25 seconds with exertion, seen by the [employer] machine operator increased metoprolol 100 mg BID from 50mg BID, will monitor K and Mg, will PT/OT evaluate the patient, will benefit going to rehab. Review of Systems Review of Systems: As per HPI. All systems reviewed & are unremarkable except as noted in HPI and below (Subjective) Exam Narrative: Patient is comfortable, NAD HEENT: eyes are clear and none icteric LUNGS:CTA HEART: RR S1S2 ABD: BS+, Soft and nontender Lower extremities: no edema SKIN: nonjaundiced Neuro: grossly intact. Objective Data Vital Signs Vital Signs: Vital Signs - 24 hr 07/30/25 16:40 07/30/25 20:00 07/30/25 20:00 Temperature 36.8 C Pulse Rate 68 66 63 Respiratory Rate 20 Blood Pressure 106/63 Pulse Oximetry 98 Oxygen Delivery Oxygen Flow Rate 07/30/25 20:43 07/30/25 21:16 07/30/25 21:25 Temperature Pulse Rate 66 63 63 Respiratory Rate 20 20 Blood Pressure Pulse Oximetry 98 99 Oxygen Delivery Room Air Nasal Cannula Oxygen Flow Rate 2.5 07/30/25 22:00 07/30/25 23:40 07/30/25 23:48 Temperature 36.7 C Pulse Rate 66 64 64 Respiratory Rate 18 18 Blood Pressure 112/61 Pulse Oximetry 98 98 Oxygen Delivery Nasal Cannula Oxygen Flow Rate 2.5 07/31/25 00:00 07/31/25 02:00 07/31/25 04:00 Temperature 36.9 C Pulse Rate 68 59 L 58 L Respiratory Rate 16 Blood Pressure 100/50 L Pulse Oximetry 99 Oxygen Delivery Oxygen Flow Rate 07/31/25 04:00 07/31/25 04:30 07/31/25 06:00 Temperature Pulse Rate 61 58 L 55 L Respiratory Rate 16 Blood Pressure Pulse Oximetry 99 Oxygen Delivery Nasal Cannula Oxygen Flow Rate 2.5 07/31/25 07:55 07/31/25 08:00 07/31/25 08:00 Temperature 36.7 C Pulse Rate 61 110 H Respiratory Rate 20 Blood Pressure 109/50 L Pulse Oximetry 95 100 Oxygen Delivery Nasal Cannula Oxygen Flow Rate 2.5 07/31/25 08:00 07/31/25 09:18 07/31/25 10:00 Temperature Pulse Rate 63 63 Respiratory Rate Blood Pressure Pulse Oximetry 100 Oxygen Delivery Room Air Oxygen Flow Rate 07/31/25 12:00 07/31/25 12:00 07/31/25 12:00 Temperature 36.8 C Pulse Rate 60 63 Respiratory Rate 24 H Blood Pressure 113/54 L Pulse Oximetry 100 100 Oxygen Delivery Room Air Oxygen Flow Rate 07/31/25 14:00 07/31/25 15:13 Temperature Pulse Rate 56 L 95 Respiratory Rate Blood Pressure Pulse Oximetry Oxygen Delivery Oxygen Flow Rate Intake/Output Intake/Output: Intake & Output 07/28/25 07/29/25 07/30/25 07/31/25 23:59 23:59 23:59 23:59 Intake Total 1020 1290 1000 Output Total 1700 0 Balance 1020 -410 1000 Meds/Results Medications: Active Medications Generic Name Dose Route Start Last Admin Trade Name Freq PRN Reason Stop Dose Admin Acetaminophen 650 mg 07/28/25 21:29 07/31/25 09:19 Acetaminophen 325 Mg Tablet PO 650 mg Q4H PRN Administration Mild Pain (1-3) or Fever Amiodarone HCl 400 mg 07/31/25 12:15 07/31/25 15:13 Amiodarone Hcl 200 Mg Tablet PO 400 mg Q12HR DELROY Administration Atorvastatin Calcium 80 mg 07/30/25 09:00 07/31/25 09:18 Atorvastatin 40 Mg Tablet PO 80 mg DAILY DELROY Administration Calcitriol 0.25 mcg 07/30/25 09:00 07/31/25 09:18 Calcitriol 0.25 Mcg Capsule PO 0.25 mcg DAILY DELROY Administration Calcium Carbonate 1,000 mg 07/29/25 12:00 07/31/25 12:01 Calcium Carbonate (Oscal) 500 Mg Tablet PO 1,000 mg TIDWM DELROY Administration Clopidogrel Bisulfate 75 mg 07/30/25 09:00 07/31/25 09:18 Clopidogrel Bisulfate 75 Mg Tablet PO 75 mg DAILY DELROY Administration Albumin Human 50 mls @ 999 mls/hr 07/30/25 00:18 Albutein IVPB 08/29/25 00:17 Q10M PRN HYPOTENSION Isosorbide Mononitrate 60 mg 07/30/25 09:00 07/31/25 09:18 Isosorbide Mononitrate 60 Mg Tab.Er.24h PO 60 mg DAILY DELROY Administration Metoprolol Succinate 50 mg 07/29/25 10:35 07/31/25 09:18 Metoprolol Succinate Ext Rel 50 Mg Tabcr BY MOUTH 50 mg Q12HR DELROY Administration Multivitamins/Calcium 1 tablet 07/30/25 09:00 07/31/25 09:18 Therapeutic Multivitamins/Minerals Tab (*Bkc) PO 1 tablet DAILY DELROY Administration Pantoprazole Sodium 40 mg 07/30/25 09:00 07/31/25 09:18 Pantoprazole 40 Mg Tablet PO 40 mg QAM DELROY Administration Sodium Bicarbonate 650 mg 07/29/25 17:00 07/31/25 09:18 Sodium Bicarbonate Tab 650 Mg Tablet PO 650 mg BID DELROY Administration Tamsulosin HCl 0.4 mg 07/29/25 21:00 07/30/25 21:16 Tamsulosin Hcl 0.4 Mg Capsule BY MOUTH 0.4 mg HS DELROY Administration Tramadol HCl 25 mg 07/31/25 12:26 07/31/25 15:19 Tramadol Hcl (*Crx) 25 Mg Tablet PO 25 mg Q6H PRN Administration Pain Rated 4-6 Vitamin D 125 mcg 07/30/25 09:00 07/30/25 12:12 Cholecalciferol (Vitamin D3) 125 Mcg (5,000 Units) Tablet PO 125 mcg Q48H DELROY Administration Radiology Results: ITS Impressions Chest X-Ray 07/28/25 18:08 IMPRESSION: Cardiomegaly with mild pulmonary edema suggestive of congestive heart failure. Labs Labs: Laboratory Results - last 24 hr 07/31/25 07/31/25 07/31/25 03:58 07:35 11:53 WBC 5.0 RBC 2.49 L Hgb 8.3 L Hct 25.9 L MCV 104.0 H MCH 33.3 MCHC 32.0 RDW 18.0 H Plt Count 84 L MPV 12.4 H % Immature Plt Fraction 9.0 Sodium 135 L Potassium 3.5 Chloride 99 Carbon Dioxide 26 Anion Gap 10 BUN 23 H D Creatinine 3.75 H Estim Creat Clear Calc 15 Estimated GFR 16 L Glucose 91 POC Capillary Glucose 97 102 Calcium 9.1 Magnesium 1.8
[2025-07-31] MEDS: POTASSIUM CHLORIDE 20 MEQ ER TABLET PO (17:04)
[2025-07-31] MEDS: MAGNESIUM OXIDE 400 MG TABLET PO (17:04)
[2025-07-31 21:04] LABS: Anion Gap 6 mmol/L (4-12); Calcium 9.1 mg/dL (8.4-10.2); Carbon Dioxide 28 mmol/L (22-30); Chloride 98 mmol/L (98-107); Glucose 108 mg/dL (65-110); Potassium 3.9 mmol/L (3.4-5.0); Sodium 132 mmol/L (137-145)
[2025-07-31 21:22] LABS: Blood Urea Nitrogen 31 mg/dL (9-20); Estimated CRCL calculation 12 ml/min; Estimated Glomerular Filt Rate 12; Magnesium 1.8 mg/dL (1.6-2.3)
[2025-07-31] MEDS: TAMSULOSIN HCL 0.4 MG CAPSULE BY MOUTH (21:22)
--- NOTE | 2025-07-31 21:40 | PC.NURSE ---
Bedside report received from REMIGIO Estevez. Patient educated on ICU room, equipment and safety protocols. No signs or symptoms of distress.
--- NOTE | 2025-07-31 21:52 | PC.NURSE ---
This patient, Jose Carballo, was transferred to ICU-11 on 07/31/25 at 2135. Personal belongings sent with patient. Report given to REMIGIO Martin. Appropriate documentation sent with patient.
--- NOTE | 2025-07-31 21:53 | PC.NURSE ---
07/31/[id number]-Spoke with Pt's Mary Grace DECKER and updated her of Pt's current condition and new orders to transfer Pt to ICU for closer observation d/t frequent episodes of Vtach. 07/31/[id number]-Pt spoke w/his spouse w/this RN present in the room and spouse updated w/Pt's current condition and orders to transfer to ICU. All questions answered from family at this time.
[2025-08-01] VITALS (17 sets, daily range): BP systolic 90–112; BP diastolic 50–72; PULSE 48–110; RESP 14–29; TEMP 36.3–36.9; O2SAT 93–100
--- NOTE | 2025-08-01 | ECHO_ITS ---
Patient Info Name: Jose Carballo Age: 79 years : 1945 Gender: Male Ht: 71 in Wt: 217 lbs BSA: 2.24 m2 HR: 54 bpm BP: 103 / 66 mmHg Heart Rhythm: Bradycardia Technical Quality: Fair Exam Date: 08/01/2025 4:04 PM Patient Status: I Admit Date: 07/29/2025 Exam Type: CA echo dop color flow w con Complete two-dimensional, color flow and Doppler transthoracic echocardiogram is performed with contrast to opacify the left ventricle and to improve the deliniation of the left ventricle endocardial borders. Staff Referring Physician: Leobardo Flores MD Coding Technician: Eliana Lockett Attending Provider: Lucy Solitario Contrast/Agitated Saline Contrast/Ag. Saline: Definity Amount: 2.00 ml Administered By: Eliana Lockett Existing IV Access: Yes IV Access Condition: patent with no signs of infiltration Summary 1. The left ventricle is mildly dilated with moderately reduced systolic function. There is mild eccentric left ventricular hypertrophy. The left ventricular ejection fraction is visually estimated to be 30-35%. 2. The right ventricle is moderately dilated with reduced systolic function. 3. The aortic valve is probably trileaflet with moderate aortic stenosis. There is no aortic regurgitation. 4. There is biatrial enlargement. 5. Dilated inferior vena cava with <50% collapse upon inspiration consistent with significantly elevated right atrial pressure, 15 mmHg. Left Ventricle The left ventricle is mildly dilated with moderately reduced systolic function. There is mild eccentric left ventricular hypertrophy. The left ventricular ejection fraction is visually estimated to be 30-35%. Right Ventricle The right ventricle is moderately dilated with reduced systolic function. Left Atria The left atrium is moderately dilated. Right Atria The right atrium is dilated. Atrial Septum The atrial septum is visually intact. Aortic Valve The aortic valve is probably trileaflet with moderate aortic stenosis. There is no aortic regurgitation. Pulmonic Valve The pulmonic valve is grossly normal. There is trace pulmonic valve regurgitation. Mitral Valve The mitral valve is normal. There is trace mitral regurgitation. Tricuspid Valve The tricuspid valve is normal. There is moderate tricuspid regurgitation. Pericardium/Pleural Pericardium is normal in appearance with no evidence for significant pericardial effusion. Inferior Vena Cava Dilated inferior vena cava with <50% collapse upon inspiration consistent with significantly elevated right atrial pressure, 15 mmHg. Left Ventricular Outflow Tract Name Value Normal LVOT 2D LVOT Diameter 2.0 cm LVOT Doppler LVOT Peak Velocity 94 cm/s LVOT Peak Gradient 4 mmHg LVOT Mean Gradient 2 mmHg LVOT VTI 21 cm LVOT VTI/AV VTI Ratio 0.5 LVOT Stroke Volume 62 ml LVOT CO 3.3 l/min LVOT CI 1.5 l/min/m2 Pulmonic Valve Name Value Normal RVOT Doppler RVOT Peak Velocity 44 cm/s RVOT Peak Gradient 1 mmHg PV Doppler PV Peak Velocity 112 cm/s PV Peak Gradient 5 mmHg Mitral Valve Name Value Normal MV Diastolic Function MV E Peak Velocity 89 cm/s MV A Peak Velocity 35 cm/s MV E/A 2.6 MV Decel Time (PW) 224 ms MV Annular TDI MV E/e' (Septal) 19.1 MV E/e' (Lateral) 15.3 MV E/e' (Average) 17.2 Tricuspid Valve Name Value Normal TV Regurgitation Doppler TR Peak Velocity 302 cm/s TR Peak Gradient 32 mmHg Estimated PAP/RSVP RA Pressure 15 mmHg <=5 PA Systolic Pressure 51 mmHg <36 RV Systolic Pressure 51 mmHg <36 TV Annular TDI TV Lateral Edilma s' Velocity 4.7 cm/s >=9.5 Aorta Name Value Normal Ascending Aorta Ao Root Diameter (MM) 3.6 cm Ao Root Diam Index (MM) 1.6 cm/m2 Aortic Valve Name Value Normal AV Doppler AV Peak Velocity 213 cm/s AV Peak Gradient 18 mmHg AV Mean Gradient 10 mmHg AV VTI 43 cm AV Area (Cont Eq VTI) 1.4 cm2 >=3.0 AV Area (Cont Eq Timbo) 1.3 cm2 AV DI (Timbo) 0.44 AV Regurgitation 2D LVOT Area 3.0 cm2 Ventricles Name Value Normal LV Dimensions 2D/MM IVS Diastolic Thickness (2D) 0.9 cm 0.6-1.0 LVID Diastole (2D) 6.7 cm 4.2-5.8 LVIW Diastolic Thickness (2D) 0.9 cm 0.6-1.0 LVID Systole (2D) 5.8 cm 2.5-4.0 LVOT Diameter 2.0 cm LV Mass (2D Cubed) 275.90 g 88.00-224.00 LV Mass Index (2D Cubed) 123 g/m2 49-115 Relative Wall Thickness (2D) 0.27 <=0.42 LV Fractional Shortening/Ejection Fraction 2D/MM LV Fractional Shortening (2D) 14 % 25-43 LV EF (2D Teichholz) 29 % LV Diastolic Volume (4C MOD) 233 ml LV EF (4C MOD) 44 % LV Diastolic Volume (2C MOD) 227 ml LV EF (2C MOD) 35 % LV Diastolic Volume (BP MOD) 237 ml 62-150 LV Diastolic Volume Index (BP MOD) 106 ml/m2 34-74 LV Systolic Volume (BP MOD) 147 ml 21-61 LV Systolic Volume Index (BP MOD) 65 ml/m2 11-31 LV EF (BP MOD) 38 % 52-72 LV Diastolic Length (4C) 10.3 cm LV Systolic Length (4C) 8.1 cm LV Stroke Volume (4C MOD) 102 ml Atria Name Value Normal LA Dimensions LA Dimension (MM) 6.1 cm 3.0-4.0 LA Volume (4C A-L) 108 ml LA Volume (BP A-L) 101 ml RA Dimensions RA Area (4C) 29.5 cm2 <=18.0 Report Signatures
[2025-08-01 04:30] LABS: Hematocrit 26.2 % (42.0-52.0); Hemoglobin 8.3 g/dL (14.0-18.0); Immature Platelet Fraction Pct 8.9 % (0.9-11.2); Mean Corpuscular HGB Conc 31.7 g/dl (32-36); Mean Corpuscular Hemoglobin 33.2 pg (26-34); Mean Corpuscular Volume 104.8 fl (80-100); Platelet Count Result 83 k/mm3 (150-375); Red Blood Count 2.50 M/mm3 (4.6-6.20); White Blood Count 5.2 K/mm3 (4.5-10.0)
[2025-08-01 05:03] LABS: Albumin Level 3.2 g/dL (3.5-5.1); Anion Gap 7 mmol/L (4-12); Blood Urea Nitrogen 34 mg/dL (9-20); Calcium 9.3 mg/dL (8.4-10.2); Carbon Dioxide 30 mmol/L (22-30); Chloride 96 mmol/L (98-107); Estimated CRCL calculation 11 ml/min; Estimated Glomerular Filt Rate 11; Glucose 105 mg/dL (65-110); Magnesium 1.7 mg/dL (1.6-2.3); Potassium 4.2 mmol/L (3.4-5.0); Sodium 133 mmol/L (137-145)
[2025-08-01] MEDS: CALCIUM CARBONATE (OSCAL) 500 MG TABLET 1000 MG PO ×3 (08:21→17:54)
[2025-08-01] MEDS: CHOLECALCIFEROL (VITAMIN D3) 125 MCG (5,000 UNITS) TABLET PO (08:22)
[2025-08-01] MEDS: ISOSORBIDE MONONITRATE 60 MG TAB.ER.24H PO (08:22)
[2025-08-01] MEDS: ATORVASTATIN 40 MG TABLET 80 MG PO (08:22)
[2025-08-01] MEDS: CLOPIDOGREL BISULFATE 75 MG TABLET PO (08:22)
[2025-08-01] MEDS: MAGNESIUM OXIDE 400 MG TABLET PO (08:22)
[2025-08-01] MEDS: PANTOPRAZOLE 40 MG TABLET PO (08:23)
[2025-08-01] MEDS: THERAPEUTIC MULTIVITAMINS/MINERALS TAB (*BKC) 1 TABLET PO (08:23)
[2025-08-01] MEDS: SODIUM BICARBONATE TAB 650 MG TABLET PO ×2 (08:23→17:54)
--- NOTE | 2025-08-01 11:10 | P.PNNP_ITS ---
Progress Note: A&P Assessment and Plan (1) End stage renal disease: Code(s): N18.6 - End stage renal disease Status: Chronic Assessment and Plan: * HD tomorrow * continue outpatient schedule of //Friday * due to hypertension, vascular disease, and an element of cardiorenal syndrome * follow electrolytes, volume status, and electrolytes (2) Ventricular tachyarrhythmia: Code(s): I47.20 - Ventricular tachycardia, unspecified Status: Acute Assessment and Plan: * reported 60 second run of this but was asymptomatic * Cardiology following * noted history of intermittent NSVT and SVTs as an outpatient * repeat Echo ordered (3) Generalized weakness: Code(s): R53.1 - Weakness Status: Acute Assessment and Plan: * in association with deconditioning * reports that his legs are rubbery on admission * related to ESRD versus chronic heart failure(?) * PT/OT * fall precautions (4) Chronic systolic heart failure: Code(s): I50.22 - Chronic systolic (congestive) heart failure Status: Chronic Assessment and Plan: * follows with [facility] Cardiology * fluid removal with dialysis as tolerated to maintain euvolemia * folow volume status (5) HTN (hypertension): Qualifiers: Hypertension type: unspecified Qualified Code(s): I10 - Essential (primary) hypertension Code(s): I10 - Essential (primary) hypertension Status: Chronic Assessment and Plan: * reasonable control at this time * follow trend of hemodynamics (6) Anemia: Code(s): D64.9 - Anemia, unspecified Status: Chronic Assessment and Plan: * related to ESRD * Epogen with HD * follow trend of H/H Will continue to follow. L Subjective Date/time seen: 08/01/25 11:10 Interval history: Follow-up for end stage renal disease on hemodialysis. Transferred to ICU due to issues with ventricular tachycardia (last for 60 seconds but he was symptomatic); started on amiodarone gtt but this led to bradycardia so this was stopped; no further episodes of V-tach with his only real complaint being generalized weakness. Exam 2 Narrative: General: elderly but WD/WN male in NAD Heart: normal S1 and S2; no rub Lungs: decreased at bases Abdomen: soft, nontender, nondistended, positive bowel sounds Extremities: no cyanosis or clubbing; 1+ edema Skin: no rash Objective Data Vital Signs Vital Signs: Vital Signs Temp Pulse Resp BP Pulse Ox O2 Del Method O2 Flow Rate 08/01/25 10:00 97.7 F 60 19 112/58 L 96 08/01/25 08:23 49 L 08/01/25 08:21 49 L 08/01/25 08:00 53 L 08/01/25 08:00 53 L 99 Nasal Cannula 2.5 08/01/25 06:00 49 L 08/01/25 06:00 98.5 F 50 L 25 H 102/59 L 100 08/01/25 04:00 97.4 F L 48 L 19 90/50 L 99 08/01/25 04:00 56 L 08/01/25 04:00 55 L 18 100 Nasal Cannula 2.5 08/01/25 02:00 50 L 08/01/25 02:00 50 L 14 99/57 L 100 08/01/25 00:00 56 L 18 100 Nasal Cannula 2.5 08/01/25 00:00 56 L 08/01/25 00:00 97.7 F 54 L 14 101/59 L 93 07/31/25 22:00 55 L 07/31/25 22:00 55 L 17 92/50 L 10 L 07/31/25 21:23 57 L 07/31/25 21:21 57 L 07/31/25 20:43 57 L 18 100 Nasal Cannula 2.5 07/31/25 20:43 55 L 99/61 L 07/31/25 20:22 57 L 99/61 L 07/31/25 20:22 97.9 F 57 L 18 97/61 L 100 07/31/25 20:00 57 L Intake/Output Intake/Output: Intake & Output 07/29/25 07/30/25 07/31/25 08/01/25 23:59 23:59 23:59 23:59 Intake Total 1020 1290 1721.1 600 Output Total 1700 0 0 Balance 1020 -410 1721.1 600 Meds/Results Medications: Active Medications Generic Name Dose Route Start Last Admin Trade Name Freq PRN Reason Stop Dose Admin Acetaminophen 650 mg 07/28/25 21:29 07/31/25 17:04 Acetaminophen 325 Mg Tablet PO 650 mg Q4H PRN Administration Mild Pain (1-3) or Fever Amiodarone HCl 400 mg 08/01/25 11:00 08/01/25 12:10 Amiodarone Hcl 200 Mg Tablet PO 400 mg Q12HR DELROY Administration Atorvastatin Calcium 80 mg 07/30/25 09:00 08/01/25 08:22 Atorvastatin 40 Mg Tablet PO 80 mg DAILY DELROY Administration Calcitriol 0.25 mcg 07/30/25 09:00 08/01/25 12:10 Calcitriol 0.25 Mcg Capsule PO Not Given DAILY [facility] Calcium Carbonate 1,000 mg 07/29/25 12:00 08/01/25 17:54 Calcium Carbonate (Oscal) 500 Mg Tablet PO 1,000 mg TIDWM DELROY Administration Clopidogrel Bisulfate 75 mg 07/30/25 09:00 08/01/25 08:22 Clopidogrel Bisulfate 75 Mg Tablet PO 75 mg DAILY DELROY Administration Albumin Human 50 mls @ 999 mls/hr 07/30/25 00:18 Albutein IVPB 08/29/25 00:17 Q10M PRN HYPOTENSION Isosorbide Mononitrate 60 mg 07/30/25 09:00 08/01/25 08:22 Isosorbide Mononitrate 60 Mg Tab.Er.24h PO 60 mg On Hold: 08/01/25 08:30 DAILY DELROY Administration Magnesium Oxide 400 mg 07/31/25 16:20 08/01/25 08:22 Magnesium Oxide 400 Mg Tablet PO 400 mg QAM DELROY Administration Metoprolol Succinate 25 mg 08/02/25 09:00 Metoprolol Succinate Ext Rel 25 Mg Tabcr BY MOUTH DAILY [facility] Multivitamins/Calcium 1 tablet 07/30/25 09:00 08/01/25 08:23 Therapeutic Multivitamins/Minerals Tab (*Bkc) PO 1 tablet DAILY DELROY Administration Pantoprazole Sodium 40 mg 07/30/25 09:00 08/01/25 08:23 Pantoprazole 40 Mg Tablet PO 40 mg QAM DELROY Administration Sodium Bicarbonate 650 mg 07/29/25 17:00 08/01/25 17:54 Sodium Bicarbonate Tab 650 Mg Tablet PO 650 mg BID DELROY Administration Tamsulosin HCl 0.4 mg 07/29/25 21:00 07/31/25 21:22 Tamsulosin Hcl 0.4 Mg Capsule BY MOUTH 0.4 mg HS DELROY Administration Tramadol HCl 25 mg 07/31/25 12:26 07/31/25 15:19 Tramadol Hcl (*Crx) 25 Mg Tablet PO 25 mg Q6H PRN Administration Pain Rated 4-6 Vitamin D 125 mcg 07/30/25 09:00 08/01/25 08:22 Cholecalciferol (Vitamin D3) 125 Mcg (5,000 Units) Tablet PO 125 mcg Q48H DELROY Administration Radiology Results: ITS Impressions Chest X-Ray 07/28/25 18:08 IMPRESSION: Cardiomegaly with mild pulmonary edema suggestive of congestive heart failure. Labs Labs: Laboratory Tests 08/01/25 04:11 08/01/25 04:11 Calcium 9.3 Phosphorus 2.8 Magnesium 1.7 Albumin 3.2 L
[2025-08-01] MEDS: MAGNESIUM SULF 2 GM/WATER 50ML 2 GM/50 ML BAG IVPB (12:09)
[2025-08-01] MEDS: AMIODARONE HCL 200 MG TABLET 400 MG PO ×2 (12:10→20:41)
--- NOTE | 2025-08-01 14:02 | P.CONIN_ITS ---
Assessment and Plan Assessment and plan (1) Ventricular tachyarrhythmia: Code(s): I47.20 - Ventricular tachycardia, unspecified Status: Acute Assessment and Plan: 07/31: patient was transferred from intermediate Unit to ICU for 60 seconds of ventricular tachycardia which was asymptomatic. - Patient was started on amiodarone infusion and dropped his heart rates in the 40s and 50s, bedside RN call me overnight and I held the amiodarone infusion. -08/01: This morning patient's heart rate remains in the 50s, amiodarone infusion as on hold, p.o. amiodarone as well as p.o. metoprolol on hold. Discussed at length with Cardiology, recommended restarting p.o. amiodarone, hold metoprolol. 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 He has had nonsustained V-tach and SVTs as outpatient as mentioned and Cardiology notes - Repeat echocardiogram (2) CHF (congestive heart failure): Code(s): I50.9 - Heart failure, unspecified Status: Acute Assessment and Plan: history of CHF, chest x-ray was clear. currently on room air 12/03/2023: Echocardiogram Summary 1. Left ventricular chamber dimension is normal. 2. Left ventricular systolic function is moderately reduced, estimated at 30-35%. 3. There is mildly increased left ventricular wall thickness. 4. Right ventricular chamber dimension is mildly enlarged. 5. Right ventricular systolic function is reduced. 6. Left atrial chamber dimension is mildly enlarged. 7. Right atrial chamber dimension is mildly enlarged. 8. There is mild mitral valve regurgitation. 9. There is moderate tricuspid valve regurgitation. (3) End stage renal disease: Code(s): N18.6 - End stage renal disease Status: Chronic Assessment and Plan: end-stage renal disease on hemodialysis - nephrology following - patient gets his dialysis done on Tuesdays, and Friday. Last dialysis on 07/30/2025 - will defer dialysis to Nephrology (4) Generalized weakness: Code(s): R53.1 - Weakness Status: Acute Assessment and Plan: generalized weakness could be multifactorial, could be tachy-jalyn syndrome, could be related to dialysis S the patient states that once he gets dialyzed he feels sleepy and weak Plan DVT prophylaxis: SCDs Stress ulcer prophylaxis: Protonix which is his home med Nutrition: heart healthy diet Code Status: full code Critical Care Time Spent: 47 minutes Due to a high probability of clinically significant, life threatening deterioration, the patient required my highest level of preparedness to intervene emergently and I personally spent this critical care time directly and personally managing the patient. This critical care time included obtaining a history; examining the patient; pulse oximetry; ordering and review of studies; arranging urgent treatment with development of a management plan; evaluation of patient's response to treatment; frequent reassessment; and discussions with other providers. It was exclusive of separately billable procedures and treating other patients and teaching time. Please see Assessment and Plan section and the rest of the note for further information on patient assessment and treatment This dictation may have been done utilizing a voice recognition system. Attempts have been made to correct errors. However, there may be uncorrected grammatical, spelling, and recognitions errors present. 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 In the ER patient's hemodynamics were stable, hemoglobin 9.0, platelets 106, BUN 22, creatinine 3.17, magnesium of 1.6, elevated AST and ALT. 0.148, repeat was 0.147. He denies any chest pain. [place]BNP was 8[address]68. flu, RSV, COVID 19 PCR were negative. Chest x-ray showed some mild pulmonary edema. Patient was having no exertional shortness of breath with less amount of physical activity. No syncopal events or palpitations. According the records he has had some complains of runs of SVT which is self-limiting with physical activity. He also had some runs of nonsustained ventricular tachycardia as mentioned in the trade show coordinator consultation note. Patient was started on metoprolol and amiodarone p.o. and was in the intermediate Unit. On 07/31/2025: Patient was transferred to the ICU later in the evening for a 60 around beat of asymptomatic ventricular tachycardia. Patient was started on amiodarone infusion and dropped his heart rate in the 40s-50s. I was called overnight with heart rates in the 40s and 50s, and instructed the bedside RN to hold the IV amiodarone. Which was acceptable and agreeable with the trade show coordinator. 08/01/2025: Patient seen and examined the ICU, is awake alert, denies any shortness of breath, chest pain, palpitation, nausea, vomiting. Continues to complain of generalized weakness. No more runs of V-tach overnight. Patient's heart rates in the mid 50s. Hemodynamically stable, afebrile. patient has end-stage renal disease on hemodialysis on Tuesdays, , Saturdays. Last hemodialysis was done on 07/30/2025 with 1500 mL of fluid removal. Patient currently on room air Review of Systems 2 Review of Systems: All systems reviewed & are unremarkable except as noted in HPI and below PMFSH Past Medical History Medical History (Updated 08/01/25 @ 14:14 by Ijeoma Mo MD) CAP (community acquired pneumonia) AAA (abdominal aortic aneurysm) Gout CAD (coronary artery disease) HTN (hypertension) CVA (cerebral vascular accident) Surgical History Surgical History (Updated 07/29/25 @ 13:23 by Dwight Ibanez MD) Hx of appendectomy Hx of cardiac catheterization with stent placement Hx of CABG x4 Family History Family History Mother Diabetes mellitus Sibling Diabetes mellitus Father Acute myocardial infarction Social History Social History Smoking status: Never smoker Second hand tobacco smoke exposure: No Alcohol intake: never Substance use: never Lack of Transportation: No Lack of Food: Never True Current Housing: I Have Housing Concerned About Future Housing: No Difficulty Paying Gas/Electric Bills: No Difficulty Paying for Meds: No Currently Unemployed: No Education: High School Diploma/GED Difficulty w/ Childcare or Family Care: No Living arrangements: with family Occupation/Education: retired Gender identity (if verbalized by the patient): Male Spiritual care concerns: No Agree to blood products: Yes Meds Home Medications and Allergies Home Medications ?Medication ?Instructions ?Recorded ?Confirmed ?Type coenzyme Q10 10 mg capsule (Co 450 mg PO DAILY 0 07/28/25 History Q-10) isosorbide mononitrate 60 mg 60 mg PO DAILY 10/15/19 1 09/28/24 History tablet,extended release 24 hr jsqvecqh-dusjgvah-tawnx acid 400 1 tablet PO DAILY 07/28/25 History mcg-vit K 20 mcg-lycop 300 mcg tablet (Men's Multivitamin) clopidogrel 75 mg tablet 75 mg PO DAILY 09/25/2212/17 History cholecalciferol (vitamin D3) 125 5,000 unit PO .every other day 09/16/23 07/28/25 History mcg (5,000 unit) capsule (Dialyvite Vitamin D) tamsulosin 0.4 mg capsule See Rx Instructions .Route 1 10/03/23 07/28/25 Rx .COMPLEX #90 caps metoprolol succinate 50 mg See Rx Instructions .Route 12/15/24 07/28/25 Rx tablet,extended release 24 hr .COMPLEX #180 tabs calcium carbonate 1,000 mg tablet 1,250 mg PO TIDWMEAL 01/18/25 07/28/25 History calcitriol 0.25 mcg capsule 0.25 mcg PO DAILY #90 caps 02/11/25 07/28/25 Rx pantoprazole 40 mg tablet,delayed 40 mg PO QAM #60 tab s 07/08/25 07/28/25 Rx release atorvastatin 80 mg tablet 80 mg PO DAILY #90 tabs 06/2607/28/25 Rx sodium bicarbonate 650 mg tablet 650 mg PO BID 5 07/28/25 History colchicine 0.6 mg capsule 0.6 mg PO DAILY #6 caps 01/16 Rx Allergies Allergy/AdvReac Type Severity Reaction Status Date / Time carvedilol (From Coreg) Allergy Rash Verified 07/29/25 00:34 hydralazine AdvReac Vasculitis Verified 07/29/25 00:34 Vital Signs Vital Signs - 24 hr 07/31/25 15:13 07/31/25 16:00 07/31/25 16:00 Temperature 98.2 F Pulse Rate 95 58 L Respiratory Rate 16 Blood Pressure 101/47 L Pulse Oximetry 97 97 Oxygen Delivery Room Air Oxygen Flow Rate 07/31/25 18:00 07/31/25 18:29 07/31/25 18:35 Temperature Pulse Rate 70 70 70 Respiratory Rate Blood Pressure 99/64 L 99/64 L Pulse Oximetry Oxygen Delivery Oxygen Flow Rate 07/31/25 18:37 07/31/25 18:38 07/31/25 18:40 Temperature Pulse Rate 70 70 81 Respiratory Rate Blood Pressure 99/64 L 99/64 L Pulse Oximetry Oxygen Delivery Oxygen Flow Rate 07/31/25 18:53 07/31/25 20:00 07/31/25 20:22 Temperature 97.9 F Pulse Rate 70 57 L 57 L Respiratory Rate 18 Blood Pressure 99/64 L 97/61 L Pulse Oximetry 100 Oxygen Delivery Oxygen Flow Rate 07/31/25 20:22 07/31/25 20:43 07/31/25 20:43 Temperature Pulse Rate 57 L 55 L 57 L Respiratory Rate 18 Blood Pressure 99/61 L 99/61 L Pulse Oximetry 100 Oxygen Delivery Nasal Cannula Oxygen Flow Rate 2.5 07/31/25 21:21 07/31/25 21:23 07/31/25 22:00 Temperature Pulse Rate 57 L 57 L 55 L Respiratory Rate 17 Blood Pressure 92/50 L Pulse Oximetry 10 L Oxygen Delivery Oxygen Flow Rate 07/31/25 22:00 08/01/25 00:00 08/01/25 00:00 Temperature 97.7 F Pulse Rate 55 L 54 L 56 L Respiratory Rate 14 Blood Pressure 101/59 L Pulse Oximetry 93 Oxygen Delivery Oxygen Flow Rate 08/01/25 00:00 08/01/25 02:00 08/01/25 02:00 Temperature Pulse Rate 56 L 50 L 50 L Respiratory Rate 18 14 Blood Pressure 99/57 L Pulse Oximetry 100 100 Oxygen Delivery Nasal Cannula Oxygen Flow Rate 2.5 08/01/25 04:00 08/01/25 04:00 08/01/25 04:00 Temperature 97.4 F L Pulse Rate 55 L 56 L 48 L Respiratory Rate 18 19 Blood Pressure 90/50 L Pulse Oximetry 100 99 Oxygen Delivery Nasal Cannula Oxygen Flow Rate 2.5 08/01/25 06:00 08/01/25 06:00 08/01/25 08:00 Temperature 98.5 F Pulse Rate 50 L 49 L 53 L Respiratory Rate 25 H Blood Pressure 102/59 L Pulse Oximetry 100 99 Oxygen Delivery Nasal Cannula Oxygen Flow Rate 2.5 08/01/25 08:00 08/01/25 08:21 08/01/25 08:23 Temperature Pulse Rate 53 L 49 L 49 L Respiratory Rate Blood Pressure Pulse Oximetry Oxygen Delivery Oxygen Flow Rate 08/01/25 10:00 08/01/25 10:00 08/01/25 12:00 Temperature 97.7 F 97.9 F Pulse Rate 60 54 L 59 L Respiratory Rate 19 Blood Pressure 112/58 L 103/66 Pulse Oximetry 96 99 Oxygen Delivery Oxygen Flow Rate 08/01/25 12:10 Temperature Pulse Rate 61 Respiratory Rate Blood Pressure Pulse Oximetry Oxygen Delivery Oxygen Flow Rate Exam 2 Narrative: General: pleasant gentleman in no acute distress HEENT:? pupils equal and reactive, sclerae is clear Neck:? supple Respiratory:? clear to auscultation bilaterally, decreased at bases, no wheezing, adequate air entry Cardiac:? S1-S2 is normal, bradycardia Abdomen:? soft, nontender, nondistended, normoactive bowel sound Extremities:? 1+ pitting edema, palpable pedal pulses Neuro:? patient is awake, alert, oriented, nonfocal, able to answer questions appropriately and follows simple commands in all extremities Skin:? no lesions noted Psych:? normal mentation and affect Results Labs 08/01/25 04:11 08/01/25 04:11 Labs: Short CBC 08/01/25 Range/Units 04:11 WBC 5.2 (4.5-10.0) K/mm3 Hgb 8.3 L (14.0-18.0) g/dL Hct 26.2 L (42.0-52.0) % Plt Count 83 L (150-375) k/mm3 [facility] 07/31/25 08/01/25 20:48 04:11 Sodium 132 L 133 L Potassium 3.9 4.2 Chloride 98 96 L Carbon Dioxide 28 30 BUN 31 H 34 H Creatinine 4.70 H 5.19 H Glucose 108 105 Calcium 9.1 9.3 Liver Function 08/01/25 Range/Units 04:11 Albumin 3.2 L (3.5-5.1) g/dL Quality VTE Prophylaxis VTE prophylaxis: mechanical ordered Hospitalist MIPS Advance Care Plan I have confirmed that the patient's Advanced Care Plan is present, code status is documented, or surrogate decision maker is listed in patient medical record.: Yes Medication Reconciliation I have utilized all available resources to obtain, update and review the patients current medications (includes all prescriptions, OTC, herbals, cannabis, and nutritional supplements).: Yes
--- NOTE | 2025-08-01 15:02 | P.PNCA_ITS ---
Progress Note: A&P Assessment and Plan (1) Chronic systolic CHF (congestive heart failure): Code(s): I50.22 - Chronic systolic (congestive) heart failure Status: Acute (2) Hx of CABG: Code(s): Z95.1 - Presence of aortocoronary bypass graft Status: Acute (3) Nonsustained ventricular tachycardia: Code(s): I47.29 - Other ventricular tachycardia Status: Acute (4) Paroxysmal atrial fibrillation: Code(s): I48.0 - Paroxysmal atrial fibrillation Status: Acute Plan 79-year-old man with CAD status post CABG, chronic systolic heart failure (30- 35%), ESRD with recent HD initiation, and hyperlipidemia was brought in due to weakness after initiating HD recently Nonsustained ventricular tachycardia -metoprolol succinate 50 mg p.o. b.i.d. currently on hold; may consider resuming at a lower dose of 25 mg p.o. daily -continue amiodarone 400 mg p.o. b.i.d. -ensure K > 4 and Mg > 2 -would advise to follow up with his heart failure team at [facility] -we discussed possibility of 7-14 day event monitor to help guide further management in outpatient setting Chronic systolic heart failure -recommend to follow-up with his outpatient Heart failure team at [facility] -depending on results of 7-14 day outpatient event monitor, may warrant ICD CAD status post CABG -continue Plavix 75 mg p.o. daily and atorvastatin 80 mg evening Continue with physical therapy and rehab. Subjective Date/time seen: 08/01/25 15:02 Interval history: Denies any chest pain. No further sustained arrhythmia since initiating amiodarone Review of Systems Cardiovascular: Cardiovascular: Reports as per HPI Respiratory: Respiratory: Reports as per HPI Exam Const: General: comfortable HENMT: Mouth: Yes moist mucous membranes Eyes: EOM: EOMs intact bilaterally Neck: Neck: no JVD Resp: Effort & Inspection: normal respiratory effort Auscultation: clear to auscultation bilaterally Cardio: Rate: regular rate Rhythm: regular rhythm Extrem: General: no pedal edema Objective Data Vital Signs Vital Signs: Vital Signs - 24 hr 07/31/25 15:13 07/31/25 16:00 07/31/25 16:00 Temperature 36.8 C Pulse Rate 95 58 L Respiratory Rate 16 Blood Pressure 101/47 L Pulse Oximetry 97 97 Oxygen Delivery Room Air Oxygen Flow Rate 07/31/25 18:00 07/31/25 18:29 07/31/25 18:35 Temperature Pulse Rate 70 70 70 Respiratory Rate Blood Pressure 99/64 L 99/64 L Pulse Oximetry Oxygen Delivery Oxygen Flow Rate 07/31/25 18:37 07/31/25 18:38 07/31/25 18:40 Temperature Pulse Rate 70 70 81 Respiratory Rate Blood Pressure 99/64 L 99/64 L Pulse Oximetry Oxygen Delivery Oxygen Flow Rate 07/31/25 18:53 07/31/25 20:00 07/31/25 20:22 Temperature 36.6 C Pulse Rate 70 57 L 57 L Respiratory Rate 18 Blood Pressure 99/64 L 97/61 L Pulse Oximetry 100 Oxygen Delivery Oxygen Flow Rate 07/31/25 20:22 07/31/25 20:43 07/31/25 20:43 Temperature Pulse Rate 57 L 55 L 57 L Respiratory Rate 18 Blood Pressure 99/61 L 99/61 L Pulse Oximetry 100 Oxygen Delivery Nasal Cannula Oxygen Flow Rate 2.5 07/31/25 21:21 07/31/25 21:23 07/31/25 22:00 Temperature Pulse Rate 57 L 57 L 55 L Respiratory Rate 17 Blood Pressure 92/50 L Pulse Oximetry 10 L Oxygen Delivery Oxygen Flow Rate 07/31/25 22:00 08/01/25 00:00 08/01/25 00:00 Temperature 36.5 C Pulse Rate 55 L 54 L 56 L Respiratory Rate 14 Blood Pressure 101/59 L Pulse Oximetry 93 Oxygen Delivery Oxygen Flow Rate 08/01/25 00:00 08/01/25 02:00 08/01/25 02:00 Temperature Pulse Rate 56 L 50 L 50 L Respiratory Rate 18 14 Blood Pressure 99/57 L Pulse Oximetry 100 100 Oxygen Delivery Nasal Cannula Oxygen Flow Rate 2.5 08/01/25 04:00 08/01/25 04:00 08/01/25 04:00 Temperature 36.3 C L Pulse Rate 55 L 56 L 48 L Respiratory Rate 18 19 Blood Pressure 90/50 L Pulse Oximetry 100 99 Oxygen Delivery Nasal Cannula Oxygen Flow Rate 2.5 08/01/25 06:00 08/01/25 06:00 08/01/25 08:00 Temperature 36.9 C Pulse Rate 50 L 49 L 53 L Respiratory Rate 25 H Blood Pressure 102/59 L Pulse Oximetry 100 99 Oxygen Delivery Nasal Cannula Oxygen Flow Rate 2.5 08/01/25 08:00 08/01/25 08:21 08/01/25 08:23 Temperature Pulse Rate 53 L 49 L 49 L Respiratory Rate Blood Pressure Pulse Oximetry Oxygen Delivery Oxygen Flow Rate 08/01/25 10:00 08/01/25 10:00 08/01/25 12:00 Temperature 36.5 C 36.6 C Pulse Rate 60 54 L 59 L Respiratory Rate 19 Blood Pressure 112/58 L 103/66 Pulse Oximetry 96 99 Oxygen Delivery Oxygen Flow Rate 08/01/25 12:10 Temperature Pulse Rate 61 Respiratory Rate Blood Pressure Pulse Oximetry Oxygen Delivery Oxygen Flow Rate Intake/Output Intake/Output: Intake & Output 07/29/25 07/30/25 07/31/25 08/01/25 23:59 23:59 23:59 23:59 Intake Total 1020 1290 1721.1 480 Output Total 1700 0 0 Balance 1020 -410 1721.1 480 Meds/Results Medications: Active Medications Generic Name Dose Route Start Last Admin Trade Name Freq PRN Reason Stop Dose Admin Acetaminophen 650 mg 07/28/25 21:29 07/31/25 17:04 Acetaminophen 325 Mg Tablet PO 650 mg Q4H PRN Administration Mild Pain (1-3) or Fever Amiodarone HCl 400 mg 08/01/25 11:00 08/01/25 12:10 Amiodarone Hcl 200 Mg Tablet PO 400 mg Q12HR DELROY Administration Atorvastatin Calcium 80 mg 07/30/25 09:00 08/01/25 08:22 Atorvastatin 40 Mg Tablet PO 80 mg DAILY DELROY Administration Calcitriol 0.25 mcg 07/30/25 09:00 08/01/25 12:10 Calcitriol 0.25 Mcg Capsule PO Not Given DAILY DELROY Calcium Carbonate 1,000 mg 07/29/25 12:00 08/01/25 12:10 Calcium Carbonate (Oscal) 500 Mg Tablet PO 1,000 mg TIDWM DELROY Administration Clopidogrel Bisulfate 75 mg 07/30/25 09:00 08/01/25 08:22 Clopidogrel Bisulfate 75 Mg Tablet PO 75 mg DAILY DELROY Administration Albumin Human 50 mls @ 999 mls/hr 07/30/25 00:18 Albutein IVPB 08/29/25 00:17 Q10M PRN HYPOTENSION Isosorbide Mononitrate 60 mg 07/30/25 09:00 08/01/25 08:22 Isosorbide Mononitrate 60 Mg Tab.Er.24h PO 60 mg On Hold: 08/01/25 08:30 DAILY DELROY Administration Magnesium Oxide 400 mg 07/31/25 16:20 08/01/25 08:22 Magnesium Oxide 400 Mg Tablet PO 400 mg QAM DELROY Administration Metoprolol Succinate 50 mg 07/29/25 10:35 08/01/25 08:23 Metoprolol Succinate Ext Rel 50 Mg Tabcr BY MOUTH Not Given On Hold: 08/01/25 08:29 Q12HR DELROY Multivitamins/Calcium 1 tablet 07/30/25 09:00 08/01/25 08:23 Therapeutic Multivitamins/Minerals Tab (*Bkc) PO 1 tablet DAILY DELROY Administration Pantoprazole Sodium 40 mg 07/30/25 09:00 08/01/25 08:23 Pantoprazole 40 Mg Tablet PO 40 mg QAM DELROY Administration Perflutren Lipid Microsphere 0 ml 08/01/25 14:17 Perflutren Lipid Microspheres 1.5 Ml Vial Diluted To 10 Ml Total Volume IV PUSH 08/04/25 14:17 ONCE PRN adequate visualization Protocol Sodium Bicarbonate 650 mg 07/29/25 17:00 08/01/25 08:23 Sodium Bicarbonate Tab 650 Mg Tablet PO 650 mg BID DELROY Administration Tamsulosin HCl 0.4 mg 07/29/25 21:00 07/31/25 21:22 Tamsulosin Hcl 0.4 Mg Capsule BY MOUTH 0.4 mg HS DELROY Administration Tramadol HCl 25 mg 07/31/25 12:26 07/31/25 15:19 Tramadol Hcl (*Crx) 25 Mg Tablet PO 25 mg Q6H PRN Administration Pain Rated 4-6 Vitamin D 125 mcg 07/30/25 09:00 08/01/25 08:22 Cholecalciferol (Vitamin D3) 125 Mcg (5,000 Units) Tablet PO 125 mcg Q48H DELROY Administration Radiology Results: ITS Impressions Chest X-Ray 07/28/25 18:08 IMPRESSION: Cardiomegaly with mild pulmonary edema suggestive of congestive heart failure. Labs Labs: Laboratory Results - last 24 hr 07/31/25 07/31/25 08/01/25 15:56 20:48 04:11 WBC 5.2 RBC 2.50 L Hgb 8.3 L Hct 26.2 L MCV 104.8 H MCH 33.2 MCHC 31.7 L RDW 18.2 H Plt Count 83 L MPV 12.4 H % Immature Plt Fraction 8.9 Sodium 132 L 133 L Potassium 3.9 4.2 Chloride 98 96 L Carbon Dioxide 28 30 Anion Gap 6 7 BUN 31 H 34 H Creatinine 4.70 H 5.19 H Estim Creat Clear Calc 12 11 Estimated GFR 12 L 11 L Glucose 108 105 POC Capillary Glucose 111 H Calcium 9.1 9.3 Phosphorus 2.8 Magnesium 1.8 1.7 Albumin 3.2 L
[2025-08-01] MEDS: PERFLUTREN LIPID MICROSPHERES 1.5 ML VIAL DILUTED TO 10 ML TOTAL VOLUME IV PUSH (16:35)
--- NOTE | 2025-08-01 16:57 | IVDEFINITY ---
Prior to administration of IV Definity the patient was educated on the risks and benefits of the imaging enhancing agent including potential adverse side effects. The patient verbalized understanding. Allergies were verified. No exclusion criteria were identified and at least one of the following inclusion criteria were met: 1) physician request, 2) patient technically difficult to image (per the [place] [employer]ocardi[employer] guidelines of two or more segments not discernable within the apical view), or 3) questionable left ventricular function. ?
[2025-08-01] MEDS: TAMSULOSIN HCL 0.4 MG CAPSULE BY MOUTH (20:41)
[2025-08-02] VITALS (28 sets, daily range): BP systolic 84–156; BP diastolic 46–117; PULSE 51–85; RESP 16–25; TEMP 36.4–37.5; O2SAT 93–98
[2025-08-02 04:50] LABS: Hematocrit 26.7 % (42.0-52.0); Hemoglobin 8.5 g/dL (14.0-18.0); Immature Granulocyte Percent A 0.6 % (0-0.5); Immature Platelet Fraction Pct 9.1 % (0.9-11.2); Lymphocytes Absolute Auto 0.82 K/mm3 (0.9-3.2); Mean Corpuscular HGB Conc 31.8 g/dl (32-36); Mean Corpuscular Hemoglobin 32.9 pg (26-34); Mean Corpuscular Volume 103.5 fl (80-100); Nucleated Red Blood Cells Absolute Auto 0.000 K/mm3 (0.0-0.012); Nucleated Red Blood Cells Perc 0.0 % (0.0-0.2); Platelet Count Result 79 k/mm3 (150-375); Red Blood Count 2.58 M/mm3 (4.6-6.20); White Blood Count 6.3 K/mm3 (4.5-10.0)
[2025-08-02 05:09] LABS: Alanine Aminotransferase 54 U/L (6-50); Albumin Level 3.2 g/dL (3.5-5.1); Alkaline Phosphatase 101 U/L (38-126); Anion Gap 8 mmol/L (4-12); Aspartate Amino Transferase 81 U/L (17-59); Bilirubin,Total 0.9 mg/dL (0.2-1.3); Blood Urea Nitrogen 45 mg/dL (9-20); Calcium 10.0 mg/dL (8.4-10.2); Carbon Dioxide 28 mmol/L (22-30); Chloride 94 mmol/L (98-107); Estimated CRCL calculation 11 ml/min; Estimated Glomerular Filt Rate 9; Glucose 94 mg/dL (65-110); Magnesium 2.1 mg/dL (1.6-2.3); Potassium 4.7 mmol/L (3.4-5.0); Sodium 130 mmol/L (137-145); Total Protein 6.0 g/dL (6.3-8.2)
[2025-08-02 05:40] LABS: Anisocytosis 1+; Hypochromasia 1+; Ovalocytes 1+; Poikilocytosis 2+
[2025-08-02 05:41] LABS: Acanthocytes 1+; Crenated RBC 1+; Schistocytes Rare
[2025-08-02] MEDS: ATORVASTATIN 40 MG TABLET 80 MG PO (08:37)
[2025-08-02] MEDS: AMIODARONE HCL 200 MG TABLET 400 MG PO (08:37)
[2025-08-02] MEDS: PANTOPRAZOLE 40 MG TABLET PO (08:37)
[2025-08-02] MEDS: METOPROLOL SUCCINATE EXT REL 25 MG TABCR BY MOUTH (08:37)
[2025-08-02] MEDS: THERAPEUTIC MULTIVITAMINS/MINERALS TAB (*BKC) 1 TABLET PO (08:37)
[2025-08-02] MEDS: CLOPIDOGREL BISULFATE 75 MG TABLET PO (08:37)
[2025-08-02] MEDS: MAGNESIUM OXIDE 400 MG TABLET PO (08:37)
[2025-08-02] MEDS: SODIUM BICARBONATE TAB 650 MG TABLET PO ×2 (08:38→17:31)
[2025-08-02] MEDS: CALCIUM CARBONATE (OSCAL) 500 MG TABLET 1000 MG PO ×2 (08:38→17:31)
--- NOTE | 2025-08-02 09:43 | PC.NURSE ---
Pt. to Hemodialysis @ 0857 via pt bed.
--- NOTE | 2025-08-02 10:58 | P.PNNP_ITS ---
Progress Note: A&P Assessment and Plan (1) End stage renal disease: Code(s): N18.6 - End stage renal disease Status: Chronic Assessment and Plan: * HD today * continue outpatient schedule of //Friday * due to hypertension, vascular disease, and an element of cardiorenal syndrome * follow electrolytes, volume status, and electrolytes (2) Ventricular tachyarrhythmia: Code(s): I47.20 - Ventricular tachycardia, unspecified Status: Acute Assessment and Plan: * reported 60 second run of this but was asymptomatic * Cardiology following * noted history of intermittent NSVT and SVTs as an outpatient * repeat Echo noted (3) Generalized weakness: Code(s): R53.1 - Weakness Status: Acute Assessment and Plan: * in association with deconditioning * reports that his legs are rubbery on admission * related to ESRD versus chronic heart failure(?) * PT/OT * fall precautions (4) Chronic systolic heart failure: Code(s): I50.22 - Chronic systolic (congestive) heart failure Status: Chronic Assessment and Plan: * follows with [facility] Cardiology * fluid removal with dialysis as tolerated to maintain euvolemia * follow volume status * Echo (08/01) noted: * left ventricular ejection fraction is visually estimated to be 30 - 35% * right ventricle is moderately dilated with reduced systolic function * aortic valve is probably trileaflet with moderate aortic stenosis * no aortic regurgitation * trace pulmonic valve regurgitation * moderate tricuspid regurgitation * continue supportive therapy (5) HTN (hypertension): Qualifiers: Hypertension type: unspecified Qualified Code(s): I10 - Essential (primary) hypertension Code(s): I10 - Essential (primary) hypertension Status: Chronic Assessment and Plan: * reasonable control at this time * follow trend of hemodynamics (6) Anemia: Code(s): D64.9 - Anemia, unspecified Status: Chronic Assessment and Plan: * related to ESRD * Epogen with HD * follow trend of H/H Will continue to follow. L Subjective Date/time seen: 08/02/25 10:58 Interval history: Follow-up for end stage renal disease on hemodialysis. Tolerating dialysis at the time of my visit (seen on HD at 10:45am); still feels weak/fatigued but in no acute distress; fluid removal with dialysis challenging due to suboptimal hemodyanmics; no other issues/events overnight or earlier this morning. Exam 2 Narrative: General: elderly but WD/WN male in NAD Heart: normal S1 and S2; no rub Lungs: decreased at bases Abdomen: soft, nontender, nondistended, positive bowel sounds Extremities: no cyanosis or clubbing; 1+ edema Skin: no rash Objective Data Vital Signs Vital Signs: Vital Signs Temp Pulse Resp BP Pulse Ox O2 Del Method O2 Flow Rate 08/02/25 10:45 58 L 102/57 L 08/02/25 10:30 55 L 103/57 L 08/02/25 10:15 55 L 108/56 L 08/02/25 10:02 57 L 115/62 08/02/25 09:49 98.4 F 59 L 16 113/60 94 08/02/25 08:37 65 08/02/25 08:37 65 08/02/25 08:00 56 L 08/02/25 08:00 56 L Room Air 08/02/25 08:00 97.7 F 57 L 18 113/61 98 08/02/25 06:00 55 L 08/02/25 04:00 57 L 08/02/25 04:00 98.1 F 57 L 18 115/60 98 08/02/25 04:00 98 Nasal Cannula 2.5 08/02/25 02:00 56 L 08/02/25 00:00 57 L 08/02/25 00:00 98.5 F 57 L 18 91/56 L 97 08/02/25 00:00 98 Nasal Cannula 2.5 08/01/25 22:00 55 L 08/01/25 20:41 59 L 08/01/25 20:00 58 L 08/01/25 20:00 98.1 F 58 L 29 H 106/72 98 08/01/25 20:00 Room Air Intake/Output Intake/Output: Intake & Output 07/30/25 07/31/25 08/01/25 08/02/25 23:59 23:59 23:59 23:59 Intake Total 1290 1721.1 600 810 Output Total 1700 0 0 1150 Balance -410 1721.1 600 -340 Meds/Results Medications: Active Medications Generic Name Dose Route Start Last Admin Trade Name Freq PRN Reason Stop Dose Admin Acetaminophen 650 mg 07/28/25 21:29 07/31/25 17:04 Acetaminophen 325 Mg Tablet PO 650 mg Q4H PRN Administration Mild Pain (1-3) or Fever Amiodarone HCl 400 mg 08/01/25 11:00 08/02/25 08:37 Amiodarone Hcl 200 Mg Tablet PO 400 mg Q12HR DELROY Administration Atorvastatin Calcium 80 mg 07/30/25 09:00 08/02/25 08:37 Atorvastatin 40 Mg Tablet PO 80 mg DAILY DELROY Administration Calcitriol 0.25 mcg 07/30/25 09:00 08/02/25 08:37 Calcitriol 0.25 Mcg Capsule PO 0.25 mcg DAILY DELROY Administration Calcium Carbonate 1,000 mg 07/29/25 12:00 08/02/25 17:31 Calcium Carbonate (Oscal) 500 Mg Tablet PO 1,000 mg TIDWM DELROY Administration Clopidogrel Bisulfate 75 mg 07/30/25 09:00 08/02/25 08:37 Clopidogrel Bisulfate 75 Mg Tablet PO 75 mg DAILY DELROY Administration Enoxaparin Sodium 30 mg 08/02/25 13:55 08/02/25 17:31 Enoxaparin 30 Mg/0.3 Ml Syringe SUB-Q 30 mg DAILY DELROY Administration Albumin Human 50 mls @ 999 mls/hr 07/30/25 00:18 08/02/25 13:20 Albutein IVPB 08/29/25 00:17 100 mls/hr Q10M PRN Administration HYPOTENSION Isosorbide Mononitrate 60 mg 07/30/25 09:00 08/01/25 08:22 Isosorbide Mononitrate 60 Mg Tab.Er.24h PO 60 mg On Hold: 08/01/25 08:30 DAILY DELROY Administration Magnesium Oxide 400 mg 07/31/25 16:20 08/02/25 08:37 Magnesium Oxide 400 Mg Tablet PO 400 mg QAM DELROY Administration Metoprolol Succinate 25 mg 08/02/25 09:00 08/02/25 08:37 Metoprolol Succinate Ext Rel 25 Mg Tabcr BY MOUTH 25 mg DAILY DELROY Administration Multivitamins/Calcium 1 tablet 07/30/25 09:00 08/02/25 08:37 Therapeutic Multivitamins/Minerals Tab (*Bkc) PO 1 tablet DAILY DELROY Administration Pantoprazole Sodium 40 mg 07/30/25 09:00 08/02/25 08:37 Pantoprazole 40 Mg Tablet PO 40 mg QAM DELROY Administration Sodium Bicarbonate 650 mg 07/29/25 17:00 08/02/25 17:31 Sodium Bicarbonate Tab 650 Mg Tablet PO 650 mg BID DELROY Administration Tamsulosin HCl 0.4 mg 07/29/25 21:00 08/01/25 20:41 Tamsulosin Hcl 0.4 Mg Capsule BY MOUTH 0.4 mg HS DELROY Administration Tramadol HCl 25 mg 07/31/25 12:26 07/31/25 15:19 Tramadol Hcl (*Crx) 25 Mg Tablet PO 25 mg Q6H PRN Administration Pain Rated 4-6 Vitamin D 125 mcg 07/30/25 09:00 08/01/25 08:22 Cholecalciferol (Vitamin D3) 125 Mcg (5,000 Units) Tablet PO 125 mcg Q48H DELROY Administration Radiology Results: ITS Impressions Chest X-Ray 07/28/25 18:08 IMPRESSION: Cardiomegaly with mild pulmonary edema suggestive of congestive heart failure. Labs Labs: Laboratory Tests 08/02/25 04:21 08/02/25 04:21 Calcium 10.0 Phosphorus 2.9 Magnesium 2.1 Total Bilirubin 0.9 AST 81 H ALT 54 H Alkaline Phosphatase 101 Total Protein 6.0 L Albumin 3.2 L
[2025-08-02] MEDS: ALBUMIN HUMAN 25% 12.5 GM/50ML 50 ML IVPB ×3 (11:10→13:20)
[2025-08-02] MEDS: EPOETIN ALFA-EPBX 10,000 UNITS/ML VIAL 10000 UNITS IV PUSH (11:13)
--- NOTE | 2025-08-02 11:27 | PCPTNOTE ---
Patient out of room for dialysis. Spoke to RN and RN advised to hold PT today due to patient's heart rhythm. PT will continue to follow.
--- NOTE | 2025-08-02 12:11 | ECG_ITS ---
Test Date: 2025-08-02 12:25:45 Measurements Intervals [place] Rate: 61 P: 0 [place]: 0 QRS: -89 QRSD: 184 T: 53 QT: 498 QTc: 505 Interpretive Statements SINUS OR ECTOPIC ATRIAL BRADYCARDIA WITH VENTRICULAR TRIPLET AND VENTRICULAR PREMATURE COMPLEXES LEFT BUNDLE BRANCH BLOCK BASELINE WANDER- V1-V2 ABNORMAL ECG Compared to ECG 07/29/2025 02:01:30 HEART RATE HAS DECREASED RIGHT BUNDLE BRANCH BLOCK NO LONGER PRESENT Electronically Signed On 08-02-2025 12:58:01 [employer] by Santos Hawkins D.O.
--- NOTE | 2025-08-02 13:32 | PC.NURSE ---
Returned from hemodialysis area via bed @ 1330. 1L of fluid removed. Pt remained asymptomatic throughout treatment and remains so at this time despite having frequent runs of nonsustained v tach. Cardiology is aware of recurrence of dysrhythmias, EKG obtained. Transfer to tertiary facility is recommended by Gena Daigle at this time. updated on status by said provider
--- NOTE | 2025-08-02 13:34 | PM.IMPN2 ---
Assessment and Plan Assessment and Plan (1) Ventricular tachyarrhythmia: Code(s): I47.20 - Ventricular tachycardia, unspecified Status: Acute Assessment and Plan: 07/31: patient was transferred from intermediate Unit to ICU for 60 seconds of ventricular tachycardia which was asymptomatic. - Patient was started on amiodarone infusion and dropped his heart rates in the 40s and 50s and amiodarone infusion was held. -08/01: This morning patient's heart rate remains in the 50s, amiodarone infusion was discontinued and p.o. 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 He has had nonsustained V-tach and SVTs as outpatient as mentioned and Cardiology notes Echocardiogram Summary 1. The left ventricle is mildly dilated with moderately reduced systolic function. There is mild eccentric left ventricular hypertrophy. The left ventricular ejection fraction is visually estimated to be 30-35%. 2. The right ventricle is moderately dilated with reduced systolic function. 3. The aortic valve is probably trileaflet with moderate aortic stenosis. There is no aortic regurgitation. 4. There is biatrial enlargement. 5. Dilated inferior vena cava with <50% collapse upon inspiration consistent with significantly elevated right atrial pressure, 15 mmHg. Discussed with Cardiology and they are planning to transfer patient to tertiary facility for he AICD and biventricular pacemaker placement Continue p.o. amiodarone, Lipitor, Plavix, Imdur, metoprolol (2) CHF (congestive heart failure): Code(s): I50.9 - Heart failure, unspecified Status: Acute Assessment and Plan: history of CHF, chest x-ray was clear. currently on room air Fluid removed with dialysis 12/03/2023: Echocardiogram Summary 1. Left ventricular chamber dimension is normal. 2. Left ventricular systolic function is moderately reduced, estimated at 30-35%. 3. There is mildly increased left ventricular wall thickness. 4. Right ventricular chamber dimension is mildly enlarged. 5. Right ventricular systolic function is reduced. 6. Left atrial chamber dimension is mildly enlarged. 7. Right atrial chamber dimension is mildly enlarged. 8. There is mild mitral valve regurgitation. 9. There is moderate tricuspid valve regurgitation. (3) End stage renal disease: Code(s): N18.6 - End stage renal disease Status: Chronic Assessment and Plan: end-stage renal disease on hemodialysis - nephrology following - patient gets his dialysis done on Tuesdays, and Friday. Last dialysis was today on 08/02 - will defer dialysis to Nephrology (4) Generalized weakness: Code(s): R53.1 - Weakness Status: Acute Assessment and Plan: generalized weakness could be multifactorial, could be tachy-jalyn syndrome, could be related to dialysis S the patient states that once he gets dialyzed he feels sleepy and weak Plan DVT prophylaxis: SCDs, Lovenox Stress ulcer prophylaxis: Protonix which is his home med Nutrition: heart healthy diet Code Status: full code Subjective Date/time seen: 08/02/25 Patient underwent hemodialysis today. He continues to be in an junctional rhythm with frequent PVCs. Patient himself states that he does not have any new complaints. He states he feels cold but denies any other complaints. Patient denies fever, chest pain, shortness of breath, cough, nausea vomiting, abdominal pain,, diarrhea, headache or constipation. All other systems were reviewed and were negative Mother vital signs the stable Review of Systems Review of Systems: All systems reviewed & are unremarkable except as noted in HPI and below Exam Narrative: General: pleasant gentleman in no acute distress HEENT:? pupils equal and reactive, sclerae is clear Neck:? supple Respiratory:? clear to auscultation bilaterally, decreased at bases, no wheezing, adequate air entry Cardiac:? S1-S2 is normal, bradycardia Abdomen:? soft, nontender, nondistended, normoactive bowel sound Extremities:? 1+ pitting edema, palpable pedal pulses Neuro:? patient is awake, alert, oriented, nonfocal, able to answer questions appropriately and follows simple commands in all extremities Skin:? no lesions noted Psych:? normal mentation and affect Objective Data Vital Signs Vital Signs: Vital Signs - 24 hr 08/01/25 14:00 08/01/25 14:00 08/01/25 16:00 Temperature 36.7 C Pulse Rate 55 L 98 110 H Respiratory Rate 24 H Blood Pressure 100/53 L Pulse Oximetry 95 Oxygen Delivery Oxygen Flow Rate 08/01/25 16:00 08/01/25 16:00 08/01/25 18:00 Temperature 36.5 C Pulse Rate 54 L 54 L 59 L Respiratory Rate 16 Blood Pressure 106/60 Pulse Oximetry 96 95 Oxygen Delivery Room Air Oxygen Flow Rate 08/01/25 18:54 08/01/25 20:00 08/01/25 20:00 Temperature 36.7 C Pulse Rate 58 L 58 L Respiratory Rate 16 29 H Blood Pressure 105/58 L 106/72 Pulse Oximetry 98 Oxygen Delivery Room Air Oxygen Flow Rate 08/01/25 20:00 08/01/25 20:41 08/01/25 22:00 Temperature Pulse Rate 58 L 59 L 55 L Respiratory Rate Blood Pressure Pulse Oximetry Oxygen Delivery Oxygen Flow Rate 08/02/25 00:00 08/02/25 00:00 08/02/25 00:00 Temperature 36.9 C Pulse Rate 57 L 57 L Respiratory Rate 18 Blood Pressure 91/56 L Pulse Oximetry 98 97 Oxygen Delivery Nasal Cannula Oxygen Flow Rate 2.5 08/02/25 02:00 08/02/25 04:00 08/02/25 04:00 Temperature 36.7 C Pulse Rate 56 L 57 L Respiratory Rate 18 Blood Pressure 115/60 Pulse Oximetry 98 98 Oxygen Delivery Nasal Cannula Oxygen Flow Rate 2.5 08/02/25 04:00 08/02/25 06:00 08/02/25 08:00 Temperature 36.5 C Pulse Rate 57 L 55 L 57 L Respiratory Rate 18 Blood Pressure 113/61 Pulse Oximetry 98 Oxygen Delivery Oxygen Flow Rate 08/02/25 08:37 08/02/25 08:37 08/02/25 09:49 Temperature 36.9 C Pulse Rate 65 65 59 L Respiratory Rate 16 Blood Pressure 113/60 Pulse Oximetry 94 Oxygen Delivery Oxygen Flow Rate 08/02/25 10:02 08/02/25 10:15 08/02/25 10:30 Temperature Pulse Rate 57 L 55 L 55 L Respiratory Rate Blood Pressure 115/62 108/56 L 103/57 L Pulse Oximetry Oxygen Delivery Oxygen Flow Rate 08/02/25 10:45 Temperature Pulse Rate 58 L Respiratory Rate Blood Pressure 102/57 L Pulse Oximetry Oxygen Delivery Oxygen Flow Rate Intake/Output Intake/Output: Intake & Output 07/30/25 07/31/25 08/01/25 08/02/25 23:59 23:59 23:59 23:59 Intake Total 1290 1721.1 600 640 Output Total 1700 0 0 150 Balance -410 1721.1 600 490 Meds/Results Medications: Active Medications Generic Name Dose Route Start Last Admin Trade Name Freq PRN Reason Stop Dose Admin Acetaminophen 650 mg 07/28/25 21:29 07/31/25 17:04 Acetaminophen 325 Mg Tablet PO 650 mg Q4H PRN Administration Mild Pain (1-3) or Fever Amiodarone HCl 400 mg 08/01/25 11:00 08/02/25 08:37 Amiodarone Hcl 200 Mg Tablet PO 400 mg Q12HR DELROY Administration Atorvastatin Calcium 80 mg 07/30/25 09:00 08/02/25 08:37 Atorvastatin 40 Mg Tablet PO 80 mg DAILY DELROY Administration Calcitriol 0.25 mcg 07/30/25 09:00 08/02/25 08:37 Calcitriol 0.25 Mcg Capsule PO 0.25 mcg DAILY DELROY Administration Calcium Carbonate 1,000 mg 07/29/25 12:00 08/02/25 08:38 Calcium Carbonate (Oscal) 500 Mg Tablet PO 1,000 mg TIDWM DELROY Administration Clopidogrel Bisulfate 75 mg 07/30/25 09:00 08/02/25 08:37 Clopidogrel Bisulfate 75 Mg Tablet PO 75 mg DAILY DELROY Administration Epoetin Velasquez-epbx 10,000 units 08/02/25 17:39 08/02/25 11:13 Epoetin Velasquez-Epbx 10,000 Units/Ml Vial IV PUSH 08/02/25 17:40 10,000 units ONCE ONE Administration Albumin Human 50 mls @ 999 mls/hr 07/30/25 00:18 08/02/25 11:52 Albutein IVPB 08/29/25 00:17 999 mls/hr Q10M PRN Administration HYPOTENSION Isosorbide Mononitrate 60 mg 07/30/25 09:00 08/01/25 08:22 Isosorbide Mononitrate 60 Mg Tab.Er.24h PO 60 mg On Hold: 08/01/25 08:30 DAILY DELROY Administration Magnesium Oxide 400 mg 07/31/25 16:20 08/02/25 08:37 Magnesium Oxide 400 Mg Tablet PO 400 mg QAM DELROY Administration Metoprolol Succinate 25 mg 08/02/25 09:00 08/02/25 08:37 Metoprolol Succinate Ext Rel 25 Mg Tabcr BY MOUTH 25 mg DAILY DELROY Administration Multivitamins/Calcium 1 tablet 07/30/25 09:00 08/02/25 08:37 Therapeutic Multivitamins/Minerals Tab (*Bkc) PO 1 tablet DAILY DELROY Administration Pantoprazole Sodium 40 mg 07/30/25 09:00 08/02/25 08:37 Pantoprazole 40 Mg Tablet PO 40 mg QAM DELROY Administration Sodium Bicarbonate 650 mg 07/29/25 17:00 08/02/25 08:38 Sodium Bicarbonate Tab 650 Mg Tablet PO 650 mg BID DELROY Administration Tamsulosin HCl 0.4 mg 07/29/25 21:00 08/01/25 20:41 Tamsulosin Hcl 0.4 Mg Capsule BY MOUTH 0.4 mg HS DELROY Administration Tramadol HCl 25 mg 07/31/25 12:26 07/31/25 15:19 Tramadol Hcl (*Crx) 25 Mg Tablet PO 25 mg Q6H PRN Administration Pain Rated 4-6 Vitamin D 125 mcg 07/30/25 09:00 08/01/25 08:22 Cholecalciferol (Vitamin D3) 125 Mcg (5,000 Units) Tablet PO 125 mcg Q48H DELROY Administration Radiology Results: ITS Impressions Chest X-Ray 07/28/25 18:08 IMPRESSION: Cardiomegaly with mild pulmonary edema suggestive of congestive heart failure. Labs Labs: Laboratory Results - last 24 hr 08/02/25 04:21 WBC 6.3 RBC 2.58 L Hgb 8.5 L Hct 26.7 L MCV 103.5 H MCH 32.9 MCHC 31.8 L RDW 18.2 H Plt Count 79 L MPV 13.1 H Immature Gran % (Auto) 0.6 H Neut % (Auto) 72.0 Lymph % (Auto) 13.1 L [place] % (Auto) 9.8 H Eos % (Auto) 4.0 Baso % (Auto) 0.5 Lymph # (Auto) 0.82 L [place] # (Auto) 0.6 Eos # (Auto) 0.3 Baso # (Auto) 0.0 Abs Immat Gran (auto) 0.04 H Absolute Neuts (auto) 4.5 Absolute Nucleated RBC 0.000 Band Neutrophils % Not Reportable Nucleated RBC % 0.0 Platelet Estimate Decreased % Immature Plt Fraction 9.1 Hypochromasia 1+ Poikilocytosis 2+ Anisocytosis 1+ Ovalocytes 1+ Crenated Cell 1+ Acanthocytes (Spur) 1+ Schistocytes Rare Sodium 130 L Potassium 4.7 Chloride 94 L Carbon Dioxide 28 Anion Gap 8 BUN 45 H D Creatinine 5.81 H Estim Creat Clear Calc 11 Estimated GFR 9 L Glucose 94 Calcium 10.0 Phosphorus 2.9 Magnesium 2.1 Total Bilirubin 0.9 AST 81 H ALT 54 H Alkaline Phosphatase 101 Total Protein 6.0 L Albumin 3.2 L Quality VTE Prophylaxis VTE prophylaxis: mechanical ordered
--- NOTE | 2025-08-02 13:42 | P.PNCA_ITS ---
Progress Note: A&P Assessment and Plan (1) Chronic systolic CHF (congestive heart failure): Code(s): I50.22 - Chronic systolic (congestive) heart failure Status: Acute (2) Hx of CABG: Code(s): Z95.1 - Presence of aortocoronary bypass graft Status: Acute (3) Nonsustained ventricular tachycardia: Code(s): I47.29 - Other ventricular tachycardia Status: Acute (4) Paroxysmal atrial fibrillation: Code(s): I48.0 - Paroxysmal atrial fibrillation Status: Acute Plan 79-year-old man with CAD status post CABG, chronic systolic heart failure (30- 35%), ESRD with recent HD initiation, and hyperlipidemia was brought in due to weakness after initiating HD recently Nonsustained ventricular tachycardia, now occurring more frequently -continue amiodarone 400 mg p.o. b.i.d. -Continue ToprolXL 25mg daily -ensure K > 4 and Mg > 2 -Unable to titrate antiarrhythmics because of bradycardia -He has been accepted to [facility] by EP (Dr. Silva) for possible BiV ICD and/or other therapies for his arrhythmias. Bradycardia -Has developed what appears to be junctional bradycardia -As above Chronic systolic heart failure -GDMT limited because of his renal failure -Continue ToprolXL -consider SGLT2i -Imdur on hold because of hypotension CAD status post CABG -continue Plavix 75 mg p.o. daily and atorvastatin 80 mg evening Continue with physical therapy and rehab. Subjective Date/time seen: 08/02/25 13:42 Interval history: Denies any chest pain. No further sustained arrhythmia since initiating amiodarone Date of service 08/02/2025: The patient has been experiencing frequent ventricular ectopy and now has developed bradycardia. He does feel occasional palpitations. No chest pain, shortness of breath. Review of Systems Review of Systems: All systems reviewed & are unremarkable except as noted in HPI and below Cardiovascular: Cardiovascular: Reports as per HPI Respiratory: Respiratory: Reports as per HPI Exam Const: General: comfortable HENMT: Mouth: Yes moist mucous membranes Eyes: EOM: EOMs intact bilaterally Neck: Neck: no JVD Resp: Effort & Inspection: normal respiratory effort Auscultation: clear to auscultation bilaterally Cardio: Rate: regular rate Rhythm: abnormal rhythm irregularly irregular and with ectopic beats Neuro: General: patient oriented x3 Extrem: General: no pedal edema Psych: Appearance: grossly normal Objective Data Vital Signs Vital Signs: Vital Signs - 24 hr 08/01/25 14:00 08/01/25 14:00 08/01/25 16:00 Temperature 36.7 C Pulse Rate 55 L 98 110 H Respiratory Rate 24 H Blood Pressure 100/53 L Pulse Oximetry 95 Oxygen Delivery Oxygen Flow Rate 08/01/25 16:00 08/01/25 16:00 08/01/25 18:00 Temperature 36.5 C Pulse Rate 54 L 54 L 59 L Respiratory Rate 16 Blood Pressure 106/60 Pulse Oximetry 96 95 Oxygen Delivery Room Air Oxygen Flow Rate 08/01/25 18:54 08/01/25 20:00 08/01/25 20:00 Temperature 36.7 C Pulse Rate 58 L 58 L Respiratory Rate 16 29 H Blood Pressure 105/58 L 106/72 Pulse Oximetry 98 Oxygen Delivery Room Air Oxygen Flow Rate 08/01/25 20:00 08/01/25 20:41 08/01/25 22:00 Temperature Pulse Rate 58 L 59 L 55 L Respiratory Rate Blood Pressure Pulse Oximetry Oxygen Delivery Oxygen Flow Rate 08/02/25 00:00 08/02/25 00:00 08/02/25 00:00 Temperature 36.9 C Pulse Rate 57 L 57 L Respiratory Rate 18 Blood Pressure 91/56 L Pulse Oximetry 98 97 Oxygen Delivery Nasal Cannula Oxygen Flow Rate 2.5 08/02/25 02:00 08/02/25 04:00 08/02/25 04:00 Temperature 36.7 C Pulse Rate 56 L 57 L Respiratory Rate 18 Blood Pressure 115/60 Pulse Oximetry 98 98 Oxygen Delivery Nasal Cannula Oxygen Flow Rate 2.5 08/02/25 04:00 08/02/25 06:00 08/02/25 08:00 Temperature 36.5 C Pulse Rate 57 L 55 L 57 L Respiratory Rate 18 Blood Pressure 113/61 Pulse Oximetry 98 Oxygen Delivery Oxygen Flow Rate 08/02/25 08:37 08/02/25 08:37 08/02/25 09:49 Temperature 36.9 C Pulse Rate 65 65 59 L Respiratory Rate 16 Blood Pressure 113/60 Pulse Oximetry 94 Oxygen Delivery Oxygen Flow Rate 08/02/25 10:02 08/02/25 10:15 08/02/25 10:30 Temperature Pulse Rate 57 L 55 L 55 L Respiratory Rate Blood Pressure 115/62 108/56 L 103/57 L Pulse Oximetry Oxygen Delivery Oxygen Flow Rate 08/02/25 10:45 Temperature Pulse Rate 58 L Respiratory Rate Blood Pressure 102/57 L Pulse Oximetry Oxygen Delivery Oxygen Flow Rate Intake/Output Intake/Output: Intake & Output 07/30/25 07/31/25 08/01/25 08/02/25 23:59 23:59 23:59 23:59 Intake Total 1290 1721.1 600 690 Output Total 1700 0 0 150 Balance -410 1721.1 600 540 Meds/Results Medications: Active Medications Generic Name Dose Route Start Last Admin Trade Name Freq PRN Reason Stop Dose Admin Acetaminophen 650 mg 07/28/25 21:29 07/31/25 17:04 Acetaminophen 325 Mg Tablet PO 650 mg Q4H PRN Administration Mild Pain (1-3) or Fever Amiodarone HCl 400 mg 08/01/25 11:00 08/02/25 08:37 Amiodarone Hcl 200 Mg Tablet PO 400 mg Q12HR DELROY Administration Atorvastatin Calcium 80 mg 07/30/25 09:00 08/02/25 08:37 Atorvastatin 40 Mg Tablet PO 80 mg DAILY DELROY Administration Calcitriol 0.25 mcg 07/30/25 09:00 08/02/25 08:37 Calcitriol 0.25 Mcg Capsule PO 0.25 mcg DAILY DELROY Administration Calcium Carbonate 1,000 mg 07/29/25 12:00 08/02/25 08:38 Calcium Carbonate (Oscal) 500 Mg Tablet PO 1,000 mg TIDWM DELROY Administration Clopidogrel Bisulfate 75 mg 07/30/25 09:00 08/02/25 08:37 Clopidogrel Bisulfate 75 Mg Tablet PO 75 mg DAILY DELROY Administration Epoetin Velasquez-epbx 10,000 units 08/02/25 17:39 08/02/25 11:13 Epoetin Velasquez-Epbx 10,000 Units/Ml Vial IV PUSH 08/02/25 17:40 10,000 units ONCE ONE Administration Albumin Human 50 mls @ 999 mls/hr 07/30/25 00:18 08/02/25 13:20 Albutein IVPB 08/29/25 00:17 Infused Q10M PRN Infusion HYPOTENSION Isosorbide Mononitrate 60 mg 07/30/25 09:00 08/01/25 08:22 Isosorbide Mononitrate 60 Mg Tab.Er.24h PO 60 mg On Hold: 08/01/25 08:30 DAILY DELROY Administration Magnesium Oxide 400 mg 07/31/25 16:20 08/02/25 08:37 Magnesium Oxide 400 Mg Tablet PO 400 mg QAM DELROY Administration Metoprolol Succinate 25 mg 08/02/25 09:00 08/02/25 08:37 Metoprolol Succinate Ext Rel 25 Mg Tabcr BY MOUTH 25 mg DAILY DELROY Administration Multivitamins/Calcium 1 tablet 07/30/25 09:00 08/02/25 08:37 Therapeutic Multivitamins/Minerals Tab (*Bkc) PO 1 tablet DAILY DELROY Administration Pantoprazole Sodium 40 mg 07/30/25 09:00 08/02/25 08:37 Pantoprazole 40 Mg Tablet PO 40 mg QAM DELROY Administration Sodium Bicarbonate 650 mg 07/29/25 17:00 08/02/25 08:38 Sodium Bicarbonate Tab 650 Mg Tablet PO 650 mg BID DELROY Administration Tamsulosin HCl 0.4 mg 07/29/25 21:00 08/01/25 20:41 Tamsulosin Hcl 0.4 Mg Capsule BY MOUTH 0.4 mg HS DELROY Administration Tramadol HCl 25 mg 07/31/25 12:26 07/31/25 15:19 Tramadol Hcl (*Crx) 25 Mg Tablet PO 25 mg Q6H PRN Administration Pain Rated 4-6 Vitamin D 125 mcg 07/30/25 09:00 08/01/25 08:22 Cholecalciferol (Vitamin D3) 125 Mcg (5,000 Units) Tablet PO 125 mcg Q48H DELROY Administration Radiology Results: ITS Impressions Chest X-Ray 07/28/25 18:08 IMPRESSION: Cardiomegaly with mild pulmonary edema suggestive of congestive heart failure. Labs Labs: Laboratory Results - last 24 hr 08/02/25 04:21 WBC 6.3 RBC 2.58 L Hgb 8.5 L Hct 26.7 L MCV 103.5 H MCH 32.9 MCHC 31.8 L RDW 18.2 H Plt Count 79 L MPV 13.1 H Immature Gran % (Auto) 0.6 H Neut % (Auto) 72.0 Lymph % (Auto) 13.[address] [place] % (Auto) 9.8 H Eos % (Auto) 4.0 Baso % (Auto) 0.5 Lymph # (Auto) 0.[address] [place] # (Auto) 0.6 Eos # (Auto) 0.3 Baso # (Auto) 0.0 Abs Immat Gran (auto) 0.04 H Absolute Neuts (auto) 4.5 Absolute Nucleated RBC 0.000 Band Neutrophils % Not Reportable Nucleated RBC % 0.0 Platelet Estimate Decreased % Immature Plt Fraction 9.1 Hypochromasia 1+ Poikilocytosis 2+ Anisocytosis 1+ Ovalocytes 1+ Crenated Cell 1+ Acanthocytes (Spur) 1+ Schistocytes Rare Sodium 130 L Potassium 4.7 Chloride 94 L Carbon Dioxide 28 Anion Gap 8 BUN 45 H D Creatinine 5.81 H Estim Creat Clear Calc 11 Estimated GFR 9 L Glucose 94 Calcium 10.0 Phosphorus 2.9 Magnesium 2.1 Total Bilirubin 0.9 AST 81 H ALT 54 H Alkaline Phosphatase 101 Total Protein 6.0 L Albumin 3.2 L Quality VTE Prophylaxis VTE prophylaxis: mechanical ordered
[2025-08-02] MEDS: ENOXAPARIN 30 MG/0.3 ML SYRINGE SUB-Q (17:31)
[2025-08-02] MEDS: TAMSULOSIN HCL 0.4 MG CAPSULE BY MOUTH (21:50)
[2025-08-02] MEDS: traMADol HCL (*CRX) 25 MG TABLET PO (23:06)
[2025-08-03] VITALS (16 sets, daily range): BP systolic 102–123; BP diastolic 49–72; PULSE 55–77; RESP 15–27; TEMP 36.5–37.3; O2SAT 93–100
--- NOTE | 2025-08-03 02:03 | PC.NURSE ---
0158- Spoke to Amber at [facility] transfer center. Update on condition and vitals given. No beds available at this time. Patient remains on the wait list.
[2025-08-03] MEDS: ACETAMINOPHEN 325 MG TABLET 650 MG PO (03:28)
[2025-08-03 04:58] LABS: Hematocrit 27.6 % (42.0-52.0); Hemoglobin 8.8 g/dL (14.0-18.0); Immature Platelet Fraction Pct 8.8 % (0.9-11.2); Mean Corpuscular HGB Conc 31.9 g/dl (32-36); Mean Corpuscular Hemoglobin 33.5 pg (26-34); Mean Corpuscular Volume 104.9 fl (80-100); Platelet Count Result 73 k/mm3 (150-375); Red Blood Count 2.63 M/mm3 (4.6-6.20); White Blood Count 6.8 K/mm3 (4.5-10.0)
[2025-08-03 05:08] LABS: Albumin Level 3.4 g/dL (3.5-5.1); Anion Gap 6 mmol/L (4-12); Blood Urea Nitrogen 31 mg/dL (9-20); Calcium 10.1 mg/dL (8.4-10.2); Carbon Dioxide 27 mmol/L (22-30); Chloride 98 mmol/L (98-107); Estimated CRCL calculation 14 ml/min; Estimated Glomerular Filt Rate 12; Glucose 96 mg/dL (65-110); Magnesium 2.0 mg/dL (1.6-2.3); Potassium 4.2 mmol/L (3.4-5.0); Sodium 131 mmol/L (137-145)
[2025-08-03] MEDS: ATORVASTATIN 40 MG TABLET 80 MG PO (08:47)
[2025-08-03] MEDS: CLOPIDOGREL BISULFATE 75 MG TABLET PO (08:47)
[2025-08-03] MEDS: THERAPEUTIC MULTIVITAMINS/MINERALS TAB (*BKC) 1 TABLET PO (08:47)
[2025-08-03] MEDS: METOPROLOL SUCCINATE EXT REL 25 MG TABCR BY MOUTH (08:47)
[2025-08-03] MEDS: CALCIUM CARBONATE (OSCAL) 500 MG TABLET 1000 MG PO ×3 (08:47→16:07)
[2025-08-03] MEDS: MAGNESIUM OXIDE 400 MG TABLET PO (08:48)
[2025-08-03] MEDS: PANTOPRAZOLE 40 MG TABLET PO (08:48)
[2025-08-03] MEDS: CHOLECALCIFEROL (VITAMIN D3) 125 MCG (5,000 UNITS) TABLET PO (08:48)
[2025-08-03] MEDS: SODIUM BICARBONATE TAB 650 MG TABLET PO ×2 (08:48→16:07)
[2025-08-03] MEDS: ENOXAPARIN 30 MG/0.3 ML SYRINGE SUB-Q (08:48)
--- NOTE | 2025-08-03 08:48 | P.PNIM_ITS ---
Assessment and Plan Assessment and Plan (1) Ventricular tachyarrhythmia: Code(s): I47.20 - Ventricular tachycardia, unspecified Status: Acute Assessment and Plan: 07/31: patient was transferred from intermediate Unit to ICU for 60 seconds of ventricular tachycardia which was asymptomatic. - Patient was started on amiodarone infusion and dropped his heart rates in the 40s and 50s and amiodarone infusion was held. -08/01: This morning patient's heart rate remains in the 50s, amiodarone infusion was discontinued and p.o. 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 He has had nonsustained V-tach and SVTs as outpatient as mentioned and Cardiology notes Echocardiogram Summary 1. The left ventricle is mildly dilated with moderately reduced systolic function. There is mild eccentric left ventricular hypertrophy. The left ventricular ejection fraction is visually estimated to be 30-35%. 2. The right ventricle is moderately dilated with reduced systolic function. 3. The aortic valve is probably trileaflet with moderate aortic stenosis. There is no aortic regurgitation. 4. There is biatrial enlargement. 5. Dilated inferior vena cava with <50% collapse upon inspiration consistent with significantly elevated right atrial pressure, 15 mmHg. Discussed with Cardiology and they are planning to transfer patient to tertiary facility for he AICD and biventricular pacemaker placement Continue p.o. amiodarone, Lipitor, Plavix, Imdur, metoprolol Patient has been accepted at [facility] and is awaiting transfer once a bed is available. (2) CHF (congestive heart failure): Code(s): I50.9 - Heart failure, unspecified Status: Acute Assessment and Plan: history of CHF, chest x-ray was clear. currently on room air Fluid removed with dialysis 12/03/2023: Echocardiogram Summary 1. Left ventricular chamber dimension is normal. 2. Left ventricular systolic function is moderately reduced, estimated at 30- 35%. 3. There is mildly increased left ventricular wall thickness. 4. Right ventricular chamber dimension is mildly enlarged. 5. Right ventricular systolic function is reduced. 6. Left atrial chamber dimension is mildly enlarged. 7. Right atrial chamber dimension is mildly enlarged. 8. There is mild mitral valve regurgitation. 9. There is moderate tricuspid valve regurgitation. (3) End stage renal disease: Code(s): N18.6 - End stage renal disease Status: Chronic Assessment and Plan: end-stage renal disease on hemodialysis - nephrology following - patient gets his dialysis done on Tuesdays, and Friday. Last dialysis was today on 08/02 - will defer dialysis to Nephrology (4) Generalized weakness: Code(s): R53.1 - Weakness Status: Acute Assessment and Plan: generalized weakness could be multifactorial, could be tachy-jalyn syndrome, could be related to dialysis S the patient states that once he gets dialyzed he feels sleepy and weak Plan DVT prophylaxis: SCDs, Lovenox Stress ulcer prophylaxis: Protonix which is his home med Nutrition: heart healthy diet Incentive spirometry Code Status: full code Subjective Date/time seen: 08/03/25 Overnight events reviewed. Continues to have junctional rhythm with runs of nonsustained VT is. Denies any complaints except he start of laying in bed and would like to sit up at the edge of the bed. Patient denies fever, chest pain, shortness of breath, cough, nausea vomiting, abdominal pain,, diarrhea, headache or constipation. All other systems were reviewed and were negative otherwise was stable. He is on room air. Tolerating p.o. diet. He has been accepted at [facility] and waiting for transfer. Review of Systems Review of Systems: All systems reviewed & are unremarkable except as noted in HPI and below Exam Narrative: General: pleasant gentleman in no acute distress HEENT:? pupils equal and reactive, sclerae is clear Neck:? supple Respiratory:? clear to auscultation bilaterally, decreased at bases, no wheezing, adequate air entry Cardiac:? S1-S2 is normal, bradycardia Abdomen:? soft, nontender, nondistended, normoactive bowel sound Extremities:? 1+ pitting edema, palpable pedal pulses Neuro:? patient is awake, alert, oriented, nonfocal, able to answer questions appropriately and follows simple commands in all extremities Skin:? no lesions noted Psych:? normal mentation and affect Objective Data Vital Signs Vital Signs: Vital Signs - 24 hr 08/02/25 09:49 08/02/25 10:02 08/02/25 10:15 Temperature 36.9 C Pulse Rate 59 L 57 L 55 L Respiratory Rate 16 Blood Pressure 113/60 115/62 108/56 L Pulse Oximetry 94 Oxygen Delivery Oxygen Flow Rate Fraction of Inspired Oxygen 08/02/25 10:30 08/02/25 10:45 08/02/25 11:00 Temperature Pulse Rate 55 L 58 L 65 Respiratory Rate Blood Pressure 103/57 L 102/57 L 95/47 L Pulse Oximetry Oxygen Delivery Oxygen Flow Rate Fraction of Inspired Oxygen 08/02/25 11:15 08/02/25 11:30 08/02/25 11:34 Temperature Pulse Rate 67 73 Respiratory Rate Blood Pressure 100/49 L 84/66 L 98/78 L Pulse Oximetry Oxygen Delivery Oxygen Flow Rate Fraction of Inspired Oxygen 08/02/25 11:45 08/02/25 12:00 08/02/25 12:00 Temperature Pulse Rate 70 74 56 L Respiratory Rate 16 Blood Pressure 101/57 L 103/81 Pulse Oximetry 93 Oxygen Delivery Room Air Oxygen Flow Rate Fraction of Inspired Oxygen 08/02/25 12:00 08/02/25 12:15 08/02/25 12:30 Temperature Pulse Rate 51 L 70 75 Respiratory Rate Blood Pressure 90/70 L 88/61 L Pulse Oximetry Oxygen Delivery Oxygen Flow Rate Fraction of Inspired Oxygen 08/02/25 12:45 08/02/25 13:00 08/02/25 13:05 Temperature Pulse Rate 60 53 L 85 Respiratory Rate Blood Pressure 156/117 H 108/60 95/62 L Pulse Oximetry Oxygen Delivery Oxygen Flow Rate Fraction of Inspired Oxygen 08/02/25 14:00 08/02/25 14:00 08/02/25 16:00 Temperature 36.6 C 36.4 C Pulse Rate 70 62 55 L Respiratory Rate 25 H 18 Blood Pressure 109/68 96/46 L Pulse Oximetry 97 96 Oxygen Delivery Oxygen Flow Rate Fraction of Inspired Oxygen 08/02/25 16:00 08/02/25 16:00 08/02/25 18:00 Temperature Pulse Rate 58 L 53 L 63 Respiratory Rate 18 Blood Pressure Pulse Oximetry 95 Oxygen Delivery Room Air Oxygen Flow Rate Fraction of Inspired Oxygen 08/02/25 19:47 08/02/25 20:00 08/02/25 20:00 Temperature Pulse Rate 65 58 L Respiratory Rate 20 Blood Pressure Pulse Oximetry 95 95 Oxygen Delivery Nasal Cannula Nasal Cannula Oxygen Flow Rate 1 2 Fraction of Inspired Oxygen 24 08/02/25 20:00 08/02/25 22:00 08/03/25 00:00 Temperature 37.5 C Pulse Rate 59 L 67 Respiratory Rate 23 H Blood Pressure 110/57 L Pulse Oximetry 96 97 Oxygen Delivery Nasal Cannula Oxygen Flow Rate 2 Fraction of Inspired Oxygen 08/03/25 00:00 08/03/25 00:00 08/03/25 02:00 Temperature 37.3 C Pulse Rate 59 L 55 L 56 L Respiratory Rate 19 Blood Pressure 102/49 L Pulse Oximetry 95 Oxygen Delivery Oxygen Flow Rate Fraction of Inspired Oxygen 08/03/25 04:00 08/03/25 04:00 08/03/25 04:00 Temperature 37.2 C Pulse Rate 69 66 Respiratory Rate 19 Blood Pressure 112/62 Pulse Oximetry 97 97 Oxygen Delivery Nasal Cannula Oxygen Flow Rate 2 Fraction of Inspired Oxygen 08/03/25 06:00 08/03/25 08:00 Temperature 36.5 C Pulse Rate 68 67 Respiratory Rate 19 Blood Pressure 114/72 Pulse Oximetry 98 Oxygen Delivery Oxygen Flow Rate Fraction of Inspired Oxygen Intake/Output Intake/Output: Intake & Output 07/31/25 08/01/25 08/02/25 08/03/25 23:59 23:59 23:59 23:59 Intake Total 1721.1 600 810 Output Total 0 0 1150 0 Balance 1721.1 600 -340 0 Meds/Results Medications: Active Medications Generic Name Dose Route Start Last Admin Trade Name Freq PRN Reason Stop Dose Admin Acetaminophen 650 mg 07/28/25 21:29 08/03/25 03:28 Acetaminophen 325 Mg Tablet PO 650 mg Q4H PRN Administration Mild Pain (1-3) or Fever Amiodarone HCl 400 mg 08/01/25 11:00 08/02/25 08:37 Amiodarone Hcl 200 Mg Tablet PO 400 mg On Hold: 08/02/25 20:37 Q12HR DELROY Administration Atorvastatin Calcium 80 mg 07/30/25 09:00 08/02/25 08:37 Atorvastatin 40 Mg Tablet PO 80 mg DAILY DELROY Administration Calcitriol 0.25 mcg 07/30/25 09:00 08/02/25 08:37 Calcitriol 0.25 Mcg Capsule PO 0.25 mcg DAILY DELROY Administration Calcium Carbonate 1,000 mg 07/29/25 12:00 08/02/25 17:31 Calcium Carbonate (Oscal) 500 Mg Tablet PO 1,000 mg TIDWM DELROY Administration Clopidogrel Bisulfate 75 mg 07/30/25 09:00 08/02/25 08:37 Clopidogrel Bisulfate 75 Mg Tablet PO 75 mg DAILY DELROY Administration Enoxaparin Sodium 30 mg 08/02/25 13:55 08/02/25 17:31 Enoxaparin 30 Mg/0.3 Ml Syringe SUB-Q 30 mg DAILY DELROY Administration Albumin Human 50 mls @ 999 mls/hr 07/30/25 00:18 08/02/25 13:20 Albutein IVPB 08/29/25 00:17 100 mls/hr Q10M PRN Administration HYPOTENSION Isosorbide Mononitrate 60 mg 07/30/25 09:00 08/01/25 08:22 Isosorbide Mononitrate 60 Mg Tab.Er.24h PO 60 mg On Hold: 08/01/25 08:30 DAILY DELROY Administration Magnesium Oxide 400 mg 07/31/25 16:20 08/02/25 08:37 Magnesium Oxide 400 Mg Tablet PO 400 mg QAM DELROY Administration Metoprolol Succinate 25 mg 08/02/25 09:00 08/02/25 08:37 Metoprolol Succinate Ext Rel 25 Mg Tabcr BY MOUTH 25 mg DAILY DELROY Administration Multivitamins/Calcium 1 tablet 07/30/25 09:00 08/02/25 08:37 Therapeutic Multivitamins/Minerals Tab (*Bkc) PO 1 tablet DAILY DELROY Administration Pantoprazole Sodium 40 mg 07/30/25 09:00 08/02/25 08:37 Pantoprazole 40 Mg Tablet PO 40 mg QAM DELROY Administration Sodium Bicarbonate 650 mg 07/29/25 17:00 08/02/25 17:31 Sodium Bicarbonate Tab 650 Mg Tablet PO 650 mg BID DELROY Administration Tamsulosin HCl 0.4 mg 07/29/25 21:00 08/02/25 21:50 Tamsulosin Hcl 0.4 Mg Capsule BY MOUTH 0.4 mg HS DELROY Administration Tramadol HCl 25 mg 07/31/25 12:26 08/02/25 23:06 Tramadol Hcl (*Crx) 25 Mg Tablet PO 25 mg Q6H PRN Administration Pain Rated 4-6 Vitamin D 125 mcg 07/30/25 09:00 08/01/25 08:22 Cholecalciferol (Vitamin D3) 125 Mcg (5,000 Units) Tablet PO 125 mcg Q48H DELROY Administration Radiology Results: ITS Impressions Chest X-Ray 07/28/25 18:08 IMPRESSION: Cardiomegaly with mild pulmonary edema suggestive of congestive heart failure. Labs Labs: Laboratory Results - last 24 hr 08/03/25 04:48 WBC 6.8 RBC 2.63 L Hgb 8.8 L Hct 27.6 L MCV 104.9 H MCH 33.5 MCHC 31.9 L RDW 18.7 H Plt Count 73 L MPV 11.7 H % Immature Plt Fraction 8.8 Sodium 131 L Potassium 4.2 Chloride 98 Carbon Dioxide 27 Anion Gap 6 BUN 31 H D Creatinine 4.63 H Estim Creat Clear Calc 14 Estimated GFR 12 L Glucose 96 Calcium 10.1 Phosphorus 2.6 Magnesium 2.0 Albumin 3.4 L Quality VTE Prophylaxis VTE prophylaxis: mechanical ordered
--- NOTE | 2025-08-03 12:18 | PM.PNCARD ---
Progress Note: A&P Assessment and Plan (1) Chronic systolic CHF (congestive heart failure): Code(s): I50.22 - Chronic systolic (congestive) heart failure Status: Acute (2) Hx of CABG: Code(s): Z95.1 - Presence of aortocoronary bypass graft Status: Acute (3) Nonsustained ventricular tachycardia: Code(s): I47.29 - Other ventricular tachycardia Status: Acute (4) Paroxysmal atrial fibrillation: Code(s): I48.0 - Paroxysmal atrial fibrillation Status: Acute Plan 79-year-old man with CAD status post CABG, chronic systolic heart failure (30-35%), ESRD with recent HD initiation, and hyperlipidemia was brought in due to weakness after initiating HD recently Nonsustained ventricular tachycardia, now occurring more frequently -amiodarone decreased from 400 mg BID to 200 mg daily as episode of bradycardia with HR in the 30s overnight -Continue ToprolXL 25mg daily -ensure K > 4 and Mg > 2 -Unable to titrate antiarrhythmics because of bradycardia -He has been accepted to [place] by EP (Dr. Silva) for possible BiV ICD and/or other therapies for his arrhythmias. Bradycardia -Has developed what appears to be junctional bradycardia -As above, amiodarone dose decreased Chronic systolic heart failure -GDMT limited because of his renal failure -Continue ToprolXL -consider SGLT2i -Imdur on hold because of hypotension CAD status post CABG -continue Plavix 75 mg p.o. daily and atorvastatin 80 mg evening Continue with physical therapy and rehab. Awaiting transfer to [place] Subjective Date/time seen: 08/03/25 12:18 Interval history: Denies any chest pain. No further sustained arrhythmia since initiating amiodarone Date of service 08/02/2025: The patient has been experiencing frequent ventricular ectopy and now has developed bradycardia. He does feel occasional palpitations. No chest pain, shortness of breath. Date of service 08/03/25: Patient is sitting up on side of bed eating lunch. He denies any chest pain or pressure. No shortntess of breath. Reports occasional palpitations. Review of Systems Review of Systems: All systems reviewed & are unremarkable except as noted in HPI and below Exam Const: General: comfortable and no acute distress Neck: Neck: no JVD Resp: Effort & Inspection: normal respiratory effort Auscultation: clear to auscultation bilaterally Cardio: Rate: regular rate Rhythm: regular rhythm Heart sounds: no gallops, no murmurs and no rubs Skin: General skin exam: normal color Neuro: Speech: normal speech Extrem: General: normal to inspection Psych: Mental Status: mental status grossly normal Objective Data Vital Signs Vital Signs: Vital Signs - 24 hr 08/02/25 12:30 08/02/25 12:45 08/02/25 13:00 Temperature Pulse Rate 75 60 53 L Respiratory Rate Blood Pressure 88/61 L 156/117 H 108/60 Pulse Oximetry Oxygen Delivery Oxygen Flow Rate Fraction of Inspired Oxygen 08/02/25 13:05 08/02/25 14:00 08/02/25 14:00 Temperature 36.6 C Pulse Rate 85 70 62 Respiratory Rate 25 H Blood Pressure 95/62 L 109/68 Pulse Oximetry 97 Oxygen Delivery Oxygen Flow Rate Fraction of Inspired Oxygen 08/02/25 16:00 08/02/25 16:00 08/02/25 16:00 Temperature 36.4 C Pulse Rate 55 L 58 L 53 L Respiratory Rate 18 18 Blood Pressure 96/46 L Pulse Oximetry 96 95 Oxygen Delivery Room Air Oxygen Flow Rate Fraction of Inspired Oxygen 08/02/25 18:00 08/02/25 19:47 08/02/25 20:00 Temperature Pulse Rate 63 65 Respiratory Rate 20 Blood Pressure Pulse Oximetry 95 95 Oxygen Delivery Nasal Cannula Nasal Cannula Oxygen Flow Rate 1 2 Fraction of Inspired Oxygen 24 08/02/25 20:00 08/02/25 20:00 08/02/25 22:00 Temperature 37.5 C Pulse Rate 58 L 59 L 67 Respiratory Rate 23 H Blood Pressure 110/57 L Pulse Oximetry 96 Oxygen Delivery Oxygen Flow Rate Fraction of Inspired Oxygen 08/03/25 00:00 08/03/25 00:00 08/03/25 00:00 Temperature 37.3 C Pulse Rate 59 L 55 L Respiratory Rate 19 Blood Pressure 102/49 L Pulse Oximetry 97 95 Oxygen Delivery Nasal Cannula Oxygen Flow Rate 2 Fraction of Inspired Oxygen 08/03/25 02:00 08/03/25 04:00 08/03/25 04:00 Temperature 37.2 C Pulse Rate 56 L 69 Respiratory Rate 19 Blood Pressure 112/62 Pulse Oximetry 97 97 Oxygen Delivery Nasal Cannula Oxygen Flow Rate 2 Fraction of Inspired Oxygen 08/03/25 04:00 08/03/25 06:00 08/03/25 08:00 Temperature 36.5 C Pulse Rate 66 68 67 Respiratory Rate 19 Blood Pressure 114/72 Pulse Oximetry 98 Oxygen Delivery Oxygen Flow Rate Fraction of Inspired Oxygen 08/03/25 08:47 08/03/25 10:00 08/03/25 10:10 Temperature Pulse Rate 72 60 Respiratory Rate Blood Pressure Pulse Oximetry 100 Oxygen Delivery Nasal Cannula Oxygen Flow Rate 2 Fraction of Inspired Oxygen Intake/Output Intake/Output: Intake & Output 07/31/25 08/01/25 08/02/25 08/03/25 23:59 23:59 23:59 23:59 Intake Total 1721.1 600 810 240 Output Total 0 0 1150 0 Balance 1721.1 600 -340 240 Meds/Results Medications: Active Medications Generic Name Dose Route Start Last Admin Trade Name Freq PRN Reason Stop Dose Admin Acetaminophen 650 mg 07/28/25 21:29 08/03/25 03:28 Acetaminophen 325 Mg Tablet PO 650 mg Q4H PRN Administration Mild Pain (1-3) or Fever Amiodarone HCl 200 mg 08/03/25 12:20 Amiodarone Hcl 200 Mg Tablet PO DAILY@0800 [facility] Atorvastatin Calcium 80 mg 07/30/25 09:00 08/03/25 08:47 Atorvastatin 40 Mg Tablet PO 80 mg DAILY [facility] Administration Calcitriol 0.25 mcg 07/30/25 09:00 08/03/25 08:47 Calcitriol 0.25 Mcg Capsule PO 0.25 mcg DAILY [facility] Administration Calcium Carbonate 1,000 mg 07/29/25 12:00 08/03/25 11:46 Calcium Carbonate (Oscal) 500 Mg Tablet PO 1,000 mg TIDWM [facility] Administration Clopidogrel Bisulfate 75 mg 07/30/25 09:00 08/03/25 08:47 Clopidogrel Bisulfate 75 Mg Tablet PO 75 mg DAILY [facility] Administration Enoxaparin Sodium 30 mg 08/02/25 13:55 08/03/25 08:48 Enoxaparin 30 Mg/0.3 Ml Syringe SUB-Q 30 mg DAILY [facility] Administration Albumin Human 50 mls @ 999 mls/hr 07/30/25 00:18 08/02/25 13:20 Albutein IVPB 08/29/25 00:17 100 mls/hr Q10M PRN Administration HYPOTENSION Isosorbide Mononitrate 60 mg 07/30/25 09:00 08/01/25 08:22 Isosorbide Mononitrate 60 Mg Tab.Er.24h PO 60 mg On Hold: 08/01/25 08:30 DAILY [facility] Administration Magnesium Oxide 400 mg 07/31/25 16:20 08/03/25 08:48 Magnesium Oxide 400 Mg Tablet PO 400 mg QAM [facility] Administration Metoprolol Succinate 25 mg 08/02/25 09:00 08/03/25 08:47 Metoprolol Succinate Ext Rel 25 Mg Tabcr BY MOUTH 25 mg DAILY [facility] Administration Multivitamins/Calcium 1 tablet 07/30/25 09:00 08/03/25 08:47 Therapeutic Multivitamins/Minerals Tab (*Bkc) PO 1 tablet DAILY [facility] Administration Pantoprazole Sodium 40 mg 07/30/25 09:00 08/03/25 08:48 Pantoprazole 40 Mg Tablet PO 40 mg QAM [facility] Administration Sodium Bicarbonate 650 mg 07/29/25 17:00 08/03/25 08:48 Sodium Bicarbonate Tab 650 Mg Tablet PO 650 mg BID [facility] Administration Tamsulosin HCl 0.4 mg 07/29/25 21:00 08/02/25 21:50 Tamsulosin Hcl 0.4 Mg Capsule BY MOUTH 0.4 mg HS [facility] Administration Tramadol HCl 25 mg 07/31/25 12:26 08/02/25 23:06 Tramadol Hcl (*Crx) 25 Mg Tablet PO 25 mg Q6H PRN Administration Pain Rated 4-6 Vitamin D 125 mcg 07/30/25 09:00 08/03/25 08:48 Cholecalciferol (Vitamin D3) 125 Mcg (5,000 Units) Tablet PO 125 mcg Q48H [facility] Administration Radiology Results: ITS Impressions Chest X-Ray 07/28/25 18:08 IMPRESSION: Cardiomegaly with mild pulmonary edema suggestive of congestive heart failure. Labs Labs: Laboratory Results - last 24 hr 08/03/25 04:48 WBC 6.8 RBC 2.63 L Hgb 8.8 L Hct 27.6 L MCV 104.9 H MCH 33.5 MCHC 31.9 L RDW 18.7 H Plt Count 73 L MPV 11.7 H % Immature Plt Fraction 8.8 Sodium 131 L Potassium 4.2 Chloride 98 Carbon Dioxide 27 Anion Gap 6 BUN 31 H D Creatinine 4.63 H Estim Creat Clear Calc 14 Estimated GFR 12 L Glucose 96 Calcium 10.1 Phosphorus 2.6 Magnesium 2.0 Albumin 3.4 L
[2025-08-03] MEDS: AMIODARONE HCL 200 MG TABLET PO (12:36)
--- NOTE | 2025-08-03 12:45 | P.PNNP_ITS ---
Progress Note: A&P Assessment and Plan (1) End stage renal disease: Code(s): N18.6 - End stage renal disease Status: Chronic Assessment and Plan: * HD tomorrow * continue outpatient schedule of //Friday * due to hypertension, vascular disease, and an element of cardiorenal syndrome * follow electrolytes, volume status, and electrolytes (2) Ventricular tachyarrhythmia: Code(s): I47.20 - Ventricular tachycardia, unspecified Status: Acute Assessment and Plan: * reported 60 second run of this but was asymptomatic * Cardiology following * noted history of intermittent NSVT and SVTs as an outpatient * repeat Echo noted (see #4) * noted plans for [facility] for further intervention/therapies (3) Generalized weakness: Code(s): R53.1 - Weakness Status: Acute Assessment and Plan: * in association with deconditioning * reports that his legs are rubbery on admission * related to ESRD versus chronic heart failure(?) * PT/OT * fall precautions (4) Chronic systolic heart failure: Code(s): I50.22 - Chronic systolic (congestive) heart failure Status: Chronic Assessment and Plan: * follows with [facility] Cardiology * fluid removal with dialysis as tolerated to maintain euvolemia * follow volume status * Echo (08/01) noted: * left ventricular ejection fraction is visually estimated to be 30 - 35% * right ventricle is moderately dilated with reduced systolic function * aortic valve is probably trileaflet with moderate aortic stenosis * no aortic regurgitation * trace pulmonic valve regurgitation * moderate tricuspid regurgitation * continue supportive therapy (5) HTN (hypertension): Qualifiers: Hypertension type: unspecified Qualified Code(s): I10 - Essential (primary) hypertension Code(s): I10 - Essential (primary) hypertension Status: Chronic Assessment and Plan: * reasonable control at this time * follow trend of hemodynamics (6) Anemia: Code(s): D64.9 - Anemia, unspecified Status: Chronic Assessment and Plan: * related to ESRD * Epogen with HD * follow trend of H/H Will continue to follow. L Subjective Date/time seen: 08/03/25 12:45 Interval history: Follow-up for end stage renal disease on hemodialysis. Tolerated dialysis treatment yesterday although fluid removal was limited due to intradialytic hypotension; no apparent distress noted at the time of my visit; noted plans for transfer to [facility] for possible BiV ICD and/or other interventions/therapies for his arrhythmias. Exam 2 Narrative: General: elderly but WD/WN male in NAD Heart: normal S1 and S2; no rub Lungs: decreased at bases Abdomen: soft, nontender, nondistended, positive bowel sounds Extremities: no cyanosis or clubbing; 1+ edema Skin: no rash Objective Data Vital Signs Vital Signs: Vital Signs Temp Pulse Resp BP Pulse Ox O2 Del Method O2 Flow Rate 08/03/25 12:36 72 08/03/25 12:00 97.9 F 62 20 123/65 97 08/03/25 10:10 100 Nasal Cannula 2 08/03/25 10:00 60 08/03/25 08:47 72 08/03/25 08:00 97.7 F 67 19 114/72 98 08/03/25 06:00 68 08/03/25 04:00 66 08/03/25 04:00 99.0 F 69 19 112/62 97 08/03/25 04:00 97 Nasal Cannula 2 08/03/25 02:00 56 L 08/03/25 00:00 99.1 F 55 L 19 102/49 L 95 08/03/25 00:00 59 L 08/03/25 00:00 97 Nasal Cannula 2 Intake/Output Intake/Output: Intake & Output 07/31/25 08/01/25 08/02/25 08/03/25 23:59 23:59 23:59 23:59 Intake Total 1721.1 600 810 730 Output Total 0 0 1150 1 Balance 1721.1 600 -340 729 Meds/Results Medications: Active Medications Generic Name Dose Route Start Last Admin Trade Name Freq PRN Reason Stop Dose Admin Acetaminophen 650 mg 07/28/25 21:29 08/03/25 03:28 Acetaminophen 325 Mg Tablet PO 650 mg Q4H PRN Administration Mild Pain (1-3) or Fever Amiodarone HCl 200 mg 08/03/25 12:20 08/03/25 12:36 Amiodarone Hcl 200 Mg Tablet PO 200 mg DAILY@0800 [facility] Administration Atorvastatin Calcium 80 mg 07/30/25 09:00 08/03/25 08:47 Atorvastatin 40 Mg Tablet PO 80 mg DAILY [facility] Administration Calcitriol 0.25 mcg 07/30/25 09:00 08/03/25 08:47 Calcitriol 0.25 Mcg Capsule PO 0.25 mcg DAILY [facility] Administration Calcium Carbonate 1,000 mg 07/29/25 12:00 08/03/25 16:07 Calcium Carbonate (Oscal) 500 Mg Tablet PO 1,000 mg TIDWM [facility] Administration Clopidogrel Bisulfate 75 mg 07/30/25 09:00 08/03/25 08:47 Clopidogrel Bisulfate 75 Mg Tablet PO 75 mg DAILY [facility] Administration Docusate Sodium 100 mg 08/03/25 21:00 08/03/25 20:38 Docusate Sodium 100 Mg Capsule PO 100 mg Q12HR [facility] Administration Enoxaparin Sodium 30 mg 08/02/25 13:55 08/03/25 08:48 Enoxaparin 30 Mg/0.3 Ml Syringe SUB-Q 30 mg DAILY [facility] Administration Albumin Human 50 mls @ 999 mls/hr 07/30/25 00:18 08/02/25 13:20 Albutein IVPB 08/29/25 00:17 100 mls/hr Q10M PRN Administration HYPOTENSION Isosorbide Mononitrate 60 mg 07/30/25 09:00 08/01/25 08:22 Isosorbide Mononitrate 60 Mg Tab.Er.24h PO 60 mg On Hold: 08/01/25 08:30 DAILY [facility] Administration Magnesium Oxide 400 mg 07/31/25 16:20 08/03/25 08:48 Magnesium Oxide 400 Mg Tablet PO 400 mg QAM [facility] Administration Metoprolol Succinate 25 mg 08/02/25 09:00 08/03/25 08:47 Metoprolol Succinate Ext Rel 25 Mg Tabcr BY MOUTH 25 mg DAILY [facility] Administration Multivitamins/Calcium 1 tablet 07/30/25 09:00 08/03/25 08:47 Therapeutic Multivitamins/Minerals Tab (*Bkc) PO 1 tablet DAILY [facility] Administration Pantoprazole Sodium 40 mg 07/30/25 09:00 08/03/25 08:48 Pantoprazole 40 Mg Tablet PO 40 mg QAM [facility] Administration Phenyleph/Shark Oil/[place] Butter 1 supp 08/03/25 19:38 Phenylephrine Hcl/[place] Butter Supp.Rect (*Bkc) RECTAL Q12HR PRN Rectal Pain Sodium Bicarbonate 650 mg 07/29/25 17:00 08/03/25 16:07 Sodium Bicarbonate Tab 650 Mg Tablet PO 650 mg BID [facility] Administration Tamsulosin HCl 0.4 mg 07/29/25 21:00 08/03/25 20:38 Tamsulosin Hcl 0.4 Mg Capsule BY MOUTH 0.4 mg HS [facility] Administration Tramadol HCl 25 mg 07/31/25 12:26 08/03/25 16:07 Tramadol Hcl (*Crx) 25 Mg Tablet PO 25 mg Q6H PRN Administration Pain Rated 4-6 Vitamin D 125 mcg 07/30/25 09:00 08/03/25 08:48 Cholecalciferol (Vitamin D3) 125 Mcg (5,000 Units) Tablet PO 125 mcg Q48H [facility] Administration Radiology Results: ITS Impressions Chest X-Ray 07/28/25 18:08 IMPRESSION: Cardiomegaly with mild pulmonary edema suggestive of congestive heart failure. Labs Labs: Laboratory Tests 08/03/25 04:48 08/03/25 04:48 Calcium 10.1 Phosphorus 2.6 Magnesium 2.0 Albumin 3.4 L
--- NOTE | 2025-08-03 13:46 | PCOTNOTE ---
The patient treatment was not able to be completed per RN patient unable to get out of bed at this time. Will plan to continue treatment per plan of care.
[2025-08-03] MEDS: traMADol HCL (*CRX) 25 MG TABLET PO (16:07)
--- NOTE | 2025-08-03 18:49 | PC.NURSE ---
Report called to REMIGIO Anton at [facility]. [place] going [place] [id number]. Patient aware of transfer and [facility] notified per patient request. [facility] estimates they will arrive here at 0100 to transport patient.
[2025-08-03] MEDS: TAMSULOSIN HCL 0.4 MG CAPSULE BY MOUTH (20:38)
[2025-08-03] MEDS: DOCUSATE SODIUM 100 MG CAPSULE PO (20:38)
[2025-08-04] VITALS: BP 109/59; PULSE 61; PULSE 62; RESP 22; TEMP 36.6; O2SAT 96
--- NOTE | 2025-08-04 01:07 | PC.NURSE ---
New time per [facility] for patient transfer is 0300. Soni at [facility] transfer center updated and Chanelle Charge nurse at [facility] updated.
[2025-08-04 02:00] VITALS: BP 118/61; PULSE 66; RESP 24; O2SAT 96
[2025-08-04 03:20] VITALS: PULSE 57; RESP 14; O2SAT 100
[2025-08-04 04:00] VITALS: BP 106/58; PULSE 60; PULSE 65; RESP 17; O2SAT 98
--- NOTE | 2025-08-04 05:05 | PC.NURSE ---
Updated Soni at [facility] transfer center regarding new patient ETA via [facility]. Also Updated Chanelle Charge Nurse RN at [facility] regarding patient transfer ETA.
[2025-08-04 06:00] VITALS: PULSE 58
--- NOTE | 2025-08-04 06:34 | PC.NURSE ---
Report given to EMS, patient en route to room [id number]. [facility] notified as well as transfer center.
--- NOTE | 2025-09-06 10:43 | PM.TDS ---
Transfer Discharge Sum: Prov Provider Date of admission: 07/29/25 08:01 Primary care physician: Herman Ortiz MD Admitting clinician: Lucy Solitario MD Consults: 07/28/25 Care Coordination Consult Routine Reason for Consult:: Retirement Placement 07/29/25 Consult to Physician Routine Comment: Consulting Provider: Dwight Ibanez Reason for consultation: occasional vtach Has provider been notified: Yes 07/29/25 07:00 Consult to Physician Routine Comment: Consulting Provider: Harrison Tucker health and safety representative/MD group to consult: nephrology, pt of Dr. Sanchez CALLED OFFICE WITH CONSULT INFORMATION Reason for consultation: ESRD on dialysis Has provider been notified: Yes Attending physician on discharge: Edward Yousif Discharging clinician: Edward Yousif Anticipated date of transfer: 08/03/25 Receiving physician/facility: [facility] DS: Admitting Diagnosis Discharge Date 08/04/25 Admitting Diagnosis Ventricular Tachycardia DS: Discharge Diagnosis Discharge Diagnosis (1) Ventricular tachyarrhythmia: Code(s): I47.20 - Ventricular tachycardia, unspecified Status: Acute (2) Nonsustained ventricular tachycardia: Code(s): I47.29 - Other ventricular tachycardia Status: Acute (3) CHF (congestive heart failure): Code(s): I50.9 - Heart failure, unspecified Status: Acute Plan 79-year-old man with CAD status post CABG, chronic systolic heart failure (30-35%), ESRD with recent HD initiation, and hyperlipidemia was brought in due to weakness after initiating HD recently Nonsustained ventricular tachycardia, now occurring more frequently -amiodarone decreased from 400 mg BID to 200 mg daily as episode of bradycardia with HR in the 30s overnight -Continue ToprolXL 25mg daily -ensure K > 4 and Mg > 2 -Unable to titrate antiarrhythmics because of bradycardia -He has been accepted to [place] by EP (Dr. Silva) for possible BiV ICD and/or other therapies for his arrhythmias. Bradycardia -Has developed what appears to be junctional bradycardia -As above, amiodarone dose decreased Chronic systolic heart failure -GDMT limited because of his renal failure -Continue ToprolXL -consider SGLT2i -Imdur on hold because of hypotension CAD status post CABG -continue Plavix 75 mg p.o. daily and atorvastatin 80 mg evening Awaiting transfer to [place] Transfer Discharge Sum: Med Medications Active and Home Medications: Home Medications coenzyme Q10 10 mg capsule (Co Q-10) 450 mg PO DAILY 10/15/19 [History Confirmed 07/28/25] isosorbide mononitrate 60 mg tablet,extended release 24 hr 60 mg PO DAILY 10/15/19 [History Confirmed 07/28/25] [id number] acid 400 mcg-vit K 20 mcg-lycop 300 mcg tablet (Men's Multivitamin) 1 tablet PO DAILY 10/15/19 [History Confirmed 07/28/25] clopidogrel 75 mg tablet 75 mg PO DAILY 09/25/22 [History Confirmed 07/28/25] cholecalciferol (vitamin D3) 125 mcg (5,000 unit) capsule (Dialyvite Vitamin D) 5,000 unit PO .every other day 09/16/23 [History Confirmed 07/28/25] tamsulosin 0.4 mg capsule See Rx Instructions .Route .COMPLEX #90 caps 08/02/24 [Rx Confirmed 07/28/25] metoprolol succinate 50 mg tablet,extended release 24 hr See Rx Instructions .Route .COMPLEX #180 tabs 12/15/24 [Rx Confirmed 07/28/25] calcium carbonate 1,000 mg tablet 1,250 mg PO TIDWMEAL 01/18/25 [History Confirmed 07/28/25] calcitriol 0.25 mcg capsule 0.25 mcg PO DAILY #90 caps 02/11/25 [Rx Confirmed 07/28/25] atorvastatin 80 mg tablet 80 mg PO DAILY #90 tabs 07/22/25 [Rx Confirmed 07/28/25] sodium bicarbonate 650 mg tablet 650 mg PO BID 07/28/25 [History Confirmed 07/28/25] colchicine 0.6 mg capsule 0.6 mg PO DAILY #6 caps 07/29/25 [Rx] pantoprazole 40 mg tablet,delayed release 40 mg PO QAM #60 tabs 08/02/25 [Rx] Transfer Discharge Sum: Hosp Hospital Course Hospital course: Jose Carballo is a 79 year old male who presented with weakness after starting hemodialysis. He was noted to have recurrent episodes of NSVT despite medication therapy. He was unable to tolerate further medication therapy d/t bradycardia. It was recommended and discussed with his executive manager that he transfer to [place] for further evaluation and management. Patient Condition: Stable Time Spent with Patient Time attestation: Total time spent providing and/or coordinating transfer services: Exam Const: General: comfortable and no acute distress Neck: Neck: supple Resp: Effort & Inspection: normal respiratory effort Auscultation: clear to auscultation bilaterally Cardio: Rate: regular rate Skin: General skin exam: normal color Neuro: Speech: normal speech Psych: Mental Status: mental status grossly normal
== END 2025-08-04 06:37 | disposition other institution (70) | DRG 308 ==
LOC: ANHED 18:24 → ANHIMU 21:50 → ANHICU 07-31 21:56
PROVIDERS: Family Medicine; Internal Medicine; Internal Medicine Nephrology; Admitting Provider General Practice; Emergency Provider Emergency Medicine; PCP Family Medicine Adolescent Medicine; Visit Provider General Practice
DX: I49.5 Sick sinus syndrome (principal); N18.6 End stage renal disease; I13.2 Hypertensive heart and chronic kidney disease with heart failure and with stage 5 chronic kidney disease, or end stage renal disease; I50.22 Chronic systolic (congestive) heart failure; I47.29 Other ventricular tachycardia; I48.0 Paroxysmal atrial fibrillation; R00.1 Bradycardia, unspecified; I25.10 Atherosclerotic heart disease of native coronary artery without angina pectoris; D63.1 Anemia in chronic kidney disease; N40.0 Benign prostatic hyperplasia without lower urinary tract symptoms; Z20.822 Contact with and (suspected) exposure to COVID-19; Z79.02 Long term (current) use of antithrombotics/antiplatelets; Z86.73 Personal history of transient ischemic attack (TIA), and cerebral infarction without residual deficits; Z95.5 Presence of coronary angioplasty implant and graft; Z95.1 Presence of aortocoronary bypass graft; Z99.2 Dependence on renal dialysis
CPT/HCPCS: 36415; 71046; 73110; 80048; 80053; 80069; 82948; 83735; 83880; 84100; 84484; 85025; 85027; 85055; 86706; 87340; 87637; 87641; 93005; 96365; 96366; 97110; 97116; 97162; 97166; 97530; 99285; A9270; C8929; G0257; G0378; J0283; J1644; J1650; J3475; J7030; P9047; Q5105; Q9957